=== PATIENT | male | born 1975 | race American Indian/Alaskan Native ===

== ENCOUNTER 2017-10-03 00:30 | Inpatient (IN) | payer OTHER ==
--- NOTE | 2017-10-03 01:20 | Emergency Department Report ---
HPI - General Time Seen by Provider: 10/03/17 01:00 - HPI HPI: Room 2 The patient is a 42-year-old male presenting with a chief complaint diarrhea, dizziness and chest pain. The patient was recently diagnosis (approximately 45 days ago) with HIV and found to have C4 count of 34. Patient is on antiretrovirals. Patient states for the past 2 days he's had copious diarrhea and dizziness upon standing. Family states the patient's nausea and vomiting whenever he attempts to eat for the past 2 days. Patient complains of soreness/ tightness in his chest has been intermittent and associated with shortness of breath and diaphoresis since yesterday. Patient currently denies chest pain. The patient states he's never had a stress test or cardiac catheterization. Patient admits to cocaine use 4 days ago Location: [See above] Duration: 2 days Quality: Tightness Severity: Currently 0/10 Modifying factors: [see above] Context: [see above] Mode of transportation: [not driving] ED Past Medical Hx - Past Medical History Hx HIV: Yes (CD4 34 (August 2017)) - Surgical History Past Surgical History?: No - Family History Family history: no significant - Social History Substance Use Type: Cocaine ED Review of Systems ROS: Stated complaint: CHEST PAIN Other details as noted in HPI Constitutional: diaphoresis Respiratory: shortness of breath Cardiovascular: chest pain Gastrointestinal: nausea, vomiting, diarrhea Physical Exam - Physical Exam Physical Exam: GENERAL: The patient is well-developed male lying on stretcher not appearing to be in acute distress HEENT: Normocephalic. Atraumatic. Extraocular motions are intact. Patient has moist mucous membranes. NECK: Supple. Trachea midline CHEST/LUNGS: Clear to auscultation. There is no respiratory distress noted. HEART/CARDIOVASCULAR: Regular. There is no tachycardia. There is no gallop rub or murmur. ABDOMEN: Abdomen is soft, nontender. Patient has normal bowel sounds. There is no abdominal distention. SKIN: There is no rash. There is no edema. There is no diaphoresis. NEURO: The patient is awake, alert, and oriented. The patient is cooperative. The patient has normal speech MUSCULOSKELETAL: There is no evidence of acute injury. ED Medical Decision Making - Lab Data Result diagrams: 10/03/17 01:14 10/03/17 01:14 Laboratory Tests 10/03/17 10/03/1718 01:14 01:14 01:14 WBC 7.2 RBC 4.47 Hgb 13.6 Hct 40.2 MCV 90 MCH 31 MCHC 34 RDW 13.8 Plt Count 195 Lymph % (Auto) 17.6 [place] % (Auto) 10.0 H Eos % (Auto) 0.7 Baso % (Auto) 0.6 Lymph # 1.3 [place] # 0.7 Eos # 0.0 Baso # 0.0 Seg Neutrophils % 71.1 H Seg Neutrophils # 5.1 Sodium 129 L Potassium 3.5 L Chloride 94.4 L Carbon Dioxide 18 L Anion Gap 20 BUN 12 Creatinine 1.0 Estimated GFR > 60 BUN/Creatinine Ratio 12 Glucose 99 Calcium 8.3 L Total Bilirubin 0.50 AST 30 ALT 18 Alkaline Phosphatase 40 Total Creatine Kinase 473 H CK-MB (CK-2) < 1.0 CK-MB (CK-2) Rel Index 0.2 Troponin T < 0.010 Total Protein 6.6 Albumin 4.0 Albumin/Globulin Ratio 1.5 Lipase 41 - EKG Data -: EKG Interpreted by Me EKG shows normal: sinus rhythm Rate: normal - EKG Data When compared to previous EKG there are: previous EKG unavailable Interpretation: other (no ischemic changes seen) - Radiology Data Radiology results: image reviewed (chest x-ray) interpreted by me: Chest x-ray- no pneumothorax. Questionable left lower lobe atelectasis - Differential Diagnosis cocaine induced chest pain, ACS, cryptosporidium, dehydration Critical care attestation.: If time is entered above; I have spent that time in minutes in the direct care of this critically ill patient, excluding procedure time. ED Disposition Clinical Impression: Chest pain, Diarrhea, Cocaine use Disposition: DC-09 OP ADMIT IP TO THIS HOSP Is pt being admited?: Yes Does the pt Need Aspirin: Yes Condition: Fair Instructions: Chest Pain (ED) Referrals: FRED GUZMAN MD [Primary Care Provider] - 3-5 Days Time of Disposition: 02:16 (hospitalist paged (Dr. Daily Prather))
[2017-10-03] MEDS ORDERED: ZOFRAN IV ONE (01:21)
[2017-10-03] MEDS ORDERED: NACL 0.9% 1000 ML 1,000 ML IV ONE (01:21)
[2017-10-03 01:27] LABS: Basophils % (Auto) 0.6 % (0.0-1.8); Eosinophils % (Auto) 0.7 % (0.0-4.3); Hematocrit 40.2 % (35.5-45.6); Hemoglobin 13.6 gm/dl (11.8-15.2); Lymphocytes # (Auto) 1.3 K/mm3 (1.2-5.4); Lymphocytes % (Auto) 17.6 % (13.4-35.0); Mean Corpuscular HGB Conc 34 % (32-34); Mean Corpuscular Hemoglobin 31 pg (28-32); Mean Corpuscular Volume 90 fl (84-94); Monocytes # (Auto) 0.7 K/mm3 (0.0-0.8); Platelet Count 195 K/mm3 (140-440); Red Blood Count 4.47 M/mm3 (3.65-5.03); Red Cell Distribution Width 13.8 % (13.2-15.2)
[2017-10-03] MEDS ORDERED: TYLENOL PO ONE (01:45)
[2017-10-03 01:53] LABS: Alanine Aminotransferase 18 units/L (7-56); BUN/Creatinine Ratio 12; Blood Urea Nitrogen 12 mg/dL (9-20); Calcium 8.3 mg/dL (8.4-10.2); Hemolysis Index 3; Lipase 41 units/L (13-60)
[2017-10-03 01:54] LABS: Creatine Kinase MB < 1.0 ng/mL (0.0-4.0)
--- NOTE | 2017-10-03 02:05 | XRay Report ---
FINAL REPORT EXAM: XR CHEST 1V AP HISTORY: chest pain COMPARISON: None available. FINDINGS: Frontal view(s) of the chest obtained. Cardiac silhouette within normal limits. Faint linear opacity left lung base likely reflecting atelectasis. No large consolidation or effusion. No pneumothorax. IMPRESSION: Faint linear opacity left lung base likely reflecting atelectasis.
[2017-10-03] MEDS ORDERED: ASPIRIN PO ONE (02:16)
[2017-10-03] MEDS ORDERED: MORPHINE IV PRN (04:16)
[2017-10-03] MEDS ORDERED: SODIUM CHLORIDE FLUSH SYRINGE 10 ML IV PRN (04:16)
--- NOTE | 2017-10-03 04:21 | History and Physical Report ---
History of Present Illness Date of examination: 10/03/17 History of present illness: 42-year-old male with history of HIV, CD4 count of 34 comes emergency room with complaints of chest pain. Pain is in the epigastric area which he describes as weight on the chest, intermittent in nature lasting for a few minutes, intensity 4/10, no radiation, cannot identify exacerbating over the counter. No shortness of breath, diaphoresis or palpitation. admits to nausea, vomting and diarrhea, multiple episodes, fever and dizziness. Review of systems Constitutional: no weight loss, chills Ears, eyes, nose, mouth and throat: no nasal congestion, no nasal discharge, no sinus pressure, no vision change, no red eye. Neck: No neck pain or rigidity. Cardiovascular: no palpitations Respiratory: No cough, shortness of breath Gastrointestinal: no abdominal pain, hematochezia Genitourinary : no dysuria, frequency , no hematuria Musculoskeletal: no joint swelling or muscle ache Integumentary: no rash, no pruritis Neurological: no parathesias, no numbness, no focal weakness Endocrine: no cold or heat intolerance, no polyuria or polydipsia Hematologic/Lymphatic: no easy bruising, no easy bleeding, no gland swelling Allergic/Immunologic: no urticaria, no angioedema. PAST MEDICAL HISTORY: HIV PAST SURGICAL HISTORY: None SOCIAL HISTORY: Admits to tobacco, alcohol, cocaine use FAMILY HISTORY: Hypertension Medications and Allergies Allergies Allergy/AdvReac Type Severity Reaction Status Date / Time No Known Allergies Allergy Verified 10/03/17 04:21 Exam - Physical Exam Narrative exam: Gen. appearance: Patient lying in bed, no apparent distress HEENT: Normocephalic, atraumatic, pupils equally round and reactive to light, extraocular movement intact, and no sclericterus,. No JVD or thyromegaly or nodule,neck supple, no carotid bruit ,mucous membranes moist, no exudate or erythema Heart: S1, S2, regular rate and rhythm Lungs: Clear to auscultation bilaterally, breathing comfortable Abdomen: Positive bowel sounds, nontender, nondistended, no organomegaly Extremity: No edema, cyanosis, clubbing Skin: No rash, nodules, warm, dry Neuro: Oriented 3, cranial nerves II-12 intact, speech is fluent, motor and sensory intact - Constitutional Vitals: Temp Pulse Resp BP Pulse Ox 102.3 F H 83 18 112/71 97 10/03/17 01:27 10/03/17 01:27 10/03/17 01:27 10/03/17 01:27 10/03/17 01:27 Results - Labs CBC & Chem 7: 10/03/17 01:14 10/03/17 01:14 Labs: Abnormal lab results 10/03/17 10/03/17 10/03/17 Range/Units 01:14 01:14 01:14 [place] % (Auto) 10.0 H (0.0-7.3) % Seg Neutrophils % 71.1 H (40.0-70.0) % Sodium 129 L (137-145) mmol/L Potassium 3.5 L (3.6-5.0) mmol/L Chloride 94.4 L (98-107) mmol/L Carbon Dioxide 18 L (22-30) mmol/L Calcium 8.3 L (8.4-10.2) mg/dL Total Creatine Kinase 473 H (55-170) units/L - Imaging and Cardiology EKG: image reviewed Chest x-ray: image reviewed Assessment and Plan Assessment Chest pain, rule out ACS Nausea vomiting diarrhea, rule out HIV related infection Substance Abuse AIDS Plan Admit to medicine Check cardiac enzymes, stress test Check stool studies, start IV morphine, IV fluid DVT prophalaxis
[2017-10-03 05:00] LABS: Creatine Kinase MB < 1.0 ng/mL (0.0-4.0)
[2017-10-03 08:52] LABS: Bilirubin,Urine NEG (Negative); Blood,Urine NEG (Negative); Color,Urine Yellow (Yellow); Mucus,Urine FEW /HPF
[2017-10-03] MEDS ORDERED: LEXISCAN IV ONE (09:58)
--- NOTE | 2017-10-03 09:59 | Event Note ---
Date: 10/03/17 Atypical with neg. stress thallium Nausea vomiting diarrhea, rule out HIV related infection Substance Abuse AIDS Plan Check cardiac enzymes, stress test Check stool studies, start IV morphine, IV fluid DVT prophalaxis
[2017-10-03] MEDS ORDERED: LOVENOX SUB-Q SCH (10:00)
[2017-10-03] MEDS: SODIUM CHLORIDE FLUSH SYRINGE 10 ML IV SCH (11:22)
[2017-10-03] MEDS: LOVENOX SUB-Q SCH (11:34)
[2017-10-03] MEDS: TYLENOL PO PRN (11:34)
--- NOTE | 2017-10-03 14:54 | Treadmill Report ---
NUCLEAR PERFUSION SCAN. PROTOCOL: The patient was brought to the stress lab in a post-absorptive state, given 10 mCi of technetium at rest. The patient underwent rest imaging. The patient underwent Lexiscan stress test per standard protocol. At peak stress, the patient 26 mCi of technetium shortly after stress imaging. Technically somewhat difficult study due to GI artifact. Grossly, there is no evidence of a significant fixed or reversible perfusion defects suggestive of prior infarction or ischemia. Inferior wall was partially obscured by GI artifact. Gated wall motion reveals normal systolic thickening, calculated ejection fraction of 72%. No TID. CONCLUSIONS: 1. Technically difficult study, but probably normal without evidence of significant degree of ischemia or prior infarction. 2. Normal left ventricular systolic performance without evidence of stress-induced segmental wall motion abnormalities or transient ischemic dilation. JOB# [id number] GINNY/LUCRETIA
--- NOTE | 2017-10-03 16:58 | Progress Note ---
Assessment and Plan Atypical with neg. stress thallium Nausea vomiting diarrhea, rule out HIV related infection Hyponatremia Substance Abuse AIDS Plan NS infusion Check cardiac enzymes, stress test - negative Check stool studies, start IV morphine, IV fluid check am lab DVT prophalaxis disposition: Improve Na level and D/c home likely tomorrow Subjective Date of service: 10/03/17 Principal diagnosis: chest pain, diarrhea Interval history: no more chest pain. diarrhea resolving Objective - Constitutional Vitals: Vital Signs - 12hr 10/03/17 10/03/17 10/03/17 05:00 05:16 05:30 Temperature Pulse Rate 68 60 63 Respiratory 18 16 18 Rate Blood Pressure 100/65 100/65 97/64 Blood Pressure [Left] O2 Sat by Pulse 99 100 100 Oximetry 10/03/17 10/03/17 10/03/17 05:45 06:00 06:16 Temperature Pulse Rate 62 62 59 L Respiratory 19 19 16 Rate Blood Pressure 97/64 89/61 89/61 Blood Pressure [Left] O2 Sat by Pulse 100 100 100 Oximetry 10/03/17 10/03/17 10/03/17 06:30 07:16 10:01 Temperature Pulse Rate 62 66 87 Respiratory 19 15 Rate Blood Pressure 95/63 121/69 Blood Pressure 104/61 [Left] O2 Sat by Pulse 100 100 Oximetry 10/03/17 10/03/17 10/03/17 10:08 10:09 10:10 Temperature Pulse Rate 109 H 111 H 107 H Respiratory Rate Blood Pressure 121/69 117/73 120/77 Blood Pressure [Left] O2 Sat by Pulse Oximetry 10/03/17 10/03/17 10/03/17 10:11 10:12 10:13 Temperature Pulse Rate 105 H 103 H 102 H Respiratory Rate Blood Pressure 124/73 120/80 139/73 Blood Pressure [Left] O2 Sat by Pulse Oximetry 10/03/17 10/03/17 11:26 13:30 Temperature 100.3 F H Pulse Rate 89 79 Respiratory 24 21 Rate Blood Pressure Blood Pressure 112/64 99/52 [Left] O2 Sat by Pulse 99 98 Oximetry General appearance: Present: no acute distress, well-nourished - EENT Eyes: PERRL, EOM intact - Neck Neck: supple, normal ROM - Respiratory Respiratory effort: normal Respiratory: bilateral: CTA - Cardiovascular Rhythm: regular Heart Sounds: Present: S1 & S2. Absent: gallop, rub Extremities: pulses intact, No edema, normal color, Full ROM - Gastrointestinal General gastrointestinal: Present: soft, non-tender, non-distended, normal bowel sounds - Integumentary Integumentary: clear, warm, dry - Musculoskeletal Musculoskeletal: 1, strength equal bilaterally - Neurologic Neurologic: moves all extremities - Psychiatric Psychiatric: memory intact, appropriate mood/affect, intact judgment & insight - Labs CBC & Chem 7: 10/03/17 01:14 10/03/17 01:14 Labs: Abnormal lab results 10/03/17 10/03/17 10/03/17 Range/Units 01:14 01:14 01:14 [place] % (Auto) 10.0 H (0.0-7.3) % Seg Neutrophils % 71.1 H (40.0-70.0) % D-Dimer (0-234) ng/mlDDU Sodium 129 L (137-145) mmol/L Potassium 3.5 L (3.6-5.0) mmol/L Chloride 94.4 L (98-107) mmol/L Carbon Dioxide 18 L (22-30) mmol/L Calcium 8.3 L (8.4-10.2) mg/dL Total Creatine Kinase 473 H (55-170) units/L 10/03/17 10/03/17 Range/Units 04:26 06:08 [place] % (Auto) (0.0-7.3) % Seg Neutrophils % (40.0-70.0) % D-Dimer 614.10 H (0-234) ng/mlDDU Sodium (137-145) mmol/L Potassium (3.6-5.0) mmol/L Chloride (98-107) mmol/L Carbon Dioxide (22-30) mmol/L Calcium (8.4-10.2) mg/dL Total Creatine Kinase 452 H (55-170) units/L
[2017-10-03] MEDS: NACL 0.9% 1000 ML 1,000 ML IV SCH (18:45)
[2017-10-04] MEDS: SODIUM CHLORIDE FLUSH SYRINGE 10 ML IV SCH ×3 (00:58→22:18)
--- NOTE | 2017-10-04 02:19 | Progress Note ---
Assessment and Plan Assessment and plan: 42-year-old male with history of HIV, CD4 count of 34 pw CP Sepsis/PNA -possible CAP, PCP vs IRIS -continue abx, ID input appreciated Atypical CP with neg. stress thallium ; no further workup elevated D-dimer; cta chest neg for pe diarrhea, rule out HIV related infection; stool studies ordered, empiric rx with flagyl; CT A/P Hyponatremia; continue NS Substance Abuse; denies current abuse, was counseled AIDS, started on HAART at [facility] 3wks prior to admision; continue HAART, ID consulted History Interval history: Had fever of 103 and Review of systems Constitutional: Admits fatigue and malaise CVS: No chest pain, no orthopnea, no dyspnea on exertion, no pedal edema GI: No abdominal pain, admits diarrhea, vomiting now resolved, no constipation Respiratory: reports sob and cough Hospitalist Physical - Physical exam Narrative exam: General.: Appears well, moderate distress, appears ill HEENT: Moist mucous membranes, extraocular muscles intact, no lymphadenopathy Neck: supple Cardiac: S1-S2 heard Lungs: Crackles in right lung Abdomen: soft , nontender, nondistended, bowel sounds positive Extremities: no edema clubbing or cyanosis Skin: no rash or lesions Neurologic: no gross focal deficits Psych: appropriate behavior, appropriate mood, corporative, judgment intact - Constitutional Vitals: Temp Pulse Resp BP Pulse Ox 98.0 F 96 H 18 111/63 92 10/03/17 23:42 10/03/17 23:42 10/03/17 23:42 10/03/17 23:42 10/03/17 23:42 General appearance: Present: no acute distress, well-nourished Results - Labs CBC & Chem 7: 10/09/17 08:26 10/09/17 08:26 Labs: Laboratory Last Values WBC 7.2 K/mm3 (4.5-11.0) 10/03/17 01:14 RBC 4.47 M/mm3 (3.65-5.03) 10/03/17 01:14 Hgb 13.6 gm/dl (11.8-15.2) 10/03/17 01:14 Hct 40.2 % (35.5-45.6) 10/03/17 01:14 MCV 90 fl (84-94) 10/03/17 01:14 MCH 31 pg (28-32) 10/03/17 01:14 MCHC 34 % (32-34) 10/03/17 01:14 RDW 13.8 % (13.2-15.2) 10/03/17 01:14 Plt Count 195 K/mm3 (140-440) 10/03/17 01:14 Lymph % (Auto) 17.6 % (13.4-35.0) 10/03/17 01:14 [place] % (Auto) 10.0 % (0.0-7.3) H 10/03/17 01:14 Eos % (Auto) 0.7 % (0.0-4.3) 10/03/17 01:14 Baso % (Auto) 0.6 % (0.0-1.8) 10/03/17 01:14 Lymph # 1.3 K/mm3 (1.2-5.4) 10/03/17 01:14 [place] # 0.7 K/mm3 (0.0-0.8) 10/03/17 01:14 Eos # 0.0 K/mm3 (0.0-0.4) 10/03/17 01:14 Baso # 0.0 K/mm3 (0.0-0.1) 10/03/17 01:14 Seg Neutrophils % 71.1 % (40.0-70.0) H 10/03/17 01:14 Seg Neutrophils # 5.1 K/mm3 (1.8-7.7) 10/03/17 01:14 D-Dimer 614.10 ng/mlDDU (0-234) H 10/03/17 06:08 Sodium 129 mmol/L (137-145) L 10/03/17 01:14 Potassium 3.5 mmol/L (3.6-5.0) L 10/03/17 01:14 Chloride 94.4 mmol/L (98-107) L 10/03/17 01:14 Carbon Dioxide 18 mmol/L (22-30) L 10/03/17 01:14 Anion Gap 20 mmol/L 10/03/17 01:14 BUN 12 mg/dL (9-20) 10/03/17 01:14 Creatinine 1.0 mg/dL (0.8-1.5) 10/03/17 01:14 Estimated GFR > 60 ml/min 10/03/17 01:14 BUN/Creatinine Ratio 12 % 10/03/17 01:14 Glucose 99 mg/dL (75-100) 10/03/17 01:14 Calcium 8.3 mg/dL (8.4-10.2) L 10/03/17 01:14 Total Bilirubin 0.50 mg/dL (0.1-1.2) 10/03/17 01:14 AST 30 units/L (5-40) 10/03/17 01:14 ALT 18 units/L (7-56) 10/03/17 01:14 Alkaline Phosphatase 40 units/L (35-129) 10/03/17 01:14 Total Creatine Kinase 452 units/L (55-170) H 10/03/17 04:26 CK-MB (CK-2) < 1.0 ng/mL (0.0-4.0) 10/03/17 04:26 CK-MB (CK-2) Rel Index 0.2 (0-4) 10/03/17 04:26 Troponin T < 0.010 ng/mL (0.00-0.029) 10/03/17 07:42 Total Protein 6.6 g/dL (6.3-8.2) 10/03/17 01:14 Albumin 4.0 g/dL (3.9-5) 10/03/17 01:14 Albumin/Globulin Ratio 1.5 % 10/03/17 01:14 Lipase 41 units/L (13-60) 10/03/17 01:14 Urine Color Yellow (Yellow) 10/03/17 Unknown Urine Turbidity Clear (Clear) 10/03/17 Unknown Urine pH 5.0 (5.0-7.0) 10/03/17 Unknown Ur Specific [place] 1.024 (1.003-1.030) 10/03/17 Unknown Urine Protein 30 mg/dl mg/dL (Negative) 10/03/17 Unknown Urine Glucose (UA) Neg mg/dL (Negative) 10/03/17 Unknown Urine Ketones 20 mg/dL (Negative) 10/03/17 Unknown Urine Blood Neg (Negative) 10/03/17 Unknown Urine Nitrite Neg (Negative) 10/03/17 Unknown Urine Bilirubin Neg (Negative) 10/03/17 Unknown Urine Urobilinogen 4.0 mg/dL (<2.0) 10/03/17 Unknown Ur Leukocyte Esterase Neg (Negative) 10/03/17 Unknown Urine WBC (Auto) 1.0 /HPF (0.0-6.0) 10/03/17 Unknown Urine RBC (Auto) 2.0 /HPF (0.0-6.0) 10/03/17 Unknown Urine Mucus Few /HPF 10/03/17 Unknown
--- NOTE | 2017-10-04 05:42 | Cat Scan Report ---
FINAL REPORT PROCEDURE: CT ANGIO CHEST TECHNIQUE: Computerized axial tomographic angiography of the chest and pulmonary arteries was performed after the IV injection of iodinated nonionic contrast. The image data was postprocessed using maximum intensity projection (MIP) and 2-dimensional multiplanar reformatted (MPR) techniques. The examination is specifically tailored to the evaluation of the pulmonary arteries per clinical request. HISTORY: Short of breath 786.09, chest pain 786.50, cp, suspect PE COMPARISON: No prior studies are available for comparison. FINDINGS: Heart and pericardium: Normal. Thoracic aorta: The thoracic aorta is normal in caliber. There is no aneurysm or dissection.. Pulmonary vasculature: Normal. No pulmonary emboli. Lymph nodes: No enlarged thoracic lymph nodes. Lungs: The lungs are well-expanded. There are multifocal bilateral pulmonary infiltrates predominantly in the right lower lung.. Pleural space: There is no pleural effusion or pneumothorax.. Musculoskeletal structures: No significant abnormality. Upper abdominal structures: No significant abnormality. IMPRESSION: There is no pulmonary embolism.. The thoracic aorta is normal in caliber. There is no aneurysm or dissection.. The lungs are well-expanded. There are multifocal bilateral pulmonary infiltrates predominantly in the right lower lung.. There is no pleural effusion or pneumothorax..
[2017-10-04 08:30] LABS: Basophils % (Auto) 0.4 % (0.0-1.8); Eosinophils % (Auto) 0.8 % (0.0-4.3); Hematocrit 37.2 % (35.5-45.6); Hemoglobin 12.8 gm/dl (11.8-15.2); Lymphocytes # (Auto) 1.4 K/mm3 (1.2-5.4); Mean Corpuscular HGB Conc 34 % (32-34); Mean Corpuscular Hemoglobin 31 pg (28-32); Mean Corpuscular Volume 89 fl (84-94); Monocytes # (Auto) 0.7 K/mm3 (0.0-0.8); Monocytes % (Auto) 11.2 % (0.0-7.3); Platelet Count 179 K/mm3 (140-440); Red Blood Count 4.17 M/mm3 (3.65-5.03); Red Cell Distribution Width 13.9 % (13.2-15.2)
[2017-10-04 08:41] LABS: BUN/Creatinine Ratio 9; Blood Urea Nitrogen 8 mg/dL (9-20); Calcium 7.7 mg/dL (8.4-10.2); Hemolysis Index 11
[2017-10-04] MEDS: TYLENOL PO PRN ×2 (09:03→19:54)
[2017-10-04] MEDS ORDERED: ROCEPHIN/NS 1 GM/50 ML 1 GM/50 ML BAG IV SCH ×2 (11:00→19:00)
[2017-10-04] MEDS ORDERED: IMODIUM PO PRN (11:04)
[2017-10-04] MEDS: LOVENOX SUB-Q SCH (11:24)
[2017-10-04] MEDS: ZITHROMAX 500 MG in NACL 0.9% 250ML 250 ML IV SCH (11:56)
--- NOTE | 2017-10-04 14:10 | XRay Report ---
CHEST 2 VIEWS INDICATION: Fever. COMPARISON: Yesterday. FINDINGS: Frontal and lateral chest radiographs now suggest mild bibasilar haziness, possibly atelectasis or subtle effusions. Mild fluid/thickening along the fissures also noted. No cephalization however. Normal cardiomediastinal silhouette. Unremarkable bones. CONCLUSION: Slight congestion possibly developing, as described. Please correlate. Thank you for the opportunity to participate in this patient's care.
[2017-10-04] MEDS: FLAGYL 500 MG/100 ML 500 MG/100 ML BAG IV SCH ×2 (15:15→21:50)
[2017-10-04] MEDS: NACL 0.9% 1000 ML 1,000 ML IV SCH (15:18)
--- NOTE | 2017-10-04 17:43 | Consultation ---
History of Present Illness - Reason for Consult Consult date: 10/04/17 Requesting physician: HECTOR BUENO - History of Present Illness HPI: 42 yo M PMH syphilis, HIV/AIDS diagnosed earlier this year, CD4 34, currently on HAART (truvada and prezcobix), also on bactrim 2 tab po q8h who presented to the ER c/o 2 days h/o of chest pain, fever, chills, N/V/D, abdominal pain. Also c/o chronic cough, SOB. Denies dysuria, MONTOYA. In the ER T 102.3, pulse 87, respiratory rate 17, saturation 95%, blood pressure 110/71. Labs showed WBC 7.2, hemoglobin and hematocrit 13.6 and 40.2, platelets 195. Bun and creatinine were 12 and 1.0. WBC in stool was negative. Stool culture is pending. Blood cultures are no growth to date. CT of the chest on 10/04 showed multifocal bilateral lung infiltrates mostly on the right lower lung. Patient was started on ceftriaxone, azithromycin and Flagyl. Infectious diseases is consulted to help with further antibiotic management. Microbiology BCx 10/03/17 NGTD Stool WBC negative Stool Cx 10/04 pending Antibiotics Ceftriaxone 10/04 Azithromycin 10/04 Flagyl 10/04 Past History Past Medical History: other (HIV/AIDS) Medications and Allergies Allergies Allergy/AdvReac Type Severity Reaction Status Date / Time No Known Allergies Allergy Verified 10/03/17 04:21 Home Medications Medication Instructions Recorded Confirmed Last Taken Type Darunavir/Cobicistat [Prezcobix 1 each PO DAILY 10/03/17 10/03/17 10/02/17 History 800 mg-150 mg Tablet] Emtricitabin/Tenofovir [TRUVADA 1 tab PO QDAY 10/03/17 10/03/17 10/02/17 History 200-300 mg] Fluconazole [Diflucan TAB] 100 mg PO QDAY 10/03/17 10/03/17 10/02/17 History Sulfamethoxazole/Trimethoprim 2 each PO TID 10/03/17 10/03/17 10/02/17 History [Bactrim Ds Tablet] Active Meds: Active Medications Acetaminophen (Tylenol) 650 mg PO Q4H PRN PRN Reason: Pain MILD(1-3)/Fever >100.5/MONTOYA Last Admin: 10/04/17 09:03 Dose: 650 mg Enoxaparin Sodium (Lovenox) 40 mg SUB-Q QDAY@1000 VALENCIA Last Admin: 10/04/17 11:24 Dose: 40 mg Sodium Chloride (Nacl 0.9% 1000 Ml) 1,000 mls @ 125 mls/hr IV DIRECT VALENCIA Last Admin: 10/04/17 15:18 Dose: 125 mls/hr Sodium Chloride (Nacl 0.9% 1000 Ml) 1,000 mls @ 150 mls/hr IV DIRECT VALENCIA Last Admin: 10/03/17 18:45 Dose: 150 mls/hr Azithromycin 500 mg/ Sodium (Chloride) 250 mls @ 250 mls/hr IV Q24HR [facility] Last Admin: 10/04/17 11:56 Dose: 250 mls/hr Ceftriaxone Sodium 1 gm/ (Sodium Chloride) 20 mls @ 2 mls/min IV Q24HR VALENCIA Metronidazole (Flagyl 500 Mg/100 Ml) 500 mg in 100 mls @ 100 mls/hr IV Q8HR [facility] Last Admin: 10/04/17 15:15 Dose: 100 mls/hr Loperamide HCl (Imodium) 2 mg PO Q2H PRN PRN Reason: Diarrhea Last Admin: 10/04/17 12:00 Dose: 2 mg Morphine Sulfate (Morphine) 2 mg IV Q4H PRN PRN Reason: Pain, Moderate (4-6) Ondansetron HCl (Zofran) 4 mg IV Q8H PRN PRN Reason: Nausea And Vomiting Sodium Chloride (Sodium Chloride Flush Syringe 10 Ml) 10 ml IV BID [facility] Last Admin: 10/04/17 15:17 Dose: 10 ml Sodium Chloride (Sodium Chloride Flush Syringe 10 Ml) 10 ml IV PRN PRN PRN Reason: LINE FLUSH Review of Systems Constitutional: other (As per HPI) Physical Examination - Physical Exam Narrative exam: General appearance: Alert in NAD, conversant Eyes: anicteric sclerae, moist conjunctivae; no lid-lag; PERRLA HENT: Atraumatic; oropharynx clear with moist mucous membranes and no mucosal ulcerations/no oral thrush; normal hard and soft palate. Normal external ears. Neck: Trachea midline; supple, no thyromegaly or lymphadenopathy Lungs: CTA, with normal respiratory effort and no intercostal retractions CV: RRR, no murmurs Abdomen: Soft, non-tender; no masses or hepatosplenomegaly Extremities: No peripheral edema or extremity lymphadenopathy Skin: Normal temperature, turgor and texture; no rash, ulcers or subcutaneous nodules Psych: Appropriate affect, alert and oriented to person, place and time. Neuro: alert and oriented x 3. Moving all extremities Lines: No CVL / PICC - Constitutional Vitals: Vital Signs Temp Pulse Resp BP Pulse Ox 100.4 F H 84 20 106/60 93 10/04/17 15:40 10/04/17 15:40 10/04/17 15:40 10/04/17 15:40 10/04/17 15:40 Temperature -Last 24 Hours Temperature 100.4 F Temperature 98.9 F Temperature 102.9 F Temperature 103.3 F Temperature 97.9 F Temperature 98.0 F Temperature 98.3 F Results - Labs CBC & Chem 7: 10/04/17 07:49 10/04/17 07:49 Labs: Abnormal lab results 10/04/17 10/04/17 Range/Units 07:49 07:49 [place] % (Auto) 11.2 H (0.0-7.3) % Sodium 128 L (137-145) mmol/L Chloride 95.9 L (98-107) mmol/L Carbon Dioxide 17 L (22-30) mmol/L BUN 8 L (9-20) mg/dL Calcium 7.7 L (8.4-10.2) mg/dL Assessment and Plan Assessment: 1) Acute fever and Bilateral lung infiltrates in AIDS patient. Could be CAP, PJP although not hypoxic, atypical. Of note pt has been taking bactrim as outpatient in treatment dose, unclear why. 3) Acute N/V/D. r/o C diff. Other opportunistic infections also on the differential: cryptosporidium, cyclospora, isospora, etc. 4) Acute atypical chest pain. Negative stress test 3) HIV/AIDS. CD4 34. On HAART Recommendations -Check C diff -Continue flagyl pending C diff -Will f/u stool cx -Continue Ceftriaxone and azithromycin -Start Bactrim -Check CD4 and HIV-VL. -Check Legionella ag and Pneumococcal ag -Continue HAART (pt taking his home mds) Thank you for your consultation, will follow up with you. Aurea Figueroa MD Infectious Diseases Specialist [facility] ([facility] [phone]
[2017-10-04] MEDS: ZOFRAN IV PRN (19:45)
[2017-10-04] MEDS: cefTRIAXone 1 GM in NACL 0.9% 20 ML IV SCH (19:46)
[2017-10-05] MEDS: NACL 0.9% 1000 ML 1,000 ML IV SCH ×2 (00:56→10:31)
[2017-10-05] MEDS: ZOFRAN IV PRN (05:49)
[2017-10-05] MEDS: TYLENOL PO PRN ×2 (05:49→16:52)
[2017-10-05] MEDS: FLAGYL 500 MG/100 ML 500 MG/100 ML BAG IV SCH ×2 (05:50→16:00)
[2017-10-05] MEDS ORDERED: BACTRIM DS PO SCH ×2 (10:00→14:00)
[2017-10-05] MEDS: cefTRIAXone 1 GM in NACL 0.9% 20 ML IV SCH (10:33)
[2017-10-05] MEDS: LOVENOX SUB-Q SCH (10:33)
[2017-10-05] MEDS: SODIUM CHLORIDE FLUSH SYRINGE 10 ML IV SCH ×2 (10:34→21:36)
[2017-10-05] MEDS: ZITHROMAX 500 MG in NACL 0.9% 250ML 250 ML IV SCH (11:08)
[2017-10-05] MEDS ORDERED: ROCEPHIN/NS 1 GM/50 ML 1 GM/50 ML BAG IV SCH (12:00)
[2017-10-05] MEDS ORDERED: cefTRIAXone 1 GM in NACL 0.9% 20 ML IV SCH (12:00)
--- NOTE | 2017-10-05 13:08 | Progress Note ---
Assessment and Plan Assessment: 1) Acute fever and Bilateral lung infiltrates in AIDS patient. Could be CAP, PJP , atypical. Of note pt has been taking bactrim as outpatient in treatment dose, unclear why. It was prescribed by his regular HIV provider. 3) Acute N/V/D. r/o C diff. Other opportunistic infections also on the differential: cryptosporidium, cyclospora, isospora, etc. With diarrhea, pneumonia and hyponatremia, other possibility is Legionella (on azithromycin). 4) Acute atypical chest pain. Negative stress test 3) HIV/AIDS. CD4 34. On HAART Recommendations -Check C diff -Continue flagyl pending C diff -Will f/u stool cx -Continue azithromycin, bactrim increased to TID, -Stop ceftriaxone -Start cefepime, add vancomycin -Will f/u CD4 and HIV-VL. -Check Legionella ag and Pneumococcal ag, sputum cx. -Continue HAART (pt taking his home mds) -Check LDH. -d/w pt and RN. Aurea Figueroa MD Infectious Diseases Specialist [facility] ([facility]) [phone] Subjective Date of service: 10/05/17 Principal diagnosis: chest pain, diarrhea Interval history: Febrile. c/o cough, SOB, poor appetite. No diarrhea today. Microbiology BCx 10/03/17 NGTD Stool WBC negative Stool Cx 10/04 pending Antibiotics Ceftriaxone 10/04 Azithromycin 6 Flagyl 10/04 Objective - Exam Narrative Exam: General appearance: Alert in NAD, conversant Eyes: anicteric sclerae, moist conjunctivae; no lid-lag; PERRLA HENT: Atraumatic; oropharynx clear with moist mucous membranes and no mucosal ulcerations/no oral thrush; normal hard and soft palate. Normal external ears. Neck: Trachea midline; supple, no thyromegaly or lymphadenopathy Lungs: CTA B CV: S1,S2. Abdomen: Soft, non-tender; no masses or hepatosplenomegaly Extremities: No peripheral edema or extremity lymphadenopathy Skin: Normal temperature, turgor and texture; no rash, ulcers or subcutaneous nodules Psych: Appropriate affect, alert and oriented to person, place and time. Neuro: alert and oriented x 3. Moving all extremities Lines: No CVL / PICC - Constitutional Vitals: Vital Signs Temp Pulse Resp BP Pulse Ox 97.6 F 62 20 116/83 98 04/07/18 07:44 10/05/17 07:44 10/05/17 07:44 10/05/17 07:44 10/05/17 11:31 Temperature -Last 24 Hours Temperature 97.6 F Temperature 98.9 F Temperature 103.0 F Temperature 99.5 F Temperature 103.1 F Temperature 100.4 F - Labs CBC & Chem 7: 10/04/17 07:49 10/04/17 07:49
[2017-10-05] MEDS ORDERED: MAXIPIME/NS 2 GM/100 ML 2 GM/100 ML BAG IV SCH (14:00)
[2017-10-05] MEDS ORDERED: VANCOMYCIN PHARMACY TO DOSE IV SCH (14:00)
[2017-10-05 14:17] LABS: Hematocrit 39.3 % (35.5-45.6); Hemoglobin 13.2 gm/dl (11.8-15.2); Mean Corpuscular HGB Conc 34 % (32-34); Mean Corpuscular Hemoglobin 30 pg (28-32); Mean Corpuscular Volume 90 fl (84-94); Platelet Count 202 K/mm3 (140-440); Red Blood Count 4.37 M/mm3 (3.65-5.03); Red Cell Distribution Width 13.8 % (13.2-15.2)
[2017-10-05 14:47] LABS: BUN/Creatinine Ratio 9; Blood Urea Nitrogen 6 mg/dL (9-20); Calcium 8.1 mg/dL (8.4-10.2); Hemolysis Index 5
[2017-10-05] MEDS: VANCOMYCIN 2,000 MG in NACL 0.9% 500 ML 500 ML IV SCH (14:52)
[2017-10-05] MEDS: MAXIPIME 2 GM in NACL 0.9% 20 ML IV SCH ×2 (14:54→21:29)
[2017-10-05 15:10] LABS: Basophils % (Manual) 0 % (0.0-1.8); Total Cells Counted 100
[2017-10-05 15:11] LABS: Giant Platelets Few; Large Platelets Few; Platelet Estimate Cons
[2017-10-05] MEDS: BACTRIM DS PO SCH ×2 (15:59→21:29)
[2017-10-05] MEDS ORDERED: LOMOTIL PO PRN (18:08)
--- NOTE | 2017-10-05 19:15 | Progress Note ---
Assessment and Plan Assessment and plan: 42-year-old male with history of HIV, CD4 count of 34 pw CP Sepsis/PNA -possible CAP, PCP vs IRIS -continue abx, ID input appreciated Atypical CP with neg. stress thallium ; no further workup elevated D-dimer; cta chest neg for pe diarrhea, rule out HIV related infection; stool studies ordered, empiric rx with flagyl; CT A/P Hyponatremia; continue NS Substance Abuse; denies current abuse, was counseled AIDS, started on HAART at [facility] 3wks prior to admision; continue HAART, ID consulted History Interval history: Had fever of 103 and Review of systems Constitutional: Admits fatigue and malaise CVS: No chest pain, no orthopnea, no dyspnea on exertion, no pedal edema GI: No abdominal pain, admits diarrhea, vomiting now resolved, no constipation Respiratory: reports sob and cough Hospitalist Physical - Physical exam Narrative exam: General.: Appears well, moderate distress, appears ill HEENT: Moist mucous membranes, extraocular muscles intact, no lymphadenopathy Neck: supple Cardiac: S1-S2 heard Lungs: Crackles in right lung Abdomen: soft , nontender, nondistended, bowel sounds positive Extremities: no edema clubbing or cyanosis Skin: no rash or lesions Neurologic: no gross focal deficits Psych: appropriate behavior, appropriate mood, corporative, judgment intact - Constitutional Vitals: Temp Pulse Resp BP Pulse Ox 100.8 F H 93 H 18 123/67 93 10/05/17 18:44 10/05/17 16:43 10/05/17 16:43 10/05/17 16:43 10/05/17 16:43 General appearance: Present: no acute distress, well-nourished Results - Labs CBC & Chem 7: 10/09/17 08:26 10/09/17 08:26 Labs: Laboratory Last Values WBC 5.1 K/mm3 (4.5-11.0) 10/05/17 13:59 RBC 4.37 M/mm3 (3.65-5.03) 10/05/17 13:59 Hgb 13.2 gm/dl (11.8-15.2) 10/05/17 13:59 Hct 39.3 % (35.5-45.6) 10/05/17 13:59 MCV 90 fl (84-94) 10/05/17 13:59 MCH 30 pg (28-32) 10/05/17 13:59 MCHC 34 % (32-34) 10/05/17 13:59 RDW 13.8 % (13.2-15.2) 10/05/17 13:59 Plt Count 202 K/mm3 (140-440) 10/05/17 13:59 Lymph % (Auto) 24.0 % (13.4-35.0) 10/04/17 07:49 [place] % (Auto) 11.2 % (0.0-7.3) H 10/04/17 07:49 Eos % (Auto) 0.8 % (0.0-4.3) 10/04/17 07:49 Baso % (Auto) 0.4 % (0.0-1.8) 10/04/17 07:49 Lymph # 1.4 K/mm3 (1.2-5.4) 10/04/17 07:49 [place] # 0.7 K/mm3 (0.0-0.8) 10/04/17 07:49 Eos # 0.0 K/mm3 (0.0-0.4) 10/04/17 07:49 Baso # 0.0 K/mm3 (0.0-0.1) 10/04/17 07:49 Add Manual Diff Complete 10/05/17 13:59 Total Counted 100 10/05/17 13:59 Seg Neutrophils % 63.6 % (40.0-70.0) 10/04/17 07:49 Seg Neuts % (Manual) 70.0 % (40.0-70.0) 10/05/17 13:59 Band Neutrophils % 0 % 10/05/17 13:59 Lymphocytes % (Manual) 14.0 % (13.4-35.0) 10/05/17 13:59 Reactive Lymphs % (Man) 2.0 % 10/05/17 13:59 Monocytes % (Manual) 11.0 % (0.0-7.3) H 10/05/17 13:59 Eosinophils % (Manual) 3.0 % (0.0-4.3) 10/05/17 13:59 Basophils % (Manual) 0 % (0.0-1.8) 10/05/17 13:59 Metamyelocytes % 0 % 10/05/17 13:59 Myelocytes % 0 % 10/05/17 13:59 Promyelocytes % 0 % 10/05/17 13:59 Blast Cells % 0 % 10/05/17 13:59 Nucleated RBC % Not Reportable 10/05/17 13:59 Seg Neutrophils # 3.8 K/mm3 (1.8-7.7) 10/04/17 07:49 Seg Neutrophils # Man 3.6 K/mm3 (1.8-7.7) 10/05/17 13:59 Band Neutrophils # 0.0 K/mm3 10/05/17 13:59 Lymphocytes # (Manual) 0.7 K/mm3 (1.2-5.4) L 10/05/17 13:59 Abs React Lymphs (Man) 0.1 K/mm3 10/05/17 13:59 Monocytes # (Manual) 0.6 K/mm3 (0.0-0.8) 10/05/17 13:59 Eosinophils # (Manual) 0.2 K/mm3 (0.0-0.4) 10/05/17 13:59 Basophils # (Manual) 0.0 K/mm3 (0.0-0.1) 10/05/17 13:59 Metamyelocytes # 0.0 K/mm3 10/05/17 13:59 Myelocytes # 0.0 K/mm3 10/05/17 13:59 Promyelocytes # 0.0 K/mm3 10/05/17 13:59 Blast Cells # 0.0 K/mm3 10/05/17 13:59 WBC Morphology Not Reportable 10/05/17 13:59 Hypersegmented Neuts Not Reportable 10/05/17 13:59 Hyposegmented Neuts Not Reportable 10/05/17 13:59 Hypogranular Neuts Not Reportable 10/05/17 13:59 Smudge Cells Not Reportable 10/05/17 13:59 Toxic Granulation Not Reportable 10/05/17 13:59 Toxic Vacuolation Not Reportable 10/05/17 13:59 Dohle Bodies Not Reportable 10/05/17 13:59 Pelger-Huet Anomaly Not Reportable 10/05/17 13:59 Zora Rods Not Reportable 10/05/17 13:59 Platelet Estimate Cons 10/05/17 13:59 Clumped Platelets Not Reportable 10/05/17 13:59 Plt Clumps, EDTA Not Reportable 10/05/17 13:59 Large Platelets Few 10/05/17 13:59 Giant Platelets Few 10/05/17 13:59 Platelet Satelliting Not Reportable 10/05/17 13:59 Plt Morphology Comment Not Reportable 10/05/17 13:59 RBC Morphology Not Reportable 10/05/17 13:59 Dimorphic RBCs Not Reportable 10/05/17 13:59 Polychromasia Not Reportable 10/05/17 13:59 Hypochromasia Not Reportable 10/05/17 13:59 Poikilocytosis Not Reportable 10/05/17 13:59 Anisocytosis Not Reportable 10/05/17 13:59 Microcytosis Not Reportable 10/05/17 13:59 Macrocytosis Not Reportable 10/05/17 13:59 Spherocytes Not Reportable 10/05/17 13:59 Pappenheimer Bodies Not Reportable 10/05/17 13:59 Sickle Cells Not Reportable 10/05/17 13:59 Target Cells Not Reportable 10/05/17 13:59 Tear Drop Cells Not Reportable 10/05/17 13:59 Ovalocytes Not Reportable 10/05/17 13:59 Helmet Cells Not Reportable 10/05/17 13:59 Estrada-Newman Bodies Not Reportable 10/05/17 13:59 [place] Rings Not Reportable 10/05/17 13:59 Gibson Cells Not Reportable 10/05/17 13:59 Bite Cells Not Reportable 10/05/17 13:59 Crenated Cell Not Reportable 10/05/17 13:59 Elliptocytes Not Reportable 10/05/17 13:59 Acanthocytes (Spur) Not Reportable 10/05/17 13:59 Rouleaux Not Reportable 10/05/17 13:59 Hemoglobin C Crystals Not Reportable 10/05/17 13:59 Schistocytes Not Reportable 10/05/17 13:59 Malaria parasites Not Reportable 10/05/17 13:59 Glen Bodies Not Reportable 10/05/17 13:59 Hem Pathologist Commnt No 10/05/17 13:59 D-Dimer 614.10 ng/mlDDU (0-234) H 10/03/17 06:08 Sodium 131 mmol/L (137-145) L 10/05/17 13:59 Potassium 3.8 mmol/L (3.6-5.0) 10/05/17 13:59 Chloride 95.7 mmol/L (98-107) L 10/05/17 13:59 Carbon Dioxide 22 mmol/L (22-30) 10/05/17 13:59 Anion Gap 17 mmol/L 10/05/17 13:59 BUN 6 mg/dL (9-20) L 10/05/17 13:59 Creatinine 0.7 mg/dL (0.8-1.5) L 10/05/17 13:59 Estimated GFR > 60 ml/min 10/05/17 13:59 BUN/Creatinine Ratio 9 % 10/05/17 13:59 Glucose 96 mg/dL (75-100) 10/05/17 13:59 Calcium 8.1 mg/dL (8.4-10.2) L 10/05/17 13:59 Total Bilirubin 0.50 mg/dL (0.1-1.2) 10/03/17 01:14 AST 30 units/L (5-40) 10/03/17 01:14 ALT 18 units/L (7-56) 10/03/17 01:14 Alkaline Phosphatase 40 units/L (35-129) 10/03/17 01:14 Lactate Dehydrogenase 464 units/L (91-180) H 10/05/17 13:59 Total Creatine Kinase 452 units/L (55-170) H 10/03/17 04:26 CK-MB (CK-2) < 1.0 ng/mL (0.0-4.0) 10/03/17 04:26 CK-MB (CK-2) Rel Index 0.2 (0-4) 10/03/17 04:26 Troponin T < 0.010 ng/mL (0.00-0.029) 10/03/17 07:42 Total Protein 6.6 g/dL (6.3-8.2) 10/03/17 01:14 Albumin 4.0 g/dL (3.9-5) 10/03/17 01:14 Albumin/Globulin Ratio 1.5 % 10/03/17 01:14 Lipase 41 units/L (13-60) 10/03/17 01:14 Urine Color Yellow (Yellow) 10/03/17 Unknown Urine Turbidity Clear (Clear) 10/03/17 Unknown Urine pH 5.0 (5.0-7.0) 10/03/17 Unknown Ur Specific [place] 1.024 (1.003-1.030) 10/03/17 Unknown Urine Protein 30 mg/dl mg/dL (Negative) 10/03/17 Unknown Urine Glucose (UA) Neg mg/dL (Negative) 10/03/17 Unknown Urine Ketones 20 mg/dL (Negative) 10/03/17 Unknown Urine Blood Neg (Negative) 10/03/17 Unknown Urine Nitrite Neg (Negative) 10/03/17 Unknown Urine Bilirubin Neg (Negative) 10/03/17 Unknown Urine Urobilinogen 4.0 mg/dL (<2.0) 10/03/17 Unknown Ur Leukocyte Esterase Neg (Negative) 10/03/17 Unknown Urine WBC (Auto) 1.0 /HPF (0.0-6.0) 10/03/17 Unknown Urine RBC (Auto) 2.0 /HPF (0.0-6.0) 10/03/17 Unknown Urine Mucus Few /HPF 10/03/17 Unknown C. difficile Toxin A&B Negative (Negative) 10/04/17 11:04
[2017-10-05] MEDS: VANCOMYCIN PO PO SCH ×2 (21:30→23:57)
[2017-10-05] MEDS ORDERED: PROVENTIL IH ONE (22:40)
[2017-10-06] MEDS: TYLENOL PO PRN ×3 (00:05→23:16)
[2017-10-06] MEDS: NACL 0.9% 1000 ML 1,000 ML IV SCH ×3 (00:07→10:52)
[2017-10-06] MEDS: VANCOMYCIN 2,000 MG in NACL 0.9% 500 ML 500 ML IV SCH (01:28)
[2017-10-06] MEDS: MAXIPIME 2 GM in NACL 0.9% 20 ML IV SCH ×3 (05:39→23:15)
[2017-10-06] MEDS: BACTRIM DS PO SCH ×3 (05:40→23:16)
[2017-10-06] MEDS: VANCOMYCIN PO PO SCH ×3 (05:40→17:16)
[2017-10-06] MEDS: PROVENTIL IH SCH ×3 (08:46→20:36)
--- NOTE | 2017-10-06 10:01 | Progress Note ---
Assessment and Plan Assessment: 1) Acute fever and Bilateral lung infiltrates in AIDS patient. Could be CAP, PJP , atypical. Of note pt has been taking bactrim as outpatient in treatment dose, unclear why. It was prescribed by his regular HIV provider. Persistently febrile. -LDH high 3) Acute N/V/D. r/o C diff. Other opportunistic infections also on the differential: cryptosporidium, cyclospora, isospora, etc. With diarrhea, pneumonia and hyponatremia, other possibility is Legionella. - C diff negative. - Stool cx negative. 4) Acute atypical chest pain. Negative stress test. 3) HIV/AIDS. CD4 34 as per report. On HAART. Recommendations -Continue azithromycin, bactrim. -Continue cefepime and vancomycin. -Add levofloxacin. -Check stool for ova and parasites, cryptosporidium, isospora, cyclospora and microsporidia. -Check fungal blood cx and AFB blood cultures. -Check CT A/P to look for other potential sources of fever. -Will f/u CD4 count and HIV-VL. -Check Legionella ag and Pneumococcal ag -Check Sputum cx. -Check quantiferon. -Continue prezcobix and truvada (pt taking his home mds). -Would suggest pulmonary consult. -d/w pt and RN. Aurea Figueroa MD Infectious Diseases Specialist [facility] ([facility]) M [phone] Subjective Date of service: 10/06/17 Principal diagnosis: chest pain, diarrhea Interval history: Remains Febrile. Feels really SOB. Sat 96% on 2 lt NC. Had liquid diarrhea yesterday. Microbiology BCx 10/03/17 NGTD Stool WBC negative Stool Cx 10/04 negative. Antibiotics IV vancomycin 10/05- Cefepime 10/05- Azithromycin /- Bactrim 10/04- HAART (prezcobix and truvada, taking home meds). Prior antibiotics Ceftriaxone 10/04-10/05 Flagyl 10/04-10/05 Objective - Exam Narrative Exam: General appearance: Alert in NAD, conversant Eyes: anicteric sclerae, moist conjunctivae; no lid-lag; PERRLA HENT: Atraumatic; oropharynx clear with moist mucous membranes and no mucosal ulcerations/no oral thrush; normal hard and soft palate. Normal external ears. Neck: Trachea midline; supple, no thyromegaly or lymphadenopathy Lungs: CTA B CV: S1,S2. Abdomen: Soft, non-tender; no masses or hepatosplenomegaly Extremities: No peripheral edema or extremity lymphadenopathy Skin: Normal temperature, turgor and texture; no rash, ulcers or subcutaneous nodules Psych: Appropriate affect, alert and oriented to person, place and time. Neuro: alert and oriented x 3. Moving all extremities Lines: No CVL / PICC - Constitutional Vitals: Vital Signs Temp Pulse Resp BP Pulse Ox 102.8 F H 89 20 128/76 96 10/06/17 08:08 10/06/17 08:08 10/06/17 08:08 10/06/17 08:08 10/06/17 08:08 Temperature -Last 24 Hours Temperature 102.8 F Temperature 99.8 F Temperature 100.2 F Temperature 102.8 F Temperature 99.9 F Temperature 100.8 F Temperature 103.0 F Temperature 98.9 F - Labs CBC & Chem 7: 10/05/17 13:59 10/05/17 13:59 Labs: Abnormal lab results 10/05/17 10/05/17 10/05/17 Range/Units 13:59 13:59 13:59 Monocytes % (Manual) 11.0 H (0.0-7.3) % Lymphocytes # (Manual) 0.7 L (1.2-5.4) K/mm3 Sodium 131 L (137-145) mmol/L Chloride 95.7 L (98-107) mmol/L BUN 6 L (9-20) mg/dL Creatinine 0.7 L (0.8-1.5) mg/dL Calcium 8.1 L (8.4-10.2) mg/dL Lactate Dehydrogenase 464 H (91-180) units/L
[2017-10-06] MEDS ORDERED: NACL ONE (10:30)
[2017-10-06] MEDS: LOVENOX SUB-Q SCH (10:50)
[2017-10-06] MEDS: ZITHROMAX PO SCH (10:50)
[2017-10-06] MEDS: SODIUM CHLORIDE FLUSH SYRINGE 10 ML IV SCH ×2 (10:52→23:16)
--- NOTE | 2017-10-06 11:28 | Cat Scan Report ---
CT ABDOMEN PELVIS WITH CONTRAST: HISTORY: Diarrhea, fever, HIV patient. COMPARISON: none. TECHNIQUE: Helical CT in 1.25mm intervals following IV contrast. Sagittal and coronal reconstructions. FINDINGS: Lung bases: Extensive alveolar infiltrates are identified in the visualized lower lung zones. No pleural effusion or pneumothorax. Normal heart size. Liver: Normal. Biliary system: Normal. Pancreas: Normal. Spleen: Normal. Kidneys/ureters/bladder: Normal. Adrenal glands: Normal. Aorta: Normal. Intestines: The bowel loops are normal caliber and wall thickness but are fluid filled, particularly the distal small bowel loops and colon. This may represent gastroenteritis. Appendix: Not confidently identified. Pelvic viscera: Normal. Ascites: None. Adenopathy: None. Musculoskeletal: Normal. IMPRESSION: Extensive bilateral lower lung infiltrates consistent with bilateral pneumonia or aspiration. Moderate fluid in the distal small bowel loops and colon which could represent gastroenteritis.
[2017-10-06] MEDS: LEVAQUIN 750MG/150ML 750 MG/150 ML BAG IV SCH (11:57)
[2017-10-07] MEDS: VANCOMYCIN PO PO SCH ×4 (00:05→20:04)
[2017-10-07] MEDS: MAXIPIME 2 GM in NACL 0.9% 20 ML IV SCH ×3 (05:59→21:50)
[2017-10-07] MEDS: VANCOMYCIN 1,250 MG in NACL 0.9% 250ML 250 ML IV SCH ×2 (05:59→20:38)
[2017-10-07] MEDS: BACTRIM DS PO SCH ×3 (06:00→21:57)
[2017-10-07] MEDS: PROVENTIL IH SCH ×3 (09:15→20:16)
[2017-10-07] MEDS: ZITHROMAX PO SCH (10:23)
[2017-10-07] MEDS: SODIUM CHLORIDE FLUSH SYRINGE 10 ML IV SCH ×2 (10:24→21:57)
[2017-10-07] MEDS: LOVENOX SUB-Q SCH (10:29)
[2017-10-07 13:57] LABS: Hematocrit 34.7 % (35.5-45.6); Hemoglobin 11.9 gm/dl (11.8-15.2); Mean Corpuscular HGB Conc 34 % (32-34); Mean Corpuscular Hemoglobin 31 pg (28-32); Mean Corpuscular Volume 89 fl (84-94); Platelet Count 256 K/mm3 (140-440); Red Blood Count 3.91 M/mm3 (3.65-5.03)
[2017-10-07 14:24] LABS: Alanine Aminotransferase 14 units/L (7-56); Albumin 3.1 g/dL (3.9-5); BUN/Creatinine Ratio 7; Blood Urea Nitrogen 4 mg/dL (9-20); Calcium 8.2 mg/dL (8.4-10.2); Hemolysis Index 13
--- NOTE | 2017-10-07 16:25 | Progress Note ---
Assessment and Plan Assessment: 1) Acute fever and Bilateral lung infiltrates in AIDS patient. Could be CAP, PJP , atypical. Of note pt has been taking bactrim as outpatient in treatment dose, unclear why. It was prescribed by his regular HIV provider. Persistently febrile. -LDH high 3) Acute N/V/D. r/o C diff. Other opportunistic infections also on the differential: cryptosporidium, cyclospora, isospora, etc. With diarrhea, pneumonia and hyponatremia, other possibility is Legionella. - C diff negative. - Stool cx negative. - Cryptosporidium ag, Giardia ag negative - CT A/P possible gastroenteritis 4) Acute hypoxemic respiratory failure. On venti mask 4) Acute atypical chest pain. Negative stress test. 3) HIV/AIDS. CD4 34 as per pt report. On HAART. Recommendations -Continue azithromycin, bactrim, fluconazole. -Continue cefepime, vancomycin, levofloxacin. -Check stool for ova and parasites, isospora, cyclospora and microsporidia, norovirus, rotavirus -Will f/u fungal blood cx -Check AFB blood cultures. -Will f/u CD4 count and HIV-VL. -Check Legionella ag and Pneumococcal ag -Check quantiferon. -Continue prezcobix and truvada (pt taking his home mds). -Would suggest pulmonary and GI consult. -d/w pt and RN, medicine attending. Aurea Figueroa MD Infectious Diseases Specialist [facility] ([facility]) M [phone] Subjective Date of service: 10/07/17 Principal diagnosis: chest pain, diarrhea Interval history: No fever so far today. Low BP. Placed on Venti mask since this morning due to hypoxemia. Still has diarrhea. Feels really weak. Microbiology Blood cultures 10/03/17 NGTD 10/06 Fungal pending Stool WBC negative Culture 10/04 negative. Giardia ag negative Cryptosporodium ag negative Sputum culture 10/05 rejected Antibiotics Fluconazole 10/07- Levofloxacin 10/06- IV vancomycin 10/05- Cefepime 10/05- Azithromycin 10/04- Bactrim 10/04- HAART (prezcobix and truvada, taking home meds). Prior antibiotics Ceftriaxone 10/04-10/05 Flagyl 10/04-10/05 Objective - Exam Narrative Exam: General appearance: Pt is in NAD, A&Ox3, conversant Eyes: anicteric sclerae, moist conjunctivae; PERRLA HENT: Atraumatic; oropharynx clear with moist mucous membranes and no mucosal ulcerations/no oral thrush; normal hard and soft palate. Normal external ears. Neck: Trachea midline; supple, no thyromegaly or lymphadenopathy Lungs: Decreased BS at bases CV: S1,S2. Abdomen: Soft, non-tender; no masses or hepatosplenomegaly Extremities: No peripheral edema or extremity lymphadenopathy Skin: Normal temperature, turgor and texture; no rash, ulcers or subcutaneous nodules Psych: Appropriate affect, alert and oriented to person, place and time. Neuro: alert and oriented x 3. Moving all extremities Lines: No CVL / PICC - Constitutional Vitals: Vital Signs Temp Pulse Resp BP Pulse Ox 99.6 F 98 H 24 80/37 94 10/07/17 12:00 10/07/17 16:00 10/07/17 16:00 10/07/17 11:58 10/07/17 12:30 Temperature -Last 24 Hours Temperature 99.6 F Temperature 99.1 F Temperature 99.9 F Temperature 102.2 F Temperature 99.0 F - Labs CBC & Chem 7: 10/07/17 13:21 10/07/17 13:21 Labs: Abnormal lab results 10/07/17 10/07/17 Range/Units 13:21 13:21 Hct 34.7 L (35.5-45.6) % Sodium 127 L (137-145) mmol/L Chloride 93.4 L (98-107) mmol/L Carbon Dioxide 20 L (22-30) mmol/L BUN 4 L (9-20) mg/dL Creatinine 0.6 L (0.8-1.5) mg/dL Calcium 8.2 L (8.4-10.2) mg/dL Albumin 3.1 L (3.9-5) g/dL
[2017-10-07] MEDS: DIFLUCAN PO SCH (17:21)
[2017-10-07] MEDS: LEVAQUIN 750MG/150ML 750 MG/150 ML BAG IV SCH (17:24)
[2017-10-07] MEDS: NACL 0.9% 1000 ML 1,000 ML IV SCH (17:27)
[2017-10-07] MEDS: NON-FORMULARY (Emtricitabin/Tenofovir [Truvada 200-300 Mg] 1 TAB) PO SCH (21:49)
[2017-10-07] MEDS: NON-FORMULARY (Darunavir/Cobicistat [Prezcobix 800 Mg-150 Mg Tablet] 1 EACH) PO SCH (21:49)
[2017-10-07] MEDS: TYLENOL PO PRN (21:57)
[2017-10-08] MEDS: VANCOMYCIN PO PO SCH ×5 (01:08→22:50)
--- NOTE | 2017-10-08 02:18 | Consultation ---
INDICATIONS: 1. Loose stool. 2. Diarrhea. HISTORY OF PRESENT ILLNESS: The patient is a 42-year-old black male with history of recently diagnosed HIV, who is now CD4 positive and have been on medication only for a couple of months now, presents with loose stool. The patient reports 3-4 bowel movements per day. He reports this has been ongoing now for the last 4-5 days. He reports no obvious other bowel changes. He denies any rectal bleeding. Denies any recent other diet or medication changes. The patient subsequently was admitted. ID consulted and GI consulted to aid in diarrhea. The patient denies any history of colonoscopy in the past. PAST MEDICAL HISTORY: HIV. MEDICATIONS: See chart. ALLERGIES: No known drug allergies. SOCIAL HISTORY: Reports cocaine, alcohol and tobacco use. FAMILY HISTORY: Negative for colon cancer. REVIEW OF SYSTEMS: GENERAL: Reports mild weakness. HEENT: No visual complaints or tinnitus. PULMONARY: No shortness of breath, coughing or chest pain. GASTROINTESTINAL: Reports loose stool. All points of 13-point review of systems otherwise negative. PHYSICAL EXAMINATION: VITAL SIGNS: Temperature of 99.5, pulse 80, respirations 20, blood pressure 116/62 GENERAL: Fairly nourished male in no acute distress. HEENT: Pupils are equal, round and reactive to light and accommodation. Extraocular muscles are intact. PULMONARY: Clear to auscultation bilaterally. CARDIOVASCULAR: Regular rhythm. Normal S1, S2. ABDOMEN: Positive bowel sounds, soft. SKIN: No obvious rashes. LABORATORY DATA: Pertinent for white count of 6.1, hemoglobin and hematocrit 11.9 and 34.7, platelet count of 256. Chem-7, sodium of 127, potassium 3.6, chloride 94, CO2 of 20, BUN and creatinine of 4 and 0.6. LFTs within normal limits. CT scan of the abdomen and pelvis with contrast showed moderate fluid in the small bowel loops consistent with gastroenteritis. ASSESSMENT AND PLAN: A 42-year-old HIV positive male with CD4 of 34 and recently started on HIV medications, recent months now, presents with main gastrointestinal complaint of some loose stool with 3-4 non-bloody bowel movements per day. He reports no recent medication changes. The patient's C. diff and other stool cultures have been negative to pass. The patient most likely has gastroenteritis. CT scan showed no obvious signs of colitis. Management is noted below. PLAN: 1. We will defer antibiotic management to Infectious Disease team, which is on board. 2. Agree with continued HIV-related medications as well as Levaquin and vancomycin. 3. We will review CT scan. 4. We will consider colonoscopy based on progress. 5. We will follow for now. Referring physician: HECTOR BUENO MD JOB# [id number] [facility]
[2017-10-08] MEDS: BACTRIM DS PO SCH ×2 (05:28→22:50)
[2017-10-08] MEDS: MAXIPIME 2 GM in NACL 0.9% 20 ML IV SCH ×2 (05:28→22:50)
[2017-10-08] MEDS: VANCOMYCIN 1,250 MG in NACL 0.9% 250ML 250 ML IV SCH ×2 (05:29→19:27)
[2017-10-08] MEDS: NACL 0.9% 1000 ML 1,000 ML IV SCH ×2 (05:29→19:40)
[2017-10-08] MEDS: SODIUM CHLORIDE FLUSH SYRINGE 10 ML IV SCH ×2 (09:15→22:50)
[2017-10-08] MEDS: LEVAQUIN 750MG/150ML 750 MG/150 ML BAG IV SCH (09:15)
[2017-10-08] MEDS: NON-FORMULARY (Darunavir/Cobicistat [Prezcobix 800 Mg-150 Mg Tablet] 1 EACH) PO SCH (09:36)
[2017-10-08] MEDS: NON-FORMULARY (Emtricitabin/Tenofovir [Truvada 200-300 Mg] 1 TAB) PO SCH (09:36)
[2017-10-08] MEDS: LOVENOX SUB-Q SCH (09:37)
[2017-10-08] MEDS: DIFLUCAN PO SCH (09:37)
[2017-10-08] MEDS: ZITHROMAX PO SCH (09:38)
--- NOTE | 2017-10-08 10:01 | Progress Note ---
Assessment and Plan Assessment: 1) Acute fever and Bilateral lung infiltrates in AIDS patient. Could be CAP, PJP , atypical. Of note pt has been taking bactrim as outpatient in treatment dose, unclear why. It was prescribed by his regular HIV provider. Persistently febrile. -LDH high 3) Acute N/V/D. r/o C diff. Other opportunistic infections also on the differential: cryptosporidium, cyclospora, isospora, etc. With diarrhea, pneumonia and hyponatremia, other possibility is Legionella. - C diff negative. - Stool cx negative. - Cryptosporidium ag, Giardia ag negative - CT A/P possible gastroenteritis 4) Acute hypoxemic respiratory failure. On venti mask 4) Acute atypical chest pain. Negative stress test. 3) HIV/AIDS. CD4 34 as per pt report. On HAART. Recommendations -Continue azithromycin, bactrim, fluconazole. -Continue cefepime, vancomycin, levofloxacin. -Check isospora, cyclospora and microsporidia, norovirus, rotavirus. -Will f/u fungal blood cx, AFB blood cultures. -Will f/u CD4 count and HIV-VL. -Repeat blood cx x2 today. -Will f/u Legionella ag and Pneumococcal ag, Quantiferon. -Continue prezcobix and truvada (pt taking his home mds). -GI consult appreciated -d/w pt and RN. Aurea Figueroa MD Infectious Diseases Specialist [facility] ([facility]) M [phone] Subjective Date of service: 10/08/17 Principal diagnosis: chest pain, diarrhea Interval history: Had fever of 100.7 last night. Still with cough. When he coughs he feels very SOB and exhausted. Had 1 soft stool yesterday morning and one today. Microbiology Blood cultures 10/03/17 NGTD 10/06 Fungal pending Stool WBC negative Culture 10/04 negative. Giardia ag negative Cryptosporodium ag negative Sputum culture 10/05 rejected Antibiotics Fluconazole 10/07- Levofloxacin 10/06- IV vancomycin 10/05- Cefepime 10/05- Azithromycin 10/04- Bactrim 10/04- HAART (prezcobix and truvada, taking home meds). Prior antibiotics Ceftriaxone 10/04-10/05 Flagyl 10/04-10/05 Objective - Exam Narrative Exam: General appearance: Pt is in NAD, A&Ox3, conversant. On venti mask. Eyes: anicteric sclerae, moist conjunctivae; PERRLA HENT: Atraumatic; oropharynx clear with moist mucous membranes and no mucosal ulcerations/no oral thrush; normal hard and soft palate. Normal external ears. Neck: Trachea midline; supple, no thyromegaly or lymphadenopathy Lungs: Decreased BS at bases CV: S1,S2. Abdomen: Soft, non-tender; no masses or hepatosplenomegaly Extremities: No peripheral edema or extremity lymphadenopathy Skin: Normal temperature, turgor and texture; no rash, ulcers or subcutaneous nodules Psych: Appropriate affect, alert and oriented to person, place and time. Neuro: alert and oriented x 3. Moving all extremities Lines: No CVL / PICC - Constitutional Vitals: Vital Signs Temp Pulse Resp BP Pulse Ox 100.0 F H 100 H 18 123/74 93 10/08/17 05:13 10/08/17 08:25 10/08/17 05:13 10/08/17 08:25 10/08/17 08:25 Temperature -Last 24 Hours Temperature 100.0 F Temperature 100.7 F Temperature 99.5 F Temperature 99.6 F - Labs CBC & Chem 7: 10/07/17 13:21 10/07/17 13:21 Labs: Abnormal lab results 10/07/17 10/07/17 Range/Units 13:21 13:21 Hct 34.7 L (35.5-45.6) % Sodium 127 L (137-145) mmol/L Chloride 93.4 L (98-107) mmol/L Carbon Dioxide 20 L (22-30) mmol/L BUN 4 L (9-20) mg/dL Creatinine 0.6 L (0.8-1.5) mg/dL Calcium 8.2 L (8.4-10.2) mg/dL Albumin 3.1 L (3.9-5) g/dL
[2017-10-08] MEDS: PROVENTIL IH SCH ×3 (11:25→21:23)
--- NOTE | 2017-10-08 15:34 | Progress Note ---
Assessment and Plan Assessment and plan: 42-year-old male with history of HIV, CD4 count of 34 pw CP Sepsis/PNA -possible CAP, PCP vs IRIS -continue abx, ID input appreciated Atypical CP with neg. stress thallium ; no further workup elevated D-dimer; cta chest neg for pe diarrhea, rule out HIV related infection; stool studies ordered, on empiric abx , no evidence of GI infection at this timel; CT A/P no acute findings may be due to IRIS Hyponatremia; continue NS Substance Abuse; denies current abuse, was counseled AIDS, started on HAART at [facility] 3wks prior to admision; continue HAART, ID consulted History Interval history: Had fever of 103 and Review of systems Constitutional: Admits fatigue and malaise CVS: No chest pain, no orthopnea, no dyspnea on exertion, no pedal edema GI: No abdominal pain, admits diarrhea, vomiting now resolved, no constipation Respiratory: reports sob and cough Hospitalist Physical - Physical exam Narrative exam: General.: Appears well, moderate distress, appears ill HEENT: Moist mucous membranes, extraocular muscles intact, no lymphadenopathy Neck: supple Cardiac: S1-S2 heard Lungs: Crackles in right lung Abdomen: soft , nontender, nondistended, bowel sounds positive Extremities: no edema clubbing or cyanosis Skin: no rash or lesions Neurologic: no gross focal deficits Psych: appropriate behavior, appropriate mood, corporative, judgment intact - Constitutional Vitals: Temp Pulse Resp BP Pulse Ox 100.0 F H 95 H 18 121/71 95 10/08/17 05:13 10/08/17 15:02 10/08/17 11:27 10/08/17 11:50 10/08/17 11:50 General appearance: Present: no acute distress, well-nourished Results - Labs CBC & Chem 7: 10/09/17 08:26 10/09/17 08:26 Labs: Laboratory Last Values WBC 6.1 K/mm3 (4.5-11.0) 10/07/17 13:21 RBC 3.91 M/mm3 (3.65-5.03) 10/07/17 13:21 Hgb 11.9 gm/dl (11.8-15.2) 10/07/17 13:21 Hct 34.7 % (35.5-45.6) L 10/07/17 13:21 MCV 89 fl (84-94) 10/07/17 13:21 MCH 31 pg (28-32) 10/07/17 13:21 MCHC 34 % (32-34) 10/07/17 13:21 RDW 14.0 % (13.2-15.2) 10/07/17 13:21 Plt Count 256 K/mm3 (140-440) 10/07/17 13:21 Lymph % (Auto) 24.0 % (13.4-35.0) 10/04/17 07:49 [place] % (Auto) 11.2 % (0.0-7.3) H 10/04/17 07:49 Eos % (Auto) 0.8 % (0.0-4.3) 10/04/17 07:49 Baso % (Auto) 0.4 % (0.0-1.8) 10/04/17 07:49 Lymph # 1.4 K/mm3 (1.2-5.4) 10/04/17 07:49 [place] # 0.7 K/mm3 (0.0-0.8) 10/04/17 07:49 Eos # 0.0 K/mm3 (0.0-0.4) 10/04/17 07:49 Baso # 0.0 K/mm3 (0.0-0.1) 10/04/17 07:49 Add Manual Diff Complete 10/05/17 13:59 Total Counted 100 10/05/17 13:59 Seg Neutrophils % 63.6 % (40.0-70.0) 10/04/17 07:49 Seg Neuts % (Manual) 70.0 % (40.0-70.0) 10/05/17 13:59 Band Neutrophils % 0 % 10/05/17 13:59 Lymphocytes % (Manual) 14.0 % (13.4-35.0) 10/05/17 13:59 Reactive Lymphs % (Man) 2.0 % 10/05/17 13:59 Monocytes % (Manual) 11.0 % (0.0-7.3) H 10/05/17 13:59 Eosinophils % (Manual) 3.0 % (0.0-4.3) 10/05/17 13:59 Basophils % (Manual) 0 % (0.0-1.8) 10/05/17 13:59 Metamyelocytes % 0 % 10/05/17 13:59 Myelocytes % 0 % 10/05/17 13:59 Promyelocytes % 0 % 10/05/17 13:59 Blast Cells % 0 % 10/05/17 13:59 Nucleated RBC % Not Reportable 10/05/17 13:59 Seg Neutrophils # 3.8 K/mm3 (1.8-7.7) 10/04/17 07:49 Seg Neutrophils # Man 3.6 K/mm3 (1.8-7.7) 10/05/17 13:59 Band Neutrophils # 0.0 K/mm3 10/05/17 13:59 Lymphocytes # (Manual) 0.7 K/mm3 (1.2-5.4) L 10/05/17 13:59 Abs React Lymphs (Man) 0.1 K/mm3 10/05/17 13:59 Monocytes # (Manual) 0.6 K/mm3 (0.0-0.8) 10/05/17 13:59 Eosinophils # (Manual) 0.2 K/mm3 (0.0-0.4) 10/05/17 13:59 Basophils # (Manual) 0.0 K/mm3 (0.0-0.1) 10/05/17 13:59 Metamyelocytes # 0.0 K/mm3 10/05/17 13:59 Myelocytes # 0.0 K/mm3 10/05/17 13:59 Promyelocytes # 0.0 K/mm3 10/05/17 13:59 Blast Cells # 0.0 K/mm3 10/05/17 13:59 WBC Morphology Not Reportable 10/05/17 13:59 Hypersegmented Neuts Not Reportable 10/05/17 13:59 Hyposegmented Neuts Not Reportable 10/05/17 13:59 Hypogranular Neuts Not Reportable 10/05/17 13:59 Smudge Cells Not Reportable 10/05/17 13:59 Toxic Granulation Not Reportable 10/05/17 13:59 Toxic Vacuolation Not Reportable 10/05/17 13:59 Dohle Bodies Not Reportable 10/05/17 13:59 Pelger-Huet Anomaly Not Reportable 10/05/17 13:59 Zora Rods Not Reportable 10/05/17 13:59 Platelet Estimate Cons 10/05/17 13:59 Clumped Platelets Not Reportable 10/05/17 13:59 Plt Clumps, EDTA Not Reportable 10/05/17 13:59 Large Platelets Few 10/05/17 13:59 Giant Platelets Few 10/05/17 13:59 Platelet Satelliting Not Reportable 10/05/17 13:59 Plt Morphology Comment Not Reportable 10/05/17 13:59 RBC Morphology Not Reportable 10/05/17 13:59 Dimorphic RBCs Not Reportable 10/05/17 13:59 Polychromasia Not Reportable 10/05/17 13:59 Hypochromasia Not Reportable 10/05/17 13:59 Poikilocytosis Not Reportable 10/05/17 13:59 Anisocytosis Not Reportable 10/05/17 13:59 Microcytosis Not Reportable 10/05/17 13:59 Macrocytosis Not Reportable 10/05/17 13:59 Spherocytes Not Reportable 10/05/17 13:59 Pappenheimer Bodies Not Reportable 10/05/17 13:59 Sickle Cells Not Reportable 10/05/17 13:59 Target Cells Not Reportable 10/05/17 13:59 Tear Drop Cells Not Reportable 10/05/17 13:59 Ovalocytes Not Reportable 10/05/17 13:59 Helmet Cells Not Reportable 10/05/17 13:59 [place] Bodies Not Reportable 10/05/17 13:59 [place] Rings Not Reportable 10/05/17 13:59 [place] Cells Not Reportable 10/05/17 13:59 Bite Cells Not Reportable 10/05/17 13:59 Crenated Cell Not Reportable 10/05/17 13:59 Elliptocytes Not Reportable 10/05/17 13:59 Acanthocytes (Spur) Not Reportable 10/05/17 13:59 Rouleaux Not Reportable 10/05/17 13:59 Hemoglobin C Crystals Not Reportable 10/05/17 13:59 Schistocytes Not Reportable 10/05/17 13:59 Malaria parasites Not Reportable 10/05/17 13:59 Glen Bodies Not Reportable 10/05/17 13:59 Hem Pathologist Commnt No 10/05/17 13:59 D-Dimer 614.10 ng/mlDDU (0-234) H 10/03/17 06:08 Sodium 127 mmol/L (137-145) L 10/07/17 13:21 Potassium 3.6 mmol/L (3.6-5.0) 10/07/17 13:21 Chloride 93.4 mmol/L (98-107) L 10/07/17 13:21 Carbon Dioxide 20 mmol/L (22-30) L 10/07/17 13:21 Anion Gap 17 mmol/L 10/07/17 13:21 BUN 4 mg/dL (9-20) L 10/07/17 13:21 Creatinine 0.6 mg/dL (0.8-1.5) L 10/07/17 13:21 Estimated GFR > 60 ml/min 10/07/17 13:21 BUN/Creatinine Ratio 7 % 10/07/17 13:21 Glucose 87 mg/dL (75-100) 10/07/17 13:21 Calcium 8.2 mg/dL (8.4-10.2) L 10/07/17 13:21 Total Bilirubin 0.50 mg/dL (0.1-1.2) 10/07/17 13:21 AST 31 units/L (5-40) 10/07/17 13:21 ALT 14 units/L (7-56) 10/07/17 13:21 Alkaline Phosphatase 36 units/L (35-129) 10/07/17 13:21 Lactate Dehydrogenase 464 units/L (91-180) H 10/05/17 13:59 Total Creatine Kinase 452 units/L (55-170) H 10/03/17 04:26 CK-MB (CK-2) < 1.0 ng/mL (0.0-4.0) 10/03/17 04:26 CK-MB (CK-2) Rel Index 0.2 (0-4) 10/03/17 04:26 Troponin T < 0.010 ng/mL (0.00-0.029) 10/03/17 07:42 Total Protein 6.5 g/dL (6.3-8.2) 10/07/17 13:21 Albumin 3.1 g/dL (3.9-5) L 10/07/17 13:21 Albumin/Globulin Ratio 0.9 % 10/07/17 13:21 Lipase 41 units/L (13-60) 10/03/17 01:14 Urine Color Yellow (Yellow) 10/03/17 Unknown Urine Turbidity Clear (Clear) 10/03/17 Unknown Urine pH 5.0 (5.0-7.0) 10/03/17 Unknown Ur Specific [place] 1.024 (1.003-1.030) 10/03/17 Unknown Urine Protein 30 mg/dl mg/dL (Negative) 10/03/17 Unknown Urine Glucose (UA) Neg mg/dL (Negative) 10/03/17 Unknown Urine Ketones 20 mg/dL (Negative) 10/03/17 Unknown Urine Blood Neg (Negative) 10/03/17 Unknown Urine Nitrite Neg (Negative) 10/03/17 Unknown Urine Bilirubin Neg (Negative) 10/03/17 Unknown Urine Urobilinogen 4.0 mg/dL (<2.0) 10/03/17 Unknown Ur Leukocyte Esterase Neg (Negative) 10/03/17 Unknown Urine WBC (Auto) 1.0 /HPF (0.0-6.0) 10/03/17 Unknown Urine RBC (Auto) 2.0 /HPF (0.0-6.0) 10/03/17 Unknown Urine Mucus Few /HPF 10/03/17 Unknown C. difficile Toxin A&B Negative (Negative) 10/04/17 11:04
--- NOTE | 2017-10-08 15:34 | Progress Note ---
Assessment and Plan Assessment and plan: 42-year-old male with history of HIV, CD4 count of 34 pw CP Sepsis/PNA -possible CAP, PCP vs IRIS -continue abx, ID input appreciated Atypical CP with neg. stress thallium ; no further workup elevated D-dimer; cta chest neg for pe diarrhea, rule out HIV related infection; stool studies ordered, on empiric abx , no evidence of GI infection at this timel; CT A/P no acute findings may be due to IRIS Hyponatremia; continue NS Substance Abuse; denies current abuse, was counseled AIDS, started on HAART at [facility] 3wks prior to admission; continue HAART, ID consulted History Interval history: Had fever of 103 and Review of systems Constitutional: Admits fatigue and malaise CVS: No chest pain, no orthopnea, no dyspnea on exertion, no pedal edema GI: No abdominal pain, admits diarrhea, vomiting now resolved, no constipation Respiratory: reports sob and cough Hospitalist Physical - Physical exam Narrative exam: General.: Appears well, moderate distress, appears ill HEENT: Moist mucous membranes, extraocular muscles intact, no lymphadenopathy Neck: supple Cardiac: S1-S2 heard Lungs: Crackles in right lung Abdomen: soft , nontender, nondistended, bowel sounds positive Extremities: no edema clubbing or cyanosis Skin: no rash or lesions Neurologic: no gross focal deficits Psych: appropriate behavior, appropriate mood, corporative, judgment intact - Constitutional Vitals: Temp Pulse Resp BP Pulse Ox 100.0 F H 95 H 18 121/71 95 10/08/17 05:13 10/08/17 15:02 10/08/17 11:27 10/08/17 11:50 10/08/17 11:50 General appearance: Present: no acute distress, well-nourished Results - Labs CBC & Chem 7: 10/09/17 08:26 10/09/17 08:26 Labs: Laboratory Last Values WBC 6.1 K/mm3 (4.5-11.0) 10/07/17 13:21 RBC 3.91 M/mm3 (3.65-5.03) 10/07/17 13:21 Hgb 11.9 gm/dl (11.8-15.2) 10/07/17 13:21 Hct 34.7 % (35.5-45.6) L 10/07/17 13:21 MCV 89 fl (84-94) 10/07/17 13:21 MCH 31 pg (28-32) 10/07/17 13:21 MCHC 34 % (32-34) 10/07/17 13:21 RDW 14.0 % (13.2-15.2) 10/07/17 13:21 Plt Count 256 K/mm3 (140-440) 10/07/17 13:21 Lymph % (Auto) 24.0 % (13.4-35.0) 10/04/17 07:49 [place] % (Auto) 11.2 % (0.0-7.3) H 10/04/17 07:49 Eos % (Auto) 0.8 % (0.0-4.3) 10/04/17 07:49 Baso % (Auto) 0.4 % (0.0-1.8) 10/04/17 07:49 Lymph # 1.4 K/mm3 (1.2-5.4) 10/04/17 07:49 [place] # 0.7 K/mm3 (0.0-0.8) 10/04/17 07:49 Eos # 0.0 K/mm3 (0.0-0.4) 10/04/17 07:49 Baso # 0.0 K/mm3 (0.0-0.1) 10/04/17 07:49 Add Manual Diff Complete 10/05/17 13:59 Total Counted 100 10/05/17 13:59 Seg Neutrophils % 63.6 % (40.0-70.0) 10/04/17 07:49 Seg Neuts % (Manual) 70.0 % (40.0-70.0) 10/05/17 13:59 Band Neutrophils % 0 % 10/05/17 13:59 Lymphocytes % (Manual) 14.0 % (13.4-35.0) 10/05/17 13:59 Reactive Lymphs % (Man) 2.0 % 10/05/17 13:59 Monocytes % (Manual) 11.0 % (0.0-7.3) H 10/05/17 13:59 Eosinophils % (Manual) 3.0 % (0.0-4.3) 10/05/17 13:59 Basophils % (Manual) 0 % (0.0-1.8) 10/05/17 13:59 Metamyelocytes % 0 % 10/05/17 13:59 Myelocytes % 0 % 10/05/17 13:59 Promyelocytes % 0 % 10/05/17 13:59 Blast Cells % 0 % 10/05/17 13:59 Nucleated RBC % Not Reportable 10/05/17 13:59 Seg Neutrophils # 3.8 K/mm3 (1.8-7.7) 10/04/17 07:49 Seg Neutrophils # Man 3.6 K/mm3 (1.8-7.7) 10/05/17 13:59 Band Neutrophils # 0.0 K/mm3 10/05/17 13:59 Lymphocytes # (Manual) 0.7 K/mm3 (1.2-5.4) L 10/05/17 13:59 Abs React Lymphs (Man) 0.1 K/mm3 10/05/17 13:59 Monocytes # (Manual) 0.6 K/mm3 (0.0-0.8) 10/05/17 13:59 Eosinophils # (Manual) 0.2 K/mm3 (0.0-0.4) 10/05/17 13:59 Basophils # (Manual) 0.0 K/mm3 (0.0-0.1) 10/05/17 13:59 Metamyelocytes # 0.0 K/mm3 10/05/17 13:59 Myelocytes # 0.0 K/mm3 10/05/17 13:59 Promyelocytes # 0.0 K/mm3 10/05/17 13:59 Blast Cells # 0.0 K/mm3 10/05/17 13:59 WBC Morphology Not Reportable 10/05/17 13:59 Hypersegmented Neuts Not Reportable 10/05/17 13:59 Hyposegmented Neuts Not Reportable 10/05/17 13:59 Hypogranular Neuts Not Reportable 10/05/17 13:59 Smudge Cells Not Reportable 10/05/17 13:59 Toxic Granulation Not Reportable 10/05/17 13:59 Toxic Vacuolation Not Reportable 10/05/17 13:59 Dohle Bodies Not Reportable 10/05/17 13:59 Pelger-Huet Anomaly Not Reportable 10/05/17 13:59 Zora Rods Not Reportable 10/05/17 13:59 Platelet Estimate Cons 04/07/18 13:59 Clumped Platelets Not Reportable 10/05/17 13:59 Plt Clumps, EDTA Not Reportable 10/05/17 13:59 Large Platelets Few 10/05/17 13:59 Giant Platelets Few 10/05/17 13:59 Platelet Satelliting Not Reportable 10/05/17 13:59 Plt Morphology Comment Not Reportable 10/05/17 13:59 RBC Morphology Not Reportable 10/05/17 13:59 Dimorphic RBCs Not Reportable 10/05/17 13:59 Polychromasia Not Reportable 10/05/17 13:59 Hypochromasia Not Reportable 10/05/17 13:59 Poikilocytosis Not Reportable 10/05/17 13:59 Anisocytosis Not Reportable 10/05/17 13:59 Microcytosis Not Reportable 10/05/17 13:59 Macrocytosis Not Reportable 10/05/17 13:59 Spherocytes Not Reportable 10/05/17 13:59 Pappenheimer Bodies Not Reportable 10/05/17 13:59 Sickle Cells Not Reportable 10/05/17 13:59 Target Cells Not Reportable 10/05/17 13:59 Tear Drop Cells Not Reportable 10/05/17 13:59 Ovalocytes Not Reportable 10/05/17 13:59 Helmet Cells Not Reportable 10/05/17 13:59 [place]str[place] Bodies Not Reportable 10/05/17 13:59 [place] Rings Not Reportable 10/05/17 13:59 [place] Cells Not Reportable 10/05/17 13:59 Bite Cells Not Reportable 10/05/17 13:59 Crenated Cell Not Reportable 10/05/17 13:59 Elliptocytes Not Reportable 10/05/17 13:59 Acanthocytes (Spur) Not Reportable 10/05/17 13:59 Rouleaux Not Reportable 10/05/17 13:59 Hemoglobin C Crystals Not Reportable 10/05/17 13:59 Schistocytes Not Reportable 10/05/17 13:59 Malaria parasites Not Reportable 10/05/17 13:59 Glen Bodies Not Reportable 10/05/17 13:59 Hem Pathologist Commnt No 10/05/17 13:59 D-Dimer 614.10 ng/mlDDU (0-234) H 10/03/17 06:08 Sodium 127 mmol/L (137-145) L 10/07/17 13:21 Potassium 3.6 mmol/L (3.6-5.0) 10/07/17 13:21 Chloride 93.4 mmol/L (98-107) L 10/07/17 13:21 Carbon Dioxide 20 mmol/L (22-30) L 10/07/17 13:21 Anion Gap 17 mmol/L 10/07/17 13:21 BUN 4 mg/dL (9-20) L 10/07/17 13:21 Creatinine 0.6 mg/dL (0.8-1.5) L 10/07/17 13:21 Estimated GFR > 60 ml/min 10/07/17 13:21 BUN/Creatinine Ratio 7 % 10/07/17 13:21 Glucose 87 mg/dL (75-100) 10/07/17 13:21 Calcium 8.2 mg/dL (8.4-10.2) L 10/07/17 13:21 Total Bilirubin 0.50 mg/dL (0.1-1.2) 10/07/17 13:21 AST 31 units/L (5-40) 10/07/17 13:21 ALT 14 units/L (7-56) 10/07/17 13:21 Alkaline Phosphatase 36 units/L (35-129) 10/07/17 13:21 Lactate Dehydrogenase 464 units/L (91-180) H 10/05/17 13:59 Total Creatine Kinase 452 units/L (55-170) H 10/03/17 04:26 CK-MB (CK-2) < 1.0 ng/mL (0.0-4.0) 10/03/17 04:26 CK-MB (CK-2) Rel Index 0.2 (0-4) 10/03/17 04:26 Troponin T < 0.010 ng/mL (0.00-0.029) 10/03/17 07:42 Total Protein 6.5 g/dL (6.3-8.2) 10/07/17 13:21 Albumin 3.1 g/dL (3.9-5) L 10/07/17 13:21 Albumin/Globulin Ratio 0.9 % 10/07/17 13:21 Lipase 41 units/L (13-60) 10/03/17 01:14 Urine Color Yellow (Yellow) 10/03/17 Unknown Urine Turbidity Clear (Clear) 10/03/17 Unknown Urine pH 5.0 (5.0-7.0) 10/03/17 Unknown Ur Specific [place] 1.024 (1.003-1.030) 10/03/17 Unknown Urine Protein 30 mg/dl mg/dL (Negative) 10/03/17 Unknown Urine Glucose (UA) Neg mg/dL (Negative) 10/03/17 Unknown Urine Ketones 20 mg/dL (Negative) 10/03/17 Unknown Urine Blood Neg (Negative) 10/03/17 Unknown Urine Nitrite Neg (Negative) 10/03/17 Unknown Urine Bilirubin Neg (Negative) 10/03/17 Unknown Urine Urobilinogen 4.0 mg/dL (<2.0) 10/03/17 Unknown Ur Leukocyte Esterase Neg (Negative) 10/03/17 Unknown Urine WBC (Auto) 1.0 /HPF (0.0-6.0) 10/03/17 Unknown Urine RBC (Auto) 2.0 /HPF (0.0-6.0) 10/03/17 Unknown Urine Mucus Few /HPF 10/03/17 Unknown C. difficile Toxin A&B Negative (Negative) 10/04/17 11:04
--- NOTE | 2017-10-08 15:34 | Progress Note ---
Assessment and Plan Assessment and plan: 42-year-old male with history of HIV, CD4 count of 34 pw CP Sepsis/PNA -possible CAP, PCP vs IRIS -continue abx, ID input appreciated pulm consulted for possible bronch Atypical CP with neg. stress thallium ; no further workup elevated D-dimer; cta chest neg for pe diarrhea, rule out HIV related infection; stool studies ordered, on empiric abx , no evidence of GI infection at this timel; CT A/P no acute findings may be due to IRIS, GI consulted for possible endoscopy Hyponatremia; continue NS Substance Abuse; denies current abuse, was counseled AIDS, started on HAART at [facility] 3wks prior to admission; continue HAART, ID consulted History Interval history: Review of systems Constitutional: Admits fatigue and malaise and fevers CVS: No chest pain, no orthopnea, no dyspnea on exertion, no pedal edema GI: No abdominal pain, admits diarrhea, vomiting now resolved, no constipation Respiratory: reports sob and cough Hospitalist Physical - Physical exam Narrative exam: General.: Appears well, moderate distress, appears ill HEENT: Moist mucous membranes, extraocular muscles intact, no lymphadenopathy Neck: supple Cardiac: S1-S2 heard Lungs: Crackles in right lung Abdomen: soft , nontender, nondistended, bowel sounds positive Extremities: no edema clubbing or cyanosis Skin: no rash or lesions Neurologic: no gross focal deficits Psych: appropriate behavior, appropriate mood, corporative, judgment intact - Constitutional Vitals: Temp Pulse Resp BP Pulse Ox 100.0 F H 95 H 18 121/71 95 10/08/17 05:13 10/08/17 15:02 10/08/17 11:27 10/08/17 11:50 10/08/17 11:50 General appearance: Present: no acute distress, well-nourished Results - Labs CBC & Chem 7: 10/09/17 08:26 10/09/17 08:26 Labs: Laboratory Last Values WBC 6.1 K/mm3 (4.5-11.0) 10/07/17 13:21 RBC 3.91 M/mm3 (3.65-5.03) 10/07/17 13:21 Hgb 11.9 gm/dl (11.8-15.2) 10/07/17 13:21 Hct 34.7 % (35.5-45.6) L 10/07/17 13:21 MCV 89 fl (84-94) 10/07/17 13:21 MCH 31 pg (28-32) 10/07/17 13:21 MCHC 34 % (32-34) 10/07/17 13:21 RDW 14.0 % (13.2-15.2) 10/07/17 13:21 Plt Count 256 K/mm3 (140-440) 10/07/17 13:21 Lymph % (Auto) 24.0 % (13.4-35.0) 10/04/17 07:49 [place] % (Auto) 11.2 % (0.0-7.3) H 10/04/17 07:49 Eos % (Auto) 0.8 % (0.0-4.3) 10/04/17 07:49 Baso % (Auto) 0.4 % (0.0-1.8) 10/04/17 07:49 Lymph # 1.4 K/mm3 (1.2-5.4) 10/04/17 07:49 [place] # 0.7 K/mm3 (0.0-0.8) 10/04/17 07:49 Eos # 0.0 K/mm3 (0.0-0.4) 10/04/17 07:49 Baso # 0.0 K/mm3 (0.0-0.1) 10/04/17 07:49 Add Manual Diff Complete 10/05/17 13:59 Total Counted 100 10/05/17 13:59 Seg Neutrophils % 63.6 % (40.0-70.0) 10/04/17 07:49 Seg Neuts % (Manual) 70.0 % (40.0-70.0) 10/05/17 13:59 Band Neutrophils % 0 % 10/05/17 13:59 Lymphocytes % (Manual) 14.0 % (13.4-35.0) 10/05/17 13:59 Reactive Lymphs % (Man) 2.0 % 10/05/17 13:59 Monocytes % (Manual) 11.0 % (0.0-7.3) H 10/05/17 13:59 Eosinophils % (Manual) 3.0 % (0.0-4.3) 10/05/17 13:59 Basophils % (Manual) 0 % (0.0-1.8) 10/05/17 13:59 Metamyelocytes % 0 % 10/05/17 13:59 Myelocytes % 0 % 10/05/17 13:59 Promyelocytes % 0 % 10/05/17 13:59 Blast Cells % 0 % 10/05/17 13:59 Nucleated RBC % Not Reportable 10/05/17 13:59 Seg Neutrophils # 3.8 K/mm3 (1.8-7.7) 10/04/17 07:49 Seg Neutrophils # Man 3.6 K/mm3 (1.8-7.7) 10/05/17 13:59 Band Neutrophils # 0.0 K/mm3 10/05/17 13:59 Lymphocytes # (Manual) 0.7 K/mm3 (1.2-5.4) L 10/05/17 13:59 Abs React Lymphs (Man) 0.1 K/mm3 10/05/17 13:59 Monocytes # (Manual) 0.6 K/mm3 (0.0-0.8) 10/05/17 13:59 Eosinophils # (Manual) 0.2 K/mm3 (0.0-0.4) 10/05/17 13:59 Basophils # (Manual) 0.0 K/mm3 (0.0-0.1) 10/05/17 13:59 Metamyelocytes # 0.0 K/mm3 10/05/17 13:59 Myelocytes # 0.0 K/mm3 10/05/17 13:59 Promyelocytes # 0.0 K/mm3 10/05/17 13:59 Blast Cells # 0.0 K/mm3 10/05/17 13:59 WBC Morphology Not Reportable 10/05/17 13:59 Hypersegmented Neuts Not Reportable 10/05/17 13:59 Hyposegmented Neuts Not Reportable 10/05/17 13:59 Hypogranular Neuts Not Reportable 10/05/17 13:59 Smudge Cells Not Reportable 10/05/17 13:59 Toxic Granulation Not Reportable 10/05/17 13:59 Toxic Vacuolation Not Reportable 10/05/17 13:59 Dohle Bodies Not Reportable 10/05/17 13:59 Pelger-Huet Anomaly Not Reportable 10/05/17 13:59 Zora Rods Not Reportable 10/05/17 13:59 Platelet Estimate Cons 10/05/17 13:59 Clumped Platelets Not Reportable 10/05/17 13:59 Plt Clumps, EDTA Not Reportable 10/05/17 13:59 Large Platelets Few 10/05/17 13:59 Giant Platelets Few 10/05/17 13:59 Platelet Satelliting Not Reportable 10/05/17 13:59 Plt Morphology Comment Not Reportable 10/05/17 13:59 RBC Morphology Not Reportable 10/05/17 13:59 Dimorphic RBCs Not Reportable 10/05/17 13:59 Polychromasia Not Reportable 10/05/17 13:59 Hypochromasia Not Reportable 10/05/17 13:59 Poikilocytosis Not Reportable 10/05/17 13:59 Anisocytosis Not Reportable 10/05/17 13:59 Microcytosis Not Reportable 10/05/17 13:59 Macrocytosis Not Reportable 10/05/17 13:59 Spherocytes Not Reportable 10/05/17 13:59 Pappenheimer Bodies Not Reportable 10/05/17 13:59 Sickle Cells Not Reportable 10/05/17 13:59 Target Cells Not Reportable 10/05/17 13:59 Tear Drop Cells Not Reportable 10/05/17 13:59 Ovalocytes Not Reportable 10/05/17 13:59 Helmet Cells Not Reportable 10/05/17 13:59 [place] Bodies Not Reportable 10/05/17 13:59 [place] Rings Not Reportable 10/05/17 13:59 [place] Cells Not Reportable 10/05/17 13:59 Bite Cells Not Reportable 10/05/17 13:59 Crenated Cell Not Reportable 10/05/17 13:59 Elliptocytes Not Reportable 10/05/17 13:59 Acanthocytes (Spur) Not Reportable 10/05/17 13:59 Rouleaux Not Reportable 10/05/17 13:59 Hemoglobin C Crystals Not Reportable 10/05/17 13:59 Schistocytes Not Reportable 10/05/17 13:59 Malaria parasites Not Reportable 10/05/17 13:59 [place] Bodies Not Reportable 10/05/17 13:59 Hem Pathologist Commnt No 10/05/17 13:59 D-Dimer 614.10 ng/mlDDU (0-234) H 10/03/17 06:08 Sodium 127 mmol/L (137-145) L 10/07/17 13:21 Potassium 3.6 mmol/L (3.6-5.0) 10/07/17 13:21 Chloride 93.4 mmol/L (98-107) L 10/07/17 13:21 Carbon Dioxide 20 mmol/L (22-30) L 10/07/17 13:21 Anion Gap 17 mmol/L 10/07/17 13:21 BUN 4 mg/dL (9-20) L 10/07/17 13:21 Creatinine 0.6 mg/dL (0.8-1.5) L 10/07/17 13:21 Estimated GFR > 60 ml/min 10/07/17 13:21 BUN/Creatinine Ratio 7 % 10/07/17 13:21 Glucose 87 mg/dL (75-100) 10/07/17 13:21 Calcium 8.2 mg/dL (8.4-10.2) L 10/07/17 13:21 Total Bilirubin 0.50 mg/dL (0.1-1.2) 10/07/17 13:21 AST 31 units/L (5-40) 10/07/17 13:21 ALT 14 units/L (7-56) 10/07/17 13:21 Alkaline Phosphatase 36 units/L (35-129) 10/07/17 13:21 Lactate Dehydrogenase 464 units/L (91-180) H 10/05/17 13:59 Total Creatine Kinase 452 units/L (55-170) H 10/03/17 04:26 CK-MB (CK-2) < 1.0 ng/mL (0.0-4.0) 10/03/17 04:26 CK-MB (CK-2) Rel Index 0.2 (0-4) 10/03/17 04:26 Troponin T < 0.010 ng/mL (0.00-0.029) 10/03/17 07:42 Total Protein 6.5 g/dL (6.3-8.2) 10/07/17 13:21 Albumin 3.1 g/dL (3.9-5) L 10/07/17 13:21 Albumin/Globulin Ratio 0.9 % 10/07/17 13:21 Lipase 41 units/L (13-60) 10/03/17 01:14 Urine Color Yellow (Yellow) 10/03/17 Unknown Urine Turbidity Clear (Clear) 10/03/17 Unknown Urine pH 5.0 (5.0-7.0) 10/03/17 Unknown Ur Specific [place] 1.024 (1.003-1.030) 10/03/17 Unknown Urine Protein 30 mg/dl mg/dL (Negative) 10/03/17 Unknown Urine Glucose (UA) Neg mg/dL (Negative) 10/03/17 Unknown Urine Ketones 20 mg/dL (Negative) 10/03/17 Unknown Urine Blood Neg (Negative) 10/03/17 Unknown Urine Nitrite Neg (Negative) 10/03/17 Unknown Urine Bilirubin Neg (Negative) 10/03/17 Unknown Urine Urobilinogen 4.0 mg/dL (<2.0) 10/03/17 Unknown Ur Leukocyte Esterase Neg (Negative) 10/03/17 Unknown Urine WBC (Auto) 1.0 /HPF (0.0-6.0) 10/03/17 Unknown Urine RBC (Auto) 2.0 /HPF (0.0-6.0) 10/03/17 Unknown Urine Mucus Few /HPF 10/03/17 Unknown C. difficile Toxin A&B Negative (Negative) 10/04/17 11:04
--- NOTE | 2017-10-08 20:27 | Consultation ---
History of Present Illness Consult date: 10/08/17 Requesting physician: HECTOR BUENO Reason for consult: hypoxemia, abnormal CXR/CT History of present illness: HPI: 42 yo M PMH syphilis, HIV/AIDS diagnosed earlier this year, CD4 34, currently on HAART (truvada and prezcobix), also on bactrim 2 tab po q8h who presented to the ER c/o 2 days h/o of chest pain, fever, chills, N/V/D, abdominal pain. Also c/o chronic cough, SOB. Denies dysuria, MONTOYA. In the ER T 102.3, pulse 87, respiratory rate 17, saturation 95%, blood pressure 110/71. Labs showed WBC 7.2, hemoglobin and hematocrit 13.6 and 40.2, platelets 195. Bun and creatinine were 12 and 1.0. WBC in stool was negative. Stool culture is pending. Blood cultures are no growth to date. CT of the chest on 10/04 showed multifocal bilateral lung infiltrates mostly on the right lower lung Patient's CD count 34, worsening pulmonary infiltrates/non resolving PNA. Consulted for bronchoscopy for definitive diagnosis. Patient seen and examined. Vitals, labs, medications, chart and imaging reviewed. On going fevers with tacypnea Past History Past Medical History: other (HIV/AIDS) Medications and Allergies Allergies Allergy/AdvReac Type Severity Reaction Status Date / Time No Known Allergies Allergy Verified 10/03/17 04:21 Home Medications Medication Instructions Recorded Confirmed Last Taken Type Darunavir/Cobicistat [Prezcobix 1 each PO DAILY 10/03/17 10/03/17 10/02/17 History 800 mg-150 mg Tablet] Emtricitabin/Tenofovir [TRUVADA 1 tab PO QDAY 10/03/17 10/03/17 10/02/17 History 200-300 mg] Fluconazole [Diflucan TAB] 100 mg PO QDAY 10/03/17 10/03/17 10/02/17 History Sulfamethoxazole/Trimethoprim 2 each PO TID 10/03/17 10/03/17 10/02/17 History [Bactrim Ds Tablet] Active Meds: Active Medications Acetaminophen (Tylenol) 650 mg PO Q4H PRN PRN Reason: Pain MILD(1-3)/Fever >100.5/MONTOYA Last Admin: 10/07/17 21:57 Dose: 650 mg Albuterol (Proventil) 2.5 mg IH TIDRT [facility] Last Admin: 10/08/17 15:44 Dose: Not Given Azithromycin (Zithromax) 500 mg PO QDAY [facility] Last Admin: 10/08/17 09:38 Dose: 500 mg Diphenoxylate HCl/Atropine (Lomotil) 1 tab PO Q6H PRN PRN Reason: Diarrhea Enoxaparin Sodium (Lovenox) 40 mg SUB-Q QDAY@1000 [place] Last Admin: 10/08/17 09:37 Dose: 40 mg Fluconazole (Diflucan) 100 mg PO QDAY [facility] Last Admin: 10/08/17 09:37 Dose: 100 mg Sodium Chloride (Nacl 0.9% 1000 Ml) 1,000 mls @ 150 mls/hr IV DIRECT [facility] Last Admin: 10/08/17 19:40 Dose: 150 mls/hr Cefepime HCl 2 gm/ Sodium (Chloride) 20 mls @ 2 mls/min IV Q8HR [facility] Last Admin: 10/08/17 05:28 Dose: 2 mls/min Levofloxacin/Dextrose (Levaquin 750mg/150ml) 750 mg in 150 mls @ 100 mls/hr IV Q24HR [facility]; Protocol Last Admin: 10/08/17 09:15 Dose: 100 mls/hr Vancomycin HCl 1,250 mg/ (Sodium Chloride) 262.5 mls @ 166.667 mls/hr IV Q12H [facility] Last Admin: 10/08/17 19:27 Dose: 166.667 mls/hr Loperamide HCl (Imodium) 2 mg PO Q2H PRN PRN Reason: Diarrhea Last Admin: 10/04/17 12:00 Dose: 2 mg Miscellaneous Medication (Darunavir/Cobicistat [Prezcobix 800 Mg-150 Mg Tablet] ) 1 each PO DAILY [facility] Last Admin: 10/08/17 09:36 Dose: 1 each Miscellaneous Medication (Emtricitabin/Tenofovir [Truvada 200-300 Mg]) 1 tab PO QDAY [facility] Last Admin: 10/08/17 09:36 Dose: 1 tab Morphine Sulfate (Morphine) 2 mg IV Q4H PRN PRN Reason: Pain, Moderate (4-6) Ondansetron HCl (Zofran) 4 mg IV Q8H PRN PRN Reason: Nausea And Vomiting Last Admin: 10/05/17 05:49 Dose: 4 mg Sodium Chloride (Sodium Chloride Flush Syringe 10 Ml) 10 ml IV BID [facility] Last Admin: 10/08/17 09:15 Dose: 10 ml Sodium Chloride (Sodium Chloride Flush Syringe 10 Ml) 10 ml IV PRN PRN PRN Reason: LINE FLUSH Trimethoprim/Sulfamethoxazole (Bactrim Ds) 2 each PO Q8HR [facility] Last Admin: 10/08/17 05:28 Dose: 2 each Vancomycin HCl (Vancomycin Pharmacy To Dose) 1 each IV PKCONSULT [facility]; Protocol Vancomycin HCl (Vancomycin Po) 125 mg PO Q6HR [facility] Last Admin: 10/08/17 19:26 Dose: Not Given Physical Examination Vital signs: Vital Signs Pulse Resp Pulse Ox 87 17 95 10/03/17 00:58 10/03/17 00:58 10/03/17 00:58 General appearance: Pt is in NAD, A&Ox3, conversant. On venti mask. Eyes: anicteric sclerae, moist conjunctivae; PERRLA HENT: Atraumatic; oropharynx clear with moist mucous membranes and no mucosal ulcerations/no oral thrush; normal hard and soft palate. Normal external ears. Neck: Trachea midline; supple, no thyromegaly or lymphadenopathy Lungs: Decreased BS at bases CV: S1,S2. Abdomen: Soft, non-tender; no masses or hepatosplenomegaly Extremities: No peripheral edema or extremity lymphadenopathy Skin: Normal temperature, turgor and texture; no rash, ulcers or subcutaneous nodules Psych: Appropriate affect, alert and oriented to person, place and time. Neuro: alert and oriented x 3. Moving all extremities Results - Laboratory Findings CBC and BMP: 10/07/17 13:21 10/07/17 13:21 PT/INR, D-dimer D-Dimer 614.10 ng/mlDDU (0-234) H 10/03/17 06:08 Abnormal lab findings: Abnormal Labs 10/03/17 10/03/17 10/03/17 01:14 01:14 01:14 Hct [place] % (Auto) 10.0 H Seg Neutrophils % 71.1 H Monocytes % (Manual) Lymphocytes # (Manual) D-Dimer Sodium 129 L Potassium 3.5 L Chloride 94.4 L Carbon Dioxide 18 L BUN Creatinine Calcium 8.3 L Lactate Dehydrogenase Total Creatine Kinase 473 H Albumin 10/03/17 10/03/17 10/04/17 04:26 06:08 07:49 Hct [place] % (Auto) 11.2 H Seg Neutrophils % Monocytes % (Manual) Lymphocytes # (Manual) D-Dimer 614.10 H Sodium Potassium Chloride Carbon Dioxide BUN Creatinine Calcium Lactate Dehydrogenase Total Creatine Kinase 452 H Albumin 10/04/17 10/05/17 10/05/17 07:49 13:59 13:59 Hct [place] % (Auto) Seg Neutrophils % Monocytes % (Manual) 11.0 H Lymphocytes # (Manual) 0.7 L D-Dimer Sodium 128 L Potassium Chloride 95.9 L Carbon Dioxide 17 L BUN 8 L Creatinine Calcium 7.7 L Lactate Dehydrogenase 464 H Total Creatine Kinase Albumin 10/05/17 10/07/17 10/07/17 13:59 13:21 13:21 Hct 34.7 L [place] % (Auto) Seg Neutrophils % Monocytes % (Manual) Lymphocytes # (Manual) D-Dimer Sodium 131 L 127 L Potassium Chloride 95.7 L 93.4 L Carbon Dioxide 20 L BUN 6 L 4 L Creatinine 0.7 L 0.6 L Calcium 8.1 L 8.2 L Lactate Dehydrogenase Total Creatine Kinase Albumin 3.1 L Assessment and Plan Acute hypoxic respiraotry failure Multifocal pulmonary infiltrates- differentials include CAP, PJP, primary pulmonary lymphoma, fungal pneumonias, mycobacterial infections including TB and non-TB HIV-AIDS Fevers Substance abuse -Get ABG -Conitnue supplemental oxygen to keep O2 sats>90% -VTE prophylaxis, hold once bronchoscopy is scheduled -Antibiotics/anti-infective per ID service -Steroids
[2017-10-08 21:11] LABS: HIV-1 RNA QN PCR 2.64 Log cps/mL
--- NOTE | 2017-10-08 21:16 | Gastroenterology Progress Note ---
Assessment and Plan GI: HIV + w/ low CD4 now with diarrhea - stool cx's negative to date - symptoms overall improved - ID input noted - antibiotics per ID team - no plans for colonoscopy at this time - advance diet as tolerated - no changes at this time, will follow Subjective Date of service: 10/08/17 Principal diagnosis: chest pain, diarrhea Interval history: - reports stools becoming more formed and decrease frequency. Denies specific GI complaints Objective - Constitutional Vitals: Temp Pulse Resp BP Pulse Ox 100.0 F H 97 H 18 127/72 96 10/08/17 05:13 10/08/17 16:58 10/08/17 11:27 10/08/17 16:58 10/08/17 16:58 General appearance: no acute distress - EENT Eyes: PERRL - Respiratory Respiratory: bilateral: CTA - Cardiovascular Rhythm: regular Heart Sounds: Present: S1 & S2 - Gastrointestinal General gastrointestinal: Present: soft, non-tender, non-distended - Labs CBC & Chem 7: 10/07/17 13:21 10/07/17 13:21 Labs: Laboratory Results - last 24 hr 10/05/17 10/08/17 05:57 17:19 Vancomycin Trough 5.4 HIV-1 RNA PCR copies/ml 441 H HIV-1 RNA (PCR) log 2.64 H
[2017-10-08 23:16] LABS: ABG HCO3 19.8 mmol/L (20.0-26.0); ABG Oxygen Saturation 96.6 % (95.0-99.0); ABG PCO2 31.6 mm Hg; ABG PH 7.416 pH Units (7.350-7.450); ABG PO2 83.5 mm Hg (80.0-90.0)
[2017-10-09] MEDS: VANCOMYCIN PO PO SCH ×2 (00:03→06:45)
[2017-10-09] MEDS: MAXIPIME 2 GM in NACL 0.9% 20 ML IV SCH ×4 (06:45→22:18)
[2017-10-09] MEDS: BACTRIM DS PO SCH ×4 (06:45→22:18)
[2017-10-09] MEDS: VANCOMYCIN 1,250 MG in NACL 0.9% 250ML 250 ML IV SCH ×2 (06:50→17:57)
[2017-10-09] MEDS: NACL 0.9% 1000 ML 1,000 ML IV SCH ×2 (07:12→22:18)
--- NOTE | 2017-10-09 08:01 | Progress Note ---
Subjective Date of service: 10/09/17 Principal diagnosis: chest pain, diarrhea Interval history: DELETED NOTE. Objective - Constitutional Vitals: Vital Signs Temp Pulse Resp BP Pulse Ox 101.6 F H 100 H 22 126/80 96 10/09/17 04:58 10/09/17 04:58 10/09/17 04:58 10/09/17 04:58 10/09/17 04:58 Temperature -Last 24 Hours Temperature 101.6 F Temperature 97.7 F Temperature 99.9 F - Labs CBC & Chem 7: 10/09/17 08:26 10/09/17 08:26 Labs: Abnormal lab results 10/05/17 10/08/17 Range/Units 05:57 23:05 ABG HCO3 19.8 L (20.0-26.0) mmol/L ABG Base Excess -4.0 L (-2.0-3.0) mmol/L ABG Hemoglobin 9.4 L (14.0-18.0) gm/dl Oxyhemoglobin 94.2 L (95.0-99.0) % HIV-1 RNA PCR copies/ml 441 H Copies/mL HIV-1 RNA (PCR) log 2.64 H Log cps/mL
[2017-10-09 08:49] LABS: Hematocrit 33.2 % (35.5-45.6); Hemoglobin 11.3 gm/dl (11.8-15.2); Mean Corpuscular HGB Conc 34 % (32-34); Mean Corpuscular Hemoglobin 31 pg (28-32); Mean Corpuscular Volume 89 fl (84-94); Platelet Count 369 K/mm3 (140-440); Red Blood Count 3.71 M/mm3 (3.65-5.03); Red Cell Distribution Width 14.4 % (13.2-15.2)
[2017-10-09] MEDS: PROVENTIL IH SCH ×3 (08:58→20:04)
[2017-10-09 09:02] LABS: BUN/Creatinine Ratio 12; Blood Urea Nitrogen 7 mg/dL (9-20); Calcium 8.4 mg/dL (8.4-10.2); Hemolysis Index 4
[2017-10-09 10:10] LABS: Band Neutrophils # (Manual) 0.4 K/mm3; Basophils % (Manual) 0 % (0.0-1.8); Platelet Estimate Consistent w Auto; RBC Morphology Normal; Total Cells Counted 100
--- NOTE | 2017-10-09 10:51 | Progress Note ---
Assessment and Plan Acute hypoxic respiraotry failure Multifocal pulmonary infiltrates- differentials include CAP, PJP, primary pulmonary lymphoma, fungal pneumonias, mycobacterial infections including TB and non-TB HIV-AIDS Fevers Substance abuse - follow quantiferon - dedicated CT chest to guide bronchoscopy - will schedule for bronchoscopy on saturday tentatively - Continue supplemental oxygen to keep O2 sats>90% - VTE prophylaxis, hold once bronchoscopy is scheduled - Antibiotics/anti-infective per ID service - Steroids ....re-evaluate in am & prn ...25' Subjective Date of service: 10/09/17 Principal diagnosis: Acute Hypoxemic Resp Failure; Bilateral Pneumonia; HIV +ve ; Chest pain Interval history: Patient seen today for: Acute Hypoxemic Resp Failure; Bilateral Pneumonia; HIV + ve; Chest pain Seen and examined at bedside; 24-hour events reviewed; nursing and respiratory care staff consulted; no adverse overnight events reported to me; weak; denies acute chest pains; no emesis or overt aspiration and no hemoptysis; remains on supplemental oxygen Objective Vital Signs - 12hr 10/09/17 10/09/17 10/09/17 00:27 04:58 08:58 Temperature 97.7 F 101.6 F H Pulse Rate 94 H 100 H Pulse Rate [ 97 H Anterior Bilateral Throughout] Respiratory 19 22 Rate Respiratory 24 Rate [Anterior Bilateral Throughout] Blood Pressure 119/66 126/80 O2 Sat by Pulse 95 96 Oximetry 10/09/17 10/09/17 09:02 09:07 Temperature Pulse Rate Pulse Rate [ 99 H Anterior Bilateral Throughout] Respiratory Rate Respiratory 22 Rate [Anterior Bilateral Throughout] Blood Pressure O2 Sat by Pulse 95 Oximetry Constitutional: lethargic, other (chronically ill looking) Eyes: non-icteric ENT: oropharynx moist Neck: supple, no JVD Effort: mildly labored Ascultation: Bilateral: diminished breath sounds, rales Percussion: Bilateral: not dull Cardiovascular: regular rate and rhythm, other (no rubs or murmurs) Gastrointestinal: normoactive bowel sounds, soft, non-tender, non-distended, other (No HSM) Integumentary: other (poor skin turgor) Extremities: no cyanosis, no edema, pulses normal, no ischemia or petechiae Neurologic: normal mental status, non-focal exam, pupils equal and round, CN II- XII normal Psychiatric: depressed CBC and BMP: 10/09/17 08:26 10/09/17 08:26 ABG, PT/INR, D-dimer: ABG ABG pH 7.416 pH Units (7.350-7.450) 10/08/17 23:05 ABG pCO2 31.6 mm Hg 10/08/17 23:05 ABG pO2 83.5 mm Hg (80.0-90.0) 10/08/17 23:05 ABG O2 Saturation 96.6 % (95.0-99.0) 10/08/17 23:05 PT/INR, D-dimer D-Dimer 614.10 ng/mlDDU (0-234) H 10/03/17 06:08 Abnormal lab findings: Abnormal Labs 10/03/17 10/03/17 10/03/17 01:14 01:14 01:14 Hgb Hct [place] % (Auto) 10.0 H Seg Neutrophils % 71.1 H Lymphocytes % (Manual) Monocytes % (Manual) Eosinophils % (Manual) Lymphocytes # (Manual) Monocytes # (Manual) Eosinophils # (Manual) D-Dimer ABG HCO3 ABG Base Excess ABG Hemoglobin Oxyhemoglobin Sodium 129 L Potassium 3.5 L Chloride 94.4 L Carbon Dioxide 18 L BUN Creatinine Calcium 8.3 L Lactate Dehydrogenase Total Creatine Kinase 473 H Albumin HIV-1 RNA PCR copies/ml HIV-1 RNA (PCR) log 10/03/17 10/03/17 10/04/17 04:26 06:08 07:49 Hgb Hct [place] % (Auto) 11.2 H Seg Neutrophils % Lymphocytes % (Manual) Monocytes % (Manual) Eosinophils % (Manual) Lymphocytes # (Manual) Monocytes # (Manual) Eosinophils # (Manual) D-Dimer 614.10 H ABG HCO3 ABG Base Excess ABG Hemoglobin Oxyhemoglobin Sodium Potassium Chloride Carbon Dioxide BUN Creatinine Calcium Lactate Dehydrogenase Total Creatine Kinase 452 H Albumin HIV-1 RNA PCR copies/ml HIV-1 RNA (PCR) log 10/04/17 10/05/17 10/05/17 07:49 05:57 13:59 Hgb Hct [place] % (Auto) Seg Neutrophils % Lymphocytes % (Manual) Monocytes % (Manual) Eosinophils % (Manual) Lymphocytes # (Manual) Monocytes # (Manual) Eosinophils # (Manual) D-Dimer ABG HCO3 ABG Base Excess ABG Hemoglobin Oxyhemoglobin Sodium 128 L Potassium Chloride 95.9 L Carbon Dioxide 17 L BUN 8 L Creatinine Calcium 7.7 L Lactate Dehydrogenase 464 H Total Creatine Kinase Albumin HIV-1 RNA PCR copies/ml 441 H HIV-1 RNA (PCR) log 2.64 H 10/05/17 10/05/17 10/07/17 13:59 13:59 13:21 Hgb Hct 34.7 L [place] % (Auto) Seg Neutrophils % Lymphocytes % (Manual) Monocytes % (Manual) 11.0 H Eosinophils % (Manual) Lymphocytes # (Manual) 0.7 L Monocytes # (Manual) Eosinophils # (Manual) D-Dimer ABG HCO3 ABG Base Excess ABG Hemoglobin Oxyhemoglobin Sodium 131 L Potassium Chloride 95.7 L Carbon Dioxide BUN 6 L Creatinine 0.7 L Calcium 8.1 L Lactate Dehydrogenase Total Creatine Kinase Albumin HIV-1 RNA PCR copies/ml HIV-1 RNA (PCR) log 10/07/17 10/08/17 10/09/17 13:21 23:05 08:26 Hgb 11.3 L Hct 33.2 L [place] % (Auto) Seg Neutrophils % Lymphocytes % (Manual) 8.0 L Monocytes % (Manual) 16.0 H Eosinophils % (Manual) 12.0 H Lymphocytes # (Manual) 0.8 L Monocytes # (Manual) 1.5 H Eosinophils # (Manual) 1.1 H D-Dimer ABG HCO3 19.8 L ABG Base Excess -4.0 L ABG Hemoglobin 9.4 L Oxyhemoglobin 94.2 L Sodium 127 L Potassium Chloride 93.4 L Carbon Dioxide 20 L BUN 4 L Creatinine 0.6 L Calcium 8.2 L Lactate Dehydrogenase Total Creatine Kinase Albumin 3.1 L HIV-1 RNA PCR copies/ml HIV-1 RNA (PCR) log 10/09/17 08:26 Hgb Hct [place] % (Auto) Seg Neutrophils % Lymphocytes % (Manual) Monocytes % (Manual) Eosinophils % (Manual) Lymphocytes # (Manual) Monocytes # (Manual) Eosinophils # (Manual) D-Dimer ABG HCO3 ABG Base Excess ABG Hemoglobin Oxyhemoglobin Sodium 132 L Potassium Chloride 97.2 L Carbon Dioxide 18 L BUN 7 L Creatinine 0.6 L Calcium Lactate Dehydrogenase Total Creatine Kinase Albumin HIV-1 RNA PCR copies/ml HIV-1 RNA (PCR) log CT scan - chest: image reviewed (bibasilar predominant consolidation and GGO's; motion artefact) Allied health notes reviewed: RT
[2017-10-09] MEDS: LOVENOX SUB-Q SCH (11:34)
[2017-10-09] MEDS: ZITHROMAX PO SCH (11:34)
[2017-10-09] MEDS: DIFLUCAN PO SCH (11:34)
[2017-10-09] MEDS: NON-FORMULARY (Darunavir/Cobicistat [Prezcobix 800 Mg-150 Mg Tablet] 1 EACH) PO SCH (11:35)
[2017-10-09] MEDS: LEVAQUIN 750MG/150ML 750 MG/150 ML BAG IV SCH (11:35)
[2017-10-09] MEDS: NON-FORMULARY (Emtricitabin/Tenofovir [Truvada 200-300 Mg] 1 TAB) PO SCH (11:35)
--- NOTE | 2017-10-09 12:37 | Progress Note ---
Assessment and Plan Assessment: 1) Acute fever and Bilateral lung infiltrates in AIDS patient. Could be CAP, PJP , atypical. Of note pt has been taking bactrim as outpatient in treatment dose, unclear why. It was prescribed by his regular HIV provider. Persistently febrile. -LDH high -Cryptococcal antigen negative. 3) Acute N/V/D. r/o C diff. Other opportunistic infections also on the differential: cryptosporidium, cyclospora, isospora, etc. With diarrhea, pneumonia and hyponatremia, other possibility is Legionella. - C diff negative. - Stool cx negative. - Cryptosporidium ag, Giardia ag negative - CT A/P possible gastroenteritis -Stools more formed. 4) Acute hypoxemic respiratory failure. On venti mask 4) Acute atypical chest pain. Negative stress test. 3) HIV/AIDS. On HAART. -HIV-VL 441 (10/05/17) -CD4 31/4%. (10/05/17) Recommendations -Continue azithromycin, bactrim, fluconazole. -Continue cefepime, vancomycin, levofloxacin. -Check isospora, cyclospora and microsporidia, norovirus, rotavirus. -Will f/u regular blood cx done 10/08, fungal blood cx, AFB blood cultures. -Check sputum cx. -Check Aspergillus ag, histoplasma ag in urine, fungal antibodies. -Will f/u Legionella ag and Pneumococcal ag, Quantiferon. -Continue prezcobix and truvada (pt taking his home mds). -Pulmonary consult appreciated -d/w pt and RN. Aurea Figueroa MD Infectious Diseases Specialist [facility] ([facility]) M [phone] Subjective Date of service: 10/09/17 Principal diagnosis: chest pain, diarrhea Interval history: Febrile. Stools more formed. SOB and cough unchanged. Has postnasal drip. Microbiology Blood cultures 10/03/17 NGTD 10/06 Fungal pending 10/08 NGTD Stool WBC negative Culture 10/04 negative. Giardia ag negative Cryptosporodium ag negative Sputum culture 10/05 rejected Antibiotics Fluconazole 10/07- Levofloxacin 10/06- IV vancomycin 10/05- Cefepime 10/05- Azithromycin 10/04- Bactrim 10/04- HAART (prezcobix and truvada, taking home meds). Prior antibiotics Ceftriaxone 10/04-10/05 Flagyl 10/04-10/05 Objective - Exam Narrative Exam: General appearance: Pt is in NAD, A&Ox3, conversant. On venti mask. Eyes: anicteric sclerae, moist conjunctivae; PERRLA HENT: Atraumatic; oropharynx clear with moist mucous membranes and no mucosal ulcerations/no oral thrush; normal hard and soft palate. Normal external ears. Neck: Trachea midline; supple, no thyromegaly or lymphadenopathy Lungs: Scattered bilateral crackles. CV: S1,S2. Abdomen: Soft, non-tender; no masses or hepatosplenomegaly Extremities: No peripheral edema or extremity lymphadenopathy Skin: Normal temperature, turgor and texture; no rash, ulcers or subcutaneous nodules Psych: Appropriate affect, alert and oriented to person, place and time. Neuro: alert and oriented x 3. Moving all extremities Lines: No CVL / PICC - Constitutional Vitals: Vital Signs Temp Pulse Resp BP Pulse Ox 101.6 F H 99 H 22 126/80 95 10/09/17 04:58 10/09/17 09:07 10/09/17 09:07 10/09/17 04:58 10/09/17 09:02 Temperature -Last 24 Hours Temperature 101.6 F Temperature 97.7 F Temperature 99.9 F - Labs CBC & Chem 7: 10/09/17 08:26 10/09/17 08:26 Labs: Abnormal lab results 10/05/17 10/08/17 10/09/17 Range/Units 05:57 23:05 08:26 Hgb 11.3 L (11.8-15.2) gm/dl Hct 33.2 L (35.5-45.6) % Lymphocytes % (Manual) 8.0 L (13.4-35.0) % Monocytes % (Manual) 16.0 H (0.0-7.3) % Eosinophils % (Manual) 12.0 H (0.0-4.3) % Lymphocytes # (Manual) 0.8 L (1.2-5.4) K/mm3 Monocytes # (Manual) 1.5 H (0.0-0.8) K/mm3 Eosinophils # (Manual) 1.1 H (0.0-0.4) K/mm3 ABG HCO3 19.8 L (20.0-26.0) mmol/L ABG Base Excess -4.0 L (-2.0-3.0) mmol/L ABG Hemoglobin 9.4 L (14.0-18.0) gm/dl Oxyhemoglobin 94.2 L (95.0-99.0) % Sodium (137-145) mmol/L Chloride (98-107) mmol/L Carbon Dioxide (22-30) mmol/L BUN (9-20) mg/dL Creatinine (0.8-1.5) mg/dL HIV-1 RNA PCR copies/ml 441 H Copies/mL HIV-1 RNA (PCR) log 2.64 H Log cps/mL 10/09/17 Range/Units 08:26 Hgb (11.8-15.2) gm/dl Hct (35.5-45.6) % Lymphocytes % (Manual) (13.4-35.0) % Monocytes % (Manual) (0.0-7.3) % Eosinophils % (Manual) (0.0-4.3) % Lymphocytes # (Manual) (1.2-5.4) K/mm3 Monocytes # (Manual) (0.0-0.8) K/mm3 Eosinophils # (Manual) (0.0-0.4) K/mm3 ABG HCO3 (20.0-26.0) mmol/L ABG Base Excess (-2.0-3.0) mmol/L ABG Hemoglobin (14.0-18.0) gm/dl Oxyhemoglobin (95.0-99.0) % Sodium 132 L (137-145) mmol/L Chloride 97.2 L (98-107) mmol/L Carbon Dioxide 18 L (22-30) mmol/L BUN 7 L (9-20) mg/dL Creatinine 0.6 L (0.8-1.5) mg/dL HIV-1 RNA PCR copies/ml Copies/mL HIV-1 RNA (PCR) log Log cps/mL
[2017-10-09 13:35] LABS: CD4/CD8 Ratio 0.07 (0.86-5.00)
--- NOTE | 2017-10-09 15:29 | Progress Note ---
Assessment and Plan Assessment and plan: 42-year-old male with history of HIV, CD4 count of 34 pw CP Sepsis/PNA -possible CAP, PCP vs IRIS -continue abx, ID input appreciated pulm consulted for possible bronch Atypical CP with neg. stress thallium ; no further workup elevated D-dimer; cta chest neg for pe diarrhea, rule out HIV related infection; stool studies ordered, on empiric abx , no evidence of GI infection at this timel; CT A/P no acute findings may be due to IRIS, GI consult appreciated, diarrhea is resolving, only having 1 -2 BMs per day now Hyponatremia; continue NS Substance Abuse; denies current abuse, was counseled AIDS, started on HAART at [facility] 3wks prior to admission; continue HAART, ID consulted History Interval history: Review of systems Constitutional: Admits fatigue and malaise and fevers CVS: No chest pain, no orthopnea, no dyspnea on exertion, no pedal edema GI: No abdominal pain, admits diarrhea, vomiting now resolved, no constipation Respiratory: reports sob and cough Hospitalist Physical - Physical exam Narrative exam: General.: Appears well, moderate distress, appears ill HEENT: Moist mucous membranes, extraocular muscles intact, no lymphadenopathy Neck: supple Cardiac: S1-S2 heard Lungs: Crackles in right lung Abdomen: soft , nontender, nondistended, bowel sounds positive Extremities: no edema clubbing or cyanosis Skin: no rash or lesions Neurologic: no gross focal deficits Psych: appropriate behavior, appropriate mood, corporative, judgment intact - Constitutional Vitals: Temp Pulse Resp BP Pulse Ox 101.6 F H 99 H 22 126/80 95 10/09/17 04:58 10/09/17 09:07 10/09/17 09:07 10/09/17 04:58 10/09/17 09:02 General appearance: Present: no acute distress, well-nourished Results - Labs CBC & Chem 7: 10/09/17 08:26 10/09/17 08:26 Labs: Laboratory Last Values WBC 9.5 K/mm3 (4.5-11.0) 10/09/17 08:26 RBC 3.71 M/mm3 (3.65-5.03) 10/09/17 08:26 Hgb 11.3 gm/dl (11.8-15.2) L 10/09/17 08:26 Hct 33.2 % (35.5-45.6) L 10/09/17 08:26 MCV 89 fl (84-94) 10/09/17 08:26 MCH 31 pg (28-32) 10/09/17 08:26 MCHC 34 % (32-34) 10/09/17 08:26 RDW 14.4 % (13.2-15.2) 10/09/17 08:26 Plt Count 369 K/mm3 (140-440) 10/09/17 08:26 Lymph % (Auto) 24.0 % (13.4-35.0) 10/04/17 07:49 [place] % (Auto) Healthcare Social Worker 10/09/17 08:26 Eos % (Auto) 0.8 % (0.0-4.3) 10/04/17 07:49 Baso % (Auto) 0.4 % (0.0-1.8) 10/04/17 07:49 Lymph # 1.4 K/mm3 (1.2-5.4) 10/04/17 07:49 [place] # 0.7 K/mm3 (0.0-0.8) 10/04/17 07:49 Eos # 0.0 K/mm3 (0.0-0.4) 10/04/17 07:49 Baso # 0.0 K/mm3 (0.0-0.1) 10/04/17 07:49 Add Manual Diff Complete 10/09/17 08:26 Total Counted 100 10/09/17 08:26 Seg Neutrophils % 63.6 % (40.0-70.0) 10/04/17 07:49 Seg Neuts % (Manual) 60.0 % (40.0-70.0) 10/09/17 08:26 Band Neutrophils % 4.0 % 10/09/17 08:26 Lymphocytes % (Manual) 8.0 % (13.4-35.0) L 10/09/17 08:26 Reactive Lymphs % (Man) 0 % 10/09/17 08:26 Monocytes % (Manual) 16.0 % (0.0-7.3) H 10/09/17 08:26 Eosinophils % (Manual) 12.0 % (0.0-4.3) H 10/09/17 08:26 Basophils % (Manual) 0 % (0.0-1.8) 10/09/17 08:26 Metamyelocytes % 0 % 10/09/17 08:26 Myelocytes % 0 % 10/09/17 08:26 Promyelocytes % 0 % 10/09/17 08:26 Blast Cells % 0 % 10/09/17 08:26 Nucleated RBC % Not Reportable 10/09/17 08:26 Seg Neutrophils # 3.8 K/mm3 (1.8-7.7) 10/04/17 07:49 Seg Neutrophils # Man 5.7 K/mm3 (1.8-7.7) 10/09/17 08:26 Band Neutrophils # 0.4 K/mm3 10/09/17 08:26 Abs Lymphs (Manual) 734 cells/uL (850-3900) L 10/05/17 05:57 Lymphocytes # (Manual) 0.8 K/mm3 (1.2-5.4) L 10/09/17 08:26 Abs React Lymphs (Man) 0.0 K/mm3 10/09/17 08:26 Monocytes # (Manual) 1.5 K/mm3 (0.0-0.8) H 10/09/17 08:26 Eosinophils # (Manual) 1.1 K/mm3 (0.0-0.4) H 10/09/17 08:26 Basophils # (Manual) 0.0 K/mm3 (0.0-0.1) 10/09/17 08:26 Metamyelocytes # 0.0 K/mm3 10/09/17 08:26 Myelocytes # 0.0 K/mm3 10/09/17 08:26 Promyelocytes # 0.0 K/mm3 10/09/17 08:26 Blast Cells # 0.0 K/mm3 10/09/17 08:26 WBC Morphology Not Reportable 10/09/17 08:26 Hypersegmented Neuts Not Reportable 10/09/17 08:26 Hyposegmented Neuts Not Reportable 10/09/17 08:26 Hypogranular Neuts Not Reportable 10/09/17 08:26 Smudge Cells Not Reportable 10/09/17 08:26 Toxic Granulation Not Reportable 10/09/17 08:26 Toxic Vacuolation Not Reportable 10/09/17 08:26 Dohle Bodies Not Reportable 10/09/17 08:26 Pelger-Huet Anomaly Not Reportable 10/09/17 08:26 Zora Rods Not Reportable 10/09/17 08:26 Platelet Estimate Consistent w auto 10/09/17 08:26 Clumped Platelets Not Reportable 10/09/17 08:26 Plt Clumps, EDTA Not Reportable 10/09/17 08:26 Large Platelets Not Reportable 10/09/17 08:26 Giant Platelets Not Reportable 10/09/17 08:26 Platelet Satelliting Not Reportable 10/09/17 08:26 Plt Morphology Comment Not Reportable 10/09/17 08:26 RBC Morphology Normal 10/09/17 08:26 Dimorphic RBCs Not Reportable 10/09/17 08:26 Polychromasia Not Reportable 10/09/17 08:26 Hypochromasia Not Reportable 10/09/17 08:26 Poikilocytosis Not Reportable 10/09/17 08:26 Anisocytosis Not Reportable 10/09/17 08:26 Microcytosis Not Reportable 10/09/17 08:26 Macrocytosis Not Reportable 10/09/17 08:26 Spherocytes Not Reportable 10/09/17 08:26 Pappenheimer Bodies Not Reportable 10/09/17 08:26 Sickle Cells Not Reportable 10/09/17 08:26 Target Cells Not Reportable 10/09/17 08:26 Tear Drop Cells Not Reportable 10/09/17 08:26 Ovalocytes Not Reportable 10/09/17 08:26 Helmet Cells Not Reportable 10/09/17 08:26 Estrada-Evaro Bodies Not Reportable 10/09/17 08:26 [place] Rings Not Reportable 10/09/17 08:26 [place] Cells Not Reportable 10/09/17 08:26 Bite Cells Not Reportable 10/09/17 08:26 Crenated Cell Not Reportable 10/09/17 08:26 Elliptocytes Not Reportable 10/09/17 08:26 Acanthocytes (Spur) Not Reportable 10/09/17 08:26 Rouleaux Not Reportable 10/09/17 08:26 Hemoglobin C Crystals Not Reportable 10/09/17 08:26 Schistocytes Not Reportable 10/09/17 08:26 Malaria parasites Not Reportable 10/09/17 08:26 Glen Bodies Not Reportable 10/09/17 08:26 Hem Pathologist Commnt No 10/09/17 08:26 D-Dimer 614.10 ng/mlDDU (0-234) H 10/03/17 06:08 ABG pH 7.416 pH Units (7.350-7.450) 10/08/17 23:05 ABG pCO2 31.6 mm Hg 10/08/17 23:05 ABG pO2 83.5 mm Hg (80.0-90.0) 10/08/17 23:05 ABG HCO3 19.8 mmol/L (20.0-26.0) L 10/08/17 23:05 ABG O2 Saturation 96.6 % (95.0-99.0) 10/08/17 23:05 ABG O2 Content 12.6 (0.0-44) 10/08/17 23:05 ABG Base Excess -4.0 mmol/L (-2.0-3.0) L 10/08/17 23:05 ABG Hemoglobin 9.4 gm/dl (14.0-18.0) L 10/08/17 23:05 ABG Carboxyhemoglobin 1.5 % (0.0-5.0) 10/08/17 23:05 ABG Methemoglobin 1.0 % (0.0-1.5) 10/08/17 23:05 Oxyhemoglobin 94.2 % (95.0-99.0) L 10/08/17 23:05 FiO2 35 % 10/08/17 23:05 Sodium 132 mmol/L (137-145) L 10/09/17 08:26 Potassium 4.1 mmol/L (3.6-5.0) 10/09/17 08:26 Chloride 97.2 mmol/L (98-107) L 10/09/17 08:26 Carbon Dioxide 18 mmol/L (22-30) L 10/09/17 08:26 Anion Gap 21 mmol/L 10/09/17 08:26 BUN 7 mg/dL (9-20) L 10/09/17 08:26 Creatinine 0.6 mg/dL (0.8-1.5) L 10/09/17 08:26 Estimated GFR > 60 ml/min 10/09/17 08:26 BUN/Creatinine Ratio 12 % 10/09/17 08:26 Glucose 91 mg/dL (75-100) 10/09/17 08:26 Calcium 8.4 mg/dL (8.4-10.2) 10/09/17 08:26 Total Bilirubin 0.50 mg/dL (0.1-1.2) 10/07/17 13:21 AST 31 units/L (5-40) 10/07/17 13:21 ALT 14 units/L (7-56) 10/07/17 13:21 Alkaline Phosphatase 36 units/L (35-129) 10/07/17 13:21 Lactate Dehydrogenase 464 units/L (91-180) H 10/05/17 13:59 Total Creatine Kinase 452 units/L (55-170) H 10/03/17 04:26 CK-MB (CK-2) < 1.0 ng/mL (0.0-4.0) 10/03/17 04:26 CK-MB (CK-2) Rel Index 0.2 (0-4) 10/03/17 04:26 Troponin T < 0.010 ng/mL (0.00-0.029) 10/03/17 07:42 Total Protein 6.5 g/dL (6.3-8.2) 10/07/17 13:21 Albumin 3.1 g/dL (3.9-5) L 10/07/17 13:21 Albumin/Globulin Ratio 0.9 % 10/07/17 13:21 Lipase 41 units/L (13-60) 10/03/17 01:14 Urine Color Yellow (Yellow) 10/03/17 Unknown Urine Turbidity Clear (Clear) 10/03/17 Unknown Urine pH 5.0 (5.0-7.0) 10/03/17 Unknown Ur Specific [place] 1.024 (1.003-1.030) 10/03/17 Unknown Urine Protein 30 mg/dl mg/dL (Negative) 10/03/17 Unknown Urine Glucose (UA) Neg mg/dL (Negative) 10/03/17 Unknown Urine Ketones 20 mg/dL (Negative) 10/03/17 Unknown Urine Blood Neg (Negative) 10/03/17 Unknown Urine Nitrite Neg (Negative) 10/03/17 Unknown Urine Bilirubin Neg (Negative) 10/03/17 Unknown Urine Urobilinogen 4.0 mg/dL (<2.0) 10/03/17 Unknown Ur Leukocyte Esterase Neg (Negative) 10/03/17 Unknown Urine WBC (Auto) 1.0 /HPF (0.0-6.0) 10/03/17 Unknown Urine RBC (Auto) 2.0 /HPF (0.0-6.0) 10/03/17 Unknown Urine Mucus Few /HPF 10/03/17 Unknown Vancomycin Trough 5.4 ug/mL (5.0-20.0) 10/08/17 17:19 Lymph Enumerat CD4/CD8 0.07 (0.86-5.00) L 10/05/17 05:57 % CD3 Cells 56 % (57-85) L 10/05/17 05:57 Absolute CD3 Count 410 cells/uL (840-3060) L 10/05/17 05:57 % CD4 Cells 4 % (30-61) L 10/05/17 05:57 Absolute CD4 Count 31 cells/uL (490-1740) L 10/05/17 05:57 % CD8 Cells 54 % (12-42) H 10/05/17 05:57 Absolute CD8 Count 436 cells/uL (180-1170) 10/05/17 05:57 % CD19 Cells 30 % (6-29) H 10/05/17 05:57 Absolute CD19 Count 194 cells/uL (110-660) 10/05/17 05:57 C. difficile Toxin A&B Negative (Negative) 10/04/17 11:04 HIV-1 RNA PCR copies/ml 441 Copies/mL H 10/05/17 05:57 HIV-1 RNA (PCR) log 2.64 Log cps/mL H 10/05/17 05:57
--- NOTE | 2017-10-09 16:36 | Gastroenterology Progress Note ---
Assessment and Plan GI: HIV + w/ diarrhea and fever - pt w/ negative stool cx's to date - diarrhea improving - pt w/ fever probably from pulm source - ID and pulmonary notes reviewed - given stable diarrhea and no plans colonoscopy no changes at this time - awaiting other labs per ID - no interventions planned, call if needed Subjective Date of service: 10/09/17 Principal diagnosis: chest pain, diarrhea Interval history: - pt reports diarrhea much improved. Reports shortness of breath, denies GI complaints Objective - Constitutional Vitals: Temp Pulse Resp BP Pulse Ox 101.6 F H 99 H 22 126/80 95 10/09/17 04:58 10/09/17 09:07 10/09/17 09:07 10/09/17 04:58 10/09/17 09:02 General appearance: no acute distress - EENT Eyes: PERRL - Respiratory Respiratory: bilateral: rhonchi - Cardiovascular Rhythm: regular Heart Sounds: Present: S1 & S2 - Gastrointestinal General gastrointestinal: Present: soft, non-tender, non-distended - Labs CBC & Chem 7: 10/09/17 08:26 10/09/17 08:26 Labs: Laboratory Results - last 24 hr 10/05/17 10/05/17 10/08/17 05:57 05:57 17:19 WBC RBC Hgb Hct MCV MCH MCHC RDW Plt Count [place] % (Auto) Add Manual Diff Total Counted Seg Neuts % (Manual) Band Neutrophils % Lymphocytes % (Manual) Reactive Lymphs % (Man) Monocytes % (Manual) Eosinophils % (Manual) Basophils % (Manual) Metamyelocytes % Myelocytes % Promyelocytes % Blast Cells % Nucleated RBC % Seg Neutrophils # Man Band Neutrophils # Abs Lymphs (Manual) 734 L Lymphocytes # (Manual) Abs React Lymphs (Man) Monocytes # (Manual) Eosinophils # (Manual) Basophils # (Manual) Metamyelocytes # Myelocytes # Promyelocytes # Blast Cells # WBC Morphology Hypersegmented Neuts Hyposegmented Neuts Hypogranular Neuts Smudge Cells Toxic Granulation Toxic Vacuolation Dohle Bodies Pelger-Huet Anomaly Zora Rods Platelet Estimate Clumped Platelets Plt Clumps, EDTA Large Platelets Giant Platelets Platelet Satelliting Plt Morphology Comment RBC Morphology Dimorphic RBCs Polychromasia Hypochromasia Poikilocytosis Anisocytosis Microcytosis Macrocytosis Spherocytes Pappenheimer Bodies Sickle Cells Target Cells Tear Drop Cells Ovalocytes Helmet Cells Estrada-Elsie Bodies [place] Rings Nathaniel Cells Bite Cells Crenated Cell Elliptocytes Acanthocytes (Spur) Rouleaux Hemoglobin C Crystals Schistocytes Malaria parasites [place] Bodies Hem Pathologist Commnt ABG pH ABG pCO2 ABG pO2 ABG HCO3 ABG O2 Saturation ABG O2 Content ABG Base Excess ABG Hemoglobin ABG Carboxyhemoglobin ABG Methemoglobin Oxyhemoglobin FiO2 Sodium Potassium Chloride Carbon Dioxide Anion Gap BUN Creatinine Estimated GFR BUN/Creatinine Ratio Glucose Calcium Vancomycin Trough 5.4 Lymph Enumerat CD4/CD8 0.07 L % CD3 Cells 56 L Absolute CD3 Count 410 L % CD4 Cells 4 L Absolute CD4 Count 31 L % CD8 Cells 54 H Absolute CD8 Count 436 % CD19 Cells 30 H Absolute CD19 Count 194 HIV-1 RNA PCR copies/ml 441 H HIV-1 RNA (PCR) log 2.64 H 10/08/17 10/09/17 10/09/17 23:05 08:26 08:26 WBC 9.5 RBC 3.71 Hgb 11.3 L Hct 33.2 L MCV 89 MCH 31 MCHC 34 RDW 14.4 Plt Count 369 [place] % (Auto) Painter Plate Add Manual Diff Complete Total Counted 100 Seg Neuts % (Manual) 60.0 Band Neutrophils % 4.0 Lymphocytes % (Manual) 8.0 L Reactive Lymphs % (Man) 0 Monocytes % (Manual) 16.0 H Eosinophils % (Manual) 12.0 H Basophils % (Manual) 0 Metamyelocytes % 0 Myelocytes % 0 Promyelocytes % 0 Blast Cells % 0 Nucleated RBC % Not Reportable Seg Neutrophils # Man 5.7 Band Neutrophils # 0.4 Abs Lymphs (Manual) Lymphocytes # (Manual) 0.8 L Abs React Lymphs (Man) 0.0 Monocytes # (Manual) 1.5 H Eosinophils # (Manual) 1.1 H Basophils # (Manual) 0.0 Metamyelocytes # 0.0 Myelocytes # 0.0 Promyelocytes # 0.0 Blast Cells # 0.0 WBC Morphology Not Reportable Hypersegmented Neuts Not Reportable Hyposegmented Neuts Not Reportable Hypogranular Neuts Not Reportable Smudge Cells Not Reportable Toxic Granulation Not Reportable Toxic Vacuolation Not Reportable Dohle Bodies Not Reportable Pelger-Huet Anomaly Not Reportable Zora Rods Not Reportable Platelet Estimate Consistent w auto Clumped Platelets Not Reportable Plt Clumps, EDTA Not Reportable Large Platelets Not Reportable Giant Platelets Not Reportable Platelet Satelliting Not Reportable Plt Morphology Comment Not Reportable RBC Morphology Normal Dimorphic RBCs Not Reportable Polychromasia Not Reportable Hypochromasia Not Reportable Poikilocytosis Not Reportable Anisocytosis Not Reportable Microcytosis Not Reportable Macrocytosis Not Reportable Spherocytes Not Reportable Pappenheimer Bodies Not Reportable Sickle Cells Not Reportable Target Cells Not Reportable Tear Drop Cells Not Reportable Ovalocytes Not Reportable Helmet Cells Not Reportable Estrada-Elsie Bodies Not Reportable [place] Rings Not Reportable Nathaniel Cells Not Reportable Bite Cells Not Reportable Crenated Cell Not Reportable Elliptocytes Not Reportable Acanthocytes (Spur) Not Reportable Rouleaux Not Reportable Hemoglobin C Crystals Not Reportable Schistocytes Not Reportable Malaria parasites Not Reportable [place] Bodies Not Reportable Hem Pathologist Commnt No ABG pH 7.416 ABG pCO2 31.6 ABG pO2 83.5 ABG HCO3 19.8 L ABG O2 Saturation 96.6 ABG O2 Content 12.6 ABG Base Excess -4.0 L ABG Hemoglobin 9.4 L ABG Carboxyhemoglobin 1.5 ABG Methemoglobin 1.0 Oxyhemoglobin 94.2 L FiO2 35 Sodium 132 L Potassium 4.1 Chloride 97.2 L Carbon Dioxide 18 L Anion Gap 21 BUN 7 L Creatinine 0.6 L Estimated GFR > 60 BUN/Creatinine Ratio 12 Glucose 91 Calcium 8.4 Vancomycin Trough Lymph Enumerat CD4/CD8 % CD3 Cells Absolute CD3 Count % CD4 Cells Absolute CD4 Count % CD8 Cells Absolute CD8 Count % CD19 Cells Absolute CD19 Count HIV-1 RNA PCR copies/ml HIV-1 RNA (PCR) log
[2017-10-10] MEDS: VANCOMYCIN 1,250 MG in NACL 0.9% 250ML 250 ML IV SCH ×4 (01:32→18:40)
[2017-10-10] MEDS: SODIUM CHLORIDE FLUSH SYRINGE 10 ML IV SCH ×4 (01:33→23:45)
[2017-10-10] MEDS: MAXIPIME 2 GM in NACL 0.9% 20 ML IV SCH ×3 (05:55→23:44)
[2017-10-10] MEDS: BACTRIM DS PO SCH ×3 (05:55→23:44)
[2017-10-10] MEDS: LEVAQUIN 750MG/150ML 750 MG/150 ML BAG IV SCH (10:19)
[2017-10-10] MEDS: LOVENOX SUB-Q SCH (10:20)
[2017-10-10] MEDS: DIFLUCAN PO SCH (10:20)
[2017-10-10] MEDS: ZITHROMAX PO SCH (10:20)
[2017-10-10] MEDS: NON-FORMULARY (Darunavir/Cobicistat [Prezcobix 800 Mg-150 Mg Tablet] 1 EACH) PO SCH (10:21)
[2017-10-10] MEDS: NON-FORMULARY (Emtricitabin/Tenofovir [Truvada 200-300 Mg] 1 TAB) PO SCH (10:21)
[2017-10-10] MEDS: PROVENTIL IH SCH ×3 (10:37→22:59)
[2017-10-10 10:40] LABS: INR 1.17 (0.87-1.13)
--- NOTE | 2017-10-10 11:53 | Progress Note ---
Assessment and Plan Assessment and plan: 42-year-old male with history of HIV, CD4 count of 34 pw CP Sepsis/PNA -CT confirmed PNA -possible CAP, PCP vs IRIS -continue abx, ID input appreciated pulm consulted for bronch tomorrow Atypical CP with neg. stress thallium ; no further workup elevated D-dimer; cta chest neg for pe diarrhea, rule out HIV related infection; stool studies ordered, on empiric abx , no evidence of GI infection at this timel; CT A/P no acute findings may be due to IRIS, GI consult appreciated, diarrhea is resolving, only having 1 -2 BMs per day now; no plans for endoscopy at this time Hyponatremia; continue NS Substance Abuse; denies current abuse, was counseled AIDS, started on HAART at [facility] 3wks prior to admission; continue HAART, ID consulted; suspect IRIS vs opportinist infection dicussed with Flor, she is to obtain his records from the [facility] History Interval history: Review of systems Constitutional: Admits fatigue and malaise and fevers CVS: No chest pain, no orthopnea, no dyspnea on exertion, no pedal edema GI: No abdominal pain, admits diarrhea, vomiting now resolved, no constipation Respiratory: reports sob and cough Hospitalist Physical - Physical exam Narrative exam: General.: Appears well, moderate distress, appears ill HEENT: Moist mucous membranes, extraocular muscles intact, no lymphadenopathy Neck: supple Cardiac: S1-S2 heard Lungs: Crackles in right lung Abdomen: soft , nontender, nondistended, bowel sounds positive Extremities: no edema clubbing or cyanosis Skin: no rash or lesions Neurologic: no gross focal deficits Psych: appropriate behavior, appropriate mood, corporative, judgment intact - Constitutional Vitals: Temp Pulse Resp BP Pulse Ox 99.5 F 103 H 44 H 126/72 94 10/10/17 07:37 10/10/17 10:50 10/10/17 10:50 10/10/17 07:37 10/10/17 10:39 General appearance: Present: no acute distress, well-nourished Results - Labs CBC & Chem 7: 10/09/17 08:26 10/09/17 08:26 Labs: Laboratory Last Values WBC 9.5 K/mm3 (4.5-11.0) 10/09/17 08:26 RBC 3.71 M/mm3 (3.65-5.03) 10/09/17 08:26 Hgb 11.3 gm/dl (11.8-15.2) L 10/09/17 08:26 Hct 33.2 % (35.5-45.6) L 10/09/17 08:26 MCV 89 fl (84-94) 10/09/17 08:26 MCH 31 pg (28-32) 10/09/17 08:26 MCHC 34 % (32-34) 10/09/17 08:26 RDW 14.4 % (13.2-15.2) 10/09/17 08:26 Plt Count 369 K/mm3 (140-440) 10/09/17 08:26 Lymph % (Auto) 24.0 % (13.4-35.0) 10/04/17 07:49 [place] % (Auto) [employer] 10/09/17 08:26 Eos % (Auto) 0.8 % (0.0-4.3) 10/04/17 07:49 Baso % (Auto) 0.4 % (0.0-1.8) 10/04/17 07:49 Lymph # 1.4 K/mm3 (1.2-5.4) 10/04/17 07:49 [place] # 0.7 K/mm3 (0.0-0.8) 10/04/17 07:49 Eos # 0.0 K/mm3 (0.0-0.4) 10/04/17 07:49 Baso # 0.0 K/mm3 (0.0-0.1) 10/04/17 07:49 Add Manual Diff Complete 10/09/17 08:26 Total Counted 100 10/09/17 08:26 Seg Neutrophils % 63.6 % (40.0-70.0) 10/04/17 07:49 Seg Neuts % (Manual) 60.0 % (40.0-70.0) 10/09/17 08:26 Band Neutrophils % 4.0 % 10/09/17 08:26 Lymphocytes % (Manual) 8.0 % (13.4-35.0) L 10/09/17 08:26 Reactive Lymphs % (Man) 0 % 10/09/17 08:26 Monocytes % (Manual) 16.0 % (0.0-7.3) H 10/09/17 08:26 Eosinophils % (Manual) 12.0 % (0.0-4.3) H 10/09/17 08:26 Basophils % (Manual) 0 % (0.0-1.8) 10/09/17 08:26 Metamyelocytes % 0 % 10/09/17 08:26 Myelocytes % 0 % 10/09/17 08:26 Promyelocytes % 0 % 10/09/17 08:26 Blast Cells % 0 % 10/09/17 08:26 Nucleated RBC % Not Reportable 10/09/17 08:26 Seg Neutrophils # 3.8 K/mm3 (1.8-7.7) 10/04/17 07:49 Seg Neutrophils # Man 5.7 K/mm3 (1.8-7.7) 10/09/17 08:26 Band Neutrophils # 0.4 K/mm3 10/09/17 08:26 Abs Lymphs (Manual) 734 cells/uL (850-3900) L 10/05/17 05:57 Lymphocytes # (Manual) 0.8 K/mm3 (1.2-5.4) L 10/09/17 08:26 Abs React Lymphs (Man) 0.0 K/mm3 10/09/17 08:26 Monocytes # (Manual) 1.5 K/mm3 (0.0-0.8) H 10/09/17 08:26 Eosinophils # (Manual) 1.1 K/mm3 (0.0-0.4) H 10/09/17 08:26 Basophils # (Manual) 0.0 K/mm3 (0.0-0.1) 10/09/17 08:26 Metamyelocytes # 0.0 K/mm3 10/09/17 08:26 Myelocytes # 0.0 K/mm3 10/09/17 08:26 Promyelocytes # 0.0 K/mm3 10/09/17 08:26 Blast Cells # 0.0 K/mm3 10/09/17 08:26 WBC Morphology Not Reportable 10/09/17 08:26 Hypersegmented Neuts Not Reportable 10/09/17 08:26 Hyposegmented Neuts Not Reportable 10/09/17 08:26 Hypogranular Neuts Not Reportable 10/09/17 08:26 Smudge Cells Not Reportable 10/09/17 08:26 Toxic Granulation Not Reportable 10/09/17 08:26 Toxic Vacuolation Not Reportable 10/09/17 08:26 Dohle Bodies Not Reportable 10/09/17 08:26 Pelger-Huet Anomaly Not Reportable 10/09/17 08:26 Zora Rods Not Reportable 10/09/17 08:26 Platelet Estimate Consistent w auto 10/09/17 08:26 Clumped Platelets Not Reportable 10/09/17 08:26 Plt Clumps, EDTA Not Reportable 10/09/17 08:26 Large Platelets Not Reportable 10/09/17 08:26 Giant Platelets Not Reportable 10/09/17 08:26 Platelet Satelliting Not Reportable 10/09/17 08:26 Plt Morphology Comment Not Reportable 10/09/17 08:26 RBC Morphology Normal 10/09/17 08:26 Dimorphic RBCs Not Reportable 10/09/17 08:26 Polychromasia Not Reportable 10/09/17 08:26 Hypochromasia Not Reportable 10/09/17 08:26 Poikilocytosis Not Reportable 10/09/17 08:26 Anisocytosis Not Reportable 10/09/17 08:26 Microcytosis Not Reportable 10/09/17 08:26 Macrocytosis Not Reportable 10/09/17 08:26 Spherocytes Not Reportable 10/09/17 08:26 Pappenheimer Bodies Not Reportable 10/09/17 08:26 Sickle Cells Not Reportable 10/09/17 08:26 Target Cells Not Reportable 10/09/17 08:26 Tear Drop Cells Not Reportable 10/09/17 08:26 Ovalocytes Not Reportable 10/09/17 08:26 Helmet Cells Not Reportable 10/09/17 08:[address] [place] Bodies Not Reportable 10/09/17 08:26 [place] Rings Not Reportable 10/09/17 08:26 [place] Cells Not Reportable 10/09/17 08:26 Bite Cells Not Reportable 10/09/17 08:26 Crenated Cell Not Reportable 10/09/17 08:26 Elliptocytes Not Reportable 10/09/17 08:26 Acanthocytes (Spur) Not Reportable 10/09/17 08:26 Rouleaux Not Reportable 10/09/17 08:26 Hemoglobin C Crystals Not Reportable 10/09/17 08:26 Schistocytes Not Reportable 10/09/17 08:26 Malaria parasites Not Reportable 10/09/17 08:26 [place] Bodies Not Reportable 10/09/17 08:26 Hem Pathologist Commnt No 10/09/17 08:26 PT 15.5 Sec. (12.2-14.9) H 10/10/17 09:44 INR 1.17 (0.87-1.13) H 10/10/17 09:44 D-Dimer 614.10 ng/mlDDU (0-234) H 10/03/17 06:08 ABG pH 7.416 pH Units (7.350-7.450) 10/08/17 23:05 ABG pCO2 31.6 mm Hg 10/08/17 23:05 ABG pO2 83.5 mm Hg (80.0-90.0) 10/08/17 23:05 ABG HCO3 19.8 mmol/L (20.0-26.0) L 10/08/17 23:05 ABG O2 Saturation 96.6 % (95.0-99.0) 10/08/17 23:05 ABG O2 Content 12.6 (0.0-44) 10/08/17 23:05 ABG Base Excess -4.0 mmol/L (-2.0-3.0) L 10/08/17 23:05 ABG Hemoglobin 9.4 gm/dl (14.0-18.0) L 10/08/17 23:05 ABG Carboxyhemoglobin 1.5 % (0.0-5.0) 10/08/17 23:05 ABG Methemoglobin 1.0 % (0.0-1.5) 10/08/17 23:05 Oxyhemoglobin 94.2 % (95.0-99.0) L 10/08/17 23:05 FiO2 35 % 10/08/17 23:05 Sodium 132 mmol/L (137-145) L 10/09/17 08:26 Potassium 4.1 mmol/L (3.6-5.0) 10/09/17 08:26 Chloride 97.2 mmol/L (98-107) L 10/09/17 08:26 Carbon Dioxide 18 mmol/L (22-30) L 10/09/17 08:26 Anion Gap 21 mmol/L 10/09/17 08:26 BUN 7 mg/dL (9-20) L 10/09/17 08:26 Creatinine 0.6 mg/dL (0.8-1.5) L 10/09/17 08:26 Estimated GFR > 60 ml/min 10/09/17 08:26 BUN/Creatinine Ratio 12 % 10/09/17 08:26 Glucose 91 mg/dL (75-100) 10/09/17 08:26 Calcium 8.4 mg/dL (8.4-10.2) 10/09/17 08:26 Total Bilirubin 0.50 mg/dL (0.1-1.2) 10/07/17 13:21 AST 31 units/L (5-40) 10/07/17 13:21 ALT 14 units/L (7-56) 10/07/17 13:21 Alkaline Phosphatase 36 units/L (35-129) 10/07/17 13:21 Lactate Dehydrogenase 464 units/L (91-180) H 10/05/17 13:59 Total Creatine Kinase 452 units/L (55-170) H 10/03/17 04:26 CK-MB (CK-2) < 1.0 ng/mL (0.0-4.0) 10/03/17 04:26 CK-MB (CK-2) Rel Index 0.2 (0-4) 10/03/17 04:26 Troponin T < 0.010 ng/mL (0.00-0.029) 10/03/17 07:42 Total Protein 6.5 g/dL (6.3-8.2) 10/07/17 13:21 Albumin 3.1 g/dL (3.9-5) L 10/07/17 13:21 Albumin/Globulin Ratio 0.9 % 10/07/17 13:21 Lipase 41 units/L (13-60) 10/03/17 01:14 Urine Color Yellow (Yellow) 10/03/17 Unknown Urine Turbidity Clear (Clear) 10/03/17 Unknown Urine pH 5.0 (5.0-7.0) 10/03/17 Unknown Ur Specific [place] 1.024 (1.003-1.030) 10/03/17 Unknown Urine Protein 30 mg/dl mg/dL (Negative) 10/03/17 Unknown Urine Glucose (UA) Neg mg/dL (Negative) 10/03/17 Unknown Urine Ketones 20 mg/dL (Negative) 10/03/17 Unknown Urine Blood Neg (Negative) 10/03/17 Unknown Urine Nitrite Neg (Negative) 10/03/17 Unknown Urine Bilirubin Neg (Negative) 10/03/17 Unknown Urine Urobilinogen 4.0 mg/dL (<2.0) 10/03/17 Unknown Ur Leukocyte Esterase Neg (Negative) 10/03/17 Unknown Urine WBC (Auto) 1.0 /HPF (0.0-6.0) 10/03/17 Unknown Urine RBC (Auto) 2.0 /HPF (0.0-6.0) 10/03/17 Unknown Urine Mucus Few /HPF 10/03/17 Unknown Vancomycin Trough 5.4 ug/mL (5.0-20.0) 10/08/17 17:19 Lymph Enumerat CD4/CD8 0.07 (0.86-5.00) L 10/05/17 05:57 % CD3 Cells 56 % (57-85) L 10/05/17 05:57 Absolute CD3 Count 410 cells/uL (840-3060) L 10/05/17 05:57 % CD4 Cells 4 % (30-61) L 10/05/17 05:57 Absolute CD4 Count 31 cells/uL (490-1740) L 10/05/17 05:57 % CD8 Cells 54 % (12-42) H 10/05/17 05:57 Absolute CD8 Count 436 cells/uL (180-1170) 10/05/17 05:57 % CD19 Cells 30 % (6-29) H 10/05/17 05:57 Absolute CD19 Count 194 cells/uL (110-660) 10/05/17 05:57 C. difficile Toxin A&B Negative (Negative) 10/04/17 11:04 HIV-1 RNA PCR copies/ml 441 Copies/mL H 10/05/17 05:57 HIV-1 RNA (PCR) log 2.64 Log cps/mL H 10/05/17 05:57 Urine Legionella Ag Not detected (Not Detected) 10/08/17 01:10 TB (QFT) Gold In Tube Negative (Negative) 10/07/17 16:25 TB Test (QFT) Nil 0.05 IU/mL 10/07/17 16:25 TB Test Mitogen - Nil 0.72 IU/mL 10/07/17 16:25 TB Test Antigen - Nil 0.00 IU/mL 10/07/17 16:25 Miscellaneous Test Flexitest 1 10/08/17 01:10
--- NOTE | 2017-10-10 13:03 | Progress Note ---
Assessment and Plan Assessment: 1) Acute fever and Bilateral lung infiltrates in AIDS patient. Could be CAP, PJP , atypical, mycobacterial, fungal. Of note pt has been taking bactrim as outpatient in treatment dose, unclear why. It was prescribed by his regular HIV provider. Persistently febrile. -LDH high -Cryptococcal antigen negative. -Pneumococcal and Legionell ag negative -Quantiferon negative. -Unable to provide specimen for sputum culture 3) Acute N/V/D. r/o C diff. Other opportunistic infections also on the differential: cryptosporidium, cyclospora, isospora, etc. - C diff negative. - Stool cx negative. - Cryptosporidium ag, Giardia ag negative - CT A/P possible gastroenteritis -Stools more formed. 4) Acute hypoxemic respiratory failure. On venti mask 4) Acute atypical chest pain. Negative stress test. 3) HIV/AIDS. On HAART. -HIV-VL 441 (10/05/17) -CD4 31/4%. (10/05/17) Recommendations -Continue azithromycin, bactrim, fluconazole. -Continue cefepime, vancomycin, levofloxacin. -Check isospora, cyclospora and microsporidia, norovirus, rotavirus. -Will f/u regular blood cx done 10/08, fungal blood cx, AFB blood cultures. -Check Aspergillus ag, histoplasma ag in urine, fungal antibodies. -Continue prezcobix and truvada (pt taking his home mds). -Since unable to provide sputum specimen for culture will need bronchoscopy. Tentatively tomorrow per pulmonary. -Place on airborne isolation. -d/w pt and RN. Aurea Figueroa MD Infectious Diseases Specialist [facility] ([facility] M [phone] Subjective Date of service: 10/10/17 Principal diagnosis: Acute Hypoxemic Resp Failure; Bilateral Pneumonia; HIV +ve ; Chest pain Interval history: Afebrile so far today. Feels same, SOB, with cough. Soft stool today. On VM. Microbiology Blood cultures 10/03/17 NGTD 10/06 Fungal pending 10/08 NGTD Stool WBC negative Culture 10/04 negative. Giardia ag negative Cryptosporodium ag negative Sputum culture 10/05 rejected 10/09 rejected Antibiotics Fluconazole 10/07- Levofloxacin 10/06- IV vancomycin 10/05- Cefepime 10/05- Azithromycin 10/04- Bactrim 10/04- HAART (prezcobix and truvada, taking home meds). Prior antibiotics Ceftriaxone 10/04-10/05 Flagyl 10/04-10/05 Objective - Exam Narrative Exam: General appearance: Pt is in NAD, A&Ox3, conversant. On venti mask. Eyes: anicteric sclerae, moist conjunctivae; PERRLA HENT: Atraumatic; oropharynx clear with moist mucous membranes and no mucosal ulcerations/no oral thrush; normal hard and soft palate. Normal external ears. Neck: Trachea midline; supple, no thyromegaly or lymphadenopathy Lungs: Scattered bilateral crackles. CV: S1,S2. Abdomen: Soft, non-tender; no masses or hepatosplenomegaly Extremities: No peripheral edema or extremity lymphadenopathy Skin: Normal temperature, turgor and texture; no rash, ulcers or subcutaneous nodules Psych: Appropriate affect, alert and oriented to person, place and time. Neuro: alert and oriented x 3. Moving all extremities Lines: No CVL / PICC - Constitutional Vitals: Vital Signs Temp Pulse Resp BP Pulse Ox 99.5 F 103 H 44 H 126/72 94 10/10/17 07:37 10/10/17 10:50 10/10/17 10:50 10/10/17 07:37 10/10/17 10:39 Temperature -Last 24 Hours Temperature 99.5 F Temperature 99 F Temperature 98.9 F - Labs CBC & Chem 7: 10/09/17 08:26 10/09/17 08:26 Labs: Abnormal lab results 10/05/17 10/10/17 Range/Units 05:57 09:44 Abs Lymphs (Manual) 734 L (850-3900) cells/uL PT 15.5 H (12.2-14.9) Sec. INR 1.17 H (0.87-1.13) Lymph Enumerat CD4/CD8 0.07 L (0.86-5.00) % CD3 Cells 56 L (57-85) % Absolute CD3 Count 410 L (840-3060) cells/uL % CD4 Cells 4 L (30-61) % Absolute CD4 Count 31 L (490-1740) cells/uL % CD8 Cells 54 H (12-42) % % CD19 Cells 30 H (6-29) %
[2017-10-10] MEDS: NACL 0.9% 1000 ML 1,000 ML IV SCH (16:59)
--- NOTE | 2017-10-10 18:44 | Progress Note ---
Assessment and Plan Patient transfered to respiratory isolation room.Patient alert, awake.Complaining shortness of breath and cough.Patient is on venturi mask 35% . O2 saturation 94%.Recommend to add steroids. - Patient Problems (1) Chest pain Current Visit: Yes Status: Acute Plan to address problem: Management as per primary care and cardiology. (2) Cocaine use Current Visit: Yes Status: Acute Plan to address problem: Management as per primary care. (3) Pulmonary infiltrates Current Visit: Yes Status: Acute Plan to address problem: Patient is on zithromax, cefepime, Bactrim and Fluconazole. (4) HIV (human immunodeficiency virus infection) Current Visit: Yes Status: Acute Plan to address problem: Management as per infectious diseases. Subjective Date of service: 10/10/17 Principal diagnosis: Acute Hypoxemic Resp Failure; Bilateral Pneumonia; HIV +ve ; Chest pain Interval history: Patient transfered to respiratory isolation room.Patient alert, awake.Complaining shortness of breath and cough.Patient is on venturi mask 35% . O2 saturation 94%.Recommend to add steroids. Objective Vital Signs - 12hr 10/10/17 10/10/17 10/10/17 07:37 10:00 10:30 Temperature 99.5 F Pulse Rate 101 H 97 H Pulse Rate [ 103 H Anterior Bilateral Throughout] Respiratory 22 26 H Rate Respiratory 40 H Rate [Anterior Bilateral Throughout] Blood Pressure 126/72 O2 Sat by Pulse 94 94 Oximetry 10/10/17 10/10/17 10/10/17 10:39 10:50 14:36 Temperature Pulse Rate Pulse Rate [ 103 H 105 H Anterior Bilateral Throughout] Respiratory Rate Respiratory 44 H 35 H Rate [Anterior Bilateral Throughout] Blood Pressure O2 Sat by Pulse 94 Oximetry 10/10/17 14:48 Temperature Pulse Rate Pulse Rate [ 116 H Anterior Bilateral Throughout] Respiratory Rate Respiratory 38 H Rate [Anterior Bilateral Throughout] Blood Pressure O2 Sat by Pulse Oximetry Constitutional: lethargic, appears uncomfortable, other (chronically ill looking , Having increased work of breathing.) Eyes: non-icteric ENT: oropharynx moist Neck: supple, no JVD Effort: mildly labored Ascultation: Bilateral: diminished breath sounds, rales Percussion: Bilateral: not dull Cardiovascular: regular rate and rhythm, other (no rubs or murmurs) Gastrointestinal: normoactive bowel sounds, soft, non-tender, non-distended, other (No HSM) Integumentary: other (poor skin turgor) Extremities: no cyanosis, no edema, pulses normal, no ischemia or petechiae Neurologic: normal mental status, non-focal exam, pupils equal and round, CN II- XII normal Psychiatric: depressed CBC and BMP: 10/09/17 08:26 10/09/17 08:26 ABG, PT/INR, D-dimer: ABG ABG pH 7.416 pH Units (7.350-7.450) 10/08/17 23:05 ABG pCO2 31.6 mm Hg 10/08/17 23:05 ABG pO2 83.5 mm Hg (80.0-90.0) 10/08/17 23:05 ABG O2 Saturation 96.6 % (95.0-99.0) 10/08/17 23:05 PT/INR, D-dimer PT 15.5 Sec. (12.2-14.9) H 10/10/17 09:44 INR 1.17 (0.87-1.13) H 10/10/17 09:44 D-Dimer 614.10 ng/mlDDU (0-234) H 10/03/17 06:08 Abnormal lab findings: Abnormal Labs 10/03/17 10/03/17 10/03/17 01:14 01:14 01:14 Hgb Hct [place] % (Auto) 10.0 H Seg Neutrophils % 71.1 H Lymphocytes % (Manual) Monocytes % (Manual) Eosinophils % (Manual) Abs Lymphs (Manual) Lymphocytes # (Manual) Monocytes # (Manual) Eosinophils # (Manual) PT INR D-Dimer ABG HCO3 ABG Base Excess ABG Hemoglobin Oxyhemoglobin Sodium 129 L Potassium 3.5 L Chloride 94.4 L Carbon Dioxide 18 L BUN Creatinine Calcium 8.3 L Lactate Dehydrogenase Total Creatine Kinase 473 H Albumin Lymph Enumerat CD4/CD8 % CD3 Cells Absolute CD3 Count % CD4 Cells Absolute CD4 Count % CD8 Cells % CD19 Cells HIV-1 RNA PCR copies/ml HIV-1 RNA (PCR) log 10/03/17 10/03/17 10/04/17 04:26 06:08 07:49 Hgb Hct [place] % (Auto) 11.2 H Seg Neutrophils % Lymphocytes % (Manual) Monocytes % (Manual) Eosinophils % (Manual) Abs Lymphs (Manual) Lymphocytes # (Manual) Monocytes # (Manual) Eosinophils # (Manual) PT INR D-Dimer 614.10 H ABG HCO3 ABG Base Excess ABG Hemoglobin Oxyhemoglobin Sodium Potassium Chloride Carbon Dioxide BUN Creatinine Calcium Lactate Dehydrogenase Total Creatine Kinase 452 H Albumin Lymph Enumerat CD4/CD8 % CD3 Cells Absolute CD3 Count % CD4 Cells Absolute CD4 Count % CD8 Cells % CD19 Cells HIV-1 RNA PCR copies/ml HIV-1 RNA (PCR) log 10/04/17 10/05/17 10/05/17 07:49 05:57 05:57 Hgb Hct [place] % (Auto) Seg Neutrophils % Lymphocytes % (Manual) Monocytes % (Manual) Eosinophils % (Manual) Abs Lymphs (Manual) 734 L Lymphocytes # (Manual) Monocytes # (Manual) Eosinophils # (Manual) PT INR D-Dimer ABG HCO3 ABG Base Excess ABG Hemoglobin Oxyhemoglobin Sodium 128 L Potassium Chloride 95.9 L Carbon Dioxide 17 L BUN 8 L Creatinine Calcium 7.7 L Lactate Dehydrogenase Total Creatine Kinase Albumin Lymph Enumerat CD4/CD8 0.07 L % CD3 Cells 56 L Absolute CD3 Count 410 L % CD4 Cells 4 L Absolute CD4 Count 31 L % CD8 Cells 54 H % CD19 Cells 30 H HIV-1 RNA PCR copies/ml 441 H HIV-1 RNA (PCR) log 2.64 H 10/05/17 10/05/17 10/05/17 13:59 13:59 13:59 Hgb Hct [place] % (Auto) Seg Neutrophils % Lymphocytes % (Manual) Monocytes % (Manual) 11.0 H Eosinophils % (Manual) Abs Lymphs (Manual) Lymphocytes # (Manual) 0.7 L Monocytes # (Manual) Eosinophils # (Manual) PT INR D-Dimer ABG HCO3 ABG Base Excess ABG Hemoglobin Oxyhemoglobin Sodium 131 L Potassium Chloride 95.7 L Carbon Dioxide BUN 6 L Creatinine 0.7 L Calcium 8.1 L Lactate Dehydrogenase 464 H Total Creatine Kinase Albumin Lymph Enumerat CD4/CD8 % CD3 Cells Absolute CD3 Count % CD4 Cells Absolute CD4 Count % CD8 Cells % CD19 Cells HIV-1 RNA PCR copies/ml HIV-1 RNA (PCR) log 10/07/17 10/07/17 10/08/17 13:21 13:21 23:05 Hgb Hct 34.7 L [place] % (Auto) Seg Neutrophils % Lymphocytes % (Manual) Monocytes % (Manual) Eosinophils % (Manual) Abs Lymphs (Manual) Lymphocytes # (Manual) Monocytes # (Manual) Eosinophils # (Manual) PT INR D-Dimer ABG HCO3 19.8 L ABG Base Excess -4.0 L ABG Hemoglobin 9.4 L Oxyhemoglobin 94.2 L Sodium 127 L Potassium Chloride 93.4 L Carbon Dioxide 20 L BUN 4 L Creatinine 0.6 L Calcium 8.2 L Lactate Dehydrogenase Total Creatine Kinase Albumin 3.1 L Lymph Enumerat CD4/CD8 % CD3 Cells Absolute CD3 Count % CD4 Cells Absolute CD4 Count % CD8 Cells % CD19 Cells HIV-1 RNA PCR copies/ml HIV-1 RNA (PCR) log 10/09/17 10/09/17 10/10/17 08:26 08:26 09:44 Hgb 11.3 L Hct 33.2 L [place] % (Auto) Seg Neutrophils % Lymphocytes % (Manual) 8.0 L Monocytes % (Manual) 16.0 H Eosinophils % (Manual) 12.0 H Abs Lymphs (Manual) Lymphocytes # (Manual) 0.8 L Monocytes # (Manual) 1.5 H Eosinophils # (Manual) 1.1 H PT 15.5 H INR 1.17 H D-Dimer ABG HCO3 ABG Base Excess ABG Hemoglobin Oxyhemoglobin Sodium 132 L Potassium Chloride 97.2 L Carbon Dioxide 18 L BUN 7 L Creatinine 0.6 L Calcium Lactate Dehydrogenase Total Creatine Kinase Albumin Lymph Enumerat CD4/CD8 % CD3 Cells Absolute CD3 Count % CD4 Cells Absolute CD4 Count % CD8 Cells % CD19 Cells HIV-1 RNA PCR copies/ml HIV-1 RNA (PCR) log Chest x-ray: report reviewed (Possible mild congestion.), image reviewed CT scan - chest: report reviewed (Multifocal pulmonary infiltrates. No PE.), image reviewed Allied health notes reviewed: RT
[2017-10-11] MEDS: VANCOMYCIN 1,250 MG in NACL 0.9% 250ML 250 ML IV SCH ×3 (02:31→18:37)
[2017-10-11] MEDS: BACTRIM DS PO SCH ×3 (05:58→22:57)
[2017-10-11] MEDS: TYLENOL PO PRN (05:59)
[2017-10-11] MEDS: NACL 0.9% 1000 ML 1,000 ML IV SCH ×2 (06:01→18:52)
[2017-10-11] MEDS: MAXIPIME 2 GM in NACL 0.9% 20 ML IV SCH ×3 (06:08→22:57)
[2017-10-11 07:19] LABS: BUN/Creatinine Ratio 13; Blood Urea Nitrogen 8 mg/dL (9-20); Calcium 8.4 mg/dL (8.4-10.2); Hemolysis Index 4
[2017-10-11] MEDS: PROVENTIL IH SCH ×3 (09:00→20:07)
[2017-10-11] MEDS: LEVAQUIN 750MG/150ML 750 MG/150 ML BAG IV SCH (10:49)
[2017-10-11] MEDS: ZOFRAN IV PRN (10:49)
[2017-10-11] MEDS: ZITHROMAX PO SCH (10:49)
[2017-10-11] MEDS: DIFLUCAN PO SCH (10:49)
[2017-10-11] MEDS: LOVENOX SUB-Q SCH (10:49)
[2017-10-11] MEDS: NON-FORMULARY (Darunavir/Cobicistat [Prezcobix 800 Mg-150 Mg Tablet] 1 EACH) PO SCH (10:50)
[2017-10-11] MEDS: NON-FORMULARY (Emtricitabin/Tenofovir [Truvada 200-300 Mg] 1 TAB) PO SCH (10:50)
--- NOTE | 2017-10-11 17:59 | Progress Note ---
Assessment and Plan Assessment and plan: Day 8 which is my first caring for patient Patient is a 42-year-old man with history of HIV/AIDS, CD4 count of 34 pw CP -Acute hypoxic respiratory failure, poa: treat the pna, treat with O2, nebs -Sepsis/PNA -CT confirmed PNA, possible CAP, PCP vs IRIS, continue abx, ID input appreciated, pulm consulted for bronch tomorrow==>hold Bronch b/c pt now in TB isolation room per Dr. Gregg -Atypical CP, most likely pleuric from pna, with neg. stress thallium ; no further workup -elevated D-dimer; cta chest neg for pe -diarrhea, rule out HIV related infection; stool studies ordered, on empiric abx , no evidence of GI infection at this timel; CT A/P no acute findings,may be due to IRIS, GI consult appreciated, diarrhea is resolving, only having 1-2 BMs per day now; no plans for endoscopy at this time -Hyponatremia: continue nss -Substance Abuse; denies current abuse, was counseled -HIV/AIDS, started on HAART at [facility] 3wks prior to admission; continue HAART, ID consulted; suspect IRIS vs opportunist infection, Dian wakefield , she is to obtain his records from the [facility] d/w 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 Gregg, start iv steroids, and hold of on Bronchoscopy until TB is ruled out History Interval history: Patient was seen and examined. Follow-up on current diagnosis. Overnight sob. Patient denies any chest pain, nausea/vomiting or severe headaches. Imaging, nursing note, chart, labs and old chart reviewed. Discussed with patient. Hospitalist Physical - Physical exam Narrative exam: GEN: Ill-appearing NAD, AWAKE, ALERT, ORIENTATED 3 HEENT: NCAT, EOMI, PERRL, OP Clear NECK: supple, no adenopathy, no thyromegaly, no JVD CVS/HEART: RRR, NORMAL S1S2, pulses present bilaterally CHEST/LUNGS: Diminished breath sounds bilaterally, Symmetrical chest expansion, good air entry bilaterally GI/Abdomen: soft, NTND, good bowel sounds, no guarding or rebound /Bladder: no suprapubic tenderness, no CVA or paraspinal tenderness EXT/Skin: no c/c/e, no obvious rash MSK: FROM x 4 Neuro: CN 2-12 grossly intact, no new focal deficits Psych: calm - Constitutional Vitals: Temp Pulse Resp BP Pulse Ox 99.2 F 101 H 36 H 118/76 93 10/11/17 07:59 10/11/17 10:00 10/11/17 10:00 10/11/17 07:59 10/11/17 10:00 General appearance: Present: no acute distress, well-nourished Results - Labs CBC & Chem 7: 10/09/17 08:26 10/11/17 06:19 Labs: Laboratory Last Values WBC 9.5 K/mm3 (4.5-11.0) 10/09/17 08:26 RBC 3.71 M/mm3 (3.65-5.03) 10/09/17 08:26 Hgb 11.3 gm/dl (11.8-15.2) L 10/09/17 08:26 Hct 33.2 % (35.5-45.6) L 10/09/17 08:26 MCV 89 fl (84-94) 10/09/17 08:26 MCH 31 pg (28-32) 10/09/17 08:26 MCHC 34 % (32-34) 10/09/17 08:26 RDW 14.4 % (13.2-15.2) 10/09/17 08:26 Plt Count 369 K/mm3 (140-440) 10/09/17 08:26 Lymph % (Auto) 24.0 % (13.4-35.0) 10/04/17 07:49 [place] % (Auto) Network Specialist 10/09/17 08:26 Eos % (Auto) 0.8 % (0.0-4.3) 10/04/17 07:49 Baso % (Auto) 0.4 % (0.0-1.8) 10/04/17 07:49 Lymph # 1.4 K/mm3 (1.2-5.4) 10/04/17 07:49 [place] # 0.7 K/mm3 (0.0-0.8) 10/04/17 07:49 Eos # 0.0 K/mm3 (0.0-0.4) 10/04/17 07:49 Baso # 0.0 K/mm3 (0.0-0.1) 10/04/17 07:49 Add Manual Diff Complete 10/09/17 08:26 Total Counted 100 10/09/17 08:26 Seg Neutrophils % 63.6 % (40.0-70.0) 10/04/17 07:49 Seg Neuts % (Manual) 60.0 % (40.0-70.0) 10/09/17 08:26 Band Neutrophils % 4.0 % 10/09/17 08:26 Lymphocytes % (Manual) 8.0 % (13.4-35.0) L 10/09/17 08:26 Reactive Lymphs % (Man) 0 % 10/09/17 08:26 Monocytes % (Manual) 16.0 % (0.0-7.3) H 10/09/17 08:26 Eosinophils % (Manual) 12.0 % (0.0-4.3) H 10/09/17 08:26 Basophils % (Manual) 0 % (0.0-1.8) 10/09/17 08:26 Metamyelocytes % 0 % 10/09/17 08:26 Myelocytes % 0 % 10/09/17 08:26 Promyelocytes % 0 % 10/09/17 08:26 Blast Cells % 0 % 10/09/17 08:26 Nucleated RBC % Not Reportable 10/09/17 08:26 Seg Neutrophils # 3.8 K/mm3 (1.8-7.7) 10/04/17 07:49 Seg Neutrophils # Man 5.7 K/mm3 (1.8-7.7) 10/09/17 08:26 Band Neutrophils # 0.4 K/mm3 10/09/17 08:26 Abs Lymphs (Manual) 734 cells/uL (850-3900) L 10/05/17 05:57 Lymphocytes # (Manual) 0.8 K/mm3 (1.2-5.4) L 10/09/17 08:26 Abs React Lymphs (Man) 0.0 K/mm3 10/09/17 08:26 Monocytes # (Manual) 1.5 K/mm3 (0.0-0.8) H 10/09/17 08:26 Eosinophils # (Manual) 1.1 K/mm3 (0.0-0.4) H 10/09/17 08:26 Basophils # (Manual) 0.0 K/mm3 (0.0-0.1) 04/11/18 08:26 Metamyelocytes # 0.0 K/mm3 10/09/17 08:26 Myelocytes # 0.0 K/mm3 10/09/17 08:26 Promyelocytes # 0.0 K/mm3 10/09/17 08:26 Blast Cells # 0.0 K/mm3 10/09/17 08:26 WBC Morphology Not Reportable 10/09/17 08:26 Hypersegmented Neuts Not Reportable 10/09/17 08:26 Hyposegmented Neuts Not Reportable 10/09/17 08:26 Hypogranular Neuts Not Reportable 10/09/17 08:26 Smudge Cells Not Reportable 10/09/17 08:26 Toxic Granulation Not Reportable 10/09/17 08:26 Toxic Vacuolation Not Reportable 10/09/17 08:26 Dohle Bodies Not Reportable 10/09/17 08:26 Pelger-Huet Anomaly Not Reportable 10/09/17 08:26 Zora Rods Not Reportable 10/09/17 08:26 Platelet Estimate Consistent w auto 10/09/17 08:26 Clumped Platelets Not Reportable 10/09/17 08:26 Plt Clumps, EDTA Not Reportable 10/09/17 08:26 Large Platelets Not Reportable 10/09/17 08:26 Giant Platelets Not Reportable 10/09/17 08:26 Platelet Satelliting Not Reportable 10/09/17 08:26 Plt Morphology Comment Not Reportable 10/09/17 08:26 RBC Morphology Normal 10/09/17 08:26 Dimorphic RBCs Not Reportable 10/09/17 08:26 Polychromasia Not Reportable 10/09/17 08:26 Hypochromasia Not Reportable 10/09/17 08:26 Poikilocytosis Not Reportable 10/09/17 08:26 Anisocytosis Not Reportable 10/09/17 08:26 Microcytosis Not Reportable 10/09/17 08:26 Macrocytosis Not Reportable 10/09/17 08:26 Spherocytes Not Reportable 10/09/17 08:26 Pappenheimer Bodies Not Reportable 10/09/17 08:26 Sickle Cells Not Reportable 10/09/17 08:26 Target Cells Not Reportable 10/09/17 08:26 Tear Drop Cells Not Reportable 10/09/17 08:26 Ovalocytes Not Reportable 10/09/17 08:26 Helmet Cells Not Reportable 10/09/17 08:26 [place] Bodies Not Reportable 10/09/17 08:26 [place] Rings Not Reportable 10/09/17 08:26 [place] Cells Not Reportable 10/09/17 08:26 Bite Cells Not Reportable 10/09/17 08:26 Crenated Cell Not Reportable 10/09/17 08:26 Elliptocytes Not Reportable 10/09/17 08:26 Acanthocytes (Spur) Not Reportable 10/09/17 08:26 Rouleaux Not Reportable 10/09/17 08:26 Hemoglobin C Crystals Not Reportable 10/09/17 08:26 Schistocytes Not Reportable 10/09/17 08:26 Malaria parasites Not Reportable 10/09/17 08:26 [place] Bodies Not Reportable 10/09/17 08:26 Hem Pathologist Commnt No 10/09/17 08:26 PT 15.5 Sec. (12.2-14.9) H 10/10/17 09:44 INR 1.17 (0.87-1.13) H 10/10/17 09:44 D-Dimer 614.10 ng/mlDDU (0-234) H 10/03/17 06:08 ABG pH 7.416 pH Units (7.350-7.450) 10/08/17 23:05 ABG pCO2 31.6 mm Hg 10/08/17 23:05 ABG pO2 83.5 mm Hg (80.0-90.0) 10/08/17 23:05 ABG HCO3 19.8 mmol/L (20.0-26.0) L 10/08/17 23:05 ABG O2 Saturation 96.6 % (95.0-99.0) 10/08/17 23:05 ABG O2 Content 12.6 (0.0-44) 10/08/17 23:05 ABG Base Excess -4.0 mmol/L (-2.0-3.0) L 10/08/17 23:05 ABG Hemoglobin 9.4 gm/dl (14.0-18.0) L 10/08/17 23:05 ABG Carboxyhemoglobin 1.5 % (0.0-5.0) 10/08/17 23:05 ABG Methemoglobin 1.0 % (0.0-1.5) 10/08/17 23:05 Oxyhemoglobin 94.2 % (95.0-99.0) L 10/08/17 23:05 FiO2 35 % 10/08/17 23:05 Sodium 129 mmol/L (137-145) L 10/11/17 06:19 Potassium 4.1 mmol/L (3.6-5.0) 10/11/17 06:19 Chloride 94.6 mmol/L (98-107) L 10/11/17 06:19 Carbon Dioxide 19 mmol/L (22-30) L 10/11/17 06:19 Anion Gap 20 mmol/L 10/11/17 06:19 BUN 8 mg/dL (9-20) L 10/11/17 06:19 Creatinine 0.6 mg/dL (0.8-1.5) L 10/11/17 06:19 Estimated GFR > 60 ml/min 10/11/17 06:19 BUN/Creatinine Ratio 13 % 10/11/17 06:19 Glucose 94 mg/dL (75-100) 10/11/17 06:19 Calcium 8.4 mg/dL (8.4-10.2) 10/11/17 06:19 Total Bilirubin 0.50 mg/dL (0.1-1.2) 10/07/17 13:21 AST 31 units/L (5-40) 10/07/17 13:21 ALT 14 units/L (7-56) 10/07/17 13:21 Alkaline Phosphatase 36 units/L (35-129) 10/07/17 13:21 Lactate Dehydrogenase 464 units/L (91-180) H 10/05/17 13:59 Total Creatine Kinase 452 units/L (55-170) H 10/03/17 04:26 CK-MB (CK-2) < 1.0 ng/mL (0.0-4.0) 10/03/17 04:26 CK-MB (CK-2) Rel Index 0.2 (0-4) 10/03/17 04:26 Troponin T < 0.010 ng/mL (0.00-0.029) 10/03/17 07:42 Total Protein 6.5 g/dL (6.3-8.2) 10/07/17 13:21 Albumin 3.1 g/dL (3.9-5) L 10/07/17 13:21 Albumin/Globulin Ratio 0.9 % 10/07/17 13:21 Lipase 41 units/L (13-60) 10/03/17 01:14 Urine Color Yellow (Yellow) 10/03/17 Unknown Urine Turbidity Clear (Clear) 10/03/17 Unknown Urine pH 5.0 (5.0-7.0) 10/03/17 Unknown Ur Specific [place] 1.024 (1.003-1.030) 10/03/17 Unknown Urine Protein 30 mg/dl mg/dL (Negative) 10/03/17 Unknown Urine Glucose (UA) Neg mg/dL (Negative) 10/03/17 Unknown Urine Ketones 20 mg/dL (Negative) 10/03/17 Unknown Urine Blood Neg (Negative) 10/03/17 Unknown Urine Nitrite Neg (Negative) 10/03/17 Unknown Urine Bilirubin Neg (Negative) 10/03/17 Unknown Urine Urobilinogen 4.0 mg/dL (<2.0) 10/03/17 Unknown Ur Leukocyte Esterase Neg (Negative) 10/03/17 Unknown Urine WBC (Auto) 1.0 /HPF (0.0-6.0) 10/03/17 Unknown Urine RBC (Auto) 2.0 /HPF (0.0-6.0) 10/03/17 Unknown Urine Mucus Few /HPF 10/03/17 Unknown Vancomycin Trough 5.4 ug/mL (5.0-20.0) 10/08/17 17:19 Lymph Enumerat CD4/CD8 0.07 (0.86-5.00) L 10/05/17 05:57 % CD3 Cells 56 % (57-85) L 10/05/17 05:57 Absolute CD3 Count 410 cells/uL (840-3060) L 10/05/17 05:57 % CD4 Cells 4 % (30-61) L 10/05/17 05:57 Absolute CD4 Count 31 cells/uL (490-1740) L 10/05/17 05:57 % CD8 Cells 54 % (12-42) H 10/05/17 05:57 Absolute CD8 Count 436 cells/uL (180-1170) 10/05/17 05:57 % CD19 Cells 30 % (6-29) H 10/05/17 05:57 Absolute CD19 Count 194 cells/uL (110-660) 10/05/17 05:57 C. difficile Toxin A&B Negative (Negative) 10/04/17 11:04 HIV-1 RNA PCR copies/ml 441 Copies/mL H 10/05/17 05:57 HIV-1 RNA (PCR) log 2.64 Log cps/mL H 10/05/17 05:57 Urine Legionella Ag Not detected (Not Detected) 10/08/17 01:10 TB (QFT) Gold In Tube Negative (Negative) 10/07/17 16:25 TB Test (QFT) Nil 0.05 IU/mL 10/07/17 16:25 TB Test Mitogen - Nil 0.72 IU/mL 10/07/17 16:25 TB Test Antigen - Nil 0.00 IU/mL 10/07/17 16:25 Miscellaneous Test Flexitest 1 10/08/17 01:10
--- NOTE | 2017-10-11 18:43 | Progress Note ---
Assessment and Plan Patient transfered to respiratory isolation room.Patient alert, awake.Still Complaining shortness of breath but breathing better than yesterday. Patient is on venturi mask 35%. O2 saturation 95%.. - Patient Problems (1) Chest pain Current Visit: Yes Status: Acute Plan to address problem: Management as per primary care and cardiology. (2) Cocaine use Current Visit: Yes Status: Acute Plan to address problem: Management as per primary care. (3) Pulmonary infiltrates Current Visit: Yes Status: Acute Plan to address problem: Patient is on zithromax, cefepime, Bactrim and Fluconazole. (4) HIV (human immunodeficiency virus infection) Current Visit: Yes Status: Acute Plan to address problem: Management as per infectious diseases. Subjective Date of service: 10/11/17 Principal diagnosis: Acute Hypoxemic Resp Failure; Bilateral Pneumonia; HIV +ve ; Chest pain Interval history: Patient transfered to respiratory isolation room.Patient alert, awake.Still Complaining shortness of breath but breathing better than yesterday. Patient is on venturi mask 35%. O2 saturation 95%. Objective Vital Signs - 12hr 10/11/17 10/11/17 10/11/17 07:59 09:00 09:10 Temperature 99.2 F Pulse Rate 91 H Pulse Rate [ 92 H 112 H Anterior Bilateral Throughout] Respiratory 18 Rate Respiratory 20 20 Rate [Anterior Bilateral Throughout] Blood Pressure 118/76 Blood Pressure [Left] O2 Sat by Pulse 93 93 Oximetry 10/11/17 10/11/17 10/11/17 10:00 13:05 14:05 Temperature Pulse Rate 101 H Pulse Rate [ 96 H Anterior Bilateral Throughout] Respiratory 36 H Rate Respiratory 20 Rate [Anterior Bilateral Throughout] Blood Pressure Blood Pressure [Left] O2 Sat by Pulse 93 92 Oximetry 10/11/17 10/11/17 14:15 18:13 Temperature 99.2 F Pulse Rate 103 H Pulse Rate [ 108 H Anterior Bilateral Throughout] Respiratory 18 Rate Respiratory 20 Rate [Anterior Bilateral Throughout] Blood Pressure Blood Pressure 129/78 [Left] O2 Sat by Pulse 90 Oximetry Constitutional: lethargic, appears uncomfortable, other (chronically ill looking , Having increased work of breathing.) Eyes: non-icteric ENT: oropharynx moist Neck: supple, no JVD Effort: mildly labored Ascultation: Bilateral: diminished breath sounds, rales Percussion: Bilateral: not dull Cardiovascular: regular rate and rhythm, other (no rubs or murmurs) Gastrointestinal: normoactive bowel sounds, soft, non-tender, non-distended, other (No HSM) Integumentary: other (poor skin turgor) Extremities: no cyanosis, no edema, pulses normal, no ischemia or petechiae Neurologic: normal mental status, non-focal exam, pupils equal and round, CN II- XII normal Psychiatric: depressed CBC and BMP: 10/09/17 08:26 10/11/17 06:19 ABG, PT/INR, D-dimer: ABG ABG pH 7.416 pH Units (7.350-7.450) 10/08/17 23:05 ABG pCO2 31.6 mm Hg 10/08/17 23:05 ABG pO2 83.5 mm Hg (80.0-90.0) 10/08/17 23:05 ABG O2 Saturation 96.6 % (95.0-99.0) 10/08/17 23:05 PT/INR, D-dimer PT 15.5 Sec. (12.2-14.9) H 10/10/17 09:44 INR 1.17 (0.87-1.13) H 10/10/17 09:44 D-Dimer 614.10 ng/mlDDU (0-234) H 10/03/17 06:08 Abnormal lab findings: Abnormal Labs 10/03/17 10/03/17 10/03/17 01:14 01:14 01:14 Hgb Hct [place] % (Auto) 10.0 H Seg Neutrophils % 71.1 H Lymphocytes % (Manual) Monocytes % (Manual) Eosinophils % (Manual) Abs Lymphs (Manual) Lymphocytes # (Manual) Monocytes # (Manual) Eosinophils # (Manual) PT INR D-Dimer ABG HCO3 ABG Base Excess ABG Hemoglobin Oxyhemoglobin Sodium 129 L Potassium 3.5 L Chloride 94.4 L Carbon Dioxide 18 L BUN Creatinine Calcium 8.3 L Lactate Dehydrogenase Total Creatine Kinase 473 H Albumin Vancomycin Trough Lymph Enumerat CD4/CD8 % CD3 Cells Absolute CD3 Count % CD4 Cells Absolute CD4 Count % CD8 Cells % CD19 Cells HIV-1 RNA PCR copies/ml HIV-1 RNA (PCR) log 10/03/17 10/03/17 10/04/17 04:26 06:08 07:49 Hgb Hct [place] % (Auto) 11.2 H Seg Neutrophils % Lymphocytes % (Manual) Monocytes % (Manual) Eosinophils % (Manual) Abs Lymphs (Manual) Lymphocytes # (Manual) Monocytes # (Manual) Eosinophils # (Manual) PT INR D-Dimer 614.10 H ABG HCO3 ABG Base Excess ABG Hemoglobin Oxyhemoglobin Sodium Potassium Chloride Carbon Dioxide BUN Creatinine Calcium Lactate Dehydrogenase Total Creatine Kinase 452 H Albumin Vancomycin Trough Lymph Enumerat CD4/CD8 % CD3 Cells Absolute CD3 Count % CD4 Cells Absolute CD4 Count % CD8 Cells % CD19 Cells HIV-1 RNA PCR copies/ml HIV-1 RNA (PCR) log 10/04/17 10/05/17 10/05/17 07:49 05:57 05:57 Hgb Hct [place] % (Auto) Seg Neutrophils % Lymphocytes % (Manual) Monocytes % (Manual) Eosinophils % (Manual) Abs Lymphs (Manual) 734 L Lymphocytes # (Manual) Monocytes # (Manual) Eosinophils # (Manual) PT INR D-Dimer ABG HCO3 ABG Base Excess ABG Hemoglobin Oxyhemoglobin Sodium 128 L Potassium Chloride 95.9 L Carbon Dioxide 17 L BUN 8 L Creatinine Calcium 7.7 L Lactate Dehydrogenase Total Creatine Kinase Albumin Vancomycin Trough Lymph Enumerat CD4/CD8 0.07 L % CD3 Cells 56 L Absolute CD3 Count 410 L % CD4 Cells 4 L Absolute CD4 Count 31 L % CD8 Cells 54 H % CD19 Cells 30 H HIV-1 RNA PCR copies/ml 441 H HIV-1 RNA (PCR) log 2.64 H 10/05/17 10/05/17 10/05/17 13:59 13:59 13:59 Hgb Hct [place] % (Auto) Seg Neutrophils % Lymphocytes % (Manual) Monocytes % (Manual) 11.0 H Eosinophils % (Manual) Abs Lymphs (Manual) Lymphocytes # (Manual) 0.7 L Monocytes # (Manual) Eosinophils # (Manual) PT INR D-Dimer ABG HCO3 ABG Base Excess ABG Hemoglobin Oxyhemoglobin Sodium 131 L Potassium Chloride 95.7 L Carbon Dioxide BUN 6 L Creatinine 0.7 L Calcium 8.1 L Lactate Dehydrogenase 464 H Total Creatine Kinase Albumin Vancomycin Trough Lymph Enumerat CD4/CD8 % CD3 Cells Absolute CD3 Count % CD4 Cells Absolute CD4 Count % CD8 Cells % CD19 Cells HIV-1 RNA PCR copies/ml HIV-1 RNA (PCR) log 10/07/17 10/07/17 10/08/17 13:21 13:21 23:05 Hgb Hct 34.7 L [place] % (Auto) Seg Neutrophils % Lymphocytes % (Manual) Monocytes % (Manual) Eosinophils % (Manual) Abs Lymphs (Manual) Lymphocytes # (Manual) Monocytes # (Manual) Eosinophils # (Manual) PT INR D-Dimer ABG HCO3 19.8 L ABG Base Excess -4.0 L ABG Hemoglobin 9.4 L Oxyhemoglobin 94.2 L Sodium 127 L Potassium Chloride 93.4 L Carbon Dioxide 20 L BUN 4 L Creatinine 0.6 L Calcium 8.2 L Lactate Dehydrogenase Total Creatine Kinase Albumin 3.1 L Vancomycin Trough Lymph Enumerat CD4/CD8 % CD3 Cells Absolute CD3 Count % CD4 Cells Absolute CD4 Count % CD8 Cells % CD19 Cells HIV-1 RNA PCR copies/ml HIV-1 RNA (PCR) log 10/09/17 10/09/17 10/10/17 08:26 08:26 09:44 Hgb 11.3 L Hct 33.2 L [place] % (Auto) Seg Neutrophils % Lymphocytes % (Manual) 8.0 L Monocytes % (Manual) 16.0 H Eosinophils % (Manual) 12.0 H Abs Lymphs (Manual) Lymphocytes # (Manual) 0.8 L Monocytes # (Manual) 1.5 H Eosinophils # (Manual) 1.1 H PT 15.5 H INR 1.17 H D-Dimer ABG HCO3 ABG Base Excess ABG Hemoglobin Oxyhemoglobin Sodium 132 L Potassium Chloride 97.2 L Carbon Dioxide 18 L BUN 7 L Creatinine 0.6 L Calcium Lactate Dehydrogenase Total Creatine Kinase Albumin Vancomycin Trough Lymph Enumerat CD4/CD8 % CD3 Cells Absolute CD3 Count % CD4 Cells Absolute CD4 Count % CD8 Cells % CD19 Cells HIV-1 RNA PCR copies/ml HIV-1 RNA (PCR) log 10/11/17 10/11/17 06:19 17:42 Hgb Hct [place] % (Auto) Seg Neutrophils % Lymphocytes % (Manual) Monocytes % (Manual) Eosinophils % (Manual) Abs Lymphs (Manual) Lymphocytes # (Manual) Monocytes # (Manual) Eosinophils # (Manual) PT INR D-Dimer ABG HCO3 ABG Base Excess ABG Hemoglobin Oxyhemoglobin Sodium 129 L Potassium Chloride 94.6 L Carbon Dioxide 19 L BUN 8 L Creatinine 0.6 L Calcium Lactate Dehydrogenase Total Creatine Kinase Albumin Vancomycin Trough 26.0 H Lymph Enumerat CD4/CD8 % CD3 Cells Absolute CD3 Count % CD4 Cells Absolute CD4 Count % CD8 Cells % CD19 Cells HIV-1 RNA PCR copies/ml HIV-1 RNA (PCR) log Allied health notes reviewed: RT
[2017-10-11] MEDS: SODIUM CHLORIDE FLUSH SYRINGE 10 ML IV SCH (22:58)
[2017-10-12] MEDS: VANCOMYCIN 1,250 MG in NACL 0.9% 250ML 250 ML IV SCH (03:29)
[2017-10-12] MEDS: MAXIPIME 2 GM in NACL 0.9% 20 ML IV SCH ×3 (05:54→21:43)
[2017-10-12] MEDS: BACTRIM DS PO SCH ×3 (05:56→21:43)
[2017-10-12] MEDS: PROVENTIL IH SCH ×3 (08:24→20:00)
[2017-10-12] MEDS: LEVAQUIN 750MG/150ML 750 MG/150 ML BAG IV SCH (09:00)
[2017-10-12] MEDS: LOVENOX SUB-Q SCH (09:02)
[2017-10-12] MEDS: DIFLUCAN PO SCH (09:02)
[2017-10-12] MEDS: SODIUM CHLORIDE FLUSH SYRINGE 10 ML IV SCH ×3 (09:03→21:43)
[2017-10-12] MEDS: ZITHROMAX PO SCH (09:03)
--- NOTE | 2017-10-12 09:03 | Progress Note ---
Assessment and Plan Assessment and plan: Patient is a 42-year-old man with history of HIV/AIDS, CD4 count of 34 pw CP -Acute hypoxic respiratory failure, poa: treat the pna, treat with O2, nebs -Sepsis/PNA -CT confirmed PNA, possible CAP, PCP vs IRIS, continue abx, ID input appreciated, pulm consulted for bronch tomorrow==>hold Bronch b/c pt now in TB isolation room per Dr. Gregg -Atypical CP, most likely pleuric from pna, with neg. stress thallium ; no further workup -elevated D-dimer; cta chest neg for pe -diarrhea, rule out HIV related infection; stool studies ordered, on empiric abx , no evidence of GI infection at this timel; CT A/P no acute findings,may be due to IRIS, GI consult appreciated, diarrhea is resolving, only having 1-2 BMs per day now; no plans for endoscopy at this time -Hyponatremia: continue nss -Substance Abuse; denies current abuse, was counseled -HIV/AIDS, started on HAART at [facility] 3wks prior to admission; continue HAART, ID consulted; suspect IRIS vs opportunist infection, Flor, she is to obtain his records from the [facility] 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 Gregg, start iv steroids, and hold of on Bronchoscopy until TB is ruled out 10/12/17: Stop IV vancomycin as blood cultures have been negative History Interval history: Patient was seen and examined. Follow-up on current diagnosis. Overnight sob. Patient denies any chest pain, nausea/vomiting or severe headaches. Imaging, nursing note, chart, labs and old chart reviewed. Discussed with patient. Hospitalist Physical - Physical exam Narrative exam: GEN: Ill-appearing NAD, AWAKE, ALERT, ORIENTATED 3 HEENT: NCAT, EOMI, PERRL, OP Clear NECK: supple, no adenopathy, no thyromegaly, no JVD CVS/HEART: RRR, NORMAL S1S2, pulses present bilaterally CHEST/LUNGS: Diminished breath sounds bilaterally, Symmetrical chest expansion, good air entry bilaterally GI/Abdomen: soft, NTND, good bowel sounds, no guarding or rebound /Bladder: no suprapubic tenderness, no CVA or paraspinal tenderness EXT/Skin: no c/c/e, no obvious rash MSK: FROM x 4 Neuro: CN 2-12 grossly intact, no new focal deficits Psych: calm - Constitutional Vitals: Temp Pulse Resp BP Pulse Ox 99.4 F 101 H 20 122/77 94 10/12/17 05:55 10/12/17 08:36 10/12/17 08:36 10/12/17 05:55 10/12/17 08:24 General appearance: Present: no acute distress, well-nourished Results - Labs CBC & Chem 7: 10/09/17 08:26 10/11/17 06:19 Labs: Laboratory Last Values WBC 9.5 K/mm3 (4.5-11.0) 10/09/17 08:26 RBC 3.71 M/mm3 (3.65-5.03) 10/09/17 08:26 Hgb 11.3 gm/dl (11.8-15.2) L 10/09/17 08:26 Hct 33.2 % (35.5-45.6) L 10/09/17 08:26 MCV 89 fl (84-94) 10/09/17 08:26 MCH 31 pg (28-32) 10/09/17 08:26 MCHC 34 % (32-34) 10/09/17 08:26 RDW 14.4 % (13.2-15.2) 10/09/17 08:26 Plt Count 369 K/mm3 (140-440) 10/09/17 08:26 Lymph % (Auto) 24.0 % (13.4-35.0) 10/04/17 07:49 [place] % (Auto) Logging Crew Supervisor 10/09/17 08:26 Eos % (Auto) 0.8 % (0.0-4.3) 10/04/17 07:49 Baso % (Auto) 0.4 % (0.0-1.8) 10/04/17 07:49 Lymph # 1.4 K/mm3 (1.2-5.4) 10/04/17 07:49 [place] # 0.7 K/mm3 (0.0-0.8) 10/04/17 07:49 Eos # 0.0 K/mm3 (0.0-0.4) 10/04/17 07:49 Baso # 0.0 K/mm3 (0.0-0.1) 10/04/17 07:49 Add Manual Diff Complete 10/09/17 08:26 Total Counted 100 10/09/17 08:26 Seg Neutrophils % 63.6 % (40.0-70.0) 10/04/17 07:49 Seg Neuts % (Manual) 60.0 % (40.0-70.0) 10/09/17 08:26 Band Neutrophils % 4.0 % 10/09/17 08:26 Lymphocytes % (Manual) 8.0 % (13.4-35.0) L 10/09/17 08:26 Reactive Lymphs % (Man) 0 % 10/09/17 08:26 Monocytes % (Manual) 16.0 % (0.0-7.3) H 10/09/17 08:26 Eosinophils % (Manual) 12.0 % (0.0-4.3) H 10/09/17 08:26 Basophils % (Manual) 0 % (0.0-1.8) 10/09/17 08:26 Metamyelocytes % 0 % 10/09/17 08:26 Myelocytes % 0 % 10/09/17 08:26 Promyelocytes % 0 % 10/09/17 08:26 Blast Cells % 0 % 10/09/17 08:26 Nucleated RBC % Not Reportable 10/09/17 08:26 Seg Neutrophils # 3.8 K/mm3 (1.8-7.7) 10/04/17 07:49 Seg Neutrophils # Man 5.7 K/mm3 (1.8-7.7) 10/09/17 08:26 Band Neutrophils # 0.4 K/mm3 10/09/17 08:26 Abs Lymphs (Manual) 734 cells/uL (850-3900) L 10/05/17 05:57 Lymphocytes # (Manual) 0.8 K/mm3 (1.2-5.4) L 10/09/17 08:26 Abs React Lymphs (Man) 0.0 K/mm3 10/09/17 08:26 Monocytes # (Manual) 1.5 K/mm3 (0.0-0.8) H 10/09/17 08:26 Eosinophils # (Manual) 1.1 K/mm3 (0.0-0.4) H 10/09/17 08:26 Basophils # (Manual) 0.0 K/mm3 (0.0-0.1) 10/09/17 08:26 Metamyelocytes # 0.0 K/mm3 10/09/17 08:26 Myelocytes # 0.0 K/mm3 10/09/17 08:26 Promyelocytes # 0.0 K/mm3 10/09/17 08:26 Blast Cells # 0.0 K/mm3 10/09/17 08:26 WBC Morphology Not Reportable 10/09/17 08:26 Hypersegmented Neuts Not Reportable 10/09/17 08:26 Hyposegmented Neuts Not Reportable 10/09/17 08:26 Hypogranular Neuts Not Reportable 10/09/17 08:26 Smudge Cells Not Reportable 10/09/17 08:26 Toxic Granulation Not Reportable 10/09/17 08:26 Toxic Vacuolation Not Reportable 10/09/17 08:26 Dohle Bodies Not Reportable 10/09/17 08:26 Pelger-Huet Anomaly Not Reportable 10/09/17 08:26 Zora Rods Not Reportable 10/09/17 08:26 Platelet Estimate Consistent w auto 10/09/17 08:26 Clumped Platelets Not Reportable 10/09/17 08:26 Plt Clumps, EDTA Not Reportable 10/09/17 08:26 Large Platelets Not Reportable 10/09/17 08:26 Giant Platelets Not Reportable 10/09/17 08:26 Platelet Satelliting Not Reportable 10/09/17 08:26 Plt Morphology Comment Not Reportable 10/09/17 08:26 RBC Morphology Normal 10/09/17 08:26 Dimorphic RBCs Not Reportable 10/09/17 08:26 Polychromasia Not Reportable 10/09/17 08:26 Hypochromasia Not Reportable 10/09/17 08:26 Poikilocytosis Not Reportable 10/09/17 08:26 Anisocytosis Not Reportable 10/09/17 08:26 Microcytosis Not Reportable 10/09/17 08:26 Macrocytosis Not Reportable 10/09/17 08:26 Spherocytes Not Reportable 10/09/17 08:26 Pappenheimer Bodies Not Reportable 10/09/17 08:26 Sickle Cells Not Reportable 10/09/17 08:26 Target Cells Not Reportable 10/09/17 08:26 Tear Drop Cells Not Reportable 10/09/17 08:26 Ovalocytes Not Reportable 10/09/17 08:26 Helmet Cells Not Reportable 10/09/17 08:26 Estrada-Chualar Bodies Not Reportable 10/09/17 08:26 [place] Rings Not Reportable 10/09/17 08:26 Badin Cells Not Reportable 10/09/17 08:26 Bite Cells Not Reportable 10/09/17 08:26 Crenated Cell Not Reportable 10/09/17 08:26 Elliptocytes Not Reportable 10/09/17 08:26 Acanthocytes (Spur) Not Reportable 10/09/17 08:26 Rouleaux Not Reportable 10/09/17 08:26 Hemoglobin C Crystals Not Reportable 10/09/17 08:26 Schistocytes Not Reportable 10/09/17 08:26 Malaria parasites Not Reportable 10/09/17 08:26 Glen Bodies Not Reportable 10/09/17 08:26 Hem Pathologist Commnt No 10/09/17 08:26 PT 15.5 Sec. (12.2-14.9) H 10/10/17 09:44 INR 1.17 (0.87-1.13) H 10/10/17 09:44 D-Dimer 614.10 ng/mlDDU (0-234) H 10/03/17 06:08 ABG pH 7.416 pH Units (7.350-7.450) 10/08/17 23:05 ABG pCO2 31.6 mm Hg 10/08/17 23:05 ABG pO2 83.5 mm Hg (80.0-90.0) 10/08/17 23:05 ABG HCO3 19.8 mmol/L (20.0-26.0) L 10/08/17 23:05 ABG O2 Saturation 96.6 % (95.0-99.0) 10/08/17 23:05 ABG O2 Content 12.6 (0.0-44) 10/08/17 23:05 ABG Base Excess -4.0 mmol/L (-2.0-3.0) L 10/08/17 23:05 ABG Hemoglobin 9.4 gm/dl (14.0-18.0) L 10/08/17 23:05 ABG Carboxyhemoglobin 1.5 % (0.0-5.0) 10/08/17 23:05 ABG Methemoglobin 1.0 % (0.0-1.5) 10/08/17 23:05 Oxyhemoglobin 94.2 % (95.0-99.0) L 10/08/17 23:05 FiO2 35 % 10/08/17 23:05 Sodium 129 mmol/L (137-145) L 10/11/17 06:19 Potassium 4.1 mmol/L (3.6-5.0) 10/11/17 06:19 Chloride 94.6 mmol/L (98-107) L 10/11/17 06:19 Carbon Dioxide 19 mmol/L (22-30) L 10/11/17 06:19 Anion Gap 20 mmol/L 10/11/17 06:19 BUN 8 mg/dL (9-20) L 10/11/17 06:19 Creatinine 0.6 mg/dL (0.8-1.5) L 10/11/17 06:19 Estimated GFR > 60 ml/min 10/11/17 06:19 BUN/Creatinine Ratio 13 % 10/11/17 06:19 Glucose 94 mg/dL (75-100) 10/11/17 06:19 Calcium 8.4 mg/dL (8.4-10.2) 10/11/17 06:19 Total Bilirubin 0.50 mg/dL (0.1-1.2) 10/07/17 13:21 AST 31 units/L (5-40) 10/07/17 13:21 ALT 14 units/L (7-56) 10/07/17 13:21 Alkaline Phosphatase 36 units/L (35-129) 10/07/17 13:21 Lactate Dehydrogenase 464 units/L (91-180) H 10/05/17 13:59 Total Creatine Kinase 452 units/L (55-170) H 10/03/17 04:26 CK-MB (CK-2) < 1.0 ng/mL (0.0-4.0) 10/03/17 04:26 CK-MB (CK-2) Rel Index 0.2 (0-4) 10/03/17 04:26 Troponin T < 0.010 ng/mL (0.00-0.029) 10/03/17 07:42 Total Protein 6.5 g/dL (6.3-8.2) 10/07/17 13:21 Albumin 3.1 g/dL (3.9-5) L 10/07/17 13:21 Albumin/Globulin Ratio 0.9 % 10/07/17 13:21 Lipase 41 units/L (13-60) 10/03/17 01:14 Urine Color Yellow (Yellow) 10/03/17 Unknown Urine Turbidity Clear (Clear) 10/03/17 Unknown Urine pH 5.0 (5.0-7.0) 10/03/17 Unknown Ur Specific [place] 1.024 (1.003-1.030) 10/03/17 Unknown Urine Protein 30 mg/dl mg/dL (Negative) 10/03/17 Unknown Urine Glucose (UA) Neg mg/dL (Negative) 10/03/17 Unknown Urine Ketones 20 mg/dL (Negative) 10/03/17 Unknown Urine Blood Neg (Negative) 10/03/17 Unknown Urine Nitrite Neg (Negative) 10/03/17 Unknown Urine Bilirubin Neg (Negative) 10/03/17 Unknown Urine Urobilinogen 4.0 mg/dL (<2.0) 10/03/17 Unknown Ur Leukocyte Esterase Neg (Negative) 10/03/17 Unknown Urine WBC (Auto) 1.0 /HPF (0.0-6.0) 10/03/17 Unknown Urine RBC (Auto) 2.0 /HPF (0.0-6.0) 10/03/17 Unknown Urine Mucus Few /HPF 10/03/17 Unknown Vancomycin Trough 26.0 ug/mL (5.0-20.0) H 10/11/17 17:42 Lymph Enumerat CD4/CD8 0.07 (0.86-5.00) L 10/05/17 05:57 % CD3 Cells 56 % (57-85) L 10/05/17 05:57 Absolute CD3 Count 410 cells/uL (840-3060) L 10/05/17 05:57 % CD4 Cells 4 % (30-61) L 10/05/17 05:57 Absolute CD4 Count 31 cells/uL (490-1740) L 10/05/17 05:57 % CD8 Cells 54 % (12-42) H 10/05/17 05:57 Absolute CD8 Count 436 cells/uL (180-1170) 10/05/17 05:57 % CD19 Cells 30 % (6-29) H 10/05/17 05:57 Absolute CD19 Count 194 cells/uL (110-660) 10/05/17 05:57 C. difficile Toxin A&B Negative (Negative) 10/04/17 11:04 HIV-1 RNA PCR copies/ml 441 Copies/mL H 10/05/17 05:57 HIV-1 RNA (PCR) log 2.64 Log cps/mL H 10/05/17 05:57 Urine Legionella Ag Not detected (Not Detected) 10/08/17 01:10 TB (QFT) Gold In Tube Negative (Negative) 10/07/17 16:25 TB Test (QFT) Nil 0.05 IU/mL 10/07/17 16:25 TB Test Mitogen - Nil 0.72 IU/mL 10/07/17 16:25 TB Test Antigen - Nil 0.00 IU/mL 10/07/17 16:25 Miscellaneous Test Flexitest 1 10/10/17 07:50
[2017-10-12] MEDS: NON-FORMULARY (Emtricitabin/Tenofovir [Truvada 200-300 Mg] 1 TAB) PO SCH (09:05)
[2017-10-12] MEDS: NON-FORMULARY (Darunavir/Cobicistat [Prezcobix 800 Mg-150 Mg Tablet] 1 EACH) PO SCH (09:06)
[2017-10-12] MEDS: NACL 0.9% 1000 ML 1,000 ML IV SCH ×2 (12:31→21:42)
[2017-10-12] MEDS: VANCOMYCIN/0.45 NS 1 GM/250 ML 1 GM/250 ML BAG IV SCH ×2 (15:30→21:43)
--- NOTE | 2017-10-12 22:13 | Progress Note ---
Assessment and Plan Patient transfered to respiratory isolation room.Patient alert, awake.Still Complaining shortness of breath but breathing better than before.. Patient is on venturi mask 35%. O2 saturation 97%.Sputum for AFB still pending.. - Patient Problems (1) Chest pain Current Visit: Yes Status: Acute Plan to address problem: Management as per primary care and cardiology. (2) Cocaine use Current Visit: Yes Status: Acute Plan to address problem: Management as per primary care. (3) Pulmonary infiltrates Current Visit: Yes Status: Acute Plan to address problem: Patient is on zithromax, cefepime, Bactrim and Fluconazole. (4) HIV (human immunodeficiency virus infection) Current Visit: Yes Status: Acute Plan to address problem: Management as per infectious diseases. Subjective Date of service: 10/12/17 Principal diagnosis: Acute Hypoxemic Resp Failure; Bilateral Pneumonia; HIV +ve ; Chest pain Interval history: Patient transfered to respiratory isolation room.Patient alert, awake.Still Complaining shortness of breath but breathing better than before.. Patient is on venturi mask 35%. O2 saturation 97%.Sputum for AFB still pending. Objective Vital Signs - 12hr 10/12/17 10/12/17 10/12/17 11:13 14:00 14:13 Temperature Pulse Rate 102 H Pulse Rate [ 93 H 110 H Anterior Bilateral Throughout] Respiratory Rate Respiratory 24 24 Rate [Anterior Bilateral Throughout] Blood Pressure 122/74 Blood Pressure [Left] O2 Sat by Pulse 94 Oximetry 10/12/17 10/12/17 10/12/17 16:29 19:18 20:00 Temperature 97.9 F 98.2 F Pulse Rate 94 H 96 H Pulse Rate [ 99 H Anterior Bilateral Throughout] Respiratory 18 18 Rate Respiratory 20 Rate [Anterior Bilateral Throughout] Blood Pressure 122/77 Blood Pressure 124/70 [Left] O2 Sat by Pulse 98 95 97 Oximetry 10/12/17 10/12/17 10/12/17 20:10 20:54 22:10 Temperature Pulse Rate 97 H Pulse Rate [ 102 H Anterior Bilateral Throughout] Respiratory 24 Rate Respiratory 20 Rate [Anterior Bilateral Throughout] Blood Pressure Blood Pressure [Left] O2 Sat by Pulse Oximetry Constitutional: no acute distress, alert, lethargic, other (Still having cough.) Eyes: non-icteric ENT: oropharynx moist Neck: supple, no JVD Effort: mildly labored Ascultation: Bilateral: diminished breath sounds, rales Percussion: Bilateral: not dull Cardiovascular: regular rate and rhythm, other (no rubs or murmurs) Gastrointestinal: normoactive bowel sounds, soft, non-tender, non-distended, other (No HSM) Integumentary: other (poor skin turgor) Extremities: no cyanosis, no edema, pulses normal, no ischemia or petechiae Neurologic: normal mental status, non-focal exam, pupils equal and round, CN II- XII normal Psychiatric: depressed CBC and BMP: 10/09/17 08:26 10/11/17 06:19 ABG, PT/INR, D-dimer: ABG ABG pH 7.416 pH Units (7.350-7.450) 10/08/17 23:05 ABG pCO2 31.6 mm Hg 10/08/17 23:05 ABG pO2 83.5 mm Hg (80.0-90.0) 10/08/17 23:05 ABG O2 Saturation 96.6 % (95.0-99.0) 10/08/17 23:05 PT/INR, D-dimer PT 15.5 Sec. (12.2-14.9) H 10/10/17 09:44 INR 1.17 (0.87-1.13) H 10/10/17 09:44 D-Dimer 614.10 ng/mlDDU (0-234) H 10/03/17 06:08 Abnormal lab findings: Abnormal Labs 10/03/17 10/03/17 10/03/17 01:14 01:14 01:14 Hgb Hct [place] % (Auto) 10.0 H Seg Neutrophils % 71.1 H Lymphocytes % (Manual) Monocytes % (Manual) Eosinophils % (Manual) Abs Lymphs (Manual) Lymphocytes # (Manual) Monocytes # (Manual) Eosinophils # (Manual) PT INR D-Dimer ABG HCO3 ABG Base Excess ABG Hemoglobin Oxyhemoglobin Sodium 129 L Potassium 3.5 L Chloride 94.4 L Carbon Dioxide 18 L BUN Creatinine Calcium 8.3 L Lactate Dehydrogenase Total Creatine Kinase 473 H Albumin Vancomycin Trough Lymph Enumerat CD4/CD8 % CD3 Cells Absolute CD3 Count % CD4 Cells Absolute CD4 Count % CD8 Cells % CD19 Cells HIV-1 RNA PCR copies/ml HIV-1 RNA (PCR) log 10/03/17 10/03/17 10/04/17 04:26 06:08 07:49 Hgb Hct [place] % (Auto) 11.2 H Seg Neutrophils % Lymphocytes % (Manual) Monocytes % (Manual) Eosinophils % (Manual) Abs Lymphs (Manual) Lymphocytes # (Manual) Monocytes # (Manual) Eosinophils # (Manual) PT INR D-Dimer 614.10 H ABG HCO3 ABG Base Excess ABG Hemoglobin Oxyhemoglobin Sodium Potassium Chloride Carbon Dioxide BUN Creatinine Calcium Lactate Dehydrogenase Total Creatine Kinase 452 H Albumin Vancomycin Trough Lymph Enumerat CD4/CD8 % CD3 Cells Absolute CD3 Count % CD4 Cells Absolute CD4 Count % CD8 Cells % CD19 Cells HIV-1 RNA PCR copies/ml HIV-1 RNA (PCR) log 10/04/17 10/05/17 10/05/17 07:49 05:57 05:57 Hgb Hct [place] % (Auto) Seg Neutrophils % Lymphocytes % (Manual) Monocytes % (Manual) Eosinophils % (Manual) Abs Lymphs (Manual) 734 L Lymphocytes # (Manual) Monocytes # (Manual) Eosinophils # (Manual) PT INR D-Dimer ABG HCO3 ABG Base Excess ABG Hemoglobin Oxyhemoglobin Sodium 128 L Potassium Chloride 95.9 L Carbon Dioxide 17 L BUN 8 L Creatinine Calcium 7.7 L Lactate Dehydrogenase Total Creatine Kinase Albumin Vancomycin Trough Lymph Enumerat CD4/CD8 0.07 L % CD3 Cells 56 L Absolute CD3 Count 410 L % CD4 Cells 4 L Absolute CD4 Count 31 L % CD8 Cells 54 H % CD19 Cells 30 H HIV-1 RNA PCR copies/ml 441 H HIV-1 RNA (PCR) log 2.64 H 10/05/17 10/05/17 10/05/17 13:59 13:59 13:59 Hgb Hct [place] % (Auto) Seg Neutrophils % Lymphocytes % (Manual) Monocytes % (Manual) 11.0 H Eosinophils % (Manual) Abs Lymphs (Manual) Lymphocytes # (Manual) 0.7 L Monocytes # (Manual) Eosinophils # (Manual) PT INR D-Dimer ABG HCO3 ABG Base Excess ABG Hemoglobin Oxyhemoglobin Sodium 131 L Potassium Chloride 95.7 L Carbon Dioxide BUN 6 L Creatinine 0.7 L Calcium 8.1 L Lactate Dehydrogenase 464 H Total Creatine Kinase Albumin Vancomycin Trough Lymph Enumerat CD4/CD8 % CD3 Cells Absolute CD3 Count % CD4 Cells Absolute CD4 Count % CD8 Cells % CD19 Cells HIV-1 RNA PCR copies/ml HIV-1 RNA (PCR) log 10/07/17 10/07/17 10/08/17 13:21 13:21 23:05 Hgb Hct 34.7 L [place] % (Auto) Seg Neutrophils % Lymphocytes % (Manual) Monocytes % (Manual) Eosinophils % (Manual) Abs Lymphs (Manual) Lymphocytes # (Manual) Monocytes # (Manual) Eosinophils # (Manual) PT INR D-Dimer ABG HCO3 19.8 L ABG Base Excess -4.0 L ABG Hemoglobin 9.4 L Oxyhemoglobin 94.2 L Sodium 127 L Potassium Chloride 93.4 L Carbon Dioxide 20 L BUN 4 L Creatinine 0.6 L Calcium 8.2 L Lactate Dehydrogenase Total Creatine Kinase Albumin 3.1 L Vancomycin Trough Lymph Enumerat CD4/CD8 % CD3 Cells Absolute CD3 Count % CD4 Cells Absolute CD4 Count % CD8 Cells % CD19 Cells HIV-1 RNA PCR copies/ml HIV-1 RNA (PCR) log 10/09/17 10/09/17 10/10/17 08:26 08:26 09:44 Hgb 11.3 L Hct 33.2 L [place] % (Auto) Seg Neutrophils % Lymphocytes % (Manual) 8.0 L Monocytes % (Manual) 16.0 H Eosinophils % (Manual) 12.0 H Abs Lymphs (Manual) Lymphocytes # (Manual) 0.8 L Monocytes # (Manual) 1.5 H Eosinophils # (Manual) 1.1 H PT 15.5 H INR 1.17 H D-Dimer ABG HCO3 ABG Base Excess ABG Hemoglobin Oxyhemoglobin Sodium 132 L Potassium Chloride 97.2 L Carbon Dioxide 18 L BUN 7 L Creatinine 0.6 L Calcium Lactate Dehydrogenase Total Creatine Kinase Albumin Vancomycin Trough Lymph Enumerat CD4/CD8 % CD3 Cells Absolute CD3 Count % CD4 Cells Absolute CD4 Count % CD8 Cells % CD19 Cells HIV-1 RNA PCR copies/ml HIV-1 RNA (PCR) log 10/11/17 10/11/17 06:19 17:42 Hgb Hct [place] % (Auto) Seg Neutrophils % Lymphocytes % (Manual) Monocytes % (Manual) Eosinophils % (Manual) Abs Lymphs (Manual) Lymphocytes # (Manual) Monocytes # (Manual) Eosinophils # (Manual) PT INR D-Dimer ABG HCO3 ABG Base Excess ABG Hemoglobin Oxyhemoglobin Sodium 129 L Potassium Chloride 94.6 L Carbon Dioxide 19 L BUN 8 L Creatinine 0.6 L Calcium Lactate Dehydrogenase Total Creatine Kinase Albumin Vancomycin Trough 26.0 H Lymph Enumerat CD4/CD8 % CD3 Cells Absolute CD3 Count % CD4 Cells Absolute CD4 Count % CD8 Cells % CD19 Cells HIV-1 RNA PCR copies/ml HIV-1 RNA (PCR) log Allied health notes reviewed: RT
[2017-10-13] MEDS: MAXIPIME 2 GM in NACL 0.9% 20 ML IV SCH ×2 (05:50→14:38)
[2017-10-13] MEDS: BACTRIM DS PO SCH ×3 (05:50→22:54)
[2017-10-13] MEDS: NACL 0.9% 1000 ML 1,000 ML IV SCH ×3 (05:50→22:54)
[2017-10-13] MEDS: VANCOMYCIN/0.45 NS 1 GM/250 ML 1 GM/250 ML BAG IV SCH ×2 (05:51→14:38)
[2017-10-13] MEDS: PROVENTIL IH SCH ×3 (07:57→21:46)
[2017-10-13] MEDS: LEVAQUIN 750MG/150ML 750 MG/150 ML BAG IV SCH (10:01)
[2017-10-13] MEDS: LOVENOX SUB-Q SCH (10:02)
[2017-10-13] MEDS: DIFLUCAN PO SCH (10:02)
[2017-10-13] MEDS: ZITHROMAX PO SCH (10:02)
[2017-10-13] MEDS: SODIUM CHLORIDE FLUSH SYRINGE 10 ML IV SCH ×2 (10:03→22:54)
[2017-10-13] MEDS: NON-FORMULARY (Emtricitabin/Tenofovir [Truvada 200-300 Mg] 1 TAB) PO SCH (10:04)
[2017-10-13] MEDS: NON-FORMULARY (Darunavir/Cobicistat [Prezcobix 800 Mg-150 Mg Tablet] 1 EACH) PO SCH (10:04)
--- NOTE | 2017-10-13 13:32 | Progress Note ---
Assessment and Plan Assessment and plan: Patient is a 42-year-old man with history of HIV/AIDS, CD4 count of 34 pw CP -Acute hypoxic respiratory failure, poa: treat the pna, treat with O2, nebs -Sepsis/PNA -CT confirmed PNA, possible CAP, PCP vs IRIS, continue abx, ID input appreciated, pulm consulted for bronch tomorrow==>hold Bronch b/c pt now in TB isolation room per Dr. Gregg -Atypical CP, most likely pleuric from pna, with neg. stress thallium ; no further workup -elevated D-dimer; cta chest neg for pe -diarrhea, rule out HIV related infection; stool studies ordered, on empiric abx , no evidence of GI infection at this timel; CT A/P no acute findings,may be due to IRIS, GI consult appreciated, diarrhea is resolving, only having 1-2 BMs per day now; no plans for endoscopy at this time -Hyponatremia: continue nss -Substance Abuse; denies current abuse, was counseled -HIV/AIDS, started on HAART at [facility] 3wks prior to admission; continue HAART, ID consulted; suspect IRIS vs opportunist infection, Flor, she is to obtain his records from the [facility] d/w mounter smoking pipe, Dr. Gregg, start iv steroids, and hold of on Bronchoscopy until TB is ruled out 10/12/17: Stop IV vancomycin as blood cultures have been negative History Interval history: Patient was seen and examined. Follow-up on current diagnosis. Overnight sob. Patient denies any chest pain, nausea/vomiting or severe headaches. Imaging, nursing note, chart, labs and old chart reviewed. Discussed with patient. Hospitalist Physical - Physical exam Narrative exam: GEN: Ill-appearing NAD, AWAKE, ALERT, ORIENTATED 3 HEENT: NCAT, EOMI, PERRL, OP Clear NECK: supple, no adenopathy, no thyromegaly, no JVD CVS/HEART: RRR, NORMAL S1S2, pulses present bilaterally CHEST/LUNGS: Diminished breath sounds bilaterally, Symmetrical chest expansion, good air entry bilaterally GI/Abdomen: soft, NTND, good bowel sounds, no guarding or rebound /Bladder: no suprapubic tenderness, no CVA or paraspinal tenderness EXT/Skin: no c/c/e, no obvious rash MSK: FROM x 4 Neuro: CN 2-12 grossly intact, no new focal deficits Psych: calm - Constitutional Vitals: Temp Pulse Resp BP Pulse Ox 99.2 F 96 H 18 122/79 97 10/13/17 08:29 10/13/17 08:29 10/13/17 08:29 10/13/17 08:29 10/13/17 08:29 General appearance: Present: no acute distress, well-nourished Results - Labs CBC & Chem 7: 10/09/17 08:26 10/11/17 06:19 Labs: Laboratory Last Values WBC 9.5 K/mm3 (4.5-11.0) 10/09/17 08:26 RBC 3.71 M/mm3 (3.65-5.03) 10/09/17 08:26 Hgb 11.3 gm/dl (11.8-15.2) L 10/09/17 08:26 Hct 33.2 % (35.5-45.6) L 10/09/17 08:26 MCV 89 fl (84-94) 10/09/17 08:26 MCH 31 pg (28-32) 10/09/17 08:26 MCHC 34 % (32-34) 10/09/17 08:26 RDW 14.4 % (13.2-15.2) 10/09/17 08:26 Plt Count 369 K/mm3 (140-440) 10/09/17 08:26 Lymph % (Auto) 24.0 % (13.4-35.0) 10/04/17 07:49 [place] % (Auto) Program Support Clerk 10/09/17 08:26 Eos % (Auto) 0.8 % (0.0-4.3) 10/04/17 07:49 Baso % (Auto) 0.4 % (0.0-1.8) 10/04/17 07:49 Lymph # 1.4 K/mm3 (1.2-5.4) 10/04/17 07:49 [place] # 0.7 K/mm3 (0.0-0.8) 10/04/17 07:49 Eos # 0.0 K/mm3 (0.0-0.4) 10/04/17 07:49 Baso # 0.0 K/mm3 (0.0-0.1) 10/04/17 07:49 Add Manual Diff Complete 10/09/17 08:26 Total Counted 100 10/09/17 08:26 Seg Neutrophils % 63.6 % (40.0-70.0) 10/04/17 07:49 Seg Neuts % (Manual) 60.0 % (40.0-70.0) 10/09/17 08:26 Band Neutrophils % 4.0 % 10/09/17 08:26 Lymphocytes % (Manual) 8.0 % (13.4-35.0) L 10/09/17 08:26 Reactive Lymphs % (Man) 0 % 10/09/17 08:26 Monocytes % (Manual) 16.0 % (0.0-7.3) H 10/09/17 08:26 Eosinophils % (Manual) 12.0 % (0.0-4.3) H 10/09/17 08:26 Basophils % (Manual) 0 % (0.0-1.8) 10/09/17 08:26 Metamyelocytes % 0 % 10/09/17 08:26 Myelocytes % 0 % 10/09/17 08:26 Promyelocytes % 0 % 10/09/17 08:26 Blast Cells % 0 % 10/09/17 08:26 Nucleated RBC % Not Reportable 10/09/17 08:26 Seg Neutrophils # 3.8 K/mm3 (1.8-7.7) 10/04/17 07:49 Seg Neutrophils # Man 5.7 K/mm3 (1.8-7.7) 10/09/17 08:26 Band Neutrophils # 0.4 K/mm3 10/09/17 08:26 Abs Lymphs (Manual) 734 cells/uL (850-3900) L 10/05/17 05:57 Lymphocytes # (Manual) 0.8 K/mm3 (1.2-5.4) L 10/09/17 08:26 Abs React Lymphs (Man) 0.0 K/mm3 10/09/17 08:26 Monocytes # (Manual) 1.5 K/mm3 (0.0-0.8) H 10/09/17 08:26 Eosinophils # (Manual) 1.1 K/mm3 (0.0-0.4) H 10/09/17 08:26 Basophils # (Manual) 0.0 K/mm3 (0.0-0.1) 10/09/17 08:26 Metamyelocytes # 0.0 K/mm3 10/09/17 08:26 Myelocytes # 0.0 K/mm3 10/09/17 08:26 Promyelocytes # 0.0 K/mm3 10/09/17 08:26 Blast Cells # 0.0 K/mm3 10/09/17 08:26 WBC Morphology Not Reportable 10/09/17 08:26 Hypersegmented Neuts Not Reportable 10/09/17 08:26 Hyposegmented Neuts Not Reportable 10/09/17 08:26 Hypogranular Neuts Not Reportable 10/09/17 08:26 Smudge Cells Not Reportable 10/09/17 08:26 Toxic Granulation Not Reportable 10/09/17 08:26 Toxic Vacuolation Not Reportable 10/09/17 08:26 Dohle Bodies Not Reportable 10/09/17 08:26 Pelger-Huet Anomaly Not Reportable 10/09/17 08:26 Zora Rods Not Reportable 10/09/17 08:26 Platelet Estimate Consistent w auto 10/09/17 08:26 Clumped Platelets Not Reportable 10/09/17 08:26 Plt Clumps, EDTA Not Reportable 10/09/17 08:26 Large Platelets Not Reportable 10/09/17 08:26 Giant Platelets Not Reportable 10/09/17 08:26 Platelet Satelliting Not Reportable 10/09/17 08:26 Plt Morphology Comment Not Reportable 10/09/17 08:26 RBC Morphology Normal 10/09/17 08:26 Dimorphic RBCs Not Reportable 10/09/17 08:26 Polychromasia Not Reportable 10/09/17 08:26 Hypochromasia Not Reportable 10/09/17 08:26 Poikilocytosis Not Reportable 10/09/17 08:26 Anisocytosis Not Reportable 10/09/17 08:26 Microcytosis Not Reportable 10/09/17 08:26 Macrocytosis Not Reportable 10/09/17 08:26 Spherocytes Not Reportable 10/09/17 08:26 Pappenheimer Bodies Not Reportable 10/09/17 08:26 Sickle Cells Not Reportable 10/09/17 08:26 Target Cells Not Reportable 10/09/17 08:26 Tear Drop Cells Not Reportable 10/09/17 08:26 Ovalocytes Not Reportable 10/09/17 08:26 Helmet Cells Not Reportable 10/09/17 08:26 [place] Bodies Not Reportable 10/09/17 08:26 [place] Rings Not Reportable 10/09/17 08:26 [place] Cells Not Reportable 10/09/17 08:26 Bite Cells Not Reportable 10/09/17 08:26 Crenated Cell Not Reportable 10/09/17 08:26 Elliptocytes Not Reportable 10/09/17 08:26 Acanthocytes (Spur) Not Reportable 10/09/17 08:26 Rouleaux Not Reportable 10/09/17 08:26 Hemoglobin C Crystals Not Reportable 10/09/17 08:26 Schistocytes Not Reportable 10/09/17 08:26 Malaria parasites Not Reportable 10/09/17 08:26 [place] Bodies Not Reportable 10/09/17 08:26 Hem Pathologist Commnt No 10/09/17 08:26 PT 15.5 Sec. (12.2-14.9) H 10/10/17 09:44 INR 1.17 (0.87-1.13) H 10/10/17 09:44 D-Dimer 614.10 ng/mlDDU (0-234) H 10/03/17 06:08 ABG pH 7.416 pH Units (7.350-7.450) 10/08/17 23:05 ABG pCO2 31.6 mm Hg 10/08/17 23:05 ABG pO2 83.5 mm Hg (80.0-90.0) 10/08/17 23:05 ABG HCO3 19.8 mmol/L (20.0-26.0) L 10/08/17 23:05 ABG O2 Saturation 96.6 % (95.0-99.0) 10/08/17 23:05 ABG O2 Content 12.6 (0.0-44) 10/08/17 23:05 ABG Base Excess -4.0 mmol/L (-2.0-3.0) L 10/08/17 23:05 ABG Hemoglobin 9.4 gm/dl (14.0-18.0) L 10/08/17 23:05 ABG Carboxyhemoglobin 1.5 % (0.0-5.0) 10/08/17 23:05 ABG Methemoglobin 1.0 % (0.0-1.5) 10/08/17 23:05 Oxyhemoglobin 94.2 % (95.0-99.0) L 10/08/17 23:05 FiO2 35 % 10/08/17 23:05 Sodium 129 mmol/L (137-145) L 10/11/17 06:19 Potassium 4.1 mmol/L (3.6-5.0) 10/11/17 06:19 Chloride 94.6 mmol/L (98-107) L 10/11/17 06:19 Carbon Dioxide 19 mmol/L (22-30) L 10/11/17 06:19 Anion Gap 20 mmol/L 10/11/17 06:19 BUN 8 mg/dL (9-20) L 10/11/17 06:19 Creatinine 0.6 mg/dL (0.8-1.5) L 10/11/17 06:19 Estimated GFR > 60 ml/min 10/11/17 06:19 BUN/Creatinine Ratio 13 % 10/11/17 06:19 Glucose 94 mg/dL (75-100) 10/11/17 06:19 Calcium 8.4 mg/dL (8.4-10.2) 10/11/17 06:19 Total Bilirubin 0.50 mg/dL (0.1-1.2) 10/07/17 13:21 AST 31 units/L (5-40) 10/07/17 13:21 ALT 14 units/L (7-56) 10/07/17 13:21 Alkaline Phosphatase 36 units/L (35-129) 10/07/17 13:21 Lactate Dehydrogenase 464 units/L (91-180) H 10/05/17 13:59 Total Creatine Kinase 452 units/L (55-170) H 10/03/17 04:26 CK-MB (CK-2) < 1.0 ng/mL (0.0-4.0) 10/03/17 04:26 CK-MB (CK-2) Rel Index 0.2 (0-4) 10/03/17 04:26 Troponin T < 0.010 ng/mL (0.00-0.029) 10/03/17 07:42 Total Protein 6.5 g/dL (6.3-8.2) 10/07/17 13:21 Albumin 3.1 g/dL (3.9-5) L 10/07/17 13:21 Albumin/Globulin Ratio 0.9 % 10/07/17 13:21 Lipase 41 units/L (13-60) 10/03/17 01:14 Urine Color Yellow (Yellow) 10/03/17 Unknown Urine Turbidity Clear (Clear) 10/03/17 Unknown Urine pH 5.0 (5.0-7.0) 10/03/17 Unknown Ur Specific [place] 1.024 (1.003-1.030) 10/03/17 Unknown Urine Protein 30 mg/dl mg/dL (Negative) 10/03/17 Unknown Urine Glucose (UA) Neg mg/dL (Negative) 10/03/17 Unknown Urine Ketones 20 mg/dL (Negative) 10/03/17 Unknown Urine Blood Neg (Negative) 10/03/17 Unknown Urine Nitrite Neg (Negative) 10/03/17 Unknown Urine Bilirubin Neg (Negative) 10/03/17 Unknown Urine Urobilinogen 4.0 mg/dL (<2.0) 10/03/17 Unknown Ur Leukocyte Esterase Neg (Negative) 10/03/17 Unknown Urine WBC (Auto) 1.0 /HPF (0.0-6.0) 10/03/17 Unknown Urine RBC (Auto) 2.0 /HPF (0.0-6.0) 10/03/17 Unknown Urine Mucus Few /HPF 10/03/17 Unknown Vancomycin Trough 26.0 ug/mL (5.0-20.0) H 10/11/17 17:42 Lymph Enumerat CD4/CD8 0.07 (0.86-5.00) L 10/05/17 05:57 % CD3 Cells 56 % (57-85) L 10/05/17 05:57 Absolute CD3 Count 410 cells/uL (840-3060) L 10/05/17 05:57 % CD4 Cells 4 % (30-61) L 10/05/17 05:57 Absolute CD4 Count 31 cells/uL (490-1740) L 10/05/17 05:57 % CD8 Cells 54 % (12-42) H 10/05/17 05:57 Absolute CD8 Count 436 cells/uL (180-1170) 10/05/17 05:57 % CD19 Cells 30 % (6-29) H 10/05/17 05:57 Absolute CD19 Count 194 cells/uL (110-660) 10/05/17 05:57 C. difficile Toxin A&B Negative (Negative) 10/04/17 11:04 HIV-1 RNA PCR copies/ml 441 Copies/mL H 10/05/17 05:57 HIV-1 RNA (PCR) log 2.64 Log cps/mL H 10/05/17 05:57 Urine Legionella Ag Not detected (Not Detected) 10/08/17 01:10 TB (QFT) Gold In Tube Negative (Negative) 10/07/17 16:25 TB Test (QFT) Nil 0.05 IU/mL 10/07/17 16:25 TB Test Mitogen - Nil 0.72 IU/mL 10/07/17 16:25 TB Test Antigen - Nil 0.00 IU/mL 10/07/17 16:25 Miscellaneous Test Flexitest 1 10/10/17 07:50
--- NOTE | 2017-10-13 14:30 | Progress Note ---
Assessment and Plan Assessment: 1) Acute fever and Bilateral lung infiltrates in AIDS patient. Could be CAP, PJP , atypical, mycobacterial, fungal. Of note pt has been taking bactrim as outpatient in treatment dose, unclear why. It was prescribed by his regular HIV provider. Persistently febrile. fever now resolved. -LDH high -Cryptococcal antigen negative. -Pneumococcal and Legionella ag negative -Quantiferon negative. -Unable to provide specimen for sputum culture 2) Acute N/V/D. r/o C diff. Other opportunistic infections also on the differential: cryptosporidium, cyclospora, isospora, etc. Better - C diff negative. - Stool cx negative. - Cryptosporidium ag, Giardia ag negative - CT A/P possible gastroenteritis -Stools more formed. 3) Acute hypoxemic respiratory failure. On venti mask not better 4) Acute atypical chest pain. Negative stress test. 5) HIV/AIDS. On HAART. -HIV-VL 441 (10/05/17) -CD4 31/4%. (10/05/17) 6) Facial ezcema Recommendations -to have bronch/BAL tomorrow per pulmonary to r/o TB and PJP -consider steroids in view of persistent hypoxemia -once BAL AFB negative will stop airborne isolation -doubt pulmonary TB in view of negative Quantiferon TB Gold -Stop azithromycin -Stop cefepime, vancomycin, levofloxacin - D9 -continue bactrim DS TID - D9 of 21 -start azithromycin 1200 mg po qweek to prevent MAC -f/u isospora, cyclospora and microsporidia, norovirus, rotavirus, f/u fungal blood cx, AFB blood cultures. -f/u Aspergillus ag, histoplasma ag in urine, fungal antibodies. -Continue prezcobix and truvada (pt taking his home mds) Cherelle Smith MD Infectious Diseases Specialist [facility], [place], [facility]ated [facility] ([facility]) M [phone] Subjective Date of service: 10/13/17 Principal diagnosis: Acute Hypoxemic Resp Failure; Bilateral Pneumonia; HIV +ve ; Chest pain Interval history: Feels not better, still SOB and MENDOZA. No fever for 24h. Microbiology Blood cultures 10/03/17 NGTD 10/06 Fungal pending 10/08 Neg Cryptococcal antigen neg Stool WBC negative Culture 10/04 negative. Giardia ag negative Cryptosporodium ag negative Sputum culture 10/05 rejected 10/09 rejected Antibiotics Fluconazole 10/07- Levofloxacin 10/06- IV vancomycin 10/05- Cefepime 10/05- Azithromycin 10/04- Bactrim 10/04- HAART (prezcobix and truvada, taking home meds). Prior antibiotics Ceftriaxone 10/04-10/05 Flagyl 10/04-10/05 Objective - Exam Narrative Exam: General appearance: Pt is in NAD, A&Ox3, conversant. On venti mask. Eyes: anicteric sclerae, moist conjunctivae; PERRLA HENT: Atraumatic; oropharynx clear with moist mucous membranes and no mucosal ulcerations/no oral thrush; normal hard and soft palate. Normal external ears. Neck: Trachea midline; supple, no thyromegaly or lymphadenopathy Lungs: Scattered bilateral crackles. CV: S1,S2. Abdomen: Soft, non-tender; no masses or hepatosplenomegaly Extremities: No peripheral edema or extremity lymphadenopathy Skin: Normal temperature, turgor and texture; no rash, ulcers or subcutaneous nodules Psych: Appropriate affect, alert and oriented to person, place and time. Neuro: alert and oriented x 3. Moving all extremities Lines: No CVL / PICC - Constitutional Vitals: Vital Signs Temp Pulse Resp BP Pulse Ox 99.2 F 90 18 122/79 97 10/13/17 08:29 10/13/17 13:48 10/13/17 08:29 10/13/17 08:29 10/13/17 08:29 Temperature -Last 24 Hours Temperature 99.2 F Temperature 97.8 F Temperature 98.3 F Temperature 98.2 F Temperature 97.9 F - Labs CBC & Chem 7: 10/09/17 08:26 10/11/17 06:19
--- NOTE | 2017-10-13 16:44 | Progress Note ---
Assessment and Plan atient alert, awake.Still Complaining some shortness of breath but breathing better than before.. Patient is on venturi mask 35%. O2 saturation 97%.Dr. Smith called said patients Quanteferon is negative. D/C respiratory isolation.Patient was scheduled for bronchoscopy last saturday. Patient ate unable to do bronchoscopy. Rescheduling for bronchoscopy tomorrow. - Patient Problems (1) Chest pain Current Visit: Yes Status: Acute Plan to address problem: No complaint of chest pain today. (2) Cocaine use Current Visit: Yes Status: Acute Plan to address problem: Management as per primary care. (3) Pulmonary infiltrates Current Visit: Yes Status: Acute Plan to address problem: Patient is on zithromax, cefepime, Bactrim and Fluconazole. Infectious diseases requesting bronchoscopy. (4) HIV (human immunodeficiency virus infection) Current Visit: Yes Status: Acute Plan to address problem: Management as per infectious diseases. Subjective Date of service: 10/13/17 Principal diagnosis: Acute Hypoxemic Resp Failure; Bilateral Pneumonia; HIV +ve ; Chest pain Interval history: Patient alert, awake.Still Complaining some shortness of breath but breathing better than before.. Patient is on venturi mask 35%. O2 saturation 97%.Dr. Smith called said patients Quanteferon is negative. D/C respiratory isolation.Patient was scheduled for bronchoscopy last saturday. Patient ate unable to do bronchoscopy. Rescheduling for bronchoscopy tomorrow. Objective Vital Signs - 12hr 10/13/17 10/13/17 10/13/17 05:15 08:29 13:48 Temperature 97.8 F 99.2 F Pulse Rate 94 H 96 H 90 Respiratory 18 18 Rate Blood Pressure 127/80 122/79 O2 Sat by Pulse 94 97 Oximetry Constitutional: no acute distress, alert, lethargic, other (Still having cough.) Eyes: non-icteric ENT: oropharynx moist Neck: supple, no JVD Effort: mildly labored Ascultation: Bilateral: diminished breath sounds, rales Percussion: Bilateral: not dull Cardiovascular: regular rate and rhythm, other (no rubs or murmurs) Gastrointestinal: normoactive bowel sounds, soft, non-tender, non-distended, other (No HSM) Integumentary: other (poor skin turgor) Extremities: no cyanosis, no edema, pulses normal, no ischemia or petechiae Neurologic: normal mental status, non-focal exam, pupils equal and round, CN II- XII normal Psychiatric: depressed CBC and BMP: 10/09/17 08:26 10/11/17 06:19 ABG, PT/INR, D-dimer: ABG ABG pH 7.416 pH Units (7.350-7.450) 10/08/17 23:05 ABG pCO2 31.6 mm Hg 10/08/17 23:05 ABG pO2 83.5 mm Hg (80.0-90.0) 10/08/17 23:05 ABG O2 Saturation 96.6 % (95.0-99.0) 10/08/17 23:05 PT/INR, D-dimer PT 15.5 Sec. (12.2-14.9) H 10/10/17 09:44 INR 1.17 (0.87-1.13) H 10/10/17 09:44 D-Dimer 614.10 ng/mlDDU (0-234) H 10/03/17 06:08 Abnormal lab findings: Abnormal Labs 10/03/17 10/03/17 10/03/17 01:14 01:14 01:14 Hgb Hct [place] % (Auto) 10.0 H Seg Neutrophils % 71.1 H Lymphocytes % (Manual) Monocytes % (Manual) Eosinophils % (Manual) Abs Lymphs (Manual) Lymphocytes # (Manual) Monocytes # (Manual) Eosinophils # (Manual) PT INR D-Dimer ABG HCO3 ABG Base Excess ABG Hemoglobin Oxyhemoglobin Sodium 129 L Potassium 3.5 L Chloride 94.4 L Carbon Dioxide 18 L BUN Creatinine Calcium 8.3 L Lactate Dehydrogenase Total Creatine Kinase 473 H Albumin Vancomycin Trough Lymph Enumerat CD4/CD8 % CD3 Cells Absolute CD3 Count % CD4 Cells Absolute CD4 Count % CD8 Cells % CD19 Cells HIV-1 RNA PCR copies/ml HIV-1 RNA (PCR) log 10/03/17 10/03/17 10/04/17 04:26 06:08 07:49 Hgb Hct [place] % (Auto) 11.2 H Seg Neutrophils % Lymphocytes % (Manual) Monocytes % (Manual) Eosinophils % (Manual) Abs Lymphs (Manual) Lymphocytes # (Manual) Monocytes # (Manual) Eosinophils # (Manual) PT INR D-Dimer 614.10 H ABG HCO3 ABG Base Excess ABG Hemoglobin Oxyhemoglobin Sodium Potassium Chloride Carbon Dioxide BUN Creatinine Calcium Lactate Dehydrogenase Total Creatine Kinase 452 H Albumin Vancomycin Trough Lymph Enumerat CD4/CD8 % CD3 Cells Absolute CD3 Count % CD4 Cells Absolute CD4 Count % CD8 Cells % CD19 Cells HIV-1 RNA PCR copies/ml HIV-1 RNA (PCR) log 10/04/17 10/05/17 10/05/17 07:49 05:57 05:57 Hgb Hct [place] % (Auto) Seg Neutrophils % Lymphocytes % (Manual) Monocytes % (Manual) Eosinophils % (Manual) Abs Lymphs (Manual) 734 L Lymphocytes # (Manual) Monocytes # (Manual) Eosinophils # (Manual) PT INR D-Dimer ABG HCO3 ABG Base Excess ABG Hemoglobin Oxyhemoglobin Sodium 128 L Potassium Chloride 95.9 L Carbon Dioxide 17 L BUN 8 L Creatinine Calcium 7.7 L Lactate Dehydrogenase Total Creatine Kinase Albumin Vancomycin Trough Lymph Enumerat CD4/CD8 0.07 L % CD3 Cells 56 L Absolute CD3 Count 410 L % CD4 Cells 4 L Absolute CD4 Count 31 L % CD8 Cells 54 H % CD19 Cells 30 H HIV-1 RNA PCR copies/ml 441 H HIV-1 RNA (PCR) log 2.64 H 10/05/17 10/05/17 10/05/17 13:59 13:59 13:59 Hgb Hct [place] % (Auto) Seg Neutrophils % Lymphocytes % (Manual) Monocytes % (Manual) 11.0 H Eosinophils % (Manual) Abs Lymphs (Manual) Lymphocytes # (Manual) 0.7 L Monocytes # (Manual) Eosinophils # (Manual) PT INR D-Dimer ABG HCO3 ABG Base Excess ABG Hemoglobin Oxyhemoglobin Sodium 131 L Potassium Chloride 95.7 L Carbon Dioxide BUN 6 L Creatinine 0.7 L Calcium 8.1 L Lactate Dehydrogenase 464 H Total Creatine Kinase Albumin Vancomycin Trough Lymph Enumerat CD4/CD8 % CD3 Cells Absolute CD3 Count % CD4 Cells Absolute CD4 Count % CD8 Cells % CD19 Cells HIV-1 RNA PCR copies/ml HIV-1 RNA (PCR) log 10/07/17 10/07/17 10/08/17 13:21 13:21 23:05 Hgb Hct 34.7 L [place] % (Auto) Seg Neutrophils % Lymphocytes % (Manual) Monocytes % (Manual) Eosinophils % (Manual) Abs Lymphs (Manual) Lymphocytes # (Manual) Monocytes # (Manual) Eosinophils # (Manual) PT INR D-Dimer ABG HCO3 19.8 L ABG Base Excess -4.0 L ABG Hemoglobin 9.4 L Oxyhemoglobin 94.2 L Sodium 127 L Potassium Chloride 93.4 L Carbon Dioxide 20 L BUN 4 L Creatinine 0.6 L Calcium 8.2 L Lactate Dehydrogenase Total Creatine Kinase Albumin 3.1 L Vancomycin Trough Lymph Enumerat CD4/CD8 % CD3 Cells Absolute CD3 Count % CD4 Cells Absolute CD4 Count % CD8 Cells % CD19 Cells HIV-1 RNA PCR copies/ml HIV-1 RNA (PCR) log 10/09/17 10/09/17 10/10/17 08:26 08:26 09:44 Hgb 11.3 L Hct 33.2 L [place] % (Auto) Seg Neutrophils % Lymphocytes % (Manual) 8.0 L Monocytes % (Manual) 16.0 H Eosinophils % (Manual) 12.0 H Abs Lymphs (Manual) Lymphocytes # (Manual) 0.8 L Monocytes # (Manual) 1.5 H Eosinophils # (Manual) 1.1 H PT 15.5 H INR 1.17 H D-Dimer ABG HCO3 ABG Base Excess ABG Hemoglobin Oxyhemoglobin Sodium 132 L Potassium Chloride 97.2 L Carbon Dioxide 18 L BUN 7 L Creatinine 0.6 L Calcium Lactate Dehydrogenase Total Creatine Kinase Albumin Vancomycin Trough Lymph Enumerat CD4/CD8 % CD3 Cells Absolute CD3 Count % CD4 Cells Absolute CD4 Count % CD8 Cells % CD19 Cells HIV-1 RNA PCR copies/ml HIV-1 RNA (PCR) log 10/11/17 10/11/17 06:19 17:42 Hgb Hct [place] % (Auto) Seg Neutrophils % Lymphocytes % (Manual) Monocytes % (Manual) Eosinophils % (Manual) Abs Lymphs (Manual) Lymphocytes # (Manual) Monocytes # (Manual) Eosinophils # (Manual) PT INR D-Dimer ABG HCO3 ABG Base Excess ABG Hemoglobin Oxyhemoglobin Sodium 129 L Potassium Chloride 94.6 L Carbon Dioxide 19 L BUN 8 L Creatinine 0.6 L Calcium Lactate Dehydrogenase Total Creatine Kinase Albumin Vancomycin Trough 26.0 H Lymph Enumerat CD4/CD8 % CD3 Cells Absolute CD3 Count % CD4 Cells Absolute CD4 Count % CD8 Cells % CD19 Cells HIV-1 RNA PCR copies/ml HIV-1 RNA (PCR) log Allied health notes reviewed: RT
[2017-10-14] MEDS: NACL 0.9% 1000 ML 1,000 ML IV SCH ×3 (06:07→17:15)
[2017-10-14] MEDS: BACTRIM DS PO SCH ×3 (06:07→21:55)
[2017-10-14] MEDS ORDERED: WATER FOR IRRIG STERILE IR ONE (07:46)
[2017-10-14] MEDS: PROVENTIL IH SCH ×3 (08:07→20:10)
[2017-10-14] MEDS: SODIUM CHLORIDE FLUSH SYRINGE 10 ML IV SCH ×2 (10:00→21:54)
[2017-10-14] MEDS: LOVENOX SUB-Q SCH (10:00)
--- NOTE | 2017-10-14 11:09 | Progress Note ---
Assessment and Plan Acute hypoxic respiraotry failure Multifocal pulmonary infiltrates- differentials include CAP, PJP, primary pulmonary lymphoma, fungal pneumonias, mycobacterial infections including TB and non-TB HIV-AIDS Fevers Substance abuse - quantiferon negative - bronchoscopy today - Continue supplemental oxygen to keep O2 sats>90% - VTE prophylaxis, hold once bronchoscopy is scheduled - Antibiotics/anti-infective per ID service - Steroids ....re-evaluate in am & prn ...25' Subjective Date of service: 10/14/17 Principal diagnosis: Acute Hypoxemic Resp Failure; Bilateral Pneumonia; HIV +ve ; Chest pain Interval history: Patient seen today for: Acute Hypoxemic Resp Failure; Bilateral Pneumonia; HIV + ve; Chest pain Seen and examined at bedside; 24-hour events reviewed; nursing and respiratory care staff consulted; no adverse overnight events reported to me; remains SOB; No N/V/F/C Objective Vital Signs - 12hr 10/14/17 10/14/17 10/14/17 00:44 04:40 05:21 Temperature 97.3 F L 97.3 F L Pulse Rate 84 95 H 89 Pulse Rate [ Right Radial] Respiratory 20 18 Rate Blood Pressure 122/72 Blood Pressure 110/68 129/64 [Left] O2 Sat by Pulse 98 91 97 Oximetry 10/14/17 10/14/17 07:31 10:00 Temperature 98.2 F Pulse Rate 94 H 106 H Pulse Rate [ 106 H Right Radial] Respiratory 20 22 Rate Blood Pressure 121/81 Blood Pressure [Left] O2 Sat by Pulse 95 Oximetry Constitutional: no acute distress, lethargic, other (Still having cough.) Eyes: non-icteric ENT: oropharynx moist Neck: supple, no JVD Effort: mildly labored Ascultation: Bilateral: diminished breath sounds, rales (bases) Percussion: Bilateral: not dull Cardiovascular: regular rate and rhythm, other (no rubs or murmurs) Gastrointestinal: normoactive bowel sounds, soft, non-tender, non-distended, other (No HSM) Integumentary: rash (? malar rash around face), other (poor skin turgor) Extremities: no cyanosis, no edema, pulses normal, no ischemia or petechiae Neurologic: normal mental status, non-focal exam, pupils equal and round, CN II- XII normal Psychiatric: anxious CBC and BMP: 10/09/17 08:26 10/11/17 06:19 ABG, PT/INR, D-dimer: ABG ABG pH 7.416 pH Units (7.350-7.450) 10/08/17 23:05 ABG pCO2 31.6 mm Hg 10/08/17 23:05 ABG pO2 83.5 mm Hg (80.0-90.0) 10/08/17 23:05 ABG O2 Saturation 96.6 % (95.0-99.0) 10/08/17 23:05 PT/INR, D-dimer PT 15.5 Sec. (12.2-14.9) H 10/10/17 09:44 INR 1.17 (0.87-1.13) H 10/10/17 09:44 D-Dimer 614.10 ng/mlDDU (0-234) H 10/03/17 06:08 Abnormal lab findings: Abnormal Labs 10/03/17 10/03/17 10/03/17 01:14 01:14 01:14 Hgb Hct [place] % (Auto) 10.0 H Seg Neutrophils % 71.1 H Lymphocytes % (Manual) Monocytes % (Manual) Eosinophils % (Manual) Abs Lymphs (Manual) Lymphocytes # (Manual) Monocytes # (Manual) Eosinophils # (Manual) PT INR D-Dimer ABG HCO3 ABG Base Excess ABG Hemoglobin Oxyhemoglobin Sodium 129 L Potassium 3.5 L Chloride 94.4 L Carbon Dioxide 18 L BUN Creatinine Calcium 8.3 L Lactate Dehydrogenase Total Creatine Kinase 473 H Albumin Vancomycin Trough Lymph Enumerat CD4/CD8 % CD3 Cells Absolute CD3 Count % CD4 Cells Absolute CD4 Count % CD8 Cells % CD19 Cells HIV-1 RNA PCR copies/ml HIV-1 RNA (PCR) log 10/03/17 10/03/17 10/04/17 04:26 06:08 07:49 Hgb Hct [place] % (Auto) 11.2 H Seg Neutrophils % Lymphocytes % (Manual) Monocytes % (Manual) Eosinophils % (Manual) Abs Lymphs (Manual) Lymphocytes # (Manual) Monocytes # (Manual) Eosinophils # (Manual) PT INR D-Dimer 614.10 H ABG HCO3 ABG Base Excess ABG Hemoglobin Oxyhemoglobin Sodium Potassium Chloride Carbon Dioxide BUN Creatinine Calcium Lactate Dehydrogenase Total Creatine Kinase 452 H Albumin Vancomycin Trough Lymph Enumerat CD4/CD8 % CD3 Cells Absolute CD3 Count % CD4 Cells Absolute CD4 Count % CD8 Cells % CD19 Cells HIV-1 RNA PCR copies/ml HIV-1 RNA (PCR) log 10/04/17 10/05/17 10/05/17 07:49 05:57 05:57 Hgb Hct [place] % (Auto) Seg Neutrophils % Lymphocytes % (Manual) Monocytes % (Manual) Eosinophils % (Manual) Abs Lymphs (Manual) 734 L Lymphocytes # (Manual) Monocytes # (Manual) Eosinophils # (Manual) PT INR D-Dimer ABG HCO3 ABG Base Excess ABG Hemoglobin Oxyhemoglobin Sodium 128 L Potassium Chloride 95.9 L Carbon Dioxide 17 L BUN 8 L Creatinine Calcium 7.7 L Lactate Dehydrogenase Total Creatine Kinase Albumin Vancomycin Trough Lymph Enumerat CD4/CD8 0.07 L % CD3 Cells 56 L Absolute CD3 Count 410 L % CD4 Cells 4 L Absolute CD4 Count 31 L % CD8 Cells 54 H % CD19 Cells 30 H HIV-1 RNA PCR copies/ml 441 H HIV-1 RNA (PCR) log 2.64 H 10/05/17 10/05/17 10/05/17 13:59 13:59 13:59 Hgb Hct [place] % (Auto) Seg Neutrophils % Lymphocytes % (Manual) Monocytes % (Manual) 11.0 H Eosinophils % (Manual) Abs Lymphs (Manual) Lymphocytes # (Manual) 0.7 L Monocytes # (Manual) Eosinophils # (Manual) PT INR D-Dimer ABG HCO3 ABG Base Excess ABG Hemoglobin Oxyhemoglobin Sodium 131 L Potassium Chloride 95.7 L Carbon Dioxide BUN 6 L Creatinine 0.7 L Calcium 8.1 L Lactate Dehydrogenase 464 H Total Creatine Kinase Albumin Vancomycin Trough Lymph Enumerat CD4/CD8 % CD3 Cells Absolute CD3 Count % CD4 Cells Absolute CD4 Count % CD8 Cells % CD19 Cells HIV-1 RNA PCR copies/ml HIV-1 RNA (PCR) log 10/07/17 10/07/17 10/08/17 13:21 13:21 23:05 Hgb Hct 34.7 L [place] % (Auto) Seg Neutrophils % Lymphocytes % (Manual) Monocytes % (Manual) Eosinophils % (Manual) Abs Lymphs (Manual) Lymphocytes # (Manual) Monocytes # (Manual) Eosinophils # (Manual) PT INR D-Dimer ABG HCO3 19.8 L ABG Base Excess -4.0 L ABG Hemoglobin 9.4 L Oxyhemoglobin 94.2 L Sodium 127 L Potassium Chloride 93.4 L Carbon Dioxide 20 L BUN 4 L Creatinine 0.6 L Calcium 8.2 L Lactate Dehydrogenase Total Creatine Kinase Albumin 3.1 L Vancomycin Trough Lymph Enumerat CD4/CD8 % CD3 Cells Absolute CD3 Count % CD4 Cells Absolute CD4 Count % CD8 Cells % CD19 Cells HIV-1 RNA PCR copies/ml HIV-1 RNA (PCR) log 10/09/17 10/09/17 10/10/17 08:26 08:26 09:44 Hgb 11.3 L Hct 33.2 L [place] % (Auto) Seg Neutrophils % Lymphocytes % (Manual) 8.0 L Monocytes % (Manual) 16.0 H Eosinophils % (Manual) 12.0 H Abs Lymphs (Manual) Lymphocytes # (Manual) 0.8 L Monocytes # (Manual) 1.5 H Eosinophils # (Manual) 1.1 H PT 15.5 H INR 1.17 H D-Dimer ABG HCO3 ABG Base Excess ABG Hemoglobin Oxyhemoglobin Sodium 132 L Potassium Chloride 97.2 L Carbon Dioxide 18 L BUN 7 L Creatinine 0.6 L Calcium Lactate Dehydrogenase Total Creatine Kinase Albumin Vancomycin Trough Lymph Enumerat CD4/CD8 % CD3 Cells Absolute CD3 Count % CD4 Cells Absolute CD4 Count % CD8 Cells % CD19 Cells HIV-1 RNA PCR copies/ml HIV-1 RNA (PCR) log 10/11/17 10/11/17 06:19 17:42 Hgb Hct [place] % (Auto) Seg Neutrophils % Lymphocytes % (Manual) Monocytes % (Manual) Eosinophils % (Manual) Abs Lymphs (Manual) Lymphocytes # (Manual) Monocytes # (Manual) Eosinophils # (Manual) PT INR D-Dimer ABG HCO3 ABG Base Excess ABG Hemoglobin Oxyhemoglobin Sodium 129 L Potassium Chloride 94.6 L Carbon Dioxide 19 L BUN 8 L Creatinine 0.6 L Calcium Lactate Dehydrogenase Total Creatine Kinase Albumin Vancomycin Trough 26.0 H Lymph Enumerat CD4/CD8 % CD3 Cells Absolute CD3 Count % CD4 Cells Absolute CD4 Count % CD8 Cells % CD19 Cells HIV-1 RNA PCR copies/ml HIV-1 RNA (PCR) log CT scan - chest: image reviewed (RLL predominant infiltrate) Allied health notes reviewed: RT
--- NOTE | 2017-10-14 11:10 | Procedure Note ---
Date of procedure: 10/14/17 Pre-op diagnosis: Bilateral Pneumonia Post-op diagnosis: same Procedure: Fiberoptic Bronchoscopy with BAL and transbronchial Biopsies (Full dictation # [id number]) Please see dictated notes for full details - BAL and TBB's sent for PJP, cytology, AFB, Fungal, pathology, routine respiratory cultures and smears as appropriate
[2017-10-14] MEDS ORDERED: LIDOCAINE VISCOUS 2% ONE (12:15)
[2017-10-14] MEDS ORDERED: HURRICAINE ONE 20% TOPICAL SPRAY MM (12:15)
[2017-10-14] MEDS ORDERED: ADRENALIN ONE (12:20)
[2017-10-14] MEDS ORDERED: NACL 0.9% 1000 ML 1,000 ML ONE (12:21)
[2017-10-14] MEDS ORDERED: XYLOCAINE 1% 20 mL ONE (12:22)
[2017-10-14] MEDS ORDERED: SUBLIMAZE ONE (12:55)
[2017-10-14] MEDS ORDERED: DIPRIVAN 10 MG/ML IV ONE ×2 (12:55)
--- NOTE | 2017-10-14 12:58 | Progress Note ---
Assessment and Plan Assessment and plan: Patient is a 42-year-old man with history of HIV/AIDS, CD4 count of 34 pw CP -Acute hypoxic respiratory failure, poa: treat the pna, treat with O2, nebs -Sepsis/PNA -CT confirmed PNA, possible CAP, PCP vs IRIS, continue abx, ID input appreciated, pulm consulted for bronch tomorrow==>hold Bronch b/c pt now in TB isolation room per Dr. Gregg -Atypical CP, most likely pleuric from pna, with neg. stress thallium ; no further workup -elevated D-dimer; cta chest neg for pe -diarrhea, rule out HIV related infection; stool studies ordered, on empiric abx , no evidence of GI infection at this timel; CT A/P no acute findings,may be due to IRIS, GI consult appreciated, diarrhea is resolving, only having 1-2 BMs per day now; no plans for endoscopy at this time -Hyponatremia: continue nss -Substance Abuse; denies current abuse, was counseled -HIV/AIDS, started on HAART at [facility] 3wks prior to admission; continue HAART, ID consulted; suspect IRIS vs opportunist infection, Dian wakefield , she is to obtain his records from the [facility] d/w non destructive testing specialist, Dr. Gregg, start iv steroids, and hold of on Bronchoscopy until TB is ruled out 10/14: bronch today History Interval history: Patient was seen and examined. Follow-up on current diagnosis. Overnight sob. Patient denies any chest pain, nausea/vomiting or severe headaches. Imaging, nursing note, chart, labs and old chart reviewed. Discussed with patient. Hospitalist Physical - Physical exam Narrative exam: GEN: Ill-appearing NAD, AWAKE, ALERT, ORIENTATED 3 HEENT: NCAT, EOMI, PERRL, OP Clear NECK: supple, no adenopathy, no thyromegaly, no JVD CVS/HEART: RRR, NORMAL S1S2, pulses present bilaterally CHEST/LUNGS: Diminished breath sounds bilaterally, Symmetrical chest expansion, good air entry bilaterally GI/Abdomen: soft, NTND, good bowel sounds, no guarding or rebound /Bladder: no suprapubic tenderness, no CVA or paraspinal tenderness EXT/Skin: no c/c/e, no obvious rash MSK: FROM x 4 Neuro: CN 2-12 grossly intact, no new focal deficits Psych: calm - Constitutional Vitals: Temp Pulse Resp BP Pulse Ox 98.9 F 96 H 28 H 114/75 100 10/14/17 12:51 10/14/17 12:51 10/14/17 12:51 10/14/17 12:51 10/14/17 12:51 General appearance: Present: no acute distress, well-nourished Results - Labs CBC & Chem 7: 10/09/17 08:26 10/11/17 06:19 Labs: Laboratory Last Values WBC 9.5 K/mm3 (4.5-11.0) 10/09/17 08:26 RBC 3.71 M/mm3 (3.65-5.03) 10/09/17 08:26 Hgb 11.3 gm/dl (11.8-15.2) L 10/09/17 08:26 Hct 33.2 % (35.5-45.6) L 10/09/17 08:26 MCV 89 fl (84-94) 10/09/17 08:26 MCH 31 pg (28-32) 10/09/17 08:26 MCHC 34 % (32-34) 10/09/17 08:26 RDW 14.4 % (13.2-15.2) 10/09/17 08:26 Plt Count 369 K/mm3 (140-440) 10/09/17 08:26 Lymph % (Auto) 24.0 % (13.4-35.0) 10/04/17 07:49 [place] % (Auto) [facility] 10/09/17 08:26 Eos % (Auto) 0.8 % (0.0-4.3) 10/04/17 07:49 Baso % (Auto) 0.4 % (0.0-1.8) 10/04/17 07:49 Lymph # 1.4 K/mm3 (1.2-5.4) 10/04/17 07:49 [place] # 0.7 K/mm3 (0.0-0.8) 10/04/17 07:49 Eos # 0.0 K/mm3 (0.0-0.4) 10/04/17 07:49 Baso # 0.0 K/mm3 (0.0-0.1) 10/04/17 07:49 Add Manual Diff Complete 10/09/17 08:26 Total Counted 100 10/09/17 08:26 Seg Neutrophils % 63.6 % (40.0-70.0) 10/04/17 07:49 Seg Neuts % (Manual) 60.0 % (40.0-70.0) 10/09/17 08:26 Band Neutrophils % 4.0 % 10/09/17 08:26 Lymphocytes % (Manual) 8.0 % (13.4-35.0) L 10/09/17 08:26 Reactive Lymphs % (Man) 0 % 10/09/17 08:26 Monocytes % (Manual) 16.0 % (0.0-7.3) H 10/09/17 08:26 Eosinophils % (Manual) 12.0 % (0.0-4.3) H 10/09/17 08:26 Basophils % (Manual) 0 % (0.0-1.8) 10/09/17 08:26 Metamyelocytes % 0 % 10/09/17 08:26 Myelocytes % 0 % 10/09/17 08:26 Promyelocytes % 0 % 10/09/17 08:26 Blast Cells % 0 % 10/09/17 08:26 Nucleated RBC % Not Reportable 10/09/17 08:26 Seg Neutrophils # 3.8 K/mm3 (1.8-7.7) 10/04/17 07:49 Seg Neutrophils # Man 5.7 K/mm3 (1.8-7.7) 10/09/17 08:26 Band Neutrophils # 0.4 K/mm3 10/09/17 08:26 Abs Lymphs (Manual) 734 cells/uL (850-3900) L 10/05/17 05:57 Lymphocytes # (Manual) 0.8 K/mm3 (1.2-5.4) L 10/09/17 08:26 Abs React Lymphs (Man) 0.0 K/mm3 10/09/17 08:26 Monocytes # (Manual) 1.5 K/mm3 (0.0-0.8) H 10/09/17 08:26 Eosinophils # (Manual) 1.1 K/mm3 (0.0-0.4) H 10/09/17 08:26 Basophils # (Manual) 0.0 K/mm3 (0.0-0.1) 10/09/17 08:26 Metamyelocytes # 0.0 K/mm3 10/09/17 08:26 Myelocytes # 0.0 K/mm3 10/09/17 08:26 Promyelocytes # 0.0 K/mm3 10/09/17 08:26 Blast Cells # 0.0 K/mm3 10/09/17 08:26 WBC Morphology Not Reportable 10/09/17 08:26 Hypersegmented Neuts Not Reportable 10/09/17 08:26 Hyposegmented Neuts Not Reportable 10/09/17 08:26 Hypogranular Neuts Not Reportable 10/09/17 08:26 Smudge Cells Not Reportable 10/09/17 08:26 Toxic Granulation Not Reportable 10/09/17 08:26 Toxic Vacuolation Not Reportable 10/09/17 08:26 Dohle Bodies Not Reportable 10/09/17 08:26 Pelger-Huet Anomaly Not Reportable 10/09/17 08:26 Zora Rods Not Reportable 10/09/17 08:26 Platelet Estimate Consistent w auto 10/09/17 08:26 Clumped Platelets Not Reportable 10/09/17 08:26 Plt Clumps, EDTA Not Reportable 10/09/17 08:26 Large Platelets Not Reportable 10/09/17 08:26 Giant Platelets Not Reportable 10/09/17 08:26 Platelet Satelliting Not Reportable 10/09/17 08:26 Plt Morphology Comment Not Reportable 10/09/17 08:26 RBC Morphology Normal 10/09/17 08:26 Dimorphic RBCs Not Reportable 10/09/17 08:26 Polychromasia Not Reportable 10/09/17 08:26 Hypochromasia Not Reportable 10/09/17 08:26 Poikilocytosis Not Reportable 10/09/17 08:26 Anisocytosis Not Reportable 10/09/17 08:26 Microcytosis Not Reportable 10/09/17 08:26 Macrocytosis Not Reportable 10/09/17 08:26 Spherocytes Not Reportable 10/09/17 08:26 Pappenheimer Bodies Not Reportable 10/09/17 08:26 Sickle Cells Not Reportable 10/09/17 08:26 Target Cells Not Reportable 10/09/17 08:26 Tear Drop Cells Not Reportable 10/09/17 08:26 Ovalocytes Not Reportable 10/09/17 08:26 Helmet Cells Not Reportable 10/09/17 08:26 Estrada-Annona Bodies Not Reportable 10/09/17 08:26 [place] Rings Not Reportable 10/09/17 08:26 Notrees Cells Not Reportable 10/09/17 08:26 Bite Cells Not Reportable 10/09/17 08:26 Crenated Cell Not Reportable 10/09/17 08:26 Elliptocytes Not Reportable 10/09/17 08:26 Acanthocytes (Spur) Not Reportable 10/09/17 08:26 Rouleaux Not Reportable 10/09/17 08:26 Hemoglobin C Crystals Not Reportable 10/09/17 08:26 Schistocytes Not Reportable 10/09/17 08:26 Malaria parasites Not Reportable 10/09/17 08:26 Glen Bodies Not Reportable 10/09/17 08:26 Hem Pathologist Commnt No 10/09/17 08:26 PT 15.5 Sec. (12.2-14.9) H 10/10/17 09:44 INR 1.17 (0.87-1.13) H 10/10/17 09:44 D-Dimer 614.10 ng/mlDDU (0-234) H 10/03/17 06:08 ABG pH 7.416 pH Units (7.350-7.450) 10/08/17 23:05 ABG pCO2 31.6 mm Hg 10/08/17 23:05 ABG pO2 83.5 mm Hg (80.0-90.0) 10/08/17 23:05 ABG HCO3 19.8 mmol/L (20.0-26.0) L 10/08/17 23:05 ABG O2 Saturation 96.6 % (95.0-99.0) 10/08/17 23:05 ABG O2 Content 12.6 (0.0-44) 10/08/17 23:05 ABG Base Excess -4.0 mmol/L (-2.0-3.0) L 10/08/17 23:05 ABG Hemoglobin 9.4 gm/dl (14.0-18.0) L 10/08/17 23:05 ABG Carboxyhemoglobin 1.5 % (0.0-5.0) 10/08/17 23:05 ABG Methemoglobin 1.0 % (0.0-1.5) 10/08/17 23:05 Oxyhemoglobin 94.2 % (95.0-99.0) L 10/08/17 23:05 FiO2 35 % 10/08/17 23:05 Sodium 129 mmol/L (137-145) L 10/11/17 06:19 Potassium 4.1 mmol/L (3.6-5.0) 10/11/17 06:19 Chloride 94.6 mmol/L (98-107) L 10/11/17 06:19 Carbon Dioxide 19 mmol/L (22-30) L 10/11/17 06:19 Anion Gap 20 mmol/L 10/11/17 06:19 BUN 8 mg/dL (9-20) L 10/11/17 06:19 Creatinine 0.6 mg/dL (0.8-1.5) L 10/11/17 06:19 Estimated GFR > 60 ml/min 10/11/17 06:19 BUN/Creatinine Ratio 13 % 10/11/17 06:19 Glucose 94 mg/dL (75-100) 10/11/17 06:19 Calcium 8.4 mg/dL (8.4-10.2) 10/11/17 06:19 Total Bilirubin 0.50 mg/dL (0.1-1.2) 10/07/17 13:21 AST 31 units/L (5-40) 10/07/17 13:21 ALT 14 units/L (7-56) 10/07/17 13:21 Alkaline Phosphatase 36 units/L (35-129) 10/07/17 13:21 Lactate Dehydrogenase 464 units/L (91-180) H 10/05/17 13:59 Total Creatine Kinase 452 units/L (55-170) H 10/03/17 04:26 CK-MB (CK-2) < 1.0 ng/mL (0.0-4.0) 10/03/17 04:26 CK-MB (CK-2) Rel Index 0.2 (0-4) 10/03/17 04:26 Troponin T < 0.010 ng/mL (0.00-0.029) 10/03/17 07:42 Total Protein 6.5 g/dL (6.3-8.2) 10/07/17 13:21 Albumin 3.1 g/dL (3.9-5) L 10/07/17 13:21 Albumin/Globulin Ratio 0.9 % 10/07/17 13:21 Lipase 41 units/L (13-60) 10/03/17 01:14 Urine Color Yellow (Yellow) 10/03/17 Unknown Urine Turbidity Clear (Clear) 10/03/17 Unknown Urine pH 5.0 (5.0-7.0) 10/03/17 Unknown Ur Specific [place] 1.024 (1.003-1.030) 10/03/17 Unknown Urine Protein 30 mg/dl mg/dL (Negative) 10/03/17 Unknown Urine Glucose (UA) Neg mg/dL (Negative) 10/03/17 Unknown Urine Ketones 20 mg/dL (Negative) 10/03/17 Unknown Urine Blood Neg (Negative) 10/03/17 Unknown Urine Nitrite Neg (Negative) 10/03/17 Unknown Urine Bilirubin Neg (Negative) 10/03/17 Unknown Urine Urobilinogen 4.0 mg/dL (<2.0) 10/03/17 Unknown Ur Leukocyte Esterase Neg (Negative) 10/03/17 Unknown Urine WBC (Auto) 1.0 /HPF (0.0-6.0) 10/03/17 Unknown Urine RBC (Auto) 2.0 /HPF (0.0-6.0) 10/03/17 Unknown Urine Mucus Few /HPF 10/03/17 Unknown Vancomycin Trough 26.0 ug/mL (5.0-20.0) H 10/11/17 17:42 Lymph Enumerat CD4/CD8 0.07 (0.86-5.00) L 10/05/17 05:57 % CD3 Cells 56 % (57-85) L 10/05/17 05:57 Absolute CD3 Count 410 cells/uL (840-3060) L 10/05/17 05:57 % CD4 Cells 4 % (30-61) L 10/05/17 05:57 Absolute CD4 Count 31 cells/uL (490-1740) L 10/05/17 05:57 % CD8 Cells 54 % (12-42) H 10/05/17 05:57 Absolute CD8 Count 436 cells/uL (180-1170) 10/05/17 05:57 % CD19 Cells 30 % (6-29) H 10/05/17 05:57 Absolute CD19 Count 194 cells/uL (110-660) 10/05/17 05:57 C. difficile Toxin A&B Negative (Negative) 10/04/17 11:04 HIV-1 RNA PCR copies/ml 441 Copies/mL H 10/05/17 05:57 HIV-1 RNA (PCR) log 2.64 Log cps/mL H 10/05/17 05:57 Urine Legionella Ag Not detected (Not Detected) 10/08/17 01:10 TB (QFT) Gold In Tube Negative (Negative) 10/07/17 16:25 TB Test (QFT) Nil 0.05 IU/mL 10/07/17 16:25 TB Test Mitogen - Nil 0.72 IU/mL 10/07/17 16:25 TB Test Antigen - Nil 0.00 IU/mL 10/07/17 16:25 Miscellaneous Test Flexitest 1 10/10/17 07:50
--- NOTE | 2017-10-14 13:00 | Anesthesia Consultation ---
Anesthesia Consult and Med Hx Date of service: 10/14/17 - Airway Anesthetic Teeth Evaluation: Good ROM Head & Neck: Adequate Mental/Hyoid Distance: Adequate Mallampati Class: Class II Intubation Access Assessment: Probably Good - Pulmonary Exam CTA: No (ronchurus (pt coughing)) - Cardiac Exam Cardiac Exam: RRR - Pre-Operative Health Status ASA Pre-Surgery Classification: ASA3 Proposed Anesthetic Plan: MAC - Pulmonary Hx Smoking: Yes Hx Asthma: No Hx Respiratory Symptoms: Yes (reason for admission/bronch) SOB: Yes (O2 requirement during hospitalization) COPD: No - Cardiovascular System Hx Hypertension: No Hx Coronary Artery Disease: No Hx Heart Attack/AMI: No Hx Angina: No - Central Nervous System Hx Neuromuscular Disorder: No Hx Seizures: No CVA: No - Endocrine Hx Renal Disease: No Hx Liver Disease: No Hx Insulin Dependent Diabetes: No Hx Non-Insulin Dependent Diabetes: No - Hematic Hx Anemia: Yes (Hgb 11.3) - Other Systems Hx Alcohol Use: Yes Hx Substance Use: Yes (cocaine) - Additional Comments Anesthesia Medical History Comments: No anes complications
--- NOTE | 2017-10-14 13:00 | Anesthesia Day of Surgery ---
Anesthesia Day of Surgery - Day of Surgery Patient Examined: Yes Patient H&P Reviewed: Yes Patient is NPO: Yes Beta Blockers: No Cardiac Clearance: Yes Pulmonary Clearance: Yes Darius's Test: N/A
--- NOTE | 2017-10-14 13:26 | Progress Note ---
Assessment and Plan Assessment: 1) Acute fever and Bilateral lung infiltrates in AIDS patient. DDx. CAP, PJP, atypical, mycobacterial, fungal. Of note pt has been taking bactrim as outpatient in treatment dose, unclear why. It was prescribed by his regular HIV provider. Persistently febrile. fever now resolved. -LDH high -Cryptococcal antigen negative. -Pneumococcal and Legionella ag negative -Quantiferon negative. -Unable to provide specimen for sputum culture -aspergillus ag negative 2) Acute N/V/D. r/o C diff. Other opportunistic infections also on the differential: cryptosporidium, cyclospora, isospora, etc. Better - C diff negative. - Stool cx negative. - Cryptosporidium ag, Giardia ag negative - CT A/P possible gastroenteritis -Stools more formed. 3) Acute hypoxemic respiratory failure. On venti mask not better 4) Acute atypical chest pain. Negative stress test. 5) HIV/AIDS. On HAART. -HIV-VL 441 (10/05/17) -CD4 31/4%. (10/05/17) 6) Facial ezcema Recommendations -to have bronch/BAL today -consider steroids in view of persistent hypoxemia -continue bactrim DS TID - D10 of 21 -continue azithromycin 1200 mg po qweek to prevent MAC -f/u isospora, cyclospora and microsporidia, norovirus, rotavirus, f/u fungal blood cx, AFB blood cultures. -f/u histoplasma ag in urine, fungal antibodies. -Continue prezcobix and truvada (pt taking his home mds) Cherelle Smith MD Infectious Diseases Specialist [facility] M [phone] Subjective Date of service: 10/14/17 Principal diagnosis: Acute Hypoxemic Resp Failure; Bilateral Pneumonia; HIV +ve ; Chest pain Interval history: No fever for 24h. Microbiology Blood cultures 10/03/17 NGTD 10/06 Fungal pending 10/08 Neg Cryptococcal antigen neg Stool WBC negative Culture 10/04 negative. Giardia ag negative Cryptosporodium ag negative Sputum culture 10/05 rejected 10/09 rejected Antibiotics azithro prophylaxis Bactrim 10/04- HAART (prezcobix and truvada, taking home meds). Prior antibiotics Ceftriaxone 10/04-10/05 Flagyl 10/04-10/05 Levofloxacin 10/06- IV vancomycin 10/05- Cefepime 10/05- Azithromycin 10/04- Fluconazole 10/07- Objective - Exam Narrative Exam: Pt is out-of-the room getting bronch General appearance: Eyes: HENT: Neck: Lungs: CV: . Abdomen: Skin: Psych: Lines: - Constitutional Vitals: Vital Signs Temp Pulse Resp BP Pulse Ox 98.9 F 96 H 28 H 114/75 100 10/14/17 12:51 10/14/17 12:51 10/14/17 12:51 10/14/17 12:51 10/14/17 12:51 Temperature -Last 24 Hours Temperature 98.9 F Temperature 98.9 F Temperature 98.0 F Temperature 98.2 F Temperature 97.3 F Temperature 97.3 F Temperature 98.3 F Temperature 99.7 F - Labs CBC & Chem 7: 10/09/17 08:26 10/11/17 06:19
[2017-10-14] MEDS ORDERED: ZOFRAN IV PRN (13:52)
--- NOTE | 2017-10-14 13:53 | Post Anesthesia Evaluation ---
- Post Anesthesia Evaluation Patient Participated: Yes Airway Patent: Yes Stable Respiratory Function: Yes (on Hi-Flow O2 (preop condition)) Nausea/Vomiting: No Temp > 96.8F: Yes Pain Manageable: Yes Adequeate Hydration: Yes (IVF) Anesthesia Complications: No Block Receding Appropriately: Not Applicable Patient on Ventilator: No
--- NOTE | 2017-10-14 14:29 | XRay Report ---
AP CHEST: HISTORY: Pneumothorax Compared to 10/04/17. No pneumothorax is visualized. Bilateral patchy infiltrates or pulmonary edema have developed since the previous exam. Correlate for pneumonia. Trace right pleural effusion is suspected. Heart size remains within normal limits. The bony structures are intact. IMPRESSION: No pneumothorax. Bilateral infiltrates or pulmonary edema has developed. Trace right pleural effusion.
[2017-10-14] MEDS: NON-FORMULARY (Darunavir/Cobicistat [Prezcobix 800 Mg-150 Mg Tablet] 1 EACH) PO SCH (15:43)
[2017-10-14] MEDS: NON-FORMULARY (Emtricitabin/Tenofovir [Truvada 200-300 Mg] 1 TAB) PO SCH (15:43)
[2017-10-14] MEDS: ZOFRAN IV PRN (18:01)
[2017-10-15] MEDS: BACTRIM DS PO SCH ×3 (05:53→22:00)
[2017-10-15] MEDS: NACL 0.9% 1000 ML 1,000 ML IV SCH (05:56)
[2017-10-15] MEDS: LOVENOX SUB-Q SCH (11:29)
[2017-10-15] MEDS: SODIUM CHLORIDE FLUSH SYRINGE 10 ML IV SCH ×2 (11:29→22:00)
[2017-10-15] MEDS: NON-FORMULARY (Emtricitabin/Tenofovir [Truvada 200-300 Mg] 1 TAB) PO SCH (11:32)
[2017-10-15] MEDS: NON-FORMULARY (Darunavir/Cobicistat [Prezcobix 800 Mg-150 Mg Tablet] 1 EACH) PO SCH (11:32)
--- NOTE | 2017-10-15 13:20 | Progress Note ---
Assessment and Plan Assessment and plan: Patient is a 42-year-old man with history of HIV/AIDS, CD4 count of 34 pw CP -Acute hypoxic respiratory failure, poa: treat the pna, treat with O2, nebs -Sepsis/PNA -CT confirmed PNA, possible CAP, PCP vs IRIS, continue abx, ID input appreciated, pulm consulted for bronch tomorrow==>hold Bronch b/c pt now in TB isolation room per Dr. Gregg -Atypical CP, most likely pleuric from pna, with neg. stress thallium ; no further workup -elevated D-dimer; cta chest neg for pe -diarrhea, rule out HIV related infection; stool studies ordered, on empiric abx , no evidence of GI infection at this timel; CT A/P no acute findings,may be due to IRIS, GI consult appreciated, diarrhea is resolving, only having 1-2 BMs per day now; no plans for endoscopy at this time -Hyponatremia: continue nss -Substance Abuse; denies current abuse, was counseled -HIV/AIDS, started on HAART at [facility] 3wks prior to admission; continue HAART, ID consulted; suspect IRIS vs opportunist infection, Dian wakefield , she is to obtain his records from the [facility] d/w filling layer up, Dr. Gregg, start iv steroids, and hold of on Bronchoscopy until TB is ruled out 10/14: bronch today 10/15/17: d/w Dr. Anaya regarding bronch, clean airway, bx taken. Still on 35% venturi mask o2 History Interval history: Patient was seen and examined. Follow-up on current diagnosis. Overnight sob. Patient denies any chest pain, nausea/vomiting or severe headaches. Imaging, nursing note, chart, labs and old chart reviewed. Discussed with patient. Hospitalist Physical - Physical exam Narrative exam: GEN: Ill-appearing NAD, AWAKE, ALERT, ORIENTATED 3 HEENT: NCAT, EOMI, PERRL, OP Clear NECK: supple, no adenopathy, no thyromegaly, no JVD CVS/HEART: RRR, NORMAL S1S2, pulses present bilaterally CHEST/LUNGS: Diminished breath sounds bilaterally, Symmetrical chest expansion, good air entry bilaterally GI/Abdomen: soft, NTND, good bowel sounds, no guarding or rebound /Bladder: no suprapubic tenderness, no CVA or paraspinal tenderness EXT/Skin: no c/c/e, no obvious rash MSK: FROM x 4 Neuro: CN 2-12 grossly intact, no new focal deficits Psych: calm - Constitutional Vitals: Temp Pulse Resp BP Pulse Ox 98.0 F 93 H 20 108/65 97 10/15/17 10:30 10/15/17 10:30 10/15/17 10:30 10/15/17 10:30 10/15/17 10:30 General appearance: Present: no acute distress, well-nourished Results - Labs CBC & Chem 7: 10/09/17 08:26 10/11/17 06:19 Labs: Laboratory Last Values WBC 9.5 K/mm3 (4.5-11.0) 10/09/17 08:26 RBC 3.71 M/mm3 (3.65-5.03) 10/09/17 08:26 Hgb 11.3 gm/dl (11.8-15.2) L 10/09/17 08:26 Hct 33.2 % (35.5-45.6) L 10/09/17 08:26 MCV 89 fl (84-94) 10/09/17 08:26 MCH 31 pg (28-32) 10/09/17 08:26 MCHC 34 % (32-34) 10/09/17 08:26 RDW 14.4 % (13.2-15.2) 10/09/17 08:26 Plt Count 369 K/mm3 (140-440) 10/09/17 08:26 Lymph % (Auto) 24.0 % (13.4-35.0) 10/04/17 07:49 [place] % (Auto) Binding End Stitcher 10/09/17 08:26 Eos % (Auto) 0.8 % (0.0-4.3) 10/04/17 07:49 Baso % (Auto) 0.4 % (0.0-1.8) 10/04/17 07:49 Lymph # 1.4 K/mm3 (1.2-5.4) 10/04/17 07:49 [place] # 0.7 K/mm3 (0.0-0.8) 10/04/17 07:49 Eos # 0.0 K/mm3 (0.0-0.4) 10/04/17 07:49 Baso # 0.0 K/mm3 (0.0-0.1) 10/04/17 07:49 Add Manual Diff Complete 10/09/17 08:26 Total Counted 100 10/09/17 08:26 Seg Neutrophils % 63.6 % (40.0-70.0) 10/04/17 07:49 Seg Neuts % (Manual) 60.0 % (40.0-70.0) 10/09/17 08:26 Band Neutrophils % 4.0 % 10/09/17 08:26 Lymphocytes % (Manual) 8.0 % (13.4-35.0) L 10/09/17 08:26 Reactive Lymphs % (Man) 0 % 10/09/17 08:26 Monocytes % (Manual) 16.0 % (0.0-7.3) H 10/09/17 08:26 Eosinophils % (Manual) 12.0 % (0.0-4.3) H 10/09/17 08:26 Basophils % (Manual) 0 % (0.0-1.8) 10/09/17 08:26 Metamyelocytes % 0 % 10/09/17 08:26 Myelocytes % 0 % 10/09/17 08:26 Promyelocytes % 0 % 10/09/17 08:26 Blast Cells % 0 % 10/09/17 08:26 Nucleated RBC % Not Reportable 10/09/17 08:26 Seg Neutrophils # 3.8 K/mm3 (1.8-7.7) 10/04/17 07:49 Seg Neutrophils # Man 5.7 K/mm3 (1.8-7.7) 10/09/17 08:26 Band Neutrophils # 0.4 K/mm3 10/09/17 08:26 Abs Lymphs (Manual) 734 cells/uL (850-3900) L 10/05/17 05:57 Lymphocytes # (Manual) 0.8 K/mm3 (1.2-5.4) L 10/09/17 08:26 Abs React Lymphs (Man) 0.0 K/mm3 10/09/17 08:26 Monocytes # (Manual) 1.5 K/mm3 (0.0-0.8) H 10/09/17 08:26 Eosinophils # (Manual) 1.1 K/mm3 (0.0-0.4) H 10/09/17 08:26 Basophils # (Manual) 0.0 K/mm3 (0.0-0.1) 10/09/17 08:26 Metamyelocytes # 0.0 K/mm3 10/09/17 08:26 Myelocytes # 0.0 K/mm3 10/09/17 08:26 Promyelocytes # 0.0 K/mm3 10/09/17 08:26 Blast Cells # 0.0 K/mm3 10/09/17 08:26 WBC Morphology Not Reportable 10/09/17 08:26 Hypersegmented Neuts Not Reportable 10/09/17 08:26 Hyposegmented Neuts Not Reportable 10/09/17 08:26 Hypogranular Neuts Not Reportable 10/09/17 08:26 Smudge Cells Not Reportable 10/09/17 08:26 Toxic Granulation Not Reportable 10/09/17 08:26 Toxic Vacuolation Not Reportable 10/09/17 08:26 Dohle Bodies Not Reportable 10/09/17 08:26 Pelger-Huet Anomaly Not Reportable 10/09/17 08:26 Zora Rods Not Reportable 10/09/17 08:26 Platelet Estimate Consistent w auto 10/09/17 08:26 Clumped Platelets Not Reportable 10/09/17 08:26 Plt Clumps, EDTA Not Reportable 10/09/17 08:26 Large Platelets Not Reportable 10/09/17 08:26 Giant Platelets Not Reportable 10/09/17 08:26 Platelet Satelliting Not Reportable 10/09/17 08:26 Plt Morphology Comment Not Reportable 10/09/17 08:26 RBC Morphology Normal 10/09/17 08:26 Dimorphic RBCs Not Reportable 10/09/17 08:26 Polychromasia Not Reportable 10/09/17 08:26 Hypochromasia Not Reportable 10/09/17 08:26 Poikilocytosis Not Reportable 10/09/17 08:26 Anisocytosis Not Reportable 10/09/17 08:26 Microcytosis Not Reportable 10/09/17 08:26 Macrocytosis Not Reportable 10/09/17 08:26 Spherocytes Not Reportable 10/09/17 08:26 Pappenheimer Bodies Not Reportable 10/09/17 08:26 Sickle Cells Not Reportable 10/09/17 08:26 Target Cells Not Reportable 10/09/17 08:26 Tear Drop Cells Not Reportable 10/09/17 08:26 Ovalocytes Not Reportable 10/09/17 08:26 Helmet Cells Not Reportable 10/09/17 08:26 Estrada-Redwood Bodies Not Reportable 10/09/17 08:26 [place] Rings Not Reportable 10/09/17 08:26 Nathaniel Cells Not Reportable 10/09/17 08:26 Bite Cells Not Reportable 10/09/17 08:26 Crenated Cell Not Reportable 10/09/17 08:26 Elliptocytes Not Reportable 10/09/17 08:26 Acanthocytes (Spur) Not Reportable 10/09/17 08:26 Rouleaux Not Reportable 10/09/17 08:26 Hemoglobin C Crystals Not Reportable 10/09/17 08:26 Schistocytes Not Reportable 10/09/17 08:26 Malaria parasites Not Reportable 10/09/17 08:26 Glen Bodies Not Reportable 10/09/17 08:26 Hem Pathologist Commnt No 10/09/17 08:26 PT 15.5 Sec. (12.2-14.9) H 10/10/17 09:44 INR 1.17 (0.87-1.13) H 10/10/17 09:44 D-Dimer 614.10 ng/mlDDU (0-234) H 10/03/17 06:08 ABG pH 7.416 pH Units (7.350-7.450) 10/08/17 23:05 ABG pCO2 31.6 mm Hg 10/08/17 23:05 ABG pO2 83.5 mm Hg (80.0-90.0) 10/08/17 23:05 ABG HCO3 19.8 mmol/L (20.0-26.0) L 10/08/17 23:05 ABG O2 Saturation 96.6 % (95.0-99.0) 10/08/17 23:05 ABG O2 Content 12.6 (0.0-44) 10/08/17 23:05 ABG Base Excess -4.0 mmol/L (-2.0-3.0) L 10/08/17 23:05 ABG Hemoglobin 9.4 gm/dl (14.0-18.0) L 10/08/17 23:05 ABG Carboxyhemoglobin 1.5 % (0.0-5.0) 10/08/17 23:05 ABG Methemoglobin 1.0 % (0.0-1.5) 10/08/17 23:05 Oxyhemoglobin 94.2 % (95.0-99.0) L 10/08/17 23:05 FiO2 35 % 10/08/17 23:05 Sodium 129 mmol/L (137-145) L 10/11/17 06:19 Potassium 4.1 mmol/L (3.6-5.0) 10/11/17 06:19 Chloride 94.6 mmol/L (98-107) L 10/11/17 06:19 Carbon Dioxide 19 mmol/L (22-30) L 10/11/17 06:19 Anion Gap 20 mmol/L 10/11/17 06:19 BUN 8 mg/dL (9-20) L 10/11/17 06:19 Creatinine 0.6 mg/dL (0.8-1.5) L 10/11/17 06:19 Estimated GFR > 60 ml/min 10/11/17 06:19 BUN/Creatinine Ratio 13 % 10/11/17 06:19 Glucose 94 mg/dL (75-100) 10/11/17 06:19 POC Glucose 122 (70-105) H 10/14/17 20:32 Calcium 8.4 mg/dL (8.4-10.2) 10/11/17 06:19 Total Bilirubin 0.50 mg/dL (0.1-1.2) 10/07/17 13:21 AST 31 units/L (5-40) 10/07/17 13:21 ALT 14 units/L (7-56) 10/07/17 13:21 Alkaline Phosphatase 36 units/L (35-129) 10/07/17 13:21 Lactate Dehydrogenase 464 units/L (91-180) H 10/05/17 13:59 Total Creatine Kinase 452 units/L (55-170) H 10/03/17 04:26 CK-MB (CK-2) < 1.0 ng/mL (0.0-4.0) 10/03/17 04:26 CK-MB (CK-2) Rel Index 0.2 (0-4) 10/03/17 04:26 Troponin T < 0.010 ng/mL (0.00-0.029) 10/03/17 07:42 Total Protein 6.5 g/dL (6.3-8.2) 10/07/17 13:21 Albumin 3.1 g/dL (3.9-5) L 10/07/17 13:21 Albumin/Globulin Ratio 0.9 % 10/07/17 13:21 Lipase 41 units/L (13-60) 10/03/17 01:14 Urine Color Yellow (Yellow) 10/03/17 Unknown Urine Turbidity Clear (Clear) 10/03/17 Unknown Urine pH 5.0 (5.0-7.0) 10/03/17 Unknown Ur Specific [place] 1.024 (1.003-1.030) 10/03/17 Unknown Urine Protein 30 mg/dl mg/dL (Negative) 10/03/17 Unknown Urine Glucose (UA) Neg mg/dL (Negative) 10/03/17 Unknown Urine Ketones 20 mg/dL (Negative) 10/03/17 Unknown Urine Blood Neg (Negative) 10/03/17 Unknown Urine Nitrite Neg (Negative) 10/03/17 Unknown Urine Bilirubin Neg (Negative) 10/03/17 Unknown Urine Urobilinogen 4.0 mg/dL (<2.0) 10/03/17 Unknown Ur Leukocyte Esterase Neg (Negative) 10/03/17 Unknown Urine WBC (Auto) 1.0 /HPF (0.0-6.0) 10/03/17 Unknown Urine RBC (Auto) 2.0 /HPF (0.0-6.0) 10/03/17 Unknown Urine Mucus Few /HPF 10/03/17 Unknown Vancomycin Trough 26.0 ug/mL (5.0-20.0) H 10/11/17 17:42 Lymph Enumerat CD4/CD8 0.07 (0.86-5.00) L 10/05/17 05:57 % CD3 Cells 56 % (57-85) L 10/05/17 05:57 Absolute CD3 Count 410 cells/uL (840-3060) L 10/05/17 05:57 % CD4 Cells 4 % (30-61) L 10/05/17 05:57 Absolute CD4 Count 31 cells/uL (490-1740) L 10/05/17 05:57 % CD8 Cells 54 % (12-42) H 10/05/17 05:57 Absolute CD8 Count 436 cells/uL (180-1170) 10/05/17 05:57 % CD19 Cells 30 % (6-29) H 10/05/17 05:57 Absolute CD19 Count 194 cells/uL (110-660) 10/05/17 05:57 C. difficile Toxin A&B Negative (Negative) 10/04/17 11:04 HIV-1 RNA PCR copies/ml 441 Copies/mL H 10/05/17 05:57 HIV-1 RNA (PCR) log 2.64 Log cps/mL H 10/05/17 05:57 Urine Legionella Ag Not detected (Not Detected) 10/08/17 01:10 TB (QFT) Gold In Tube Negative (Negative) 10/07/17 16:25 TB Test (QFT) Nil 0.05 IU/mL 10/07/17 16:25 TB Test Mitogen - Nil 0.72 IU/mL 10/07/17 16:25 TB Test Antigen - Nil 0.00 IU/mL 10/07/17 16:25 Miscellaneous Test Flexitest 1 10/10/17 07:50
[2017-10-15] MEDS: PROVENTIL IH SCH ×2 (13:40→20:40)
--- NOTE | 2017-10-15 14:49 | Progress Note ---
Assessment and Plan Assessment: 1) Acute fever and Bilateral lung infiltrates in AIDS patient. DDx. CAP, PJP, atypical, mycobacterial, fungal. Of note pt has been taking bactrim as outpatient in treatment dose, unclear why. It was prescribed by his regular HIV provider. Persistently febrile. -LDH high -Cryptococcal antigen negative. -Pneumococcal and Legionella ag negative -Quantiferon negative. -Unable to provide specimen for sputum culture -aspergillus ag negative -BAL pending 2) Acute N/V/D. r/o C diff. Other opportunistic infections also on the differential: cryptosporidium, cyclospora, isospora, etc. Better - C diff negative. - Stool cx negative. - Cryptosporidium ag, Giardia ag negative - CT A/P possible gastroenteritis -Stools more formed. 3) Acute hypoxemic respiratory failure. On venti mask not better 4) Acute atypical chest pain. Negative stress test. 5) HIV/AIDS. On HAART. -HIV-VL 441 (10/05/17) -CD4 31/4%. (10/05/17) 6) Facial eczema Recommendations -f/u BAL / cytology. I called path and added PCP stain -added solumedrol 40 mg IV [id number] with Dr Rodriguez -continue bactrim DS TID - D11 of 21 -continue azithromycin 1200 mg po qweek to prevent MAC -Continue prezcobix and truvada (pt taking his home mds) Thanks Cherelle Smith MD Infectious Diseases Specialist [facility] ([facility]) [phone] Subjective Date of service: 10/15/17 Principal diagnosis: Acute Hypoxemic Resp Failure; Bilateral Pneumonia; HIV +ve ; Chest pain Interval history: Still on venturi mask, mild SOB, low grade fever 100. Had bronch yesterday. Microbiology Blood cultures 10/03/17 NGTD 10/06 Fungal pending 10/08 Neg Cryptococcal antigen neg Stool WBC negative Culture 10/04 negative. Giardia ag negative Cryptosporodium ag negative Sputum culture 10/05 rejected 10/09 rejected 10/13 BAL neg Antibiotics azithro prophylaxis Bactrim 10/04- HAART (prezcobix and truvada, taking home meds). Prior antibiotics Ceftriaxone 10/04-10/05 Flagyl 10/04-10/05 Levofloxacin 10/06- IV vancomycin 10/05- Cefepime 10/05- Azithromycin 10/04- Fluconazole 10/07- Objective - Exam Narrative Exam: General appearance: Pt is in NAD, A&Ox3, conversant. On venti mask. Eyes: anicteric sclerae, moist conjunctivae; PERRLA HENT: Atraumatic; oropharynx clear with moist mucous membranes and no mucosal ulcerations/no oral thrush; normal hard and soft palate. Normal external ears. Neck: Trachea midline; supple, no thyromegaly or lymphadenopathy Lungs: Scattered bilateral crackles. CV: S1,S2. Abdomen: Soft, non-tender; no masses or hepatosplenomegaly Extremities: No peripheral edema or extremity lymphadenopathy Skin: Normal temperature, turgor and texture; no rash, ulcers or subcutaneous nodules Psych: Appropriate affect, alert and oriented to person, place and time. Neuro: alert and oriented x 3. Moving all extremities Lines: No CVL / PICC - Constitutional Vitals: Vital Signs Temp Pulse Resp BP Pulse Ox 98.0 F 95 H 18 108/65 97 10/15/17 10:30 10/15/17 13:44 10/15/17 13:44 10/15/17 10:30 10/15/17 10:30 Temperature -Last 24 Hours Temperature 98.0 F Temperature 97.9 F Temperature 98.9 F Temperature 99.7 F Temperature 99.7 F Temperature 100.0 F Temperature 98.0 F - Labs CBC & Chem 7: 10/09/17 08:26 10/11/17 06:19 Labs: Abnormal lab results 10/14/17 Range/Units 20:32 POC Glucose 122 H (70-105)
--- NOTE | 2017-10-15 21:21 | Progress Note ---
Assessment and Plan Acute hypoxic respiraotry failure Multifocal pulmonary infiltrates- differentials include CAP, PJP, primary pulmonary lymphoma, fungal pneumonias, mycobacterial infections including TB and non-TB HIV-AIDS Fevers Substance abuse -continue supplemental oxygen to keep O2 sats>90% - quantiferon negative - s/p bronchoscopy follow up cultures - Continue supplemental oxygen to keep O2 sats>90% - VTE prophylaxis - Antibiotics/anti-infective per ID service - Steroids Subjective Date of service: 10/15/17 Principal diagnosis: Acute Hypoxemic Resp Failure; Bilateral Pneumonia; HIV +ve ; Chest pain Interval history: s/p bronchoscopy yesterday Seen and examined. Vitals, labs, medications, chart reviewed. Objective Vital Signs - 12hr 10/15/17 10/15/17 10/15/17 10:00 10:30 13:44 Temperature 98.0 F Pulse Rate 93 H Pulse Rate [ 91 H Anterior Bilateral Throughout] Pulse Rate [ 95 H Bilateral] Respiratory 20 Rate Respiratory 20 Rate [Anterior Bilateral Throughout] Respiratory 18 Rate [Bilateral ] Blood Pressure 108/65 Blood Pressure [Left] O2 Sat by Pulse 96 97 Oximetry 10/15/17 10/15/17 15:02 19:33 Temperature 99.5 F 99.6 F Pulse Rate 99 H 96 H Pulse Rate [ Anterior Bilateral Throughout] Pulse Rate [ Bilateral] Respiratory 20 18 Rate Respiratory Rate [Anterior Bilateral Throughout] Respiratory Rate [Bilateral ] Blood Pressure 110/69 Blood Pressure 108/65 [Left] O2 Sat by Pulse 99 95 Oximetry Constitutional: other (Still having cough, mild respiratory distress, improving ) Eyes: non-icteric ENT: oropharynx moist Neck: supple, no JVD Effort: mildly labored Ascultation: Bilateral: diminished breath sounds, rales (bases) Percussion: Bilateral: not dull Cardiovascular: regular rate and rhythm, other (no rubs or murmurs) Gastrointestinal: normoactive bowel sounds, soft, non-tender, non-distended, other (No HSM) Integumentary: rash (? malar rash around face), other (poor skin turgor) Extremities: no cyanosis, no edema, pulses normal, no ischemia or petechiae Neurologic: normal mental status, non-focal exam, pupils equal and round, CN II- XII normal Psychiatric: mood appropriate, affect normal, anxious CBC and BMP: 10/09/17 08:26 10/11/17 06:19 ABG, PT/INR, D-dimer: ABG ABG pH 7.416 pH Units (7.350-7.450) 10/08/17 23:05 ABG pCO2 31.6 mm Hg 10/08/17 23:05 ABG pO2 83.5 mm Hg (80.0-90.0) 10/08/17 23:05 ABG O2 Saturation 96.6 % (95.0-99.0) 10/08/17 23:05 PT/INR, D-dimer PT 15.5 Sec. (12.2-14.9) H 10/10/17 09:44 INR 1.17 (0.87-1.13) H 10/10/17 09:44 D-Dimer 614.10 ng/mlDDU (0-234) H 10/03/17 06:08 Abnormal lab findings: Abnormal Labs 10/03/17 10/03/17 10/03/17 01:14 01:14 01:14 Hgb Hct [place] % (Auto) 10.0 H Seg Neutrophils % 71.1 H Lymphocytes % (Manual) Monocytes % (Manual) Eosinophils % (Manual) Abs Lymphs (Manual) Lymphocytes # (Manual) Monocytes # (Manual) Eosinophils # (Manual) PT INR D-Dimer ABG HCO3 ABG Base Excess ABG Hemoglobin Oxyhemoglobin Sodium 129 L Potassium 3.5 L Chloride 94.4 L Carbon Dioxide 18 L BUN Creatinine POC Glucose Calcium 8.3 L Lactate Dehydrogenase Total Creatine Kinase 473 H Albumin Vancomycin Trough Lymph Enumerat CD4/CD8 % CD3 Cells Absolute CD3 Count % CD4 Cells Absolute CD4 Count % CD8 Cells % CD19 Cells HIV-1 RNA PCR copies/ml HIV-1 RNA (PCR) log 10/03/17 10/03/17 10/04/17 04:26 06:08 07:49 Hgb Hct [place] % (Auto) 11.2 H Seg Neutrophils % Lymphocytes % (Manual) Monocytes % (Manual) Eosinophils % (Manual) Abs Lymphs (Manual) Lymphocytes # (Manual) Monocytes # (Manual) Eosinophils # (Manual) PT INR D-Dimer 614.10 H ABG HCO3 ABG Base Excess ABG Hemoglobin Oxyhemoglobin Sodium Potassium Chloride Carbon Dioxide BUN Creatinine POC Glucose Calcium Lactate Dehydrogenase Total Creatine Kinase 452 H Albumin Vancomycin Trough Lymph Enumerat CD4/CD8 % CD3 Cells Absolute CD3 Count % CD4 Cells Absolute CD4 Count % CD8 Cells % CD19 Cells HIV-1 RNA PCR copies/ml HIV-1 RNA (PCR) log 10/04/17 10/05/17 10/05/17 07:49 05:57 05:57 Hgb Hct [place] % (Auto) Seg Neutrophils % Lymphocytes % (Manual) Monocytes % (Manual) Eosinophils % (Manual) Abs Lymphs (Manual) 734 L Lymphocytes # (Manual) Monocytes # (Manual) Eosinophils # (Manual) PT INR D-Dimer ABG HCO3 ABG Base Excess ABG Hemoglobin Oxyhemoglobin Sodium 128 L Potassium Chloride 95.9 L Carbon Dioxide 17 L BUN 8 L Creatinine POC Glucose Calcium 7.7 L Lactate Dehydrogenase Total Creatine Kinase Albumin Vancomycin Trough Lymph Enumerat CD4/CD8 0.07 L % CD3 Cells 56 L Absolute CD3 Count 410 L % CD4 Cells 4 L Absolute CD4 Count 31 L % CD8 Cells 54 H % CD19 Cells 30 H HIV-1 RNA PCR copies/ml 441 H HIV-1 RNA (PCR) log 2.64 H 10/05/17 10/05/17 10/05/17 13:59 13:59 13:59 Hgb Hct [place] % (Auto) Seg Neutrophils % Lymphocytes % (Manual) Monocytes % (Manual) 11.0 H Eosinophils % (Manual) Abs Lymphs (Manual) Lymphocytes # (Manual) 0.7 L Monocytes # (Manual) Eosinophils # (Manual) PT INR D-Dimer ABG HCO3 ABG Base Excess ABG Hemoglobin Oxyhemoglobin Sodium 131 L Potassium Chloride 95.7 L Carbon Dioxide BUN 6 L Creatinine 0.7 L POC Glucose Calcium 8.1 L Lactate Dehydrogenase 464 H Total Creatine Kinase Albumin Vancomycin Trough Lymph Enumerat CD4/CD8 % CD3 Cells Absolute CD3 Count % CD4 Cells Absolute CD4 Count % CD8 Cells % CD19 Cells HIV-1 RNA PCR copies/ml HIV-1 RNA (PCR) log 10/07/17 10/07/17 10/08/17 13:21 13:21 23:05 Hgb Hct 34.7 L [place] % (Auto) Seg Neutrophils % Lymphocytes % (Manual) Monocytes % (Manual) Eosinophils % (Manual) Abs Lymphs (Manual) Lymphocytes # (Manual) Monocytes # (Manual) Eosinophils # (Manual) PT INR D-Dimer ABG HCO3 19.8 L ABG Base Excess -4.0 L ABG Hemoglobin 9.4 L Oxyhemoglobin 94.2 L Sodium 127 L Potassium Chloride 93.4 L Carbon Dioxide 20 L BUN 4 L Creatinine 0.6 L POC Glucose Calcium 8.2 L Lactate Dehydrogenase Total Creatine Kinase Albumin 3.1 L Vancomycin Trough Lymph Enumerat CD4/CD8 % CD3 Cells Absolute CD3 Count % CD4 Cells Absolute CD4 Count % CD8 Cells % CD19 Cells HIV-1 RNA PCR copies/ml HIV-1 RNA (PCR) log 10/09/17 10/09/17 10/10/17 08:26 08:26 09:44 Hgb 11.3 L Hct 33.2 L [place] % (Auto) Seg Neutrophils % Lymphocytes % (Manual) 8.0 L Monocytes % (Manual) 16.0 H Eosinophils % (Manual) 12.0 H Abs Lymphs (Manual) Lymphocytes # (Manual) 0.8 L Monocytes # (Manual) 1.5 H Eosinophils # (Manual) 1.1 H PT 15.5 H INR 1.17 H D-Dimer ABG HCO3 ABG Base Excess ABG Hemoglobin Oxyhemoglobin Sodium 132 L Potassium Chloride 97.2 L Carbon Dioxide 18 L BUN 7 L Creatinine 0.6 L POC Glucose Calcium Lactate Dehydrogenase Total Creatine Kinase Albumin Vancomycin Trough Lymph Enumerat CD4/CD8 % CD3 Cells Absolute CD3 Count % CD4 Cells Absolute CD4 Count % CD8 Cells % CD19 Cells HIV-1 RNA PCR copies/ml HIV-1 RNA (PCR) log 10/11/17 10/11/17 10/14/17 06:19 17:42 20:32 Hgb Hct [place] % (Auto) Seg Neutrophils % Lymphocytes % (Manual) Monocytes % (Manual) Eosinophils % (Manual) Abs Lymphs (Manual) Lymphocytes # (Manual) Monocytes # (Manual) Eosinophils # (Manual) PT INR D-Dimer ABG HCO3 ABG Base Excess ABG Hemoglobin Oxyhemoglobin Sodium 129 L Potassium Chloride 94.6 L Carbon Dioxide 19 L BUN 8 L Creatinine 0.6 L POC Glucose 122 H Calcium Lactate Dehydrogenase Total Creatine Kinase Albumin Vancomycin Trough 26.0 H Lymph Enumerat CD4/CD8 % CD3 Cells Absolute CD3 Count % CD4 Cells Absolute CD4 Count % CD8 Cells % CD19 Cells HIV-1 RNA PCR copies/ml HIV-1 RNA (PCR) log Chest x-ray: image reviewed Allied health notes reviewed: RT
--- NOTE | 2017-10-16 00:01 | Operative Report ---
PROCEDURE: Fiberoptic bronchoscopy with transbronchial biopsies and bronchoalveolar lavage. INDICATIONS: Bilateral pneumonia in a patient who is HIV positive and with a low CD4 count less than 50. CONSENT: Informed and witnessed obtained from the patient. Sedation was provided by the anesthesiologist that included mainly propofol use. COMPLICATIONS: No immediate procedural complications. DESCRIPTION OF PROCEDURE: After informed and witnessed consent as well as premedication, fiberoptic bronchoscope was passed through the right nostril into the nasopharynx and advanced distally into the hypopharyngeal regions. Vocal cords were located. They were both bilaterally mobile. Topical lidocaine 1% 3 mL was applied over the vocal cords. I entered the trachea. The trachea was nice and clean with a little bit of tracheal deviation in the distal trachea towards the left, but no endotracheal lesions. Topical lidocaine was again applied at the cande. The right bronchi tree was immediately assessed. A quick survey was done on the right upper lobe and then I wedged my bronchoscope in the basilar segment, I believe the medial segment of the right lower lobe under fluoroscopic guidance, transbronchial biopsies were taken from this section. A total of 4 passes were taken. Two passes for cultures and 2 passes for pathology. Good looking tissue return was obtained. Fiberoptic bronchoscope while being wedged in place was then infiltrated with saline and bronchoalveolar lavage samples were taken from here. Total of about 15-20 mL I believe of total bronchoalveolar lavage fluid was obtained and about double that amount was infiltrated. It was mildly blood tinged. Fiberoptic bronchoscope was then withdrawn and as I was coming out, I inspected the right middle lobe, all the basilar segments, the right lower lobe superior segment. I took another look at the right upper lobe, no gross endobronchial lesions were seen. The left bronchial tree was entered. Left upper lobe lingula and left lower lobe and basilar branches were quickly evaluated. No gross endobronchial lesions. The mucosa was nice and looked normal. A secondary survey was done on the right lower lobe region, no significant bleeding was noticed. Fiberoptic bronchoscope was then withdrawn again through bilaterally mobile vocal cords. A quick fluoroscopic survey was done. It did not reveal any significant pneumothorax. A post-procedure chest x-ray has also been ordered, which I have been able to review and the chest x-ray does not reveal any obvious pneumothorax. The patient tolerated the procedure well otherwise. RECOMMENDATIONS: 1. Follow up on the cytology of the bronchoalveolar lavage samples. 2. Follow up on the pathology of the transbronchial biopsies. 3. Follow up on the cultures of the transbronchial biopsies, which have been sent for acid fast bacillus cultures. 4. Follow up on the cultures of the bronchoalveolar lavage, which include respiratory cultures, fungal cultures as well as acid fast bacillus cultures. [facility]# [id number] SHANI/LUCRETIA
[2017-10-16] MEDS: BACTRIM DS PO SCH ×3 (05:34→22:34)
[2017-10-16] MEDS: PROVENTIL IH SCH ×4 (09:04→20:39)
[2017-10-16] MEDS: SODIUM CHLORIDE FLUSH SYRINGE 10 ML IV SCH ×2 (10:00→22:34)
[2017-10-16] MEDS: NON-FORMULARY (Darunavir/Cobicistat [Prezcobix 800 Mg-150 Mg Tablet] 1 EACH) PO SCH (10:02)
[2017-10-16] MEDS: NON-FORMULARY (Emtricitabin/Tenofovir [Truvada 200-300 Mg] 1 TAB) PO SCH (10:02)
[2017-10-16] MEDS: LOVENOX SUB-Q SCH (10:02)
--- NOTE | 2017-10-16 15:05 | Progress Note ---
Assessment and Plan Assessment and plan: Patient is a 42-year-old man with history of HIV/AIDS, CD4 count of 34 pw CP -Acute hypoxic respiratory failure, poa: treat the pna, treat with O2, nebs -Sepsis/PNA -CT confirmed PNA, possible CAP, PCP vs IRIS, continue abx, ID input appreciated, pulm consulted for bronch tomorrow==>hold Bronch b/c pt now in TB isolation room per Dr. Gregg -Atypical CP, most likely pleuric from pna, with neg. stress thallium ; no further workup -elevated D-dimer; cta chest neg for pe -diarrhea, rule out HIV related infection; stool studies ordered, on empiric abx , no evidence of GI infection at this timel; CT A/P no acute findings,may be due to IRIS, GI consult appreciated, diarrhea is resolving, only having 1-2 BMs per day now; no plans for endoscopy at this time -Hyponatremia: continue nss -Substance Abuse; denies current abuse, was counseled -HIV/AIDS, started on HAART at [facility] 3wks prior to admission; continue HAART, ID consulted; suspect IRIS vs opportunist infection, Dian wakefield , she is to obtain his records from the [facility] d/w car cooper, Dr. Gregg, start iv steroids, and hold of on Bronchoscopy until TB is ruled out 10/14: bronch today 10/15/17: d/w Dr. Anaya regarding bronch, clean airway, bx taken. Still on 35% venturi mask o2 10/16/17: d/w . Still waiting on AFBs, continue abx, continue to wean off o2 , still on Vm 35%, he resist movement because it cause coughing, Physical therapy has been ordered History Interval history: Patient was seen and examined. Follow-up on current diagnosis. Overnight sob. Patient denies any chest pain, nausea/vomiting or severe headaches. Imaging, nursing note, chart, labs and old chart reviewed. Discussed with patient. Hospitalist Physical - Physical exam Narrative exam: GEN: Ill-appearing NAD, AWAKE, ALERT, ORIENTATED 3 HEENT: NCAT, EOMI, PERRL, OP Clear NECK: supple, no adenopathy, no thyromegaly, no JVD CVS/HEART: RRR, NORMAL S1S2, pulses present bilaterally CHEST/LUNGS: Diminished breath sounds bilaterally, Symmetrical chest expansion, good air entry bilaterally GI/Abdomen: soft, NTND, good bowel sounds, no guarding or rebound /Bladder: no suprapubic tenderness, no CVA or paraspinal tenderness EXT/Skin: no c/c/e, no obvious rash MSK: FROM x 4 Neuro: CN 2-12 grossly intact, no new focal deficits Psych: calm - Constitutional Vitals: Temp Pulse Resp BP Pulse Ox 97.8 F 114 H 18 116/72 90 10/16/17 12:13 10/16/17 12:13 10/16/17 12:13 10/16/17 12:13 10/16/17 12:13 General appearance: Present: no acute distress, well-nourished Results - Labs CBC & Chem 7: 10/09/17 08:26 10/11/17 06:19 Labs: Laboratory Last Values WBC 9.5 K/mm3 (4.5-11.0) 10/09/17 08:26 RBC 3.71 M/mm3 (3.65-5.03) 10/09/17 08:26 Hgb 11.3 gm/dl (11.8-15.2) L 10/09/17 08:26 Hct 33.2 % (35.5-45.6) L 10/09/17 08:26 MCV 89 fl (84-94) 10/09/17 08:26 MCH 31 pg (28-32) 10/09/17 08:26 MCHC 34 % (32-34) 10/09/17 08:26 RDW 14.4 % (13.2-15.2) 10/09/17 08:26 Plt Count 369 K/mm3 (140-440) 10/09/17 08:26 Lymph % (Auto) 24.0 % (13.4-35.0) 10/04/17 07:49 [place] % (Auto) Hearing Aid Fitter 10/09/17 08:26 Eos % (Auto) 0.8 % (0.0-4.3) 10/04/17 07:49 Baso % (Auto) 0.4 % (0.0-1.8) 10/04/17 07:49 Lymph # 1.4 K/mm3 (1.2-5.4) 10/04/17 07:49 [place] # 0.7 K/mm3 (0.0-0.8) 10/04/17 07:49 Eos # 0.0 K/mm3 (0.0-0.4) 10/04/17 07:49 Baso # 0.0 K/mm3 (0.0-0.1) 10/04/17 07:49 Add Manual Diff Complete 10/09/17 08:26 Total Counted 100 10/09/17 08:26 Seg Neutrophils % 63.6 % (40.0-70.0) 10/04/17 07:49 Seg Neuts % (Manual) 60.0 % (40.0-70.0) 10/09/17 08:26 Band Neutrophils % 4.0 % 10/09/17 08:26 Lymphocytes % (Manual) 8.0 % (13.4-35.0) L 10/09/17 08:26 Reactive Lymphs % (Man) 0 % 10/09/17 08:26 Monocytes % (Manual) 16.0 % (0.0-7.3) H 10/09/17 08:26 Eosinophils % (Manual) 12.0 % (0.0-4.3) H 10/09/17 08:26 Basophils % (Manual) 0 % (0.0-1.8) 10/09/17 08:26 Metamyelocytes % 0 % 10/09/17 08:26 Myelocytes % 0 % 10/09/17 08:26 Promyelocytes % 0 % 10/09/17 08:26 Blast Cells % 0 % 10/09/17 08:26 Nucleated RBC % Not Reportable 10/09/17 08:26 Seg Neutrophils # 3.8 K/mm3 (1.8-7.7) 10/04/17 07:49 Seg Neutrophils # Man 5.7 K/mm3 (1.8-7.7) 10/09/17 08:26 Band Neutrophils # 0.4 K/mm3 10/09/17 08:26 Abs Lymphs (Manual) 734 cells/uL (850-3900) L 10/05/17 05:57 Lymphocytes # (Manual) 0.8 K/mm3 (1.2-5.4) L 10/09/17 08:26 Abs React Lymphs (Man) 0.0 K/mm3 10/09/17 08:26 Monocytes # (Manual) 1.5 K/mm3 (0.0-0.8) H 10/09/17 08:26 Eosinophils # (Manual) 1.1 K/mm3 (0.0-0.4) H 10/09/17 08:26 Basophils # (Manual) 0.0 K/mm3 (0.0-0.1) 10/09/17 08:26 Metamyelocytes # 0.0 K/mm3 10/09/17 08:26 Myelocytes # 0.0 K/mm3 10/09/17 08:26 Promyelocytes # 0.0 K/mm3 10/09/17 08:26 Blast Cells # 0.0 K/mm3 10/09/17 08:26 WBC Morphology Not Reportable 10/09/17 08:26 Hypersegmented Neuts Not Reportable 10/09/17 08:26 Hyposegmented Neuts Not Reportable 10/09/17 08:26 Hypogranular Neuts Not Reportable 10/09/17 08:26 Smudge Cells Not Reportable 10/09/17 08:26 Toxic Granulation Not Reportable 10/09/17 08:26 Toxic Vacuolation Not Reportable 10/09/17 08:26 Dohle Bodies Not Reportable 10/09/17 08:26 Pelger-Huet Anomaly Not Reportable 10/09/17 08:26 Zora Rods Not Reportable 10/09/17 08:26 Platelet Estimate Consistent w auto 10/09/17 08:26 Clumped Platelets Not Reportable 10/09/17 08:26 Plt Clumps, EDTA Not Reportable 10/09/17 08:26 Large Platelets Not Reportable 10/09/17 08:26 Giant Platelets Not Reportable 10/09/17 08:26 Platelet Satelliting Not Reportable 10/09/17 08:26 Plt Morphology Comment Not Reportable 10/09/17 08:26 RBC Morphology Normal 10/09/17 08:26 Dimorphic RBCs Not Reportable 10/09/17 08:26 Polychromasia Not Reportable 10/09/17 08:26 Hypochromasia Not Reportable 10/09/17 08:26 Poikilocytosis Not Reportable 10/09/17 08:26 Anisocytosis Not Reportable 10/09/17 08:26 Microcytosis Not Reportable 10/09/17 08:26 Macrocytosis Not Reportable 10/09/17 08:26 Spherocytes Not Reportable 10/09/17 08:26 Pappenheimer Bodies Not Reportable 10/09/17 08:26 Sickle Cells Not Reportable 10/09/17 08:26 Target Cells Not Reportable 10/09/17 08:26 Tear Drop Cells Not Reportable 10/09/17 08:26 Ovalocytes Not Reportable 10/09/17 08:26 Helmet Cells Not Reportable 10/09/17 08:26 Estrada-Ailey Bodies Not Reportable 10/09/17 08:26 [place] Rings Not Reportable 10/09/17 08:26 Nathaniel Cells Not Reportable 10/09/17 08:26 Bite Cells Not Reportable 10/09/17 08:26 Crenated Cell Not Reportable 10/09/17 08:26 Elliptocytes Not Reportable 10/09/17 08:26 Acanthocytes (Spur) Not Reportable 10/09/17 08:26 Rouleaux Not Reportable 10/09/17 08:26 Hemoglobin C Crystals Not Reportable 10/09/17 08:26 Schistocytes Not Reportable 10/09/17 08:26 Malaria parasites Not Reportable 10/09/17 08:26 Glen Bodies Not Reportable 10/09/17 08:26 Hem Pathologist Commnt No 10/09/17 08:26 PT 15.5 Sec. (12.2-14.9) H 10/10/17 09:44 INR 1.17 (0.87-1.13) H 10/10/17 09:44 D-Dimer 614.10 ng/mlDDU (0-234) H 10/03/17 06:08 ABG pH 7.416 pH Units (7.350-7.450) 10/08/17 23:05 ABG pCO2 31.6 mm Hg 10/08/17 23:05 ABG pO2 83.5 mm Hg (80.0-90.0) 10/08/17 23:05 ABG HCO3 19.8 mmol/L (20.0-26.0) L 10/08/17 23:05 ABG O2 Saturation 96.6 % (95.0-99.0) 10/08/17 23:05 ABG O2 Content 12.6 (0.0-44) 10/08/17 23:05 ABG Base Excess -4.0 mmol/L (-2.0-3.0) L 10/08/17 23:05 ABG Hemoglobin 9.4 gm/dl (14.0-18.0) L 10/08/17 23:05 ABG Carboxyhemoglobin 1.5 % (0.0-5.0) 10/08/17 23:05 ABG Methemoglobin 1.0 % (0.0-1.5) 10/08/17 23:05 Oxyhemoglobin 94.2 % (95.0-99.0) L 10/08/17 23:05 FiO2 35 % 10/08/17 23:05 Sodium 129 mmol/L (137-145) L 10/11/17 06:19 Potassium 4.1 mmol/L (3.6-5.0) 10/11/17 06:19 Chloride 94.6 mmol/L (98-107) L 10/11/17 06:19 Carbon Dioxide 19 mmol/L (22-30) L 10/11/17 06:19 Anion Gap 20 mmol/L 10/11/17 06:19 BUN 8 mg/dL (9-20) L 10/11/17 06:19 Creatinine 0.6 mg/dL (0.8-1.5) L 10/11/17 06:19 Estimated GFR > 60 ml/min 10/11/17 06:19 BUN/Creatinine Ratio 13 % 10/11/17 06:19 Glucose 94 mg/dL (75-100) 10/11/17 06:19 POC Glucose 122 (70-105) H 10/14/17 20:32 Calcium 8.4 mg/dL (8.4-10.2) 10/11/17 06:19 Total Bilirubin 0.50 mg/dL (0.1-1.2) 10/07/17 13:21 AST 31 units/L (5-40) 10/07/17 13:21 ALT 14 units/L (7-56) 10/07/17 13:21 Alkaline Phosphatase 36 units/L (35-129) 10/07/17 13:21 Lactate Dehydrogenase 464 units/L (91-180) H 10/05/17 13:59 Total Creatine Kinase 452 units/L (55-170) H 10/03/17 04:26 CK-MB (CK-2) < 1.0 ng/mL (0.0-4.0) 10/03/17 04:26 CK-MB (CK-2) Rel Index 0.2 (0-4) 10/03/17 04:26 Troponin T < 0.010 ng/mL (0.00-0.029) 10/03/17 07:42 Total Protein 6.5 g/dL (6.3-8.2) 10/07/17 13:21 Albumin 3.1 g/dL (3.9-5) L 10/07/17 13:21 Albumin/Globulin Ratio 0.9 % 10/07/17 13:21 Lipase 41 units/L (13-60) 10/03/17 01:14 Urine Color Yellow (Yellow) 10/03/17 Unknown Urine Turbidity Clear (Clear) 10/03/17 Unknown Urine pH 5.0 (5.0-7.0) 10/03/17 Unknown Ur Specific [place] 1.024 (1.003-1.030) 10/03/17 Unknown Urine Protein 30 mg/dl mg/dL (Negative) 10/03/17 Unknown Urine Glucose (UA) Neg mg/dL (Negative) 10/03/17 Unknown Urine Ketones 20 mg/dL (Negative) 10/03/17 Unknown Urine Blood Neg (Negative) 10/03/17 Unknown Urine Nitrite Neg (Negative) 10/03/17 Unknown Urine Bilirubin Neg (Negative) 10/03/17 Unknown Urine Urobilinogen 4.0 mg/dL (<2.0) 10/03/17 Unknown Ur Leukocyte Esterase Neg (Negative) 10/03/17 Unknown Urine WBC (Auto) 1.0 /HPF (0.0-6.0) 10/03/17 Unknown Urine RBC (Auto) 2.0 /HPF (0.0-6.0) 10/03/17 Unknown Urine Mucus Few /HPF 10/03/17 Unknown Vancomycin Trough 26.0 ug/mL (5.0-20.0) H 10/11/17 17:42 Lymph Enumerat CD4/CD8 0.07 (0.86-5.00) L 10/05/17 05:57 % CD3 Cells 56 % (57-85) L 10/05/17 05:57 Absolute CD3 Count 410 cells/uL (840-3060) L 10/05/17 05:57 % CD4 Cells 4 % (30-61) L 10/05/17 05:57 Absolute CD4 Count 31 cells/uL (490-1740) L 10/05/17 05:57 % CD8 Cells 54 % (12-42) H 10/05/17 05:57 Absolute CD8 Count 436 cells/uL (180-1170) 10/05/17 05:57 % CD19 Cells 30 % (6-29) H 10/05/17 05:57 Absolute CD19 Count 194 cells/uL (110-660) 10/05/17 05:57 C. difficile Toxin A&B Negative (Negative) 10/04/17 11:04 HIV-1 RNA PCR copies/ml 441 Copies/mL H 10/05/17 05:57 HIV-1 RNA (PCR) log 2.64 Log cps/mL H 10/05/17 05:57 Urine Legionella Ag Not detected (Not Detected) 10/08/17 01:10 TB (QFT) Gold In Tube Negative (Negative) 10/07/17 16:25 TB Test (QFT) Nil 0.05 IU/mL 10/07/17 16:25 TB Test Mitogen - Nil 0.72 IU/mL 10/07/17 16:25 TB Test Antigen - Nil 0.00 IU/mL 10/07/17 16:25 Miscellaneous Test Flexitest 1 10/10/17 07:50
--- NOTE | 2017-10-16 16:14 | Progress Note ---
Assessment and Plan Assessment: 1) Acute fever and Bilateral lung infiltrates in AIDS patient. DDx. CAP, PJP, atypical. -LDH high -Cryptococcal antigen negative. -Pneumococcal and Legionella ag negative -Quantiferon negative. -Unable to provide specimen for sputum culture -aspergillus ag negative -10/13 BAL neg for malignancy, AFB and fungal stains negative 2) Acute N/V/D. r/o C diff. Other opportunistic infections also on the differential: cryptosporidium, cyclospora, isospora, etc. Better - C diff negative. - Stool cx negative. - Cryptosporidium ag, Giardia ag negative - CT A/P possible gastroenteritis -Stools more formed. 3) Acute hypoxemic respiratory failure. On venti mask not better 4) Acute atypical chest pain. Negative stress test. 5) HIV/AIDS. On HAART. -HIV-VL 441 (10/05/17) -CD4 31/4%. (10/05/17) 6) Facial eczema Recommendations -stop airborne isolation - BAL AFB negative -continue solumedrol 40 mg IV q8h-D2 -continue bactrim DS TID - D12 of 21 -continue azithromycin 1200 mg po qweek to prevent MAC -Continue prezcobix and truvada (pt taking his home mds) -monitor O2 requirements - taper down O2 -check HIV genotype Upon discharge will do bactrim DS 2 tab TID for 21 days until 10/25 and azithromycin 1200 mg po qweek to prevent MAC HIV clinic f/u with [facility] Thanks Cherelle Smith MD Infectious Diseases Specialist [facility] ([facility] M [phone] Subjective Date of service: 10/16/17 Principal diagnosis: Acute Hypoxemic Resp Failure; Bilateral Pneumonia; HIV +ve ; Chest pain Interval history: Still on venti mask 40%, reports decreased SOB, no fever for 48h. Microbiology Blood cultures 10/03/17 NGTD 10/06 Fungal pending 10/08 Neg Cryptococcal antigen neg Stool WBC negative Culture 10/04 negative. Giardia ag negative Cryptosporodium ag negative Sputum culture 10/05 rejected 10/09 rejected 10/13 BAL neg for malignancy, AFB and fungal stains negative Solumedrol IV 10/15 Antibiotics azithro prophylaxis Bactrim 10/04- HAART (prezcobix and truvada, taking home meds). Prior antibiotics Ceftriaxone 10/04-10/05 Flagyl 10/04-10/05 Levofloxacin 10/06- IV vancomycin 10/05- Cefepime 10/05- Azithromycin 10/04- Fluconazole 10/07- Objective - Exam Narrative Exam: General appearance: Pt is in NAD, A&Ox3, conversant. On venti mask. Eyes: anicteric sclerae, moist conjunctivae; PERRLA HENT: Atraumatic; oropharynx clear with moist mucous membranes and no mucosal ulcerations/no oral thrush; normal hard and soft palate. Normal external ears. Neck: Trachea midline; supple, no thyromegaly or lymphadenopathy Lungs: CTA galen CV: S1,S2. Abdomen: Soft, non-tender; no masses or hepatosplenomegaly Extremities: No peripheral edema or extremity lymphadenopathy Skin: scaly facial rash Psych: Appropriate affect, alert and oriented to person, place and time. Neuro: alert and oriented x 3. Moving all extremities Lines: No CVL / PICC - Constitutional Vitals: Vital Signs Temp Pulse Resp BP Pulse Ox 97.8 F 114 H 18 116/72 90 10/16/17 12:13 10/16/17 12:13 10/16/17 12:13 10/16/17 12:13 10/16/17 12:13 Temperature -Last 24 Hours Temperature 97.8 F Temperature 98.4 F Temperature 98.6 F Temperature 99.6 F - Labs CBC & Chem 7: 10/09/17 08:26 10/11/17 06:19
[2017-10-17] MEDS: BACTRIM DS PO SCH ×3 (06:13→22:31)
[2017-10-17] MEDS: NACL 0.9% 1000 ML 1,000 ML IV SCH ×2 (06:13→13:56)
[2017-10-17 06:58] LABS: Hematocrit 31.7 % (35.5-45.6); Hemoglobin 10.6 gm/dl (11.8-15.2); Mean Corpuscular HGB Conc 33 % (32-34); Mean Corpuscular Hemoglobin 30 pg (28-32); Mean Corpuscular Volume 90 fl (84-94); Platelet Count 603 K/mm3 (140-440); Red Blood Count 3.53 M/mm3 (3.65-5.03); Red Cell Distribution Width 14.3 % (13.2-15.2)
[2017-10-17 07:15] LABS: BUN/Creatinine Ratio 20; Blood Urea Nitrogen 8 mg/dL (9-20); Calcium 8.6 mg/dL (8.4-10.2); Hemolysis Index 3
[2017-10-17] MEDS: PROVENTIL IH SCH ×3 (08:20→20:50)
[2017-10-17] MEDS: SODIUM CHLORIDE FLUSH SYRINGE 10 ML IV SCH (10:00)
[2017-10-17] MEDS: NON-FORMULARY (Darunavir/Cobicistat [Prezcobix 800 Mg-150 Mg Tablet] 1 EACH) PO SCH (10:11)
[2017-10-17] MEDS: NON-FORMULARY (Emtricitabin/Tenofovir [Truvada 200-300 Mg] 1 TAB) PO SCH (10:11)
[2017-10-17] MEDS: LOVENOX SUB-Q SCH (10:12)
--- NOTE | 2017-10-17 12:46 | Progress Note ---
Assessment and Plan Assessment and plan: Patient is a 42-year-old man with history of HIV/AIDS, CD4 count of 34 pw CP -Acute hypoxic respiratory failure, poa: treat the pna, treat with O2, nebs -Sepsis/PNA -CT confirmed PNA, possible CAP, PCP vs IRIS, continue abx, ID input appreciated, pulm consulted for bronch tomorrow==>hold Bronch b/c pt now in TB isolation room per Dr. Gregg -Atypical CP, most likely pleuric from pna, with neg. stress thallium ; no further workup -elevated D-dimer; cta chest neg for pe -diarrhea, rule out HIV related infection; stool studies ordered, on empiric abx , no evidence of GI infection at this timel; CT A/P no acute findings,may be due to IRIS, GI consult appreciated, diarrhea is resolving, only having 1-2 BMs per day now; no plans for endoscopy at this time -Hyponatremia: continue nss -Substance Abuse; denies current abuse, was counseled -HIV/AIDS, started on HAART at [facility] 3wks prior to admission; continue HAART, ID consulted; suspect IRIS vs opportunist infection, Dian wakefield , she is to obtain his records from the 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 Gregg, start iv steroids, and hold of on Bronchoscopy until TB is ruled out 10/14: bronch today 10/15/17: d/w Dr. Anaya regarding bronch, clean airway, bx taken. Still on 35% venturi mask o2 10/16/17: d/w . Still waiting on AFBs, continue abx, continue to wean off o2 , still on Vm 35%, he resist movement because it cause coughing, Physical therapy has been ordered 10/17/17: out of isolation, still on Vm 35%, once he is on nasal canula then d/c , follow up with HIV clinic on Janeth. Re-order PT History Interval history: Patient was seen and examined. Follow-up on current diagnosis. Overnight sob. Patient denies any chest pain, nausea/vomiting or severe headaches. Imaging, nursing note, chart, labs and old chart reviewed. Discussed with patient. Hospitalist Physical - Physical exam Narrative exam: GEN: Ill-appearing NAD, AWAKE, ALERT, ORIENTATED 3 HEENT: NCAT, EOMI, PERRL, OP Clear NECK: supple, no adenopathy, no thyromegaly, no JVD CVS/HEART: RRR, NORMAL S1S2, pulses present bilaterally CHEST/LUNGS: Diminished breath sounds bilaterally, Symmetrical chest expansion, good air entry bilaterally GI/Abdomen: soft, NTND, good bowel sounds, no guarding or rebound /Bladder: no suprapubic tenderness, no CVA or paraspinal tenderness EXT/Skin: no c/c/e, no obvious rash MSK: FROM x 4 Neuro: CN 2-12 grossly intact, no new focal deficits Psych: calm - Constitutional Vitals: Temp Pulse Resp BP Pulse Ox 98.4 F 111 H 22 127/74 87 10/17/17 08:09 10/17/17 08:22 10/17/17 08:22 10/17/17 08:09 10/17/17 10:47 General appearance: Present: no acute distress, well-nourished Results - Labs CBC & Chem 7: 10/17/17 06:37 10/17/17 06:37 Labs: Laboratory Last Values WBC 11.9 K/mm3 (4.5-11.0) H 10/17/17 06:37 RBC 3.53 M/mm3 (3.65-5.03) L 10/17/17 06:37 Hgb 10.6 gm/dl (11.8-15.2) L 10/17/17 06:37 Hct 31.7 % (35.5-45.6) L 10/17/17 06:37 MCV 90 fl (84-94) 10/17/17 06:37 MCH 30 pg (28-32) 10/17/17 06:37 MCHC 33 % (32-34) 10/17/17 06:37 RDW 14.3 % (13.2-15.2) 10/17/17 06:37 Plt Count 603 K/mm3 (140-440) H 10/17/17 06:37 Lymph % (Auto) 24.0 % (13.4-35.0) 10/04/17 07:49 [place] % (Auto) [employer] [employer] 10/09/17 08:26 Eos % (Auto) 0.8 % (0.0-4.3) 10/04/17 07:49 Baso % (Auto) 0.4 % (0.0-1.8) 10/04/17 07:49 Lymph # 1.4 K/mm3 (1.2-5.4) 10/04/17 07:49 [place] # 0.7 K/mm3 (0.0-0.8) 10/04/17 07:49 Eos # 0.0 K/mm3 (0.0-0.4) 10/04/17 07:49 Baso # 0.0 K/mm3 (0.0-0.1) 10/04/17 07:49 Add Manual Diff Complete 10/09/17 08:26 Total Counted 100 10/09/17 08:26 Seg Neutrophils % 63.6 % (40.0-70.0) 10/04/17 07:49 Seg Neuts % (Manual) 60.0 % (40.0-70.0) 10/09/17 08:26 Band Neutrophils % 4.0 % 10/09/17 08:26 Lymphocytes % (Manual) 8.0 % (13.4-35.0) L 10/09/17 08:26 Reactive Lymphs % (Man) 0 % 10/09/17 08:26 Monocytes % (Manual) 16.0 % (0.0-7.3) H 10/09/17 08:26 Eosinophils % (Manual) 12.0 % (0.0-4.3) H 10/09/17 08:26 Basophils % (Manual) 0 % (0.0-1.8) 10/09/17 08:26 Metamyelocytes % 0 % 10/09/17 08:26 Myelocytes % 0 % 10/09/17 08:26 Promyelocytes % 0 % 10/09/17 08:26 Blast Cells % 0 % 10/09/17 08:26 Nucleated RBC % Not Reportable 10/09/17 08:26 Seg Neutrophils # 3.8 K/mm3 (1.8-7.7) 10/04/17 07:49 Seg Neutrophils # Man 5.7 K/mm3 (1.8-7.7) 10/09/17 08:26 Band Neutrophils # 0.4 K/mm3 10/09/17 08:26 Abs Lymphs (Manual) 734 cells/uL (850-3900) L 10/05/17 05:57 Lymphocytes # (Manual) 0.8 K/mm3 (1.2-5.4) L 10/09/17 08:26 Abs React Lymphs (Man) 0.0 K/mm3 10/09/17 08:26 Monocytes # (Manual) 1.5 K/mm3 (0.0-0.8) H 10/09/17 08:26 Eosinophils # (Manual) 1.1 K/mm3 (0.0-0.4) H 10/09/17 08:26 Basophils # (Manual) 0.0 K/mm3 (0.0-0.1) 10/09/17 08:26 Metamyelocytes # 0.0 K/mm3 10/09/17 08:26 Myelocytes # 0.0 K/mm3 10/09/17 08:26 Promyelocytes # 0.0 K/mm3 10/09/17 08:26 Blast Cells # 0.0 K/mm3 10/09/17 08:26 WBC Morphology Not Reportable 10/09/17 08:26 Hypersegmented Neuts Not Reportable 10/09/17 08:26 Hyposegmented Neuts Not Reportable 10/09/17 08:26 Hypogranular Neuts Not Reportable 10/09/17 08:26 Smudge Cells Not Reportable 10/09/17 08:26 Toxic Granulation Not Reportable 10/09/17 08:26 Toxic Vacuolation Not Reportable 10/09/17 08:26 Dohle Bodies Not Reportable 10/09/17 08:26 Pelger-Huet Anomaly Not Reportable 10/09/17 08:26 Zora Rods Not Reportable 10/09/17 08:26 Platelet Estimate Consistent w auto 10/09/17 08:26 Clumped Platelets Not Reportable 10/09/17 08:26 Plt Clumps, EDTA Not Reportable 10/09/17 08:26 Large Platelets Not Reportable 10/09/17 08:26 Giant Platelets Not Reportable 10/09/17 08:26 Platelet Satelliting Not Reportable 10/09/17 08:26 Plt Morphology Comment Not Reportable 10/09/17 08:26 RBC Morphology Normal 10/09/17 08:26 Dimorphic RBCs Not Reportable 10/09/17 08:26 Polychromasia Not Reportable 10/09/17 08:26 Hypochromasia Not Reportable 10/09/17 08:26 Poikilocytosis Not Reportable 10/09/17 08:26 Anisocytosis Not Reportable 10/09/17 08:26 Microcytosis Not Reportable 10/09/17 08:26 Macrocytosis Not Reportable 10/09/17 08:26 Spherocytes Not Reportable 10/09/17 08:26 Pappenheimer Bodies Not Reportable 10/09/17 08:26 Sickle Cells Not Reportable 10/09/17 08:26 Target Cells Not Reportable 10/09/17 08:26 Tear Drop Cells Not Reportable 10/09/17 08:26 Ovalocytes Not Reportable 10/09/17 08:26 Helmet Cells Not Reportable 10/09/17 08:26 Estrada-Cohutta Bodies Not Reportable 10/09/17 08:26 [place] Rings Not Reportable 10/09/17 08:26 [place] Cells Not Reportable 10/09/17 08:26 Bite Cells Not Reportable 10/09/17 08:26 Crenated Cell Not Reportable 10/09/17 08:26 Elliptocytes Not Reportable 10/09/17 08:26 Acanthocytes (Spur) Not Reportable 10/09/17 08:26 Rouleaux Not Reportable 10/09/17 08:26 Hemoglobin C Crystals Not Reportable 10/09/17 08:26 Schistocytes Not Reportable 10/09/17 08:26 Malaria parasites Not Reportable 10/09/17 08:26 [place] Bodies Not Reportable 10/09/17 08:26 Hem Pathologist Commnt No 10/09/17 08:26 PT 15.5 Sec. (12.2-14.9) H 10/10/17 09:44 INR 1.17 (0.87-1.13) H 10/10/17 09:44 D-Dimer 614.10 ng/mlDDU (0-234) H 10/03/17 06:08 ABG pH 7.416 pH Units (7.350-7.450) 10/08/17 23:05 ABG pCO2 31.6 mm Hg 10/08/17 23:05 ABG pO2 83.5 mm Hg (80.0-90.0) 10/08/17 23:05 ABG HCO3 19.8 mmol/L (20.0-26.0) L 10/08/17 23:05 ABG O2 Saturation 96.6 % (95.0-99.0) 10/08/17 23:05 ABG O2 Content 12.6 (0.0-44) 10/08/17 23:05 ABG Base Excess -4.0 mmol/L (-2.0-3.0) L 10/08/17 23:05 ABG Hemoglobin 9.4 gm/dl (14.0-18.0) L 10/08/17 23:05 ABG Carboxyhemoglobin 1.5 % (0.0-5.0) 10/08/17 23:05 ABG Methemoglobin 1.0 % (0.0-1.5) 10/08/17 23:05 Oxyhemoglobin 94.2 % (95.0-99.0) L 10/08/17 23:05 FiO2 35 % 10/08/17 23:05 Sodium 132 mmol/L (137-145) L 10/17/17 06:37 Potassium 4.4 mmol/L (3.6-5.0) 10/17/17 06:37 Chloride 95.3 mmol/L (98-107) L 10/17/17 06:37 Carbon Dioxide 25 mmol/L (22-30) 10/17/17 06:37 Anion Gap 16 mmol/L 10/17/17 06:37 BUN 8 mg/dL (9-20) L 10/17/17 06:37 Creatinine 0.4 mg/dL (0.8-1.5) L 10/17/17 06:37 Estimated GFR > 60 ml/min 10/17/17 06:37 BUN/Creatinine Ratio 20 % 10/17/17 06:37 Glucose 119 mg/dL (75-100) H 10/17/17 06:37 POC Glucose 122 (70-105) H 10/14/17 20:32 Calcium 8.6 mg/dL (8.4-10.2) 10/17/17 06:37 Total Bilirubin 0.50 mg/dL (0.1-1.2) 10/07/17 13:21 AST 31 units/L (5-40) 10/07/17 13:21 ALT 14 units/L (7-56) 10/07/17 13:21 Alkaline Phosphatase 36 units/L (35-129) 10/07/17 13:21 Lactate Dehydrogenase 464 units/L (91-180) H 10/05/17 13:59 Total Creatine Kinase 452 units/L (55-170) H 10/03/17 04:26 CK-MB (CK-2) < 1.0 ng/mL (0.0-4.0) 10/03/17 04:26 CK-MB (CK-2) Rel Index 0.2 (0-4) 10/03/17 04:26 Troponin T < 0.010 ng/mL (0.00-0.029) 10/03/17 07:42 Total Protein 6.5 g/dL (6.3-8.2) 10/07/17 13:21 Albumin 3.1 g/dL (3.9-5) L 10/07/17 13:21 Albumin/Globulin Ratio 0.9 % 10/07/17 13:21 Lipase 41 units/L (13-60) 10/03/17 01:14 Urine Color Yellow (Yellow) 10/03/17 Unknown Urine Turbidity Clear (Clear) 10/03/17 Unknown Urine pH 5.0 (5.0-7.0) 10/03/17 Unknown Ur Specific [place] 1.024 (1.003-1.030) 10/03/17 Unknown Urine Protein 30 mg/dl mg/dL (Negative) 10/03/17 Unknown Urine Glucose (UA) Neg mg/dL (Negative) 10/03/17 Unknown Urine Ketones 20 mg/dL (Negative) 10/03/17 Unknown Urine Blood Neg (Negative) 10/03/17 Unknown Urine Nitrite Neg (Negative) 10/03/17 Unknown Urine Bilirubin Neg (Negative) 10/03/17 Unknown Urine Urobilinogen 4.0 mg/dL (<2.0) 10/03/17 Unknown Ur Leukocyte Esterase Neg (Negative) 10/03/17 Unknown Urine WBC (Auto) 1.0 /HPF (0.0-6.0) 10/03/17 Unknown Urine RBC (Auto) 2.0 /HPF (0.0-6.0) 10/03/17 Unknown Urine Mucus Few /HPF 10/03/17 Unknown Vancomycin Trough 26.0 ug/mL (5.0-20.0) H 10/11/17 17:42 Lymph Enumerat CD4/CD8 0.07 (0.86-5.00) L 10/05/17 05:57 % CD3 Cells 56 % (57-85) L 10/05/17 05:57 Absolute CD3 Count 410 cells/uL (840-3060) L 10/05/17 05:57 % CD4 Cells 4 % (30-61) L 10/05/17 05:57 Absolute CD4 Count 31 cells/uL (490-1740) L 10/05/17 05:57 % CD8 Cells 54 % (12-42) H 10/05/17 05:57 Absolute CD8 Count 436 cells/uL (180-1170) 10/05/17 05:57 % CD19 Cells 30 % (6-29) H 10/05/17 05:57 Absolute CD19 Count 194 cells/uL (110-660) 10/05/17 05:57 C. difficile Toxin A&B Negative (Negative) 10/04/17 11:04 HIV-1 RNA PCR copies/ml 441 Copies/mL H 10/05/17 05:57 HIV-1 RNA (PCR) log 2.64 Log cps/mL H 10/05/17 05:57 Urine Legionella Ag Not detected (Not Detected) 10/08/17 01:10 TB (QFT) Gold In Tube Negative (Negative) 10/07/17 16:25 TB Test (QFT) Nil 0.05 IU/mL 10/07/17 16:25 TB Test Mitogen - Nil 0.72 IU/mL 10/07/17 16:25 TB Test Antigen - Nil 0.00 IU/mL 10/07/17 16:25 Miscellaneous Test Flexitest 1 10/10/17 07:50
--- NOTE | 2017-10-17 13:25 | Progress Note ---
[facility]Still Complaining some shortness of breath but breathing better than before.Patient is on 5 litres O2.O2 saturation 87%%.Increase O2 to [address] him on venturi mask.Dr. Smith called said patients Quanteferon is negative. Patient undergone Bronchoscopy. BAL culture reported negative for Organisms. - Patient Problems (1) Chest pain Current Visit: Yes Status: Acute Plan to address problem: No complaint of chest pain today. (2) Cocaine use Current Visit: Yes Status: Acute Plan to address problem: Management as per primary care. (3) Pulmonary infiltrates Current Visit: Yes Status: Acute Plan to address problem: Patient is on zithromax and Bactrim. (4) HIV (human immunodeficiency virus infection) Current Visit: Yes Status: Acute Plan to address problem: Management as per infectious diseases. Subjective Date of service: 10/17/17 Principal diagnosis: Acute Hypoxemic Resp Failure; Bilateral Pneumonia; HIV +ve ; Chest pain Interval history: Patient alert, awake.Still Complaining some shortness of breath but breathing better than before.Patient is on 5 litres O2.O2 saturation 87%%.Increase O2 to [address] him on venturi mask.Dr. Smith called said patients Quanteferon is negative. Patient undergone Bronchoscopy. BAL culture reported negative for Organisms. Objective Vital Signs - 12hr 10/17/17 10/17/17 10/17/17 02:43 08:09 08:22 Temperature 98.4 F Pulse Rate 99 H 111 H Pulse Rate [ 111 H Anterior Bilateral Throughout] Respiratory 18 Rate Respiratory 22 Rate [Anterior Bilateral Throughout] Blood Pressure 127/74 O2 Sat by Pulse 82 L Oximetry 10/17/17 10:47 Temperature Pulse Rate Pulse Rate [ Anterior Bilateral Throughout] Respiratory Rate Respiratory Rate [Anterior Bilateral Throughout] Blood Pressure O2 Sat by Pulse 87 Oximetry Constitutional: other ( mild respiratory distress.) Eyes: non-icteric ENT: oropharynx moist Neck: supple, no JVD Effort: mildly labored Ascultation: Bilateral: diminished breath sounds, rales (bases) Percussion: Bilateral: not dull Cardiovascular: regular rate and rhythm, other (no rubs or murmurs) Gastrointestinal: normoactive bowel sounds, soft, non-tender, non-distended, other (No HSM) Integumentary: rash (? malar rash around face), other (poor skin turgor) Extremities: no cyanosis, no edema, pulses normal, no ischemia or petechiae Neurologic: normal mental status, non-focal exam, pupils equal and round, CN II- XII normal Psychiatric: mood appropriate, affect normal, anxious CBC and BMP: 10/17/17 06:37 10/17/17 06:37 ABG, PT/INR, D-dimer: ABG ABG pH 7.416 pH Units (7.350-7.450) 10/08/17 23:05 ABG pCO2 31.6 mm Hg 10/08/17 23:05 ABG pO2 83.5 mm Hg (80.0-90.0) 10/08/17 23:05 ABG O2 Saturation 96.6 % (95.0-99.0) 10/08/17 23:05 PT/INR, D-dimer PT 15.5 Sec. (12.2-14.9) H 10/10/17 09:44 INR 1.17 (0.87-1.13) H 10/10/17 09:44 D-Dimer 614.10 ng/mlDDU (0-234) H 10/03/17 06:08 Abnormal lab findings: Abnormal Labs 10/03/17 10/03/17 10/03/17 01:14 01:14 01:14 WBC RBC Hgb Hct Plt Count [place] % (Auto) 10.0 H Seg Neutrophils % 71.1 H Lymphocytes % (Manual) Monocytes % (Manual) Eosinophils % (Manual) Abs Lymphs (Manual) Lymphocytes # (Manual) Monocytes # (Manual) Eosinophils # (Manual) PT INR D-Dimer ABG HCO3 ABG Base Excess ABG Hemoglobin Oxyhemoglobin Sodium 129 L Potassium 3.5 L Chloride 94.4 L Carbon Dioxide 18 L BUN Creatinine Glucose POC Glucose Calcium 8.3 L Lactate Dehydrogenase Total Creatine Kinase 473 H Albumin Vancomycin Trough Lymph Enumerat CD4/CD8 % CD3 Cells Absolute CD3 Count % CD4 Cells Absolute CD4 Count % CD8 Cells % CD19 Cells HIV-1 RNA PCR copies/ml HIV-1 RNA (PCR) log 10/03/17 10/03/17 10/04/17 04:26 06:08 07:49 WBC RBC Hgb Hct Plt Count [place] % (Auto) 11.2 H Seg Neutrophils % Lymphocytes % (Manual) Monocytes % (Manual) Eosinophils % (Manual) Abs Lymphs (Manual) Lymphocytes # (Manual) Monocytes # (Manual) Eosinophils # (Manual) PT INR D-Dimer 614.10 H ABG HCO3 ABG Base Excess ABG Hemoglobin Oxyhemoglobin Sodium Potassium Chloride Carbon Dioxide BUN Creatinine Glucose POC Glucose Calcium Lactate Dehydrogenase Total Creatine Kinase 452 H Albumin Vancomycin Trough Lymph Enumerat CD4/CD8 % CD3 Cells Absolute CD3 Count % CD4 Cells Absolute CD4 Count % CD8 Cells % CD19 Cells HIV-1 RNA PCR copies/ml HIV-1 RNA (PCR) log 10/04/17 10/05/17 10/05/17 07:49 05:57 05:57 WBC RBC Hgb Hct Plt Count [place] % (Auto) Seg Neutrophils % Lymphocytes % (Manual) Monocytes % (Manual) Eosinophils % (Manual) Abs Lymphs (Manual) 734 L Lymphocytes # (Manual) Monocytes # (Manual) Eosinophils # (Manual) PT INR D-Dimer ABG HCO3 ABG Base Excess ABG Hemoglobin Oxyhemoglobin Sodium 128 L Potassium Chloride 95.9 L Carbon Dioxide 17 L BUN 8 L Creatinine Glucose POC Glucose Calcium 7.7 L Lactate Dehydrogenase Total Creatine Kinase Albumin Vancomycin Trough Lymph Enumerat CD4/CD8 0.07 L % CD3 Cells 56 L Absolute CD3 Count 410 L % CD4 Cells 4 L Absolute CD4 Count 31 L % CD8 Cells 54 H % CD19 Cells 30 H HIV-1 RNA PCR copies/ml 441 H HIV-1 RNA (PCR) log 2.64 H 10/05/17 10/05/17 10/05/17 13:59 13:59 13:59 WBC RBC Hgb Hct Plt Count [place] % (Auto) Seg Neutrophils % Lymphocytes % (Manual) Monocytes % (Manual) 11.0 H Eosinophils % (Manual) Abs Lymphs (Manual) Lymphocytes # (Manual) 0.7 L Monocytes # (Manual) Eosinophils # (Manual) PT INR D-Dimer ABG HCO3 ABG Base Excess ABG Hemoglobin Oxyhemoglobin Sodium 131 L Potassium Chloride 95.7 L Carbon Dioxide BUN 6 L Creatinine 0.7 L Glucose POC Glucose Calcium 8.1 L Lactate Dehydrogenase 464 H Total Creatine Kinase Albumin Vancomycin Trough Lymph Enumerat CD4/CD8 % CD3 Cells Absolute CD3 Count % CD4 Cells Absolute CD4 Count % CD8 Cells % CD19 Cells HIV-1 RNA PCR copies/ml HIV-1 RNA (PCR) log 10/07/17 10/07/17 10/08/17 13:21 13:21 23:05 WBC RBC Hgb Hct 34.7 L Plt Count [place] % (Auto) Seg Neutrophils % Lymphocytes % (Manual) Monocytes % (Manual) Eosinophils % (Manual) Abs Lymphs (Manual) Lymphocytes # (Manual) Monocytes # (Manual) Eosinophils # (Manual) PT INR D-Dimer ABG HCO3 19.8 L ABG Base Excess -4.0 L ABG Hemoglobin 9.4 L Oxyhemoglobin 94.2 L Sodium 127 L Potassium Chloride 93.4 L Carbon Dioxide 20 L BUN 4 L Creatinine 0.6 L Glucose POC Glucose Calcium 8.2 L Lactate Dehydrogenase Total Creatine Kinase Albumin 3.1 L Vancomycin Trough Lymph Enumerat CD4/CD8 % CD3 Cells Absolute CD3 Count % CD4 Cells Absolute CD4 Count % CD8 Cells % CD19 Cells HIV-1 RNA PCR copies/ml HIV-1 RNA (PCR) log 10/09/17 10/09/17 10/10/17 08:26 08:26 09:44 WBC RBC Hgb 11.3 L Hct 33.2 L Plt Count [place] % (Auto) Seg Neutrophils % Lymphocytes % (Manual) 8.0 L Monocytes % (Manual) 16.0 H Eosinophils % (Manual) 12.0 H Abs Lymphs (Manual) Lymphocytes # (Manual) 0.8 L Monocytes # (Manual) 1.5 H Eosinophils # (Manual) 1.1 H PT 15.5 H INR 1.17 H D-Dimer ABG HCO3 ABG Base Excess ABG Hemoglobin Oxyhemoglobin Sodium 132 L Potassium Chloride 97.2 L Carbon Dioxide 18 L BUN 7 L Creatinine 0.6 L Glucose POC Glucose Calcium Lactate Dehydrogenase Total Creatine Kinase Albumin Vancomycin Trough Lymph Enumerat CD4/CD8 % CD3 Cells Absolute CD3 Count % CD4 Cells Absolute CD4 Count % CD8 Cells % CD19 Cells HIV-1 RNA PCR copies/ml HIV-1 RNA (PCR) log 10/11/17 10/11/17 10/14/17 06:19 17:42 20:32 WBC RBC Hgb Hct Plt Count [place] % (Auto) Seg Neutrophils % Lymphocytes % (Manual) Monocytes % (Manual) Eosinophils % (Manual) Abs Lymphs (Manual) Lymphocytes # (Manual) Monocytes # (Manual) Eosinophils # (Manual) PT INR D-Dimer ABG HCO3 ABG Base Excess ABG Hemoglobin Oxyhemoglobin Sodium 129 L Potassium Chloride 94.6 L Carbon Dioxide 19 L BUN 8 L Creatinine 0.6 L Glucose POC Glucose 122 H Calcium Lactate Dehydrogenase Total Creatine Kinase Albumin Vancomycin Trough 26.0 H Lymph Enumerat CD4/CD8 % CD3 Cells Absolute CD3 Count % CD4 Cells Absolute CD4 Count % CD8 Cells % CD19 Cells HIV-1 RNA PCR copies/ml HIV-1 RNA (PCR) log 10/17/17 10/17/17 06:37 06:37 WBC 11.9 H RBC 3.53 L Hgb 10.6 L Hct 31.7 L Plt Count 603 H [place] % (Auto) Seg Neutrophils % Lymphocytes % (Manual) Monocytes % (Manual) Eosinophils % (Manual) Abs Lymphs (Manual) Lymphocytes # (Manual) Monocytes # (Manual) Eosinophils # (Manual) PT INR D-Dimer ABG HCO3 ABG Base Excess ABG Hemoglobin Oxyhemoglobin Sodium 132 L Potassium Chloride 95.3 L Carbon Dioxide BUN 8 L Creatinine 0.4 L Glucose 119 H POC Glucose Calcium Lactate Dehydrogenase Total Creatine Kinase Albumin Vancomycin Trough Lymph Enumerat CD4/CD8 % CD3 Cells Absolute CD3 Count % CD4 Cells Absolute CD4 Count % CD8 Cells % CD19 Cells HIV-1 RNA PCR copies/ml HIV-1 RNA (PCR) log Allied health notes reviewed: RT
--- NOTE | 2017-10-17 14:55 | Progress Note ---
Assessment and Plan Acute hypoxic respiraotry failure Multifocal pulmonary infiltrates- differentials include CAP, PJP, primary pulmonary lymphoma, fungal pneumonias, mycobacterial infections including TB and non-TB HIV-AIDS Fevers-resolved Substance abuse disorder -continue supplemental oxygen to keep O2 sats>90% - quantiferon negative - s/p bronchoscopy follow up cultures - Continue supplemental oxygen to keep O2 sats>90% - VTE prophylaxis - Antibiotics/anti-infective per ID service - Steroids -substance abuse counselling Subjective Date of service: 10/16/17 Principal diagnosis: Acute Hypoxemic Resp Failure; Bilateral Pneumonia; HIV +ve ; Chest pain Interval history: s/p bronchoscopy Seen and examined. Vitals, labs, medications, chart reviewed. No acute overnight events. Feels his breathing is improving Objective - Exam Narrative Exam: GEN: Ill-appearing NAD,awake, alert, oriented x4, cachexia, on 50% venturi mask HEENT: NCAT, EOMI, PERRL, NECK: supple, no adenopathy, no thyromegaly, no JVD CVS/HEART: RRR, S1S2, pulses present bilaterally CHEST/LUNGS: Diminished breath sounds bilaterally, Symmetrical chest expansion, good air entry bilaterally GI/Abdomen: soft, NTND, good bowel sounds, no guarding or rebound /Bladder: no suprapubic tenderness, no CVA or paraspinal tenderness EXT/Skin: no c/c/e, no obvious rash Neuro: CN 2-12 grossly intact, no new focal deficits Psych: calm Vital Signs - 12hr 10/17/17 10/17/17 10/17/17 08:09 08:22 08:32 Temperature 98.4 F Pulse Rate 111 H Pulse Rate [ 111 H 108 H Anterior Bilateral Throughout] Respiratory 18 Rate Respiratory 22 20 Rate [Anterior Bilateral Throughout] Blood Pressure 127/74 O2 Sat by Pulse 82 L Oximetry 10/17/17 10/17/17 10/17/17 10:47 13:44 13:54 Temperature Pulse Rate Pulse Rate [ 111 H 109 H Anterior Bilateral Throughout] Respiratory Rate Respiratory 22 20 Rate [Anterior Bilateral Throughout] Blood Pressure O2 Sat by Pulse 87 Oximetry Constitutional: other ( mild respiratory distress.) Eyes: non-icteric ENT: oropharynx moist Neck: supple, no JVD Effort: mildly labored Ascultation: Bilateral: diminished breath sounds, rales (bases) Percussion: Bilateral: not dull Cardiovascular: regular rate and rhythm, other (no rubs or murmurs) Gastrointestinal: normoactive bowel sounds, soft, non-tender, non-distended, other (No HSM) Integumentary: rash (? malar rash around face), other (poor skin turgor) Extremities: no cyanosis, no edema, pulses normal, no ischemia or petechiae Neurologic: normal mental status, non-focal exam, pupils equal and round, CN II- XII normal Psychiatric: mood appropriate, affect normal, anxious CBC and BMP: 10/17/17 06:37 10/17/17 06:37 ABG, PT/INR, D-dimer: ABG ABG pH 7.416 pH Units (7.350-7.450) 10/08/17 23:05 ABG pCO2 31.6 mm Hg 10/08/17 23:05 ABG pO2 83.5 mm Hg (80.0-90.0) 10/08/17 23:05 ABG O2 Saturation 96.6 % (95.0-99.0) 10/08/17 23:05 PT/INR, D-dimer PT 15.5 Sec. (12.2-14.9) H 10/10/17 09:44 INR 1.17 (0.87-1.13) H 10/10/17 09:44 D-Dimer 614.10 ng/mlDDU (0-234) H 10/03/17 06:08 Abnormal lab findings: Abnormal Labs 10/03/17 10/03/17 10/03/17 01:14 01:14 01:14 WBC RBC Hgb Hct Plt Count [place] % (Auto) 10.0 H Seg Neutrophils % 71.1 H Lymphocytes % (Manual) Monocytes % (Manual) Eosinophils % (Manual) Abs Lymphs (Manual) Lymphocytes # (Manual) Monocytes # (Manual) Eosinophils # (Manual) PT INR D-Dimer ABG HCO3 ABG Base Excess ABG Hemoglobin Oxyhemoglobin Sodium 129 L Potassium 3.5 L Chloride 94.4 L Carbon Dioxide 18 L BUN Creatinine Glucose POC Glucose Calcium 8.3 L Lactate Dehydrogenase Total Creatine Kinase 473 H Albumin Vancomycin Trough Lymph Enumerat CD4/CD8 % CD3 Cells Absolute CD3 Count % CD4 Cells Absolute CD4 Count % CD8 Cells % CD19 Cells HIV-1 RNA PCR copies/ml HIV-1 RNA (PCR) log 10/03/17 10/03/17 10/04/17 04:26 06:08 07:49 WBC RBC Hgb Hct Plt Count [place] % (Auto) 11.2 H Seg Neutrophils % Lymphocytes % (Manual) Monocytes % (Manual) Eosinophils % (Manual) Abs Lymphs (Manual) Lymphocytes # (Manual) Monocytes # (Manual) Eosinophils # (Manual) PT INR D-Dimer 614.10 H ABG HCO3 ABG Base Excess ABG Hemoglobin Oxyhemoglobin Sodium Potassium Chloride Carbon Dioxide BUN Creatinine Glucose POC Glucose Calcium Lactate Dehydrogenase Total Creatine Kinase 452 H Albumin Vancomycin Trough Lymph Enumerat CD4/CD8 % CD3 Cells Absolute CD3 Count % CD4 Cells Absolute CD4 Count % CD8 Cells % CD19 Cells HIV-1 RNA PCR copies/ml HIV-1 RNA (PCR) log 10/04/17 10/05/17 10/05/17 07:49 05:57 05:57 WBC RBC Hgb Hct Plt Count [place] % (Auto) Seg Neutrophils % Lymphocytes % (Manual) Monocytes % (Manual) Eosinophils % (Manual) Abs Lymphs (Manual) 734 L Lymphocytes # (Manual) Monocytes # (Manual) Eosinophils # (Manual) PT INR D-Dimer ABG HCO3 ABG Base Excess ABG Hemoglobin Oxyhemoglobin Sodium 128 L Potassium Chloride 95.9 L Carbon Dioxide 17 L BUN 8 L Creatinine Glucose POC Glucose Calcium 7.7 L Lactate Dehydrogenase Total Creatine Kinase Albumin Vancomycin Trough Lymph Enumerat CD4/CD8 0.07 L % CD3 Cells 56 L Absolute CD3 Count 410 L % CD4 Cells 4 L Absolute CD4 Count 31 L % CD8 Cells 54 H % CD19 Cells 30 H HIV-1 RNA PCR copies/ml 441 H HIV-1 RNA (PCR) log 2.64 H 10/05/17 10/05/17 10/05/17 13:59 13:59 13:59 WBC RBC Hgb Hct Plt Count [place] % (Auto) Seg Neutrophils % Lymphocytes % (Manual) Monocytes % (Manual) 11.0 H Eosinophils % (Manual) Abs Lymphs (Manual) Lymphocytes # (Manual) 0.7 L Monocytes # (Manual) Eosinophils # (Manual) PT INR D-Dimer ABG HCO3 ABG Base Excess ABG Hemoglobin Oxyhemoglobin Sodium 131 L Potassium Chloride 95.7 L Carbon Dioxide BUN 6 L Creatinine 0.7 L Glucose POC Glucose Calcium 8.1 L Lactate Dehydrogenase 464 H Total Creatine Kinase Albumin Vancomycin Trough Lymph Enumerat CD4/CD8 % CD3 Cells Absolute CD3 Count % CD4 Cells Absolute CD4 Count % CD8 Cells % CD19 Cells HIV-1 RNA PCR copies/ml HIV-1 RNA (PCR) log 10/07/17 10/07/17 10/08/17 13:21 13:21 23:05 WBC RBC Hgb Hct 34.7 L Plt Count [place] % (Auto) Seg Neutrophils % Lymphocytes % (Manual) Monocytes % (Manual) Eosinophils % (Manual) Abs Lymphs (Manual) Lymphocytes # (Manual) Monocytes # (Manual) Eosinophils # (Manual) PT INR D-Dimer ABG HCO3 19.8 L ABG Base Excess -4.0 L ABG Hemoglobin 9.4 L Oxyhemoglobin 94.2 L Sodium 127 L Potassium Chloride 93.4 L Carbon Dioxide 20 L BUN 4 L Creatinine 0.6 L Glucose POC Glucose Calcium 8.2 L Lactate Dehydrogenase Total Creatine Kinase Albumin 3.1 L Vancomycin Trough Lymph Enumerat CD4/CD8 % CD3 Cells Absolute CD3 Count % CD4 Cells Absolute CD4 Count % CD8 Cells % CD19 Cells HIV-1 RNA PCR copies/ml HIV-1 RNA (PCR) log 10/09/17 10/09/17 10/10/17 08:26 08:26 09:44 WBC RBC Hgb 11.3 L Hct 33.2 L Plt Count [place] % (Auto) Seg Neutrophils % Lymphocytes % (Manual) 8.0 L Monocytes % (Manual) 16.0 H Eosinophils % (Manual) 12.0 H Abs Lymphs (Manual) Lymphocytes # (Manual) 0.8 L Monocytes # (Manual) 1.5 H Eosinophils # (Manual) 1.1 H PT 15.5 H INR 1.17 H D-Dimer ABG HCO3 ABG Base Excess ABG Hemoglobin Oxyhemoglobin Sodium 132 L Potassium Chloride 97.2 L Carbon Dioxide 18 L BUN 7 L Creatinine 0.6 L Glucose POC Glucose Calcium Lactate Dehydrogenase Total Creatine Kinase Albumin Vancomycin Trough Lymph Enumerat CD4/CD8 % CD3 Cells Absolute CD3 Count % CD4 Cells Absolute CD4 Count % CD8 Cells % CD19 Cells HIV-1 RNA PCR copies/ml HIV-1 RNA (PCR) log 10/11/17 10/11/17 10/14/17 06:19 17:42 20:32 WBC RBC Hgb Hct Plt Count [place] % (Auto) Seg Neutrophils % Lymphocytes % (Manual) Monocytes % (Manual) Eosinophils % (Manual) Abs Lymphs (Manual) Lymphocytes # (Manual) Monocytes # (Manual) Eosinophils # (Manual) PT INR D-Dimer ABG HCO3 ABG Base Excess ABG Hemoglobin Oxyhemoglobin Sodium 129 L Potassium Chloride 94.6 L Carbon Dioxide 19 L BUN 8 L Creatinine 0.6 L Glucose POC Glucose 122 H Calcium Lactate Dehydrogenase Total Creatine Kinase Albumin Vancomycin Trough 26.0 H Lymph Enumerat CD4/CD8 % CD3 Cells Absolute CD3 Count % CD4 Cells Absolute CD4 Count % CD8 Cells % CD19 Cells HIV-1 RNA PCR copies/ml HIV-1 RNA (PCR) log 10/17/17 10/17/17 06:37 06:37 WBC 11.9 H RBC 3.53 L Hgb 10.6 L Hct 31.7 L Plt Count 603 H [place] % (Auto) Seg Neutrophils % Lymphocytes % (Manual) Monocytes % (Manual) Eosinophils % (Manual) Abs Lymphs (Manual) Lymphocytes # (Manual) Monocytes # (Manual) Eosinophils # (Manual) PT INR D-Dimer ABG HCO3 ABG Base Excess ABG Hemoglobin Oxyhemoglobin Sodium 132 L Potassium Chloride 95.3 L Carbon Dioxide BUN 8 L Creatinine 0.4 L Glucose 119 H POC Glucose Calcium Lactate Dehydrogenase Total Creatine Kinase Albumin Vancomycin Trough Lymph Enumerat CD4/CD8 % CD3 Cells Absolute CD3 Count % CD4 Cells Absolute CD4 Count % CD8 Cells % CD19 Cells HIV-1 RNA PCR copies/ml HIV-1 RNA (PCR) log Allied health notes reviewed: RT
--- NOTE | 2017-10-17 15:40 | Progress Note ---
Assessment and Plan Assessment: 1) Acute fever and Bilateral lung infiltrates in AIDS patient. DDx. CAP, PJP, atypical. -LDH high -Cryptococcal antigen negative. -Pneumococcal and Legionella ag negative -Quantiferon negative. -Unable to provide specimen for sputum culture -aspergillus ag negative -histoplasma negative -10/13 BAL neg for malignancy, AFB and fungal stains negative 2) Acute N/V/D. r/o C diff. Other opportunistic infections also on the differential: cryptosporidium, cyclospora, isospora, etc. Better - C diff negative. - Stool cx negative. - Cryptosporidium ag, Giardia ag negative - CT A/P possible gastroenteritis -Stools more formed. 3) Acute hypoxemic respiratory failure. On venti mask not better 4) Acute atypical chest pain. Negative stress test. 5) HIV/AIDS. On HAART. -HIV-VL 441 (10/05/17) -CD4 31/4%. (10/05/17) 6) Facial eczema Recommendations -taper down steroids -continue bactrim DS TID - D13 of 21 -continue azithromycin 1200 mg po qweek to prevent MAC -Continue prezcobix and truvada (pt taking his home mds) -monitor O2 requirements - taper down O2 -cancel HIV genotype Upon discharge will do bactrim DS 2 tab TID for 21 days until 10/25 and azithromycin 1200 mg po qweek to prevent MAC HIV clinic f/u with his regular provider Thanks Cherelle Smith MD Infectious Diseases Specialist [facility] M [phone] Subjective Date of service: 10/17/17 Principal diagnosis: Acute Hypoxemic Resp Failure; Bilateral Pneumonia; HIV +ve ; Chest pain Interval history: Feels better, now on NC O2 6L, no fever. Microbiology Blood cultures 10/03/17 NGTD 10/06 Fungal pending 10/08 Neg Cryptococcal antigen neg Stool WBC negative Culture 10/04 negative. Giardia ag negative Cryptosporodium ag negative Sputum culture 10/05 rejected 10/09 rejected 10/13 BAL neg for malignancy, AFB and fungal stains negative Solumedrol IV 10/15 Antibiotics azithro prophylaxis Bactrim 10/04- HAART (prezcobix and truvada, taking home meds). Prior antibiotics Ceftriaxone 10/04-10/05 Flagyl 10/04-10/05 Levofloxacin 10/06- IV vancomycin 10/05- Cefepime 10/05- Azithromycin 10/04- Fluconazole 10/07- Objective - Exam Narrative Exam: General appearance: Pt is in NAD, A&Ox3, conversant. On venti mask. Eyes: anicteric sclerae, moist conjunctivae; PERRLA HENT: Atraumatic; oropharynx clear with moist mucous membranes and no mucosal ulcerations/no oral thrush; normal hard and soft palate. Normal external ears. Neck: Trachea midline; supple, no thyromegaly or lymphadenopathy Lungs: CTA [place]en CV: S1,S2. Abdomen: Soft, non-tender; no masses or hepatosplenomegaly Extremities: No peripheral edema or extremity lymphadenopathy Skin: scaly facial rash Psych: Appropriate affect, alert and oriented to person, place and time. Neuro: alert and oriented x 3. Moving all extremities Lines: No CVL / PICC - Constitutional Vitals: Vital Signs Temp Pulse Resp BP Pulse Ox 98.4 F 109 H 20 127/74 87 10/17/17 08:09 10/17/17 13:54 10/17/17 13:54 10/17/17 08:09 10/17/17 10:47 Temperature -Last 24 Hours Temperature 98.4 F Temperature 98.3 F Temperature 98.1 F - Labs CBC & Chem 7: 10/17/17 06:37 10/17/17 06:37 Labs: Abnormal lab results 10/17/17 10/17/17 Range/Units 06:37 06:37 WBC 11.9 H (4.5-11.0) K/mm3 RBC 3.53 L (3.65-5.03) M/mm3 Hgb 10.6 L (11.8-15.2) gm/dl Hct 31.7 L (35.5-45.6) % Plt Count 603 H (140-440) K/mm3 Sodium 132 L (137-145) mmol/L Chloride 95.3 L (98-107) mmol/L BUN 8 L (9-20) mg/dL Creatinine 0.4 L (0.8-1.5) mg/dL Glucose 119 H (75-100) mg/dL
[2017-10-18] MEDS: NACL 0.9% 1000 ML 1,000 ML IV SCH ×5 (00:25→22:06)
[2017-10-18] MEDS: SODIUM CHLORIDE FLUSH SYRINGE 10 ML IV SCH ×3 (00:26→22:05)
[2017-10-18] MEDS: BACTRIM DS PO SCH ×3 (05:24→21:38)
[2017-10-18] MEDS: PROVENTIL IH SCH ×3 (08:53→21:15)
[2017-10-18] MEDS: LOVENOX SUB-Q SCH (10:16)
[2017-10-18] MEDS: NON-FORMULARY (Emtricitabin/Tenofovir [Truvada 200-300 Mg] 1 TAB) PO SCH (10:17)
[2017-10-18] MEDS: NON-FORMULARY (Darunavir/Cobicistat [Prezcobix 800 Mg-150 Mg Tablet] 1 EACH) PO SCH (10:17)
--- NOTE | 2017-10-18 15:52 | Progress Note ---
Assessment and Plan Assessment and plan: Patient is a 42-year-old man with history of HIV/AIDS, CD4 count of 34 pw CP -Acute hypoxic respiratory failure, poa: treat the pna, treat with O2, nebs -Sepsis/PNA -CT confirmed PNA, possible CAP, PCP vs IRIS, continue abx, BAL on was neg for TB smear; continue abx for 8 more days -Atypical CP, most likely pleuric from pna, with neg. stress thallium ; no further workup -elevated D-dimer; cta chest neg for PE -diarrhea, no evidence of opportunistic infections; improved, and resolved, was empirically rx with flagyl -Hyponatremia: receive nss -Substance Abuse; denies current abuse, was counseled -HIV/AIDS, started on HAART at [facility] 3wks prior to admission; continue HAART, ID consulted; suspect IRIS vs opportunist infection, Dian wakefield , she is to obtain his records from the [facility] d/w location worker, Dr. Gregg, on iv steroids 10/14: bronch today 10/15/17: d/w Dr. Anaya regarding bronch, clean airway, bx taken. Still on 35% venturi mask o2 10/16/17: d/w . Still waiting on AFBs, continue abx, continue to wean off o2 , still on Vm 35%, he resist movement because it cause coughing, Physical therapy has been ordered 10/17/17: out of isolation, still on Vm 35%, once he is on nasal canula then d/c , follow up with HIV clinic on [place]. Re-order PT and20 10/18; now on nasal cannula off venti mask, wants to go home History Interval history: He denies fever, feels his strength is improving and coming back. Denies shortness of breath currently but has been requiring oxygen, was weaned from 6- 5 L Hospitalist Physical - Physical exam Narrative exam: General.: Appears well, moderate distress, appears ill HEENT: Moist mucous membranes, extraocular muscles intact, no lymphadenopathy Neck: supple Cardiac: S1-S2 heard Lungs: decreased air entry Abdomen: soft , nontender, nondistended, bowel sounds positive Extremities: no edema clubbing or cyanosis Skin: no rash or lesions Neurologic: no gross focal deficits Psych: appropriate behavior, appropriate mood, corporative, judgment intact - Constitutional Vitals: Temp Pulse Resp BP Pulse Ox 97.9 F 101 H 20 111/63 92 10/18/17 12:27 10/18/17 13:23 10/18/17 13:23 10/18/17 12:27 10/18/17 12:27 General appearance: Present: no acute distress, well-nourished Results - Labs CBC & Chem 7: 10/17/17 06:37 10/17/17 06:37 Labs: Laboratory Last Values WBC 11.9 K/mm3 (4.5-11.0) H 10/17/17 06:37 RBC 3.53 M/mm3 (3.65-5.03) L 10/17/17 06:37 Hgb 10.6 gm/dl (11.8-15.2) L 10/17/17 06:37 Hct 31.7 % (35.5-45.6) L 10/17/17 06:37 MCV 90 fl (84-94) 10/17/17 06:37 MCH 30 pg (28-32) 10/17/17 06:37 MCHC 33 % (32-34) 10/17/17 06:37 RDW 14.3 % (13.2-15.2) 10/17/17 06:37 Plt Count 603 K/mm3 (140-440) H 10/17/17 06:37 Lymph % (Auto) 24.0 % (13.4-35.0) 10/04/17 07:49 [place] % (Auto) Public Defender 10/09/17 08:26 Eos % (Auto) 0.8 % (0.0-4.3) 10/04/17 07:49 Baso % (Auto) 0.4 % (0.0-1.8) 10/04/17 07:49 Lymph # 1.4 K/mm3 (1.2-5.4) 10/04/17 07:49 [place] # 0.7 K/mm3 (0.0-0.8) 10/04/17 07:49 Eos # 0.0 K/mm3 (0.0-0.4) 10/04/17 07:49 Baso # 0.0 K/mm3 (0.0-0.1) 10/04/17 07:49 Add Manual Diff Complete 10/09/17 08:26 Total Counted 100 10/09/17 08:26 Seg Neutrophils % 63.6 % (40.0-70.0) 10/04/17 07:49 Seg Neuts % (Manual) 60.0 % (40.0-70.0) 10/09/17 08:26 Band Neutrophils % 4.0 % 10/09/17 08:26 Lymphocytes % (Manual) 8.0 % (13.4-35.0) L 10/09/17 08:26 Reactive Lymphs % (Man) 0 % 10/09/17 08:26 Monocytes % (Manual) 16.0 % (0.0-7.3) H 10/09/17 08:26 Eosinophils % (Manual) 12.0 % (0.0-4.3) H 10/09/17 08:26 Basophils % (Manual) 0 % (0.0-1.8) 10/09/17 08:26 Metamyelocytes % 0 % 10/09/17 08:26 Myelocytes % 0 % 10/09/17 08:26 Promyelocytes % 0 % 10/09/17 08:26 Blast Cells % 0 % 10/09/17 08:26 Nucleated RBC % Not Reportable 10/09/17 08:26 Seg Neutrophils # 3.8 K/mm3 (1.8-7.7) 10/04/17 07:49 Seg Neutrophils # Man 5.7 K/mm3 (1.8-7.7) 10/09/17 08:26 Band Neutrophils # 0.4 K/mm3 10/09/17 08:26 Abs Lymphs (Manual) 734 cells/uL (850-3900) L 10/05/17 05:57 Lymphocytes # (Manual) 0.8 K/mm3 (1.2-5.4) L 10/09/17 08:26 Abs React Lymphs (Man) 0.0 K/mm3 10/09/17 08:26 Monocytes # (Manual) 1.5 K/mm3 (0.0-0.8) H 10/09/17 08:26 Eosinophils # (Manual) 1.1 K/mm3 (0.0-0.4) H 10/09/17 08:26 Basophils # (Manual) 0.0 K/mm3 (0.0-0.1) 10/09/17 08:26 Metamyelocytes # 0.0 K/mm3 10/09/17 08:26 Myelocytes # 0.0 K/mm3 10/09/17 08:26 Promyelocytes # 0.0 K/mm3 10/09/17 08:26 Blast Cells # 0.0 K/mm3 10/09/17 08:26 WBC Morphology Not Reportable 10/09/17 08:26 Hypersegmented Neuts Not Reportable 10/09/17 08:26 Hyposegmented Neuts Not Reportable 10/09/17 08:26 Hypogranular Neuts Not Reportable 10/09/17 08:26 Smudge Cells Not Reportable 10/09/17 08:26 Toxic Granulation Not Reportable 10/09/17 08:26 Toxic Vacuolation Not Reportable 10/09/17 08:26 Dohle Bodies Not Reportable 10/09/17 08:26 Pelger-Huet Anomaly Not Reportable 10/09/17 08:26 Zora Rods Not Reportable 10/09/17 08:26 Platelet Estimate Consistent w auto 10/09/17 08:26 Clumped Platelets Not Reportable 10/09/17 08:26 Plt Clumps, EDTA Not Reportable 10/09/17 08:26 Large Platelets Not Reportable 10/09/17 08:26 Giant Platelets Not Reportable 10/09/17 08:26 Platelet Satelliting Not Reportable 10/09/17 08:26 Plt Morphology Comment Not Reportable 10/09/17 08:26 RBC Morphology Normal 10/09/17 08:26 Dimorphic RBCs Not Reportable 10/09/17 08:26 Polychromasia Not Reportable 10/09/17 08:26 Hypochromasia Not Reportable 10/09/17 08:26 Poikilocytosis Not Reportable 10/09/17 08:26 Anisocytosis Not Reportable 10/09/17 08:26 Microcytosis Not Reportable 10/09/17 08:26 Macrocytosis Not Reportable 10/09/17 08:26 Spherocytes Not Reportable 10/09/17 08:26 Pappenheimer Bodies Not Reportable 10/09/17 08:26 Sickle Cells Not Reportable 10/09/17 08:26 Target Cells Not Reportable 10/09/17 08:26 Tear Drop Cells Not Reportable 10/09/17 08:26 Ovalocytes Not Reportable 10/09/17 08:26 Helmet Cells Not Reportable 10/09/17 08:26 Estrada-[place] Bodies Not Reportable 10/09/17 08:26 Brant Rings Not Reportable 10/09/17 08:26 Nathaniel Cells Not Reportable 10/09/17 08:26 Bite Cells Not Reportable 10/09/17 08:26 Crenated Cell Not Reportable 10/09/17 08:26 Elliptocytes Not Reportable 10/09/17 08:26 Acanthocytes (Spur) Not Reportable 10/09/17 08:26 Rouleaux Not Reportable 10/09/17 08:26 Hemoglobin C Crystals Not Reportable 10/09/17 08:26 Schistocytes Not Reportable 10/09/17 08:26 Malaria parasites Not Reportable 10/09/17 08:26 [place] Bodies Not Reportable 10/09/17 08:26 Hem Pathologist Commnt No 10/09/17 08:26 PT 15.5 Sec. (12.2-14.9) H 10/10/17 09:44 INR 1.17 (0.87-1.13) H 10/10/17 09:44 D-Dimer 614.10 ng/mlDDU (0-234) H 10/03/17 06:08 ABG pH 7.416 pH Units (7.350-7.450) 10/08/17 23:05 ABG pCO2 31.6 mm Hg 10/08/17 23:05 ABG pO2 83.5 mm Hg (80.0-90.0) 10/08/17 23:05 ABG HCO3 19.8 mmol/L (20.0-26.0) L 10/08/17 23:05 ABG O2 Saturation 96.6 % (95.0-99.0) 10/08/17 23:05 ABG O2 Content 12.6 (0.0-44) 10/08/17 23:05 ABG Base Excess -4.0 mmol/L (-2.0-3.0) L 10/08/17 23:05 ABG Hemoglobin 9.4 gm/dl (14.0-18.0) L 10/08/17 23:05 ABG Carboxyhemoglobin 1.5 % (0.0-5.0) 10/08/17 23:05 ABG Methemoglobin 1.0 % (0.0-1.5) 10/08/17 23:05 Oxyhemoglobin 94.2 % (95.0-99.0) L 10/08/17 23:05 FiO2 35 % 10/08/17 23:05 Sodium 132 mmol/L (137-145) L 10/17/17 06:37 Potassium 4.4 mmol/L (3.6-5.0) 10/17/17 06:37 Chloride 95.3 mmol/L (98-107) L 10/17/17 06:37 Carbon Dioxide 25 mmol/L (22-30) 10/17/17 06:37 Anion Gap 16 mmol/L 10/17/17 06:37 BUN 8 mg/dL (9-20) L 10/17/17 06:37 Creatinine 0.4 mg/dL (0.8-1.5) L 10/17/17 06:37 Estimated GFR > 60 ml/min 10/17/17 06:37 BUN/Creatinine Ratio 20 % 10/17/17 06:37 Glucose 119 mg/dL (75-100) H 10/17/17 06:37 POC Glucose 122 (70-105) H 10/14/17 20:32 Calcium 8.6 mg/dL (8.4-10.2) 10/17/17 06:37 Total Bilirubin 0.50 mg/dL (0.1-1.2) 10/07/17 13:21 AST 31 units/L (5-40) 10/07/17 13:21 ALT 14 units/L (7-56) 10/07/17 13:21 Alkaline Phosphatase 36 units/L (35-129) 10/07/17 13:21 Lactate Dehydrogenase 464 units/L (91-180) H 10/05/17 13:59 Total Creatine Kinase 452 units/L (55-170) H 10/03/17 04:26 CK-MB (CK-2) < 1.0 ng/mL (0.0-4.0) 10/03/17 04:26 CK-MB (CK-2) Rel Index 0.2 (0-4) 10/03/17 04:26 Troponin T < 0.010 ng/mL (0.00-0.029) 10/03/17 07:42 Total Protein 6.5 g/dL (6.3-8.2) 10/07/17 13:21 Albumin 3.1 g/dL (3.9-5) L 10/07/17 13:21 Albumin/Globulin Ratio 0.9 % 10/07/17 13:21 Lipase 41 units/L (13-60) 10/03/17 01:14 Urine Color Yellow (Yellow) 10/03/17 Unknown Urine Turbidity Clear (Clear) 10/03/17 Unknown Urine pH 5.0 (5.0-7.0) 10/03/17 Unknown Ur Specific [place] 1.024 (1.003-1.030) 10/03/17 Unknown Urine Protein 30 mg/dl mg/dL (Negative) 10/03/17 Unknown Urine Glucose (UA) Neg mg/dL (Negative) 10/03/17 Unknown Urine Ketones 20 mg/dL (Negative) 10/03/17 Unknown Urine Blood Neg (Negative) 10/03/17 Unknown Urine Nitrite Neg (Negative) 10/03/17 Unknown Urine Bilirubin Neg (Negative) 10/03/17 Unknown Urine Urobilinogen 4.0 mg/dL (<2.0) 10/03/17 Unknown Ur Leukocyte Esterase Neg (Negative) 10/03/17 Unknown Urine WBC (Auto) 1.0 /HPF (0.0-6.0) 10/03/17 Unknown Urine RBC (Auto) 2.0 /HPF (0.0-6.0) 10/03/17 Unknown Urine Mucus Few /HPF 10/03/17 Unknown Vancomycin Trough 26.0 ug/mL (5.0-20.0) H 10/11/17 17:42 Lymph Enumerat CD4/CD8 0.07 (0.86-5.00) L 10/05/17 05:57 % CD3 Cells 56 % (57-85) L 10/05/17 05:57 Absolute CD3 Count 410 cells/uL (840-3060) L 10/05/17 05:57 % CD4 Cells 4 % (30-61) L 10/05/17 05:57 Absolute CD4 Count 31 cells/uL (490-1740) L 10/05/17 05:57 % CD8 Cells 54 % (12-42) H 10/05/17 05:57 Absolute CD8 Count 436 cells/uL (180-1170) 10/05/17 05:57 % CD19 Cells 30 % (6-29) H 10/05/17 05:57 Absolute CD19 Count 194 cells/uL (110-660) 10/05/17 05:57 C. difficile Toxin A&B Negative (Negative) 10/04/17 11:04 HIV-1 RNA PCR copies/ml 441 Copies/mL H 10/05/17 05:57 HIV-1 RNA (PCR) log 2.64 Log cps/mL H 10/05/17 05:57 Urine Legionella Ag Not detected (Not Detected) 10/08/17 01:10 TB (QFT) Gold In Tube Negative (Negative) 10/07/17 16:25 TB Test (QFT) Nil 0.05 IU/mL 10/07/17 16:25 TB Test Mitogen - Nil 0.72 IU/mL 10/07/17 16:25 TB Test Antigen - Nil 0.00 IU/mL 10/07/17 16:25 Miscellaneous Test Flexitest 1 10/10/17 07:50
--- NOTE | 2017-10-18 18:24 | Progress Note ---
Assessment and Plan Patient alert, awake.Says breathing better than before.Patient is on 6 litres O2.O2 saturation 98%.Recommend to Decrease O2 to 4 litres Patient undergone Bronchoscopy. BAL culture reported negative for Organisms. Sputum and broncial specimens reported AFB smear negative. . - Patient Problems (1) Chest pain Current Visit: Yes Status: Acute Plan to address problem: No complaint of chest pain today. (2) Cocaine use Current Visit: Yes Status: Acute Plan to address problem: Management as per primary care. (3) Pulmonary infiltrates Current Visit: Yes Status: Acute Plan to address problem: Patient is on zithromax and Bactrim. (4) HIV (human immunodeficiency virus infection) Current Visit: Yes Status: Acute Plan to address problem: Management as per infectious diseases. Subjective Date of service: 10/18/17 Principal diagnosis: Acute Hypoxemic Resp Failure; Bilateral Pneumonia; HIV +ve ; Chest pain Interval history: Patient alert, awake.Says breathing better than before.Patient is on 6 litres O2.O2 saturation 98%.Recommend to Decrease O2 to 4 litres Patient undergone Bronchoscopy. BAL culture reported negative for Organisms. Sputum and broncial specimens reported AFB smear negative. Objective Vital Signs - 12hr 10/18/17 10/18/17 10/18/17 08:47 08:53 09:03 Temperature 98.0 F Pulse Rate 92 H Pulse Rate [ 98 H 103 H Anterior Bilateral Throughout] Respiratory 14 Rate Respiratory 20 20 Rate [Anterior Bilateral Throughout] Blood Pressure 117/75 O2 Sat by Pulse 92 93 Oximetry 10/18/17 10/18/17 10/18/17 10:00 12:27 13:13 Temperature 97.9 F Pulse Rate 101 H 101 H Pulse Rate [ 95 H Anterior Bilateral Throughout] Respiratory 20 18 Rate Respiratory 20 Rate [Anterior Bilateral Throughout] Blood Pressure 111/63 O2 Sat by Pulse 92 Oximetry 10/18/17 13:23 Temperature Pulse Rate Pulse Rate [ 101 H Anterior Bilateral Throughout] Respiratory Rate Respiratory 20 Rate [Anterior Bilateral Throughout] Blood Pressure O2 Sat by Pulse Oximetry Constitutional: no acute distress, alert, other ( mild respiratory distress.) Eyes: non-icteric ENT: oropharynx moist Neck: supple, no JVD Effort: mildly labored Ascultation: Bilateral: diminished breath sounds, rales (bases) Percussion: Bilateral: not dull Cardiovascular: regular rate and rhythm, other (no rubs or murmurs) Gastrointestinal: normoactive bowel sounds, soft, non-tender, non-distended, other (No HSM) Integumentary: rash (? malar rash around face), other (poor skin turgor) Extremities: no cyanosis, no edema, pulses normal, no ischemia or petechiae Neurologic: normal mental status, non-focal exam, pupils equal and round, CN II- XII normal Psychiatric: mood appropriate, affect normal, anxious CBC and BMP: 10/17/17 06:37 10/17/17 06:37 ABG, PT/INR, D-dimer: ABG ABG pH 7.416 pH Units (7.350-7.450) 10/08/17 23:05 ABG pCO2 31.6 mm Hg 10/08/17 23:05 ABG pO2 83.5 mm Hg (80.0-90.0) 10/08/17 23:05 ABG O2 Saturation 96.6 % (95.0-99.0) 10/08/17 23:05 PT/INR, D-dimer PT 15.5 Sec. (12.2-14.9) H 10/10/17 09:44 INR 1.17 (0.87-1.13) H 10/10/17 09:44 D-Dimer 614.10 ng/mlDDU (0-234) H 10/03/17 06:08 Abnormal lab findings: Abnormal Labs 10/03/17 10/03/17 10/03/17 01:14 01:14 01:14 WBC RBC Hgb Hct Plt Count [place] % (Auto) 10.0 H Seg Neutrophils % 71.1 H Lymphocytes % (Manual) Monocytes % (Manual) Eosinophils % (Manual) Abs Lymphs (Manual) Lymphocytes # (Manual) Monocytes # (Manual) Eosinophils # (Manual) PT INR D-Dimer ABG HCO3 ABG Base Excess ABG Hemoglobin Oxyhemoglobin Sodium 129 L Potassium 3.5 L Chloride 94.4 L Carbon Dioxide 18 L BUN Creatinine Glucose POC Glucose Calcium 8.3 L Lactate Dehydrogenase Total Creatine Kinase 473 H Albumin Vancomycin Trough Lymph Enumerat CD4/CD8 % CD3 Cells Absolute CD3 Count % CD4 Cells Absolute CD4 Count % CD8 Cells % CD19 Cells HIV-1 RNA PCR copies/ml HIV-1 RNA (PCR) log 10/03/17 10/03/17 10/04/17 04:26 06:08 07:49 WBC RBC Hgb Hct Plt Count [place] % (Auto) 11.2 H Seg Neutrophils % Lymphocytes % (Manual) Monocytes % (Manual) Eosinophils % (Manual) Abs Lymphs (Manual) Lymphocytes # (Manual) Monocytes # (Manual) Eosinophils # (Manual) PT INR D-Dimer 614.10 H ABG HCO3 ABG Base Excess ABG Hemoglobin Oxyhemoglobin Sodium Potassium Chloride Carbon Dioxide BUN Creatinine Glucose POC Glucose Calcium Lactate Dehydrogenase Total Creatine Kinase 452 H Albumin Vancomycin Trough Lymph Enumerat CD4/CD8 % CD3 Cells Absolute CD3 Count % CD4 Cells Absolute CD4 Count % CD8 Cells % CD19 Cells HIV-1 RNA PCR copies/ml HIV-1 RNA (PCR) log 10/04/17 10/05/17 10/05/17 07:49 05:57 05:57 WBC RBC Hgb Hct Plt Count [place] % (Auto) Seg Neutrophils % Lymphocytes % (Manual) Monocytes % (Manual) Eosinophils % (Manual) Abs Lymphs (Manual) 734 L Lymphocytes # (Manual) Monocytes # (Manual) Eosinophils # (Manual) PT INR D-Dimer ABG HCO3 ABG Base Excess ABG Hemoglobin Oxyhemoglobin Sodium 128 L Potassium Chloride 95.9 L Carbon Dioxide 17 L BUN 8 L Creatinine Glucose POC Glucose Calcium 7.7 L Lactate Dehydrogenase Total Creatine Kinase Albumin Vancomycin Trough Lymph Enumerat CD4/CD8 0.07 L % CD3 Cells 56 L Absolute CD3 Count 410 L % CD4 Cells 4 L Absolute CD4 Count 31 L % CD8 Cells 54 H % CD19 Cells 30 H HIV-1 RNA PCR copies/ml 441 H HIV-1 RNA (PCR) log 2.64 H 10/05/17 10/05/17 10/05/17 13:59 13:59 13:59 WBC RBC Hgb Hct Plt Count [place] % (Auto) Seg Neutrophils % Lymphocytes % (Manual) Monocytes % (Manual) 11.0 H Eosinophils % (Manual) Abs Lymphs (Manual) Lymphocytes # (Manual) 0.7 L Monocytes # (Manual) Eosinophils # (Manual) PT INR D-Dimer ABG HCO3 ABG Base Excess ABG Hemoglobin Oxyhemoglobin Sodium 131 L Potassium Chloride 95.7 L Carbon Dioxide BUN 6 L Creatinine 0.7 L Glucose POC Glucose Calcium 8.1 L Lactate Dehydrogenase 464 H Total Creatine Kinase Albumin Vancomycin Trough Lymph Enumerat CD4/CD8 % CD3 Cells Absolute CD3 Count % CD4 Cells Absolute CD4 Count % CD8 Cells % CD19 Cells HIV-1 RNA PCR copies/ml HIV-1 RNA (PCR) log 10/07/17 10/07/17 10/08/17 13:21 13:21 23:05 WBC RBC Hgb Hct 34.7 L Plt Count [place] % (Auto) Seg Neutrophils % Lymphocytes % (Manual) Monocytes % (Manual) Eosinophils % (Manual) Abs Lymphs (Manual) Lymphocytes # (Manual) Monocytes # (Manual) Eosinophils # (Manual) PT INR D-Dimer ABG HCO3 19.8 L ABG Base Excess -4.0 L ABG Hemoglobin 9.4 L Oxyhemoglobin 94.2 L Sodium 127 L Potassium Chloride 93.4 L Carbon Dioxide 20 L BUN 4 L Creatinine 0.6 L Glucose POC Glucose Calcium 8.2 L Lactate Dehydrogenase Total Creatine Kinase Albumin 3.1 L Vancomycin Trough Lymph Enumerat CD4/CD8 % CD3 Cells Absolute CD3 Count % CD4 Cells Absolute CD4 Count % CD8 Cells % CD19 Cells HIV-1 RNA PCR copies/ml HIV-1 RNA (PCR) log 10/09/17 10/09/17 10/10/17 08:26 08:26 09:44 WBC RBC Hgb 11.3 L Hct 33.2 L Plt Count [place] % (Auto) Seg Neutrophils % Lymphocytes % (Manual) 8.0 L Monocytes % (Manual) 16.0 H Eosinophils % (Manual) 12.0 H Abs Lymphs (Manual) Lymphocytes # (Manual) 0.8 L Monocytes # (Manual) 1.5 H Eosinophils # (Manual) 1.1 H PT 15.5 H INR 1.17 H D-Dimer ABG HCO3 ABG Base Excess ABG Hemoglobin Oxyhemoglobin Sodium 132 L Potassium Chloride 97.2 L Carbon Dioxide 18 L BUN 7 L Creatinine 0.6 L Glucose POC Glucose Calcium Lactate Dehydrogenase Total Creatine Kinase Albumin Vancomycin Trough Lymph Enumerat CD4/CD8 % CD3 Cells Absolute CD3 Count % CD4 Cells Absolute CD4 Count % CD8 Cells % CD19 Cells HIV-1 RNA PCR copies/ml HIV-1 RNA (PCR) log 10/11/17 10/11/17 10/14/17 06:19 17:42 20:32 WBC RBC Hgb Hct Plt Count [place] % (Auto) Seg Neutrophils % Lymphocytes % (Manual) Monocytes % (Manual) Eosinophils % (Manual) Abs Lymphs (Manual) Lymphocytes # (Manual) Monocytes # (Manual) Eosinophils # (Manual) PT INR D-Dimer ABG HCO3 ABG Base Excess ABG Hemoglobin Oxyhemoglobin Sodium 129 L Potassium Chloride 94.6 L Carbon Dioxide 19 L BUN 8 L Creatinine 0.6 L Glucose POC Glucose 122 H Calcium Lactate Dehydrogenase Total Creatine Kinase Albumin Vancomycin Trough 26.0 H Lymph Enumerat CD4/CD8 % CD3 Cells Absolute CD3 Count % CD4 Cells Absolute CD4 Count % CD8 Cells % CD19 Cells HIV-1 RNA PCR copies/ml HIV-1 RNA (PCR) log 10/17/17 10/17/17 06:37 06:37 WBC 11.9 H RBC 3.53 L Hgb 10.6 L Hct 31.7 L Plt Count 603 H [place] % (Auto) Seg Neutrophils % Lymphocytes % (Manual) Monocytes % (Manual) Eosinophils % (Manual) Abs Lymphs (Manual) Lymphocytes # (Manual) Monocytes # (Manual) Eosinophils # (Manual) PT INR D-Dimer ABG HCO3 ABG Base Excess ABG Hemoglobin Oxyhemoglobin Sodium 132 L Potassium Chloride 95.3 L Carbon Dioxide BUN 8 L Creatinine 0.4 L Glucose 119 H POC Glucose Calcium Lactate Dehydrogenase Total Creatine Kinase Albumin Vancomycin Trough Lymph Enumerat CD4/CD8 % CD3 Cells Absolute CD3 Count % CD4 Cells Absolute CD4 Count % CD8 Cells % CD19 Cells HIV-1 RNA PCR copies/ml HIV-1 RNA (PCR) log Allied health notes reviewed: RT
[2017-10-19] MEDS: BACTRIM DS PO SCH ×3 (06:10→23:01)
[2017-10-19] MEDS: PROVENTIL IH SCH ×3 (08:18→19:59)
[2017-10-19] MEDS: NACL 0.9% 1000 ML 1,000 ML IV SCH (08:35)
--- NOTE | 2017-10-19 09:55 | Progress Note ---
Assessment and Plan Acute hypoxic respiraotry failure Multifocal pulmonary infiltrates- differentials include CAP, PJP, primary pulmonary lymphoma, fungal pneumonias, mycobacterial infections including TB and non-TB HIV-AIDS Fevers-resolved Substance abuse disorder -continue supplemental oxygen to keep O2 sats>90% - quantiferon negative - s/p bronchoscopy Samples negative for AFB and fungus on smears. - VTE prophylaxis - Antibiotics/anti-infective per ID service - Steroids -substance abuse counselling -Follow up with me in 3-4 weeks post discharge Subjective Date of service: 10/19/17 Principal diagnosis: Acute Hypoxemic Resp Failure; Bilateral Pneumonia; HIV +ve ; Chest pain Interval history: s/p bronchoscopy Seen and examined. Vitals, labs, medications, chart reviewed. No acute overnight events. Feels his breathing is improving Remains on 4L/min with O2 sats at 92% Objective Vital Signs - 12hr 10/18/17 10/18/17 10/19/17 22:00 23:19 03:59 Temperature 98.1 F 97.4 F L Pulse Rate 105 H 91 H Respiratory 22 16 16 Rate Blood Pressure 108/60 113/68 O2 Sat by Pulse 91 95 Oximetry Constitutional: no acute distress, alert, other ( mild respiratory distress.) Eyes: non-icteric ENT: oropharynx moist Neck: supple, no JVD Effort: mildly labored Ascultation: Bilateral: diminished breath sounds, rales (bases) Percussion: Bilateral: not dull Cardiovascular: regular rate and rhythm, other (no rubs or murmurs) Gastrointestinal: normoactive bowel sounds, soft, non-tender, non-distended, other (No HSM) Integumentary: rash (? malar rash around face), other (poor skin turgor) Extremities: no cyanosis, no edema, pulses normal, no ischemia or petechiae Neurologic: normal mental status, non-focal exam, pupils equal and round, CN II- XII normal Psychiatric: mood appropriate, affect normal, anxious CBC and BMP: 10/17/17 06:37 10/17/17 06:37 ABG, PT/INR, D-dimer: ABG ABG pH 7.416 pH Units (7.350-7.450) 10/08/17 23:05 ABG pCO2 31.6 mm Hg 10/08/17 23:05 ABG pO2 83.5 mm Hg (80.0-90.0) 10/08/17 23:05 ABG O2 Saturation 96.6 % (95.0-99.0) 10/08/17 23:05 PT/INR, D-dimer PT 15.5 Sec. (12.2-14.9) H 10/10/17 09:44 INR 1.17 (0.87-1.13) H 10/10/17 09:44 D-Dimer 614.10 ng/mlDDU (0-234) H 10/03/17 06:08 Abnormal lab findings: Abnormal Labs 10/03/17 10/03/17 10/03/17 01:14 01:14 01:14 WBC RBC Hgb Hct Plt Count [place] % (Auto) 10.0 H Seg Neutrophils % 71.1 H Lymphocytes % (Manual) Monocytes % (Manual) Eosinophils % (Manual) Abs Lymphs (Manual) Lymphocytes # (Manual) Monocytes # (Manual) Eosinophils # (Manual) PT INR D-Dimer ABG HCO3 ABG Base Excess ABG Hemoglobin Oxyhemoglobin Sodium 129 L Potassium 3.5 L Chloride 94.4 L Carbon Dioxide 18 L BUN Creatinine Glucose POC Glucose Calcium 8.3 L Lactate Dehydrogenase Total Creatine Kinase 473 H Albumin Vancomycin Trough Lymph Enumerat CD4/CD8 % CD3 Cells Absolute CD3 Count % CD4 Cells Absolute CD4 Count % CD8 Cells % CD19 Cells HIV-1 RNA PCR copies/ml HIV-1 RNA (PCR) log 10/03/17 10/03/17 10/04/17 04:26 06:08 07:49 WBC RBC Hgb Hct Plt Count [place] % (Auto) 11.2 H Seg Neutrophils % Lymphocytes % (Manual) Monocytes % (Manual) Eosinophils % (Manual) Abs Lymphs (Manual) Lymphocytes # (Manual) Monocytes # (Manual) Eosinophils # (Manual) PT INR D-Dimer 614.10 H ABG HCO3 ABG Base Excess ABG Hemoglobin Oxyhemoglobin Sodium Potassium Chloride Carbon Dioxide BUN Creatinine Glucose POC Glucose Calcium Lactate Dehydrogenase Total Creatine Kinase 452 H Albumin Vancomycin Trough Lymph Enumerat CD4/CD8 % CD3 Cells Absolute CD3 Count % CD4 Cells Absolute CD4 Count % CD8 Cells % CD19 Cells HIV-1 RNA PCR copies/ml HIV-1 RNA (PCR) log 10/04/17 10/05/17 10/05/17 07:49 05:57 05:57 WBC RBC Hgb Hct Plt Count [place] % (Auto) Seg Neutrophils % Lymphocytes % (Manual) Monocytes % (Manual) Eosinophils % (Manual) Abs Lymphs (Manual) 734 L Lymphocytes # (Manual) Monocytes # (Manual) Eosinophils # (Manual) PT INR D-Dimer ABG HCO3 ABG Base Excess ABG Hemoglobin Oxyhemoglobin Sodium 128 L Potassium Chloride 95.9 L Carbon Dioxide 17 L BUN 8 L Creatinine Glucose POC Glucose Calcium 7.7 L Lactate Dehydrogenase Total Creatine Kinase Albumin Vancomycin Trough Lymph Enumerat CD4/CD8 0.07 L % CD3 Cells 56 L Absolute CD3 Count 410 L % CD4 Cells 4 L Absolute CD4 Count 31 L % CD8 Cells 54 H % CD19 Cells 30 H HIV-1 RNA PCR copies/ml 441 H HIV-1 RNA (PCR) log 2.64 H 10/05/17 10/05/17 10/05/17 13:59 13:59 13:59 WBC RBC Hgb Hct Plt Count [place] % (Auto) Seg Neutrophils % Lymphocytes % (Manual) Monocytes % (Manual) 11.0 H Eosinophils % (Manual) Abs Lymphs (Manual) Lymphocytes # (Manual) 0.7 L Monocytes # (Manual) Eosinophils # (Manual) PT INR D-Dimer ABG HCO3 ABG Base Excess ABG Hemoglobin Oxyhemoglobin Sodium 131 L Potassium Chloride 95.7 L Carbon Dioxide BUN 6 L Creatinine 0.7 L Glucose POC Glucose Calcium 8.1 L Lactate Dehydrogenase 464 H Total Creatine Kinase Albumin Vancomycin Trough Lymph Enumerat CD4/CD8 % CD3 Cells Absolute CD3 Count % CD4 Cells Absolute CD4 Count % CD8 Cells % CD19 Cells HIV-1 RNA PCR copies/ml HIV-1 RNA (PCR) log 10/07/17 10/07/17 10/08/17 13:21 13:21 23:05 WBC RBC Hgb Hct 34.7 L Plt Count [place] % (Auto) Seg Neutrophils % Lymphocytes % (Manual) Monocytes % (Manual) Eosinophils % (Manual) Abs Lymphs (Manual) Lymphocytes # (Manual) Monocytes # (Manual) Eosinophils # (Manual) PT INR D-Dimer ABG HCO3 19.8 L ABG Base Excess -4.0 L ABG Hemoglobin 9.4 L Oxyhemoglobin 94.2 L Sodium 127 L Potassium Chloride 93.4 L Carbon Dioxide 20 L BUN 4 L Creatinine 0.6 L Glucose POC Glucose Calcium 8.2 L Lactate Dehydrogenase Total Creatine Kinase Albumin 3.1 L Vancomycin Trough Lymph Enumerat CD4/CD8 % CD3 Cells Absolute CD3 Count % CD4 Cells Absolute CD4 Count % CD8 Cells % CD19 Cells HIV-1 RNA PCR copies/ml HIV-1 RNA (PCR) log 10/09/17 10/09/17 10/10/17 08:26 08:26 09:44 WBC RBC Hgb 11.3 L Hct 33.2 L Plt Count [place] % (Auto) Seg Neutrophils % Lymphocytes % (Manual) 8.0 L Monocytes % (Manual) 16.0 H Eosinophils % (Manual) 12.0 H Abs Lymphs (Manual) Lymphocytes # (Manual) 0.8 L Monocytes # (Manual) 1.5 H Eosinophils # (Manual) 1.1 H PT 15.5 H INR 1.17 H D-Dimer ABG HCO3 ABG Base Excess ABG Hemoglobin Oxyhemoglobin Sodium 132 L Potassium Chloride 97.2 L Carbon Dioxide 18 L BUN 7 L Creatinine 0.6 L Glucose POC Glucose Calcium Lactate Dehydrogenase Total Creatine Kinase Albumin Vancomycin Trough Lymph Enumerat CD4/CD8 % CD3 Cells Absolute CD3 Count % CD4 Cells Absolute CD4 Count % CD8 Cells % CD19 Cells HIV-1 RNA PCR copies/ml HIV-1 RNA (PCR) log 10/11/17 10/11/17 10/14/17 06:19 17:42 20:32 WBC RBC Hgb Hct Plt Count [place] % (Auto) Seg Neutrophils % Lymphocytes % (Manual) Monocytes % (Manual) Eosinophils % (Manual) Abs Lymphs (Manual) Lymphocytes # (Manual) Monocytes # (Manual) Eosinophils # (Manual) PT INR D-Dimer ABG HCO3 ABG Base Excess ABG Hemoglobin Oxyhemoglobin Sodium 129 L Potassium Chloride 94.6 L Carbon Dioxide 19 L BUN 8 L Creatinine 0.6 L Glucose POC Glucose 122 H Calcium Lactate Dehydrogenase Total Creatine Kinase Albumin Vancomycin Trough 26.0 H Lymph Enumerat CD4/CD8 % CD3 Cells Absolute CD3 Count % CD4 Cells Absolute CD4 Count % CD8 Cells % CD19 Cells HIV-1 RNA PCR copies/ml HIV-1 RNA (PCR) log 10/17/17 10/17/17 06:37 06:37 WBC 11.9 H RBC 3.53 L Hgb 10.6 L Hct 31.7 L Plt Count 603 H [place] % (Auto) Seg Neutrophils % Lymphocytes % (Manual) Monocytes % (Manual) Eosinophils % (Manual) Abs Lymphs (Manual) Lymphocytes # (Manual) Monocytes # (Manual) Eosinophils # (Manual) PT INR D-Dimer ABG HCO3 ABG Base Excess ABG Hemoglobin Oxyhemoglobin Sodium 132 L Potassium Chloride 95.3 L Carbon Dioxide BUN 8 L Creatinine 0.4 L Glucose 119 H POC Glucose Calcium Lactate Dehydrogenase Total Creatine Kinase Albumin Vancomycin Trough Lymph Enumerat CD4/CD8 % CD3 Cells Absolute CD3 Count % CD4 Cells Absolute CD4 Count % CD8 Cells % CD19 Cells HIV-1 RNA PCR copies/ml HIV-1 RNA (PCR) log Allied health notes reviewed: RT
[2017-10-19] MEDS: NON-FORMULARY (Darunavir/Cobicistat [Prezcobix 800 Mg-150 Mg Tablet] 1 EACH) PO SCH (10:00)
[2017-10-19] MEDS: NON-FORMULARY (Emtricitabin/Tenofovir [Truvada 200-300 Mg] 1 TAB) PO SCH (10:00)
[2017-10-19] MEDS: LOVENOX SUB-Q SCH (11:51)
[2017-10-19] MEDS: SODIUM CHLORIDE FLUSH SYRINGE 10 ML IV SCH ×2 (11:54→23:02)
--- NOTE | 2017-10-19 12:49 | XRay Report ---
CHEST TWO VIEWS: 10/19/17 CLINICAL: Followup pneumonia COMPARISON: 10/14/17 FINDINGS: Interval improvement with decreased multilobar lung opacities. The greatest airspace disease is in the right lower lobe. The right costophrenic angle is blunted on both views. Normal heart and pulmonary vessels. No tubes or lines. IMPRESSION: Multilobar pneumonia with some improvement.
--- NOTE | 2017-10-19 12:59 | Discharge Summary ---
Providers - Providers Date of Admission: 10/03/17 04:16 Attending physician: HECTOR BUENO MD 10/04/17 11:04 Consult to Physician [CONS] Routine Comment: Consulting Provider: JC JASON Physician Instructions: Reason For Exam: sepsis, pna, diarrhea, hiv aids 10/07/17 12:38 Consult to Physician [CONS] Routine Comment: Consulting Provider: ABILIO GARCIA Physician Instructions: Reason For Exam: pna, respiratory failure 10/07/17 12:39 Consult to Physician [CONS] Routine Comment: Consulting Provider: YVONNE BUTTS Physician Instructions: Reason For Exam: diarrhea, HIV, opportunistic infection? 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 He arrived complaining of chest pain. He was found to have pneumonia , which is suspected to be pneumocystis pneumonia. Patient completed a course of antibiotics, to cover him for bacterial pneumonia. He was also treated with Bactrim for presumed pneumocystis pneumonia. He will finish out his course of oral Bactrim at home. He underwent a bronchoscopy, cultures were negative, bal was neg for malignancy, fungus and AFB, other tests which included cryptococcal pneumococcal and Legionella antigen were also neg. Bronchioloalveolar lavage was negative for AFB smear. He also suffered diarrhea, he received them. Flagyl. Stool studies were negative which included ova and parasites and C. difficile. The diarrhea resolved while he was in hospital. He was continued on his retrovirals well in hospital. He had hypoxic respiratory failure, for which he received oxygen supplements and steroids. Diagnosis Bacterial PNA PCP PNA IRIS Diarrhea Acute hypoxemic respiratory failure. On venti mask not better Acute atypical chest pain- due to PNA HIV/AIDS. On HAART. -HIV-VL 441 (10/05/17) -CD4 31/4%. (10/05/17) Facial eczema Disposition: [id number] HOME UNDER HOME [facility] Time spent for discharge: 33 minutes Core Measure Documentation - Palliative Care Palliative Care/ Comfort Measures: Not Applicable - Core Measures Any of the following diagnoses?: none Exam - Physical Exam Narrative exam: General.: Appears well, moderate distress, appears ill HEENT: Moist mucous membranes, extraocular muscles intact, no lymphadenopathy Neck: supple Cardiac: S1-S2 heard Lungs: decreased air entry Abdomen: soft , nontender, nondistended, bowel sounds positive Extremities: no edema clubbing or cyanosis Skin: no rash or lesions Neurologic: no gross focal deficits Psych: appropriate behavior, appropriate mood, corporative, judgment intact - Constitutional Vitals: Temp Pulse Resp BP Pulse Ox 97.4 F L 91 H 16 113/68 95 10/19/17 03:59 10/19/17 03:59 10/19/17 03:59 10/19/17 03:59 10/19/17 03:59 Plan Follow up with: FRED GUZMAN MD [Primary Care Provider] - 3-5 Days Prescriptions: Azithromycin [Zithromax TAB] 1,200 mg PO Melendrez@1000 #60 tablet Loperamide [Imodium] 2 mg PO Q2H PRN #30 capsule PRN Reason: Diarrhea predniSONE [Deltasone] 10 mg PO .TAPER #48 tab Sulfamethoxazole/Trimethoprim [Bactrim DS TAB] 2 each PO Q8HR #63 tablet Other Discharge Orders: Home Health Care (Amb) Location: None Selected
[2017-10-20] MEDS: NACL 0.9% 1000 ML 1,000 ML IV SCH ×2 (02:17→18:28)
[2017-10-20] MEDS: BACTRIM DS PO SCH ×3 (05:27→22:24)
--- NOTE | 2017-10-20 08:10 | Progress Note ---
Assessment and Plan Acute hypoxic respiraotry failure Multifocal pulmonary infiltrates- differentials include CAP, PJP, primary pulmonary lymphoma, fungal pneumonias, mycobacterial infections including TB and non-TB HIV-AIDS Fevers-resolved Substance abuse disorder -wean supplemental oxygen to keep O2 sats>90% - quantiferon negative - s/p bronchoscopy AFB smears and fungal smears are negative - Continue supplemental oxygen to keep O2 sats>90% - VTE prophylaxis - Antibiotics/anti-infective per ID service - Steroids weaning -substance abuse counselling -Needs follow up as outpatient from Pulmonary standpoint in 2-3 weeks post discharge Subjective Date of service: 10/20/17 Principal diagnosis: Acute Hypoxemic Resp Failure; Bilateral Pneumonia; HIV +ve ; Chest pain Interval history: s/p bronchoscopy Seen and examined. Vitals, labs, medications, chart reviewed. No acute overnight events. Feels his breathing is improving. Unable to be discharge..no funding for the home oxygen Objective - Exam Narrative Exam: General.: Appears well, moderate distress, appears ill HEENT: Moist mucous membranes, extraocular muscles intact, no lymphadenopathy Neck: supple Cardiac: RRR, S1-S2 heard, no murmurs Lungs: decreased air entry, CTA Abdomen: soft , non-tender, non-distended, bowel sounds positive Extremities: no edema clubbing or cyanosis Skin: no rash or lesions Neurologic: no gross focal deficits Psych: appropriate behavior, appropriate mood, corporative, judgment intact Vital Signs - 12hr 10/19/17 10/19/17 10/20/17 20:24 22:20 00:03 Temperature 98.1 F Pulse Rate 109 H 89 Pulse Rate [ 94 H Right Radial] Respiratory 22 18 Rate Blood Pressure 115/69 O2 Sat by Pulse 97 94 Oximetry 10/20/17 04:45 Temperature 98.1 F Pulse Rate 78 Pulse Rate [ Right Radial] Respiratory 18 Rate Blood Pressure 102/69 O2 Sat by Pulse 92 Oximetry Constitutional: no acute distress, alert, other ( mild respiratory distress.) Eyes: non-icteric ENT: oropharynx moist Neck: supple, no JVD Effort: mildly labored Ascultation: Bilateral: diminished breath sounds, rales (bases) Percussion: Bilateral: not dull Cardiovascular: regular rate and rhythm, other (no rubs or murmurs) Gastrointestinal: normoactive bowel sounds, soft, non-tender, non-distended, other (No HSM) Integumentary: rash (? malar rash around face), other (poor skin turgor) Extremities: no cyanosis, no edema, pulses normal, no ischemia or petechiae Neurologic: normal mental status, non-focal exam, pupils equal and round, CN II- XII normal Psychiatric: mood appropriate, affect normal, anxious CBC and BMP: 10/17/17 06:37 10/17/17 06:37 ABG, PT/INR, D-dimer: ABG POC ABG pH 7.469 (7.35-7.45) H 10/19/17 15:37 ABG pH 7.416 pH Units (7.350-7.450) 10/08/17 23:05 POC ABG pCO2 34.4 (35-45) L 10/19/17 15:37 ABG pCO2 31.6 mm Hg 10/08/17 23:05 POC ABG pO2 60 (80-105) L 10/19/17 15:37 ABG pO2 83.5 mm Hg (80.0-90.0) 10/08/17 23:05 POC ABG HCO3 25.0 10/19/17 15:37 POC ABG Total CO2 26 10/19/17 15:37 POC ABG O2 Sat 92 10/19/17 15:37 ABG O2 Saturation 96.6 % (95.0-99.0) 10/08/17 23:05 PT/INR, D-dimer PT 15.5 Sec. (12.2-14.9) H 10/10/17 09:44 INR 1.17 (0.87-1.13) H 10/10/17 09:44 D-Dimer 614.10 ng/mlDDU (0-234) H 10/03/17 06:08 Abnormal lab findings: Abnormal Labs 10/03/17 10/03/17 10/03/17 01:14 01:14 01:14 WBC RBC Hgb Hct Plt Count [place] % (Auto) 10.0 H Seg Neutrophils % 71.1 H Lymphocytes % (Manual) Monocytes % (Manual) Eosinophils % (Manual) Abs Lymphs (Manual) Lymphocytes # (Manual) Monocytes # (Manual) Eosinophils # (Manual) PT INR D-Dimer POC ABG pH POC ABG pCO2 POC ABG pO2 ABG HCO3 ABG Base Excess ABG Hemoglobin Oxyhemoglobin Sodium 129 L Potassium 3.5 L Chloride 94.4 L Carbon Dioxide 18 L BUN Creatinine Glucose POC Glucose Calcium 8.3 L Lactate Dehydrogenase Total Creatine Kinase 473 H Albumin Vancomycin Trough Lymph Enumerat CD4/CD8 % CD3 Cells Absolute CD3 Count % CD4 Cells Absolute CD4 Count % CD8 Cells % CD19 Cells HIV-1 RNA PCR copies/ml HIV-1 RNA (PCR) log 10/03/17 10/03/17 10/04/17 04:26 06:08 07:49 WBC RBC Hgb Hct Plt Count [place] % (Auto) 11.2 H Seg Neutrophils % Lymphocytes % (Manual) Monocytes % (Manual) Eosinophils % (Manual) Abs Lymphs (Manual) Lymphocytes # (Manual) Monocytes # (Manual) Eosinophils # (Manual) PT INR D-Dimer 614.10 H POC ABG pH POC ABG pCO2 POC ABG pO2 ABG HCO3 ABG Base Excess ABG Hemoglobin Oxyhemoglobin Sodium Potassium Chloride Carbon Dioxide BUN Creatinine Glucose POC Glucose Calcium Lactate Dehydrogenase Total Creatine Kinase 452 H Albumin Vancomycin Trough Lymph Enumerat CD4/CD8 % CD3 Cells Absolute CD3 Count % CD4 Cells Absolute CD4 Count % CD8 Cells % CD19 Cells HIV-1 RNA PCR copies/ml HIV-1 RNA (PCR) log 10/04/17 10/05/17 10/05/17 07:49 05:57 05:57 WBC RBC Hgb Hct Plt Count [place] % (Auto) Seg Neutrophils % Lymphocytes % (Manual) Monocytes % (Manual) Eosinophils % (Manual) Abs Lymphs (Manual) 734 L Lymphocytes # (Manual) Monocytes # (Manual) Eosinophils # (Manual) PT INR D-Dimer POC ABG pH POC ABG pCO2 POC ABG pO2 ABG HCO3 ABG Base Excess ABG Hemoglobin Oxyhemoglobin Sodium 128 L Potassium Chloride 95.9 L Carbon Dioxide 17 L BUN 8 L Creatinine Glucose POC Glucose Calcium 7.7 L Lactate Dehydrogenase Total Creatine Kinase Albumin Vancomycin Trough Lymph Enumerat CD4/CD8 0.07 L % CD3 Cells 56 L Absolute CD3 Count 410 L % CD4 Cells 4 L Absolute CD4 Count 31 L % CD8 Cells 54 H % CD19 Cells 30 H HIV-1 RNA PCR copies/ml 441 H HIV-1 RNA (PCR) log 2.64 H 10/05/17 10/05/17 10/05/17 13:59 13:59 13:59 WBC RBC Hgb Hct Plt Count [place] % (Auto) Seg Neutrophils % Lymphocytes % (Manual) Monocytes % (Manual) 11.0 H Eosinophils % (Manual) Abs Lymphs (Manual) Lymphocytes # (Manual) 0.7 L Monocytes # (Manual) Eosinophils # (Manual) PT INR D-Dimer POC ABG pH POC ABG pCO2 POC ABG pO2 ABG HCO3 ABG Base Excess ABG Hemoglobin Oxyhemoglobin Sodium 131 L Potassium Chloride 95.7 L Carbon Dioxide BUN 6 L Creatinine 0.7 L Glucose POC Glucose Calcium 8.1 L Lactate Dehydrogenase 464 H Total Creatine Kinase Albumin Vancomycin Trough Lymph Enumerat CD4/CD8 % CD3 Cells Absolute CD3 Count % CD4 Cells Absolute CD4 Count % CD8 Cells % CD19 Cells HIV-1 RNA PCR copies/ml HIV-1 RNA (PCR) log 10/07/17 10/07/17 10/08/17 13:21 13:21 23:05 WBC RBC Hgb Hct 34.7 L Plt Count [place] % (Auto) Seg Neutrophils % Lymphocytes % (Manual) Monocytes % (Manual) Eosinophils % (Manual) Abs Lymphs (Manual) Lymphocytes # (Manual) Monocytes # (Manual) Eosinophils # (Manual) PT INR D-Dimer POC ABG pH POC ABG pCO2 POC ABG pO2 ABG HCO3 19.8 L ABG Base Excess -4.0 L ABG Hemoglobin 9.4 L Oxyhemoglobin 94.2 L Sodium 127 L Potassium Chloride 93.4 L Carbon Dioxide 20 L BUN 4 L Creatinine 0.6 L Glucose POC Glucose Calcium 8.2 L Lactate Dehydrogenase Total Creatine Kinase Albumin 3.1 L Vancomycin Trough Lymph Enumerat CD4/CD8 % CD3 Cells Absolute CD3 Count % CD4 Cells Absolute CD4 Count % CD8 Cells % CD19 Cells HIV-1 RNA PCR copies/ml HIV-1 RNA (PCR) log 10/09/17 10/09/17 10/10/17 08:26 08:26 09:44 WBC RBC Hgb 11.3 L Hct 33.2 L Plt Count [place] % (Auto) Seg Neutrophils % Lymphocytes % (Manual) 8.0 L Monocytes % (Manual) 16.0 H Eosinophils % (Manual) 12.0 H Abs Lymphs (Manual) Lymphocytes # (Manual) 0.8 L Monocytes # (Manual) 1.5 H Eosinophils # (Manual) 1.1 H PT 15.5 H INR 1.17 H D-Dimer POC ABG pH POC ABG pCO2 POC ABG pO2 ABG HCO3 ABG Base Excess ABG Hemoglobin Oxyhemoglobin Sodium 132 L Potassium Chloride 97.2 L Carbon Dioxide 18 L BUN 7 L Creatinine 0.6 L Glucose POC Glucose Calcium Lactate Dehydrogenase Total Creatine Kinase Albumin Vancomycin Trough Lymph Enumerat CD4/CD8 % CD3 Cells Absolute CD3 Count % CD4 Cells Absolute CD4 Count % CD8 Cells % CD19 Cells HIV-1 RNA PCR copies/ml HIV-1 RNA (PCR) log 10/11/17 10/11/17 10/14/17 06:19 17:42 20:32 WBC RBC Hgb Hct Plt Count [place] % (Auto) Seg Neutrophils % Lymphocytes % (Manual) Monocytes % (Manual) Eosinophils % (Manual) Abs Lymphs (Manual) Lymphocytes # (Manual) Monocytes # (Manual) Eosinophils # (Manual) PT INR D-Dimer POC ABG pH POC ABG pCO2 POC ABG pO2 ABG HCO3 ABG Base Excess ABG Hemoglobin Oxyhemoglobin Sodium 129 L Potassium Chloride 94.6 L Carbon Dioxide 19 L BUN 8 L Creatinine 0.6 L Glucose POC Glucose 122 H Calcium Lactate Dehydrogenase Total Creatine Kinase Albumin Vancomycin Trough 26.0 H Lymph Enumerat CD4/CD8 % CD3 Cells Absolute CD3 Count % CD4 Cells Absolute CD4 Count % CD8 Cells % CD19 Cells HIV-1 RNA PCR copies/ml HIV-1 RNA (PCR) log 10/17/17 10/17/17 10/19/17 06:37 06:37 11:44 WBC 11.9 H RBC 3.53 L Hgb 10.6 L Hct 31.7 L Plt Count 603 H [place] % (Auto) Seg Neutrophils % Lymphocytes % (Manual) Monocytes % (Manual) Eosinophils % (Manual) Abs Lymphs (Manual) Lymphocytes # (Manual) Monocytes # (Manual) Eosinophils # (Manual) PT INR D-Dimer POC ABG pH 7.565 H POC ABG pCO2 23.6 L POC ABG pO2 ABG HCO3 ABG Base Excess ABG Hemoglobin Oxyhemoglobin Sodium 132 L Potassium Chloride 95.3 L Carbon Dioxide BUN 8 L Creatinine 0.4 L Glucose 119 H POC Glucose Calcium Lactate Dehydrogenase Total Creatine Kinase Albumin Vancomycin Trough Lymph Enumerat CD4/CD8 % CD3 Cells Absolute CD3 Count % CD4 Cells Absolute CD4 Count % CD8 Cells % CD19 Cells HIV-1 RNA PCR copies/ml HIV-1 RNA (PCR) log 10/19/17 15:37 WBC RBC Hgb Hct Plt Count [place] % (Auto) Seg Neutrophils % Lymphocytes % (Manual) Monocytes % (Manual) Eosinophils % (Manual) Abs Lymphs (Manual) Lymphocytes # (Manual) Monocytes # (Manual) Eosinophils # (Manual) PT INR D-Dimer POC ABG pH 7.469 H POC ABG pCO2 34.4 L POC ABG pO2 60 L ABG HCO3 ABG Base Excess ABG Hemoglobin Oxyhemoglobin Sodium Potassium Chloride Carbon Dioxide BUN Creatinine Glucose POC Glucose Calcium Lactate Dehydrogenase Total Creatine Kinase Albumin Vancomycin Trough Lymph Enumerat CD4/CD8 % CD3 Cells Absolute CD3 Count % CD4 Cells Absolute CD4 Count % CD8 Cells % CD19 Cells HIV-1 RNA PCR copies/ml HIV-1 RNA (PCR) log Allied health notes reviewed: RT
[2017-10-20] MEDS: SODIUM CHLORIDE FLUSH SYRINGE 10 ML IV SCH ×2 (09:23→22:24)
[2017-10-20] MEDS: LOVENOX SUB-Q SCH (09:23)
[2017-10-20] MEDS: NON-FORMULARY (Darunavir/Cobicistat [Prezcobix 800 Mg-150 Mg Tablet] 1 EACH) PO SCH (09:25)
[2017-10-20] MEDS: NON-FORMULARY (Emtricitabin/Tenofovir [Truvada 200-300 Mg] 1 TAB) PO SCH (09:25)
[2017-10-20] MEDS: PROVENTIL IH SCH ×2 (09:48→14:53)
[2017-10-20] MEDS ORDERED: ZITHROMAX PO SCH ×2 (10:00)
[2017-10-20] MEDS: AFRIN NS SCH ×2 (12:58→22:23)
--- NOTE | 2017-10-20 15:21 | Progress Note ---
Assessment and Plan Assessment: 1) Acute fever and Bilateral lung infiltrates in AIDS patient. DDx. CAP, PJP, atypical. -LDH high -Cryptococcal antigen negative. -Pneumococcal and Legionella ag negative -Quantiferon negative. -Unable to provide specimen for sputum culture -aspergillus ag negative -histoplasma negative -10/13 BAL neg for malignancy, AFB and fungal stains negative 2) Acute N/V/D. r/o C diff. Other opportunistic infections also on the differential: cryptosporidium, cyclospora, isospora, etc. Better - C diff negative. - Stool cx negative. - Cryptosporidium ag, Giardia ag negative - CT A/P possible gastroenteritis -Stools more formed. 3) Acute hypoxemic respiratory failure. On venti mask not better 4) Acute atypical chest pain. Negative stress test. 5) HIV/AIDS. On HAART. -HIV-VL 441 (10/05/17) -CD4 31/4%. (10/05/17) 6) Facial eczema Recommendations -taper down steroids -continue bactrim DS TID - D16 of 21 -continue azithromycin 1200 mg po qweek to prevent MAC -Continue prezcobix and truvada (pt taking his home mds) -monitor O2 requirements - taper down O2 -cancel HIV genotype Upon discharge will do bactrim DS 2 tab TID for 21 days until 10/25 and azithromycin 1200 mg po qweek to prevent MAC HIV clinic f/u with his regular provider Thanks Cherelle Smith MD Infectious Diseases Specialist [facility] M [phone] Subjective Date of service: 10/20/17 Principal diagnosis: Acute Hypoxemic Resp Failure; Bilateral Pneumonia; HIV +ve ; Chest pain Interval history: Feels better, now on NC O2 3L no fever. Microbiology Blood cultures 10/03/17 NGTD 10/06 Fungal pending 10/08 Neg Cryptococcal antigen neg Stool WBC negative Culture 10/04 negative. Giardia ag negative Cryptosporodium ag negative Sputum culture 10/05 rejected 10/09 rejected 10/13 BAL neg for malignancy, AFB and fungal stains negative Solumedrol IV 10/15 Antibiotics azithro prophylaxis Bactrim 10/04- HAART (prezcobix and truvada, taking home meds). Prior antibiotics Ceftriaxone 10/04-10/05 Flagyl 10/04-10/05 Levofloxacin 10/06- IV vancomycin 10/05- Cefepime 10/05- Azithromycin 10/04- Fluconazole 10/07- Objective - Exam Narrative Exam: General appearance: Pt is in NAD, A&Ox3, conversant. On venti mask. Eyes: anicteric sclerae, moist conjunctivae; PERRLA HENT: Atraumatic; oropharynx clear with moist mucous membranes and no mucosal ulcerations/no oral thrush; normal hard and soft palate. Normal external ears. Neck: Trachea midline; supple, no thyromegaly or lymphadenopathy Lungs: CTA galen CV: S1,S2. Abdomen: Soft, non-tender; no masses or hepatosplenomegaly Extremities: No peripheral edema or extremity lymphadenopathy Skin: scaly facial rash Psych: Appropriate affect, alert and oriented to person, place and time. Neuro: alert and oriented x 3. Moving all extremities Lines: No CVL / PICC - Constitutional Vitals: Vital Signs Temp Pulse Resp BP Pulse Ox 98.1 F 93 H 32 H 102/69 97 10/20/17 04:45 10/20/17 12:19 10/20/17 10:00 10/20/17 04:45 10/20/17 10:00 Temperature -Last 24 Hours Temperature 98.1 F Temperature 98.1 F Temperature 97.9 F - Labs CBC & Chem 7: 10/17/17 06:37 10/17/17 06:37 Labs: Abnormal lab results 10/19/17 10/19/17 Range/Units 11:44 15:37 POC ABG pH 7.565 H 7.469 H (7.35-7.45) POC ABG pCO2 23.6 L 34.4 L (35-45) POC ABG pO2 60 L (80-105)
--- NOTE | 2017-10-21 03:41 | Progress Note ---
Assessment and Plan Assessment and plan: 42-year-old male with a past medical history of HIV AIDS, who had started retroviral and prophylaxis medications 3 weeks prior to arriving in the hospital. He arrived complaining of chest pain. He was found to have pneumonia , which is suspected to be pneumocystis pneumonia. Patient completed a course of antibiotics, to cover him for bacterial pneumonia. He was also treated with Bactrim for presumed pneumocystis pneumonia. He will finish out his course of oral Bactrim at home. He underwent a bronchoscopy, cultures were negative, bal was neg for malignancy, fungus and AFB, other tests which included cryptococcal pneumococcal and Legionella antigen were also neg. Bronchioloalveolar lavage was negative for AFB smear. He also suffered diarrhea, he received them. Flagyl. Stool studies were negative which included ova and parasites and C. difficile. The diarrhea resolved while he was in hospital. He was continued on his retrovirals well in hospital. He had hypoxic respiratory failure, for which he received oxygen supplements and steroids. The patient was planned for dc but cannot afford home oxygen and has no insurance, so will continue to wean off oxygen, and will speak to Case management about finding a pay source; per ID will be treated with bactrim DS 2 tab TID for presumed pjp for 21 days until 10/25 (after which he should go to ppx dose Bactrim DS 1 tab BID) and azithromycin 1200 mg po qweek to prevent MAC Diagnosis Bacterial PNA PCP PNA IRIS Diarrhea Acute hypoxemic respiratory failure. Acute atypical chest pain- due to PNA HIV/AIDS. On HAART. -HIV-VL 441 (10/05/17) -CD4 31/4%. (10/05/17) Facial eczema History Interval history: He denies fever, feels his strength is improving and coming back. Denies shortness of breath currently but has been requiring oxygen, was weaned to 3L denies Fever admits to weakness, no palpitations, no seizures Hospitalist Physical - Physical exam Narrative exam: General.: Appears well, moderate distress, appears ill HEENT: Moist mucous membranes, extraocular muscles intact, no lymphadenopathy Neck: supple Cardiac: S1-S2 heard Lungs: decreased air entry Abdomen: soft , nontender, nondistended, bowel sounds positive Extremities: no edema clubbing or cyanosis Skin: no rash or lesions Neurologic: no gross focal deficits Psych: appropriate behavior, appropriate mood, corporative, judgment intact - Constitutional Vitals: Temp Pulse Resp BP Pulse Ox 98.2 F 85 18 111/72 92 10/20/17 23:58 10/20/17 23:58 10/20/17 23:58 10/20/17 23:58 10/20/17 23:58 General appearance: Present: no acute distress, well-nourished Results - Labs CBC & Chem 7: 10/17/17 06:37 10/17/17 06:37 Labs: Laboratory Last Values WBC 11.9 K/mm3 (4.5-11.0) H 10/17/17 06:37 RBC 3.53 M/mm3 (3.65-5.03) L 10/17/17 06:37 Hgb 10.6 gm/dl (11.8-15.2) L 10/17/17 06:37 Hct 31.7 % (35.5-45.6) L 10/17/17 06:37 MCV 90 fl (84-94) 10/17/17 06:37 MCH 30 pg (28-32) 10/17/17 06:37 MCHC 33 % (32-34) 10/17/17 06:37 RDW 14.3 % (13.2-15.2) 10/17/17 06:37 Plt Count 603 K/mm3 (140-440) H 10/17/17 06:37 Lymph % (Auto) 24.0 % (13.4-35.0) 10/04/17 07:49 [place] % (Auto) [place] 10/09/17 08:26 Eos % (Auto) 0.8 % (0.0-4.3) 10/04/17 07:49 Baso % (Auto) 0.4 % (0.0-1.8) 10/04/17 07:49 Lymph # 1.4 K/mm3 (1.2-5.4) 10/04/17 07:49 [place] # 0.7 K/mm3 (0.0-0.8) 10/04/17 07:49 Eos # 0.0 K/mm3 (0.0-0.4) 10/04/17 07:49 Baso # 0.0 K/mm3 (0.0-0.1) 10/04/17 07:49 Add Manual Diff Complete 10/09/17 08:26 Total Counted 100 10/09/17 08:26 Seg Neutrophils % 63.6 % (40.0-70.0) 10/04/17 07:49 Seg Neuts % (Manual) 60.0 % (40.0-70.0) 10/09/17 08:26 Band Neutrophils % 4.0 % 10/09/17 08:26 Lymphocytes % (Manual) 8.0 % (13.4-35.0) L 10/09/17 08:26 Reactive Lymphs % (Man) 0 % 10/09/17 08:26 Monocytes % (Manual) 16.0 % (0.0-7.3) H 10/09/17 08:26 Eosinophils % (Manual) 12.0 % (0.0-4.3) H 10/09/17 08:26 Basophils % (Manual) 0 % (0.0-1.8) 10/09/17 08:26 Metamyelocytes % 0 % 10/09/17 08:26 Myelocytes % 0 % 10/09/17 08:26 Promyelocytes % 0 % 10/09/17 08:26 Blast Cells % 0 % 10/09/17 08:26 Nucleated RBC % Not Reportable 10/09/17 08:26 Seg Neutrophils # 3.8 K/mm3 (1.8-7.7) 10/04/17 07:49 Seg Neutrophils # Man 5.7 K/mm3 (1.8-7.7) 10/09/17 08:26 Band Neutrophils # 0.4 K/mm3 10/09/17 08:26 Abs Lymphs (Manual) 734 cells/uL (850-3900) L 10/05/17 05:57 Lymphocytes # (Manual) 0.8 K/mm3 (1.2-5.4) L 10/09/17 08:26 Abs React Lymphs (Man) 0.0 K/mm3 10/09/17 08:26 Monocytes # (Manual) 1.5 K/mm3 (0.0-0.8) H 10/09/17 08:26 Eosinophils # (Manual) 1.1 K/mm3 (0.0-0.4) H 10/09/17 08:26 Basophils # (Manual) 0.0 K/mm3 (0.0-0.1) 10/09/17 08:26 Metamyelocytes # 0.0 K/mm3 10/09/17 08:26 Myelocytes # 0.0 K/mm3 10/09/17 08:26 Promyelocytes # 0.0 K/mm3 10/09/17 08:26 Blast Cells # 0.0 K/mm3 10/09/17 08:26 WBC Morphology Not Reportable 10/09/17 08:26 Hypersegmented Neuts Not Reportable 10/09/17 08:26 Hyposegmented Neuts Not Reportable 10/09/17 08:26 Hypogranular Neuts Not Reportable 10/09/17 08:26 Smudge Cells Not Reportable 10/09/17 08:26 Toxic Granulation Not Reportable 10/09/17 08:26 Toxic Vacuolation Not Reportable 10/09/17 08:26 Dohle Bodies Not Reportable 10/09/17 08:26 Pelger-Huet Anomaly Not Reportable 10/09/17 08:26 Zora Rods Not Reportable 10/09/17 08:26 Platelet Estimate Consistent w auto 10/09/17 08:26 Clumped Platelets Not Reportable 10/09/17 08:26 Plt Clumps, EDTA Not Reportable 10/09/17 08:26 Large Platelets Not Reportable 10/09/17 08:26 Giant Platelets Not Reportable 10/09/17 08:26 Platelet Satelliting Not Reportable 10/09/17 08:26 Plt Morphology Comment Not Reportable 10/09/17 08:26 RBC Morphology Normal 10/09/17 08:26 Dimorphic RBCs Not Reportable 10/09/17 08:26 Polychromasia Not Reportable 10/09/17 08:26 Hypochromasia Not Reportable 10/09/17 08:26 Poikilocytosis Not Reportable 10/09/17 08:26 Anisocytosis Not Reportable 10/09/17 08:26 Microcytosis Not Reportable 10/09/17 08:26 Macrocytosis Not Reportable 10/09/17 08:26 Spherocytes Not Reportable 10/09/17 08:26 Pappenheimer Bodies Not Reportable 10/09/17 08:26 Sickle Cells Not Reportable 10/09/17 08:26 Target Cells Not Reportable 10/09/17 08:26 Tear Drop Cells Not Reportable 10/09/17 08:26 Ovalocytes Not Reportable 10/09/17 08:26 Helmet Cells Not Reportable 10/09/17 08:26 Estrada-[place] Bodies Not Reportable 10/09/17 08:26 Volcano Rings Not Reportable 10/09/17 08:26 [place] Cells Not Reportable 10/09/17 08:26 Bite Cells Not Reportable 10/09/17 08:26 Crenated Cell Not Reportable 10/09/17 08:26 Elliptocytes Not Reportable 10/09/17 08:26 Acanthocytes (Spur) Not Reportable 10/09/17 08:26 Rouleaux Not Reportable 10/09/17 08:26 Hemoglobin C Crystals Not Reportable 10/09/17 08:26 Schistocytes Not Reportable 10/09/17 08:26 Malaria parasites Not Reportable 10/09/17 08:26 Glen Bodies Not Reportable 10/09/17 08:26 Hem Pathologist Commnt No 10/09/17 08:26 PT 15.5 Sec. (12.2-14.9) H 10/10/17 09:44 INR 1.17 (0.87-1.13) H 10/10/17 09:44 D-Dimer 614.10 ng/mlDDU (0-234) H 10/03/17 06:08 POC ABG pH 7.469 (7.35-7.45) H 10/19/17 15:37 ABG pH 7.416 pH Units (7.350-7.450) 10/08/17 23:05 POC ABG pCO2 34.4 (35-45) L 10/19/17 15:37 ABG pCO2 31.6 mm Hg 10/08/17 23:05 POC ABG pO2 60 (80-105) L 10/19/17 15:37 ABG pO2 83.5 mm Hg (80.0-90.0) 10/08/17 23:05 POC ABG HCO3 25.0 10/19/17 15:37 ABG HCO3 19.8 mmol/L (20.0-26.0) L 10/08/17 23:05 POC ABG Total CO2 26 10/19/17 15:37 POC ABG O2 Sat 92 10/19/17 15:37 ABG O2 Saturation 96.6 % (95.0-99.0) 10/08/17 23:05 ABG O2 Content 12.6 (0.0-44) 10/08/17 23:05 POC ABG Base Excess 1 10/19/17 15:37 ABG Base Excess -4.0 mmol/L (-2.0-3.0) L 10/08/17 23:05 ABG Hemoglobin 9.4 gm/dl (14.0-18.0) L 10/08/17 23:05 ABG Carboxyhemoglobin 1.5 % (0.0-5.0) 10/08/17 23:05 ABG Methemoglobin 1.0 % (0.0-1.5) 10/08/17 23:05 Oxyhemoglobin 94.2 % (95.0-99.0) L 10/08/17 23:05 FiO2 21 % 10/19/17 15:37 Sodium 132 mmol/L (137-145) L 10/17/17 06:37 Potassium 4.4 mmol/L (3.6-5.0) 10/17/17 06:37 Chloride 95.3 mmol/L (98-107) L 10/17/17 06:37 Carbon Dioxide 25 mmol/L (22-30) 10/17/17 06:37 Anion Gap 16 mmol/L 10/17/17 06:37 BUN 8 mg/dL (9-20) L 10/17/17 06:37 Creatinine 0.4 mg/dL (0.8-1.5) L 10/17/17 06:37 Estimated GFR > 60 ml/min 10/17/17 06:37 BUN/Creatinine Ratio 20 % 10/17/17 06:37 Glucose 119 mg/dL (75-100) H 10/17/17 06:37 POC Glucose 122 (70-105) H 10/14/17 20:32 Calcium 8.6 mg/dL (8.4-10.2) 10/17/17 06:37 Total Bilirubin 0.50 mg/dL (0.1-1.2) 10/07/17 13:21 AST 31 units/L (5-40) 10/07/17 13:21 ALT 14 units/L (7-56) 10/07/17 13:21 Alkaline Phosphatase 36 units/L (35-129) 10/07/17 13:21 Lactate Dehydrogenase 464 units/L (91-180) H 10/05/17 13:59 Total Creatine Kinase 452 units/L (55-170) H 10/03/17 04:26 CK-MB (CK-2) < 1.0 ng/mL (0.0-4.0) 10/03/17 04:26 CK-MB (CK-2) Rel Index 0.2 (0-4) 10/03/17 04:26 Troponin T < 0.010 ng/mL (0.00-0.029) 10/03/17 07:42 Total Protein 6.5 g/dL (6.3-8.2) 10/07/17 13:21 Albumin 3.1 g/dL (3.9-5) L 10/07/17 13:21 Albumin/Globulin Ratio 0.9 % 10/07/17 13:21 Lipase 41 units/L (13-60) 10/03/17 01:14 Urine Color Yellow (Yellow) 10/03/17 Unknown Urine Turbidity Clear (Clear) 10/03/17 Unknown Urine pH 5.0 (5.0-7.0) 10/03/17 Unknown Ur Specific [place] 1.024 (1.003-1.030) 10/03/17 Unknown Urine Protein 30 mg/dl mg/dL (Negative) 10/03/17 Unknown Urine Glucose (UA) Neg mg/dL (Negative) 10/03/17 Unknown Urine Ketones 20 mg/dL (Negative) 10/03/17 Unknown Urine Blood Neg (Negative) 10/03/17 Unknown Urine Nitrite Neg (Negative) 10/03/17 Unknown Urine Bilirubin Neg (Negative) 10/03/17 Unknown Urine Urobilinogen 4.0 mg/dL (<2.0) 10/03/17 Unknown Ur Leukocyte Esterase Neg (Negative) 10/03/17 Unknown Urine WBC (Auto) 1.0 /HPF (0.0-6.0) 10/03/17 Unknown Urine RBC (Auto) 2.0 /HPF (0.0-6.0) 10/03/17 Unknown Urine Mucus Few /HPF 10/03/17 Unknown Vancomycin Trough 26.0 ug/mL (5.0-20.0) H 10/11/17 17:42 Lymph Enumerat CD4/CD8 0.07 (0.86-5.00) L 10/05/17 05:57 % CD3 Cells 56 % (57-85) L 10/05/17 05:57 Absolute CD3 Count 410 cells/uL (840-3060) L 10/05/17 05:57 % CD4 Cells 4 % (30-61) L 10/05/17 05:57 Absolute CD4 Count 31 cells/uL (490-1740) L 10/05/17 05:57 % CD8 Cells 54 % (12-42) H 10/05/17 05:57 Absolute CD8 Count 436 cells/uL (180-1170) 10/05/17 05:57 % CD19 Cells 30 % (6-29) H 10/05/17 05:57 Absolute CD19 Count 194 cells/uL (110-660) 10/05/17 05:57 C. difficile Toxin A&B Negative (Negative) 10/04/17 11:04 HIV-1 RNA PCR copies/ml 441 Copies/mL H 10/05/17 05:57 HIV-1 RNA (PCR) log 2.64 Log cps/mL H 10/05/17 05:57 Urine Legionella Ag Not detected (Not Detected) 10/08/17 01:10 TB (QFT) Gold In Tube Negative (Negative) 10/07/17 16:25 TB Test (QFT) Nil 0.05 IU/mL 10/07/17 16:25 TB Test Mitogen - Nil 0.72 IU/mL 10/07/17 16:25 TB Test Antigen - Nil 0.00 IU/mL 10/07/17 16:25 Miscellaneous Test Flexitest 1 10/10/17 07:50
[2017-10-21] MEDS: BACTRIM DS PO SCH ×3 (05:38→22:38)
[2017-10-21] MEDS: NACL 0.9% 1000 ML 1,000 ML IV SCH ×2 (05:38→14:26)
[2017-10-21] MEDS: PROVENTIL IH SCH ×4 (09:08→19:46)
[2017-10-21] MEDS: SODIUM CHLORIDE FLUSH SYRINGE 10 ML IV SCH ×2 (09:49→22:40)
[2017-10-21] MEDS: NON-FORMULARY (Darunavir/Cobicistat [Prezcobix 800 Mg-150 Mg Tablet] 1 EACH) PO SCH (11:07)
[2017-10-21] MEDS: NON-FORMULARY (Emtricitabin/Tenofovir [Truvada 200-300 Mg] 1 TAB) PO SCH (11:07)
[2017-10-21] MEDS: AFRIN NS SCH (11:08)
[2017-10-21] MEDS: LOVENOX SUB-Q SCH (11:27)
--- NOTE | 2017-10-21 12:08 | Progress Note ---
Assessment and Plan Assessment: 1) Acute fever and Bilateral lung infiltrates in AIDS patient. DDx. CAP, PJP, atypical. -LDH high -Cryptococcal antigen negative. -Pneumococcal and Legionella ag negative -Quantiferon negative. -Unable to provide specimen for sputum culture -aspergillus ag negative -histoplasma negative -10/13 BAL neg for malignancy, AFB and fungal stains negative 2) Acute N/V/D. r/o C diff. Other opportunistic infections also on the differential: cryptosporidium, cyclospora, isospora, etc. Better - C diff negative. - Stool cx negative. - Cryptosporidium ag, Giardia ag negative - CT A/P possible gastroenteritis -Stools more formed. 3) Acute hypoxemic respiratory failure. On venti mask not better 4) Acute atypical chest pain. Negative stress test. 5) HIV/AIDS. On HAART. -HIV-VL 441 (10/05/17) -CD4 31/4%. (10/05/17) 6) Facial eczema Recommendations -taper down steroids -continue bactrim DS TID - D17 of 21 -continue azithromycin 1200 mg po qweek to prevent MAC -Continue prezcobix and truvada (pt taking his home mds) -monitor O2 requirements - taper down O2 -Upon discharge will do bactrim DS 2 tab TID for 21 days until 10/25 and azithromycin 1200 mg po qweek to prevent MAC -HIV clinic f/u with his regular provider Thanks Cherelle Smith MD Infectious Diseases Specialist [facility] M [phone] Subjective Date of service: 10/21/17 Principal diagnosis: Acute Hypoxemic Resp Failure; Bilateral Pneumonia; HIV +ve ; Chest pain Interval history: Feels better, still with mild SOB, on NC O2 2L no fever. Microbiology Blood cultures 10/03/17 neg 10/06 Fungal 10/08 Neg Cryptococcal antigen neg Stool WBC negative Culture 10/04 negative. Giardia ag negative Cryptosporodium ag negative Sputum culture 10/05 rejected 10/09 rejected 10/13 BAL neg for malignancy, AFB and fungal stains negative Solumedrol IV 10/15 Antibiotics azithro prophylaxis Bactrim 10/04- HAART (prezcobix and truvada, taking home meds). Prior antibiotics Ceftriaxone 10/04-10/05 Flagyl 10/04-10/05 Levofloxacin 10/06- IV vancomycin 10/05- Cefepime 10/05- Azithromycin 10/04- Fluconazole 10/07- Objective - Exam Narrative Exam: General appearance: still in mild resp distress on NC O 2 Eyes: anicteric sclerae, moist conjunctivae; PERRLA HENT: Atraumatic; oropharynx clear with moist mucous membranes and no mucosal ulcerations/no oral thrush; normal hard and soft palate. Normal external ears. Neck: Trachea midline; supple, no thyromegaly or lymphadenopathy Lungs: CTA galen CV: S1,S2. Abdomen: Soft, non-tender; no masses or hepatosplenomegaly Extremities: No peripheral edema or extremity lymphadenopathy Skin: scaly facial rash Psych: Appropriate affect, alert and oriented to person, place and time. Neuro: alert and oriented x 3. Moving all extremities Lines: No CVL / PICC - Constitutional Vitals: Vital Signs Temp Pulse Resp BP Pulse Ox 98.0 F 98 H 20 119/71 91 10/21/17 09:20 10/21/17 09:28 10/21/17 09:28 10/21/17 09:20 10/21/17 09:20 Temperature -Last 24 Hours Temperature 98.0 F Temperature 98.1 F Temperature 98.1 F Temperature 98.2 F Temperature 97.8 F Temperature 98.3 F - Labs CBC & Chem 7: 10/17/17 06:37 10/17/17 06:37
--- NOTE | 2017-10-21 14:44 | Progress Note ---
Assessment and Plan Assessment and Plan Assessment and plan: 42-year-old male with a past medical history of HIV AIDS, who had started retroviral and prophylaxis medications 3 weeks prior to arriving in the hospital. He arrived complaining of chest pain. He was found to have pneumonia , which is suspected to be pneumocystis pneumonia. Patient completed a course of antibiotics, to cover him for bacterial pneumonia. He was also treated with Bactrim for presumed pneumocystis pneumonia. He will finish out his course of oral Bactrim at home. He underwent a bronchoscopy, cultures were negative, bal was neg for malignancy, fungus and AFB, other tests which included cryptococcal pneumococcal and Legionella antigen were also neg. Bronchioloalveolar lavage was negative for AFB smear. He also suffered diarrhea, he received them. Flagyl. Stool studies were negative which included ova and parasites and C. difficile. The diarrhea resolved while he was in hospital. He was continued on his retrovirals well in hospital. He had hypoxic respiratory failure, for which he received oxygen supplements and steroids. The patient was planned for dc but cannot afford home oxygen and has no insurance, so will continue to wean off oxygen, and will speak to Case management about finding a pay source; per ID will be treated with bactrim DS 2 tab TID for presumed pjp for 21 days until 10/25 (after which he should go to ppx dose Bactrim DS 1 tab BID) and azithromycin 1200 mg po qweek to prevent MAC Assessment and Plan Assessment: 1) Acute fever and Bilateral lung infiltrates in AIDS patient. DDx. CAP, PJP, atypical. -LDH high -Cryptococcal antigen negative. -Pneumococcal and Legionella ag negative -Quantiferon negative. -Unable to provide specimen for sputum culture -aspergillus ag negative -histoplasma negative -10/13 BAL neg for malignancy, AFB and fungal stains negative 2) Acute N/V/D. r/o C diff. Other opportunistic infections also on the differential: cryptosporidium, cyclospora, isospora, etc. Better - C diff negative. - Stool cx negative. - Cryptosporidium ag, Giardia ag negative - CT A/P possible gastroenteritis -Stools more formed. 3) Acute hypoxemic respiratory failure. On venti mask not better 4) Acute atypical chest pain. Negative stress test. 5) HIV/AIDS. On HAART. -HIV-VL 441 (10/05/17) -CD4 31/4%. (10/05/17) 6) Facial eczema Subjective Date of service: 10/21/17 Principal diagnosis: Acute Hypoxemic Resp Failure; Bilateral Pneumonia; HIV +ve ; Chest pain Interval history: Same condition Objective - Constitutional Vitals: Vital Signs - 12hr 10/21/17 10/21/17 10/21/17 04:23 07:38 09:18 Temperature 98.1 F 98.1 F Pulse Rate 85 80 Pulse Rate [ 96 H Anterior Bilateral Throughout] Respiratory 18 14 Rate Respiratory 20 Rate [Anterior Bilateral Throughout] Blood Pressure 106/64 104/62 O2 Sat by Pulse 93 92 94 Oximetry 10/21/17 10/21/17 10/21/17 09:20 09:28 10:42 Temperature 98.0 F Pulse Rate 87 Pulse Rate [ 98 H Anterior Bilateral Throughout] Respiratory 28 H Rate Respiratory 20 Rate [Anterior Bilateral Throughout] Blood Pressure 119/71 171/89 O2 Sat by Pulse 91 Oximetry 10/21/17 10/21/17 10/21/17 13:25 13:35 14:32 Temperature 97.8 F Pulse Rate Pulse Rate [ 100 H 102 H Anterior Bilateral Throughout] Respiratory 18 Rate Respiratory 20 20 Rate [Anterior Bilateral Throughout] Blood Pressure 112/70 O2 Sat by Pulse Oximetry General appearance: Present: mild distress, well-nourished - EENT Eyes: PERRL, EOM intact ENT: hearing intact, clear oral mucosa Ears: bilateral: normal - Neck Neck: supple, normal ROM - Respiratory Respiratory effort: normal Respiratory: bilateral: CTA - Breasts Breasts: normal - Cardiovascular Rhythm: regular Heart Sounds: Present: S1 & S2. Absent: gallop, rub Extremities: pulses intact, No edema, normal color, Full ROM - Gastrointestinal General gastrointestinal: Present: soft, non-tender, non-distended, normal bowel sounds - Genitourinary Male genitourinary: normal - Integumentary Integumentary: clear, warm, dry - Musculoskeletal Musculoskeletal: 1, strength equal bilaterally - Neurologic Neurologic: moves all extremities - Psychiatric Psychiatric: memory intact, appropriate mood/affect, intact judgment & insight - Labs CBC & Chem 7: 10/17/17 06:37 10/17/17 06:37
--- NOTE | 2017-10-21 14:48 | Progress Note ---
Assessment and Plan Acute hypoxic respiraotry failure Multifocal pulmonary infiltrates- differentials include CAP, PJP, primary pulmonary lymphoma, fungal pneumonias, mycobacterial infections including TB and non-TB HIV-AIDS Fevers Substance abuse - quantiferon negative - bronchoscopy today - Continue supplemental oxygen to keep O2 sats>90% - VTE prophylaxis, hold once bronchoscopy is scheduled - Antibiotics/anti-infective per ID service - Steroids ....re-evaluate in am & prn ...25' Subjective Date of service: 10/21/17 Principal diagnosis: Acute Hypoxemic Resp Failure; Bilateral Pneumonia; HIV +ve ; Chest pain Interval history: Patient seen today for: Acute Hypoxemic Resp Failure; Bilateral Pneumonia; HIV + ve; Chest pain Seen and examined at bedside; 24-hour events reviewed; nursing and respiratory care staff consulted; no adverse overnight events reported to me; Objective Vital Signs - 12hr 10/21/17 10/21/17 10/21/17 04:23 07:38 09:18 Temperature 98.1 F 98.1 F Pulse Rate 85 80 Pulse Rate [ 96 H Anterior Bilateral Throughout] Respiratory 18 14 Rate Respiratory 20 Rate [Anterior Bilateral Throughout] Blood Pressure 106/64 104/62 O2 Sat by Pulse 93 92 94 Oximetry 10/21/17 10/21/17 10/21/17 09:20 09:28 10:42 Temperature 98.0 F Pulse Rate 87 Pulse Rate [ 98 H Anterior Bilateral Throughout] Respiratory 28 H Rate Respiratory 20 Rate [Anterior Bilateral Throughout] Blood Pressure 119/71 171/89 O2 Sat by Pulse 91 Oximetry 10/21/17 10/21/17 10/21/17 13:25 13:35 14:32 Temperature 97.8 F Pulse Rate Pulse Rate [ 100 H 102 H Anterior Bilateral Throughout] Respiratory 18 Rate Respiratory 20 20 Rate [Anterior Bilateral Throughout] Blood Pressure 112/70 O2 Sat by Pulse Oximetry Constitutional: no acute distress, alert, other ( mild respiratory distress.) Eyes: non-icteric ENT: oropharynx moist Neck: supple, no JVD Effort: mildly labored Ascultation: Bilateral: diminished breath sounds, rales (bases) Percussion: Bilateral: not dull Cardiovascular: regular rate and rhythm, other (no rubs or murmurs) Gastrointestinal: normoactive bowel sounds, soft, non-tender, non-distended, other (No HSM) Integumentary: rash (? malar rash around face), other (poor skin turgor) Extremities: no cyanosis, no edema, pulses normal, no ischemia or petechiae Neurologic: normal mental status, non-focal exam, pupils equal and round, CN II- XII normal Psychiatric: mood appropriate, affect normal, anxious CBC and BMP: 10/17/17 06:37 10/17/17 06:37 ABG, PT/INR, D-dimer: ABG POC ABG pH 7.469 (7.35-7.45) H 10/19/17 15:37 ABG pH 7.416 pH Units (7.350-7.450) 10/08/17 23:05 POC ABG pCO2 34.4 (35-45) L 10/19/17 15:37 ABG pCO2 31.6 mm Hg 10/08/17 23:05 POC ABG pO2 60 (80-105) L 10/19/17 15:37 ABG pO2 83.5 mm Hg (80.0-90.0) 10/08/17 23:05 POC ABG HCO3 25.0 10/19/17 15:37 POC ABG Total CO2 26 10/19/17 15:37 POC ABG O2 Sat 92 10/19/17 15:37 ABG O2 Saturation 96.6 % (95.0-99.0) 10/08/17 23:05 PT/INR, D-dimer PT 15.5 Sec. (12.2-14.9) H 10/10/17 09:44 INR 1.17 (0.87-1.13) H 10/10/17 09:44 D-Dimer 614.10 ng/mlDDU (0-234) H 10/03/17 06:08 Abnormal lab findings: Abnormal Labs 10/03/17 10/03/17 10/03/17 01:14 01:14 01:14 WBC RBC Hgb Hct Plt Count [place] % (Auto) 10.0 H Seg Neutrophils % 71.1 H Lymphocytes % (Manual) Monocytes % (Manual) Eosinophils % (Manual) Abs Lymphs (Manual) Lymphocytes # (Manual) Monocytes # (Manual) Eosinophils # (Manual) PT INR D-Dimer POC ABG pH POC ABG pCO2 POC ABG pO2 ABG HCO3 ABG Base Excess ABG Hemoglobin Oxyhemoglobin Sodium 129 L Potassium 3.5 L Chloride 94.4 L Carbon Dioxide 18 L BUN Creatinine Glucose POC Glucose Calcium 8.3 L Lactate Dehydrogenase Total Creatine Kinase 473 H Albumin Vancomycin Trough Lymph Enumerat CD4/CD8 % CD3 Cells Absolute CD3 Count % CD4 Cells Absolute CD4 Count % CD8 Cells % CD19 Cells HIV-1 RNA PCR copies/ml HIV-1 RNA (PCR) log 10/03/17 10/03/17 10/04/17 04:26 06:08 07:49 WBC RBC Hgb Hct Plt Count [place] % (Auto) 11.2 H Seg Neutrophils % Lymphocytes % (Manual) Monocytes % (Manual) Eosinophils % (Manual) Abs Lymphs (Manual) Lymphocytes # (Manual) Monocytes # (Manual) Eosinophils # (Manual) PT INR D-Dimer 614.10 H POC ABG pH POC ABG pCO2 POC ABG pO2 ABG HCO3 ABG Base Excess ABG Hemoglobin Oxyhemoglobin Sodium Potassium Chloride Carbon Dioxide BUN Creatinine Glucose POC Glucose Calcium Lactate Dehydrogenase Total Creatine Kinase 452 H Albumin Vancomycin Trough Lymph Enumerat CD4/CD8 % CD3 Cells Absolute CD3 Count % CD4 Cells Absolute CD4 Count % CD8 Cells % CD19 Cells HIV-1 RNA PCR copies/ml HIV-1 RNA (PCR) log 10/04/17 10/05/17 10/05/17 07:49 05:57 05:57 WBC RBC Hgb Hct Plt Count [place] % (Auto) Seg Neutrophils % Lymphocytes % (Manual) Monocytes % (Manual) Eosinophils % (Manual) Abs Lymphs (Manual) 734 L Lymphocytes # (Manual) Monocytes # (Manual) Eosinophils # (Manual) PT INR D-Dimer POC ABG pH POC ABG pCO2 POC ABG pO2 ABG HCO3 ABG Base Excess ABG Hemoglobin Oxyhemoglobin Sodium 128 L Potassium Chloride 95.9 L Carbon Dioxide 17 L BUN 8 L Creatinine Glucose POC Glucose Calcium 7.7 L Lactate Dehydrogenase Total Creatine Kinase Albumin Vancomycin Trough Lymph Enumerat CD4/CD8 0.07 L % CD3 Cells 56 L Absolute CD3 Count 410 L % CD4 Cells 4 L Absolute CD4 Count 31 L % CD8 Cells 54 H % CD19 Cells 30 H HIV-1 RNA PCR copies/ml 441 H HIV-1 RNA (PCR) log 2.64 H 10/05/17 10/05/17 10/05/17 13:59 13:59 13:59 WBC RBC Hgb Hct Plt Count [place] % (Auto) Seg Neutrophils % Lymphocytes % (Manual) Monocytes % (Manual) 11.0 H Eosinophils % (Manual) Abs Lymphs (Manual) Lymphocytes # (Manual) 0.7 L Monocytes # (Manual) Eosinophils # (Manual) PT INR D-Dimer POC ABG pH POC ABG pCO2 POC ABG pO2 ABG HCO3 ABG Base Excess ABG Hemoglobin Oxyhemoglobin Sodium 131 L Potassium Chloride 95.7 L Carbon Dioxide BUN 6 L Creatinine 0.7 L Glucose POC Glucose Calcium 8.1 L Lactate Dehydrogenase 464 H Total Creatine Kinase Albumin Vancomycin Trough Lymph Enumerat CD4/CD8 % CD3 Cells Absolute CD3 Count % CD4 Cells Absolute CD4 Count % CD8 Cells % CD19 Cells HIV-1 RNA PCR copies/ml HIV-1 RNA (PCR) log 10/07/17 10/07/17 10/08/17 13:21 13:21 23:05 WBC RBC Hgb Hct 34.7 L Plt Count [place] % (Auto) Seg Neutrophils % Lymphocytes % (Manual) Monocytes % (Manual) Eosinophils % (Manual) Abs Lymphs (Manual) Lymphocytes # (Manual) Monocytes # (Manual) Eosinophils # (Manual) PT INR D-Dimer POC ABG pH POC ABG pCO2 POC ABG pO2 ABG HCO3 19.8 L ABG Base Excess -4.0 L ABG Hemoglobin 9.4 L Oxyhemoglobin 94.2 L Sodium 127 L Potassium Chloride 93.4 L Carbon Dioxide 20 L BUN 4 L Creatinine 0.6 L Glucose POC Glucose Calcium 8.2 L Lactate Dehydrogenase Total Creatine Kinase Albumin 3.1 L Vancomycin Trough Lymph Enumerat CD4/CD8 % CD3 Cells Absolute CD3 Count % CD4 Cells Absolute CD4 Count % CD8 Cells % CD19 Cells HIV-1 RNA PCR copies/ml HIV-1 RNA (PCR) log 10/09/17 10/09/17 10/10/17 08:26 08:26 09:44 WBC RBC Hgb 11.3 L Hct 33.2 L Plt Count [place] % (Auto) Seg Neutrophils % Lymphocytes % (Manual) 8.0 L Monocytes % (Manual) 16.0 H Eosinophils % (Manual) 12.0 H Abs Lymphs (Manual) Lymphocytes # (Manual) 0.8 L Monocytes # (Manual) 1.5 H Eosinophils # (Manual) 1.1 H PT 15.5 H INR 1.17 H D-Dimer POC ABG pH POC ABG pCO2 POC ABG pO2 ABG HCO3 ABG Base Excess ABG Hemoglobin Oxyhemoglobin Sodium 132 L Potassium Chloride 97.2 L Carbon Dioxide 18 L BUN 7 L Creatinine 0.6 L Glucose POC Glucose Calcium Lactate Dehydrogenase Total Creatine Kinase Albumin Vancomycin Trough Lymph Enumerat CD4/CD8 % CD3 Cells Absolute CD3 Count % CD4 Cells Absolute CD4 Count % CD8 Cells % CD19 Cells HIV-1 RNA PCR copies/ml HIV-1 RNA (PCR) log 10/11/17 10/11/17 10/14/17 06:19 17:42 20:32 WBC RBC Hgb Hct Plt Count [place] % (Auto) Seg Neutrophils % Lymphocytes % (Manual) Monocytes % (Manual) Eosinophils % (Manual) Abs Lymphs (Manual) Lymphocytes # (Manual) Monocytes # (Manual) Eosinophils # (Manual) PT INR D-Dimer POC ABG pH POC ABG pCO2 POC ABG pO2 ABG HCO3 ABG Base Excess ABG Hemoglobin Oxyhemoglobin Sodium 129 L Potassium Chloride 94.6 L Carbon Dioxide 19 L BUN 8 L Creatinine 0.6 L Glucose POC Glucose 122 H Calcium Lactate Dehydrogenase Total Creatine Kinase Albumin Vancomycin Trough 26.0 H Lymph Enumerat CD4/CD8 % CD3 Cells Absolute CD3 Count % CD4 Cells Absolute CD4 Count % CD8 Cells % CD19 Cells HIV-1 RNA PCR copies/ml HIV-1 RNA (PCR) log 10/17/17 10/17/17 10/19/17 06:37 06:37 15:37 WBC 11.9 H RBC 3.53 L Hgb 10.6 L Hct 31.7 L Plt Count 603 H [place] % (Auto) Seg Neutrophils % Lymphocytes % (Manual) Monocytes % (Manual) Eosinophils % (Manual) Abs Lymphs (Manual) Lymphocytes # (Manual) Monocytes # (Manual) Eosinophils # (Manual) PT INR D-Dimer POC ABG pH 7.469 H POC ABG pCO2 34.4 L POC ABG pO2 60 L ABG HCO3 ABG Base Excess ABG Hemoglobin Oxyhemoglobin Sodium 132 L Potassium Chloride 95.3 L Carbon Dioxide BUN 8 L Creatinine 0.4 L Glucose 119 H POC Glucose Calcium Lactate Dehydrogenase Total Creatine Kinase Albumin Vancomycin Trough Lymph Enumerat CD4/CD8 % CD3 Cells Absolute CD3 Count % CD4 Cells Absolute CD4 Count % CD8 Cells % CD19 Cells HIV-1 RNA PCR copies/ml HIV-1 RNA (PCR) log Allied health notes reviewed: RT
[2017-10-22] MEDS: AFRIN NS SCH ×3 (00:30→23:27)
[2017-10-22] MEDS: BACTRIM DS PO SCH ×2 (06:16→21:41)
[2017-10-22] MEDS: PROVENTIL IH SCH ×3 (07:41→20:02)
[2017-10-22] MEDS: NON-FORMULARY (Darunavir/Cobicistat [Prezcobix 800 Mg-150 Mg Tablet] 1 EACH) PO SCH (09:45)
[2017-10-22] MEDS: NON-FORMULARY (Emtricitabin/Tenofovir [Truvada 200-300 Mg] 1 TAB) PO SCH (09:45)
[2017-10-22] MEDS: LOVENOX SUB-Q SCH (09:45)
[2017-10-22] MEDS: NACL 0.9% 1000 ML 1,000 ML IV SCH ×2 (10:41→20:35)
--- NOTE | 2017-10-22 14:34 | Progress Note ---
Assessment and Plan Assessment and Plan Assessment and plan: 42-year-old male with a past medical history of HIV AIDS, who had started retroviral and prophylaxis medications 3 weeks prior to arriving in the hospital. He arrived complaining of chest pain. He was found to have pneumonia , which is suspected to be pneumocystis pneumonia. Patient completed a course of antibiotics, to cover him for bacterial pneumonia. He was also treated with Bactrim for presumed pneumocystis pneumonia. He will finish out his course of oral Bactrim at home. He underwent a bronchoscopy, cultures were negative, bal was neg for malignancy, fungus and AFB, other tests which included cryptococcal pneumococcal and Legionella antigen were also neg. Bronchioloalveolar lavage was negative for AFB smear. He also suffered diarrhea, he received them. Flagyl. Stool studies were negative which included ova and parasites and C. difficile. The diarrhea resolved while he was in hospital. He was continued on his retrovirals well in hospital. He had hypoxic respiratory failure, for which he received oxygen supplements and steroids. The patient was planned for dc but cannot afford home oxygen and has no insurance, so will continue to wean off oxygen, and will speak to Case management about finding a pay source; per ID will be treated with bactrim DS 2 tab TID for presumed pjp for 21 days until 10/25 (after which he should go to ppx dose Bactrim DS 1 tab BID) and azithromycin 1200 mg po qweek to prevent MAC Assessment and Plan Assessment: 1) Acute fever and Bilateral lung infiltrates in AIDS patient. DDx. CAP, PJP, atypical. -LDH high -Cryptococcal antigen negative. -Pneumococcal and Legionella ag negative -Quantiferon negative. -Unable to provide specimen for sputum culture -aspergillus ag negative -histoplasma negative -10/13 BAL neg for malignancy, AFB and fungal stains negative 2) Acute N/V/D. r/o C diff. Other opportunistic infections also on the differential: cryptosporidium, cyclospora, isospora, etc. Better - C diff negative. - Stool cx negative. - Cryptosporidium ag, Giardia ag negative - CT A/P possible gastroenteritis -Stools more formed. 3) Acute hypoxemic respiratory failure. On venti mask not better 4) Acute atypical chest pain. Negative stress test. 5) HIV/AIDS. On HAART. -HIV-VL 441 (10/05/17) -CD4 31/4%. (10/05/17) 6) Facial eczema Subjective Date of service: 10/22/17 Principal diagnosis: Acute Hypoxemic Resp Failure; Bilateral Pneumonia; HIV +ve ; Chest pain Interval history: Same condition Objective - Constitutional Vitals: Vital Signs - 12hr 10/22/17 10/22/17 10/22/17 04:05 07:51 07:52 Temperature Pulse Rate 80 Pulse Rate [ 81 Anterior Bilateral Throughout] Pulse Rate [ 87 Throughout] Respiratory 20 Rate Respiratory 16 Rate [Anterior Bilateral Throughout] Respiratory 18 Rate [ Throughout] Blood Pressure 113/71 O2 Sat by Pulse 95 96 Oximetry 10/22/17 10/22/17 10/22/17 08:00 08:12 13:17 Temperature 98.4 F Pulse Rate 99 H Pulse Rate [ 96 H Anterior Bilateral Throughout] Pulse Rate [ 90 Throughout] Respiratory 18 20 Rate Respiratory 18 Rate [Anterior Bilateral Throughout] Respiratory 20 Rate [ Throughout] Blood Pressure 135/73 O2 Sat by Pulse 90 Oximetry General appearance: Present: mild distress, well-nourished - EENT Eyes: PERRL, EOM intact ENT: hearing intact, clear oral mucosa Ears: bilateral: normal - Neck Neck: supple, normal ROM - Respiratory Respiratory effort: normal Respiratory: bilateral: CTA - Breasts Breasts: normal - Cardiovascular Rhythm: regular Heart Sounds: Present: S1 & S2. Absent: gallop, rub Extremities: pulses intact, No edema, normal color, Full ROM - Gastrointestinal General gastrointestinal: Present: soft, non-tender, non-distended, normal bowel sounds - Genitourinary Male genitourinary: normal - Integumentary Integumentary: clear, warm, dry - Musculoskeletal Musculoskeletal: 1, strength equal bilaterally - Neurologic Neurologic: moves all extremities - Psychiatric Psychiatric: memory intact, appropriate mood/affect, intact judgment & insight - Labs CBC & Chem 7: 10/17/17 06:37 10/17/17 06:37
--- NOTE | 2017-10-22 15:26 | Progress Note ---
Assessment and Plan Assessment: 1) Acute fever and Bilateral lung infiltrates in AIDS patient. DDx. CAP, PJP, atypical. -LDH high -Cryptococcal antigen negative. -Pneumococcal and Legionella ag negative -Quantiferon negative. -Unable to provide specimen for sputum culture -aspergillus ag negative -histoplasma negative -10/13 BAL neg for malignancy, AFB and fungal stains negative 2) Acute N/V/D. r/o C diff. Other opportunistic infections also on the differential: cryptosporidium, cyclospora, isospora, etc. Better - C diff negative. - Stool cx negative. - Cryptosporidium ag, Giardia ag negative - CT A/P possible gastroenteritis -Stools more formed. 3) Acute hypoxemic respiratory failure. On venti mask not better 4) Acute atypical chest pain. Negative stress test. 5) HIV/AIDS. On HAART. -HIV-VL 441 (10/05/17) -CD4 31/4%. (10/05/17) 6) Facial eczema Recommendations -taper down steroids -continue bactrim DS TID - D18 of 21 -continue azithromycin 1200 mg po qweek to prevent MAC -Continue prezcobix and truvada (pt taking his home mds) -monitor O2 requirements - taper down O2 -Upon discharge will do bactrim DS 2 tab TID for 21 days until 10/25 and azithromycin 1200 mg po qweek to prevent MAC -HIV clinic f/u with his regular provider Thanks Cherelle Smith MD Infectious Diseases Specialist [facility] M [phone] Subjective Date of service: 10/22/17 Principal diagnosis: Acute Hypoxemic Resp Failure; Bilateral Pneumonia; HIV +ve ; Chest pain Interval history: Feels better, still with mild SOB, on NC O2 2L no fever. Microbiology Blood cultures 10/03/17 neg 10/06 Fungal 10/08 Neg Cryptococcal antigen neg Stool WBC negative Culture 10/04 negative. Giardia ag negative Cryptosporodium ag negative Sputum culture 10/05 rejected 10/09 rejected 10/13 BAL neg for malignancy, AFB and fungal stains negative Solumedrol IV 10/15 Antibiotics azithro prophylaxis Bactrim 10/04- HAART (prezcobix and truvada, taking home meds). Prior antibiotics Ceftriaxone 10/04-10/05 Flagyl 10/04-10/05 Levofloxacin 10/06- IV vancomycin 10/05- Cefepime 10/05- Azithromycin 10/04- Fluconazole 10/07- Objective - Exam Narrative Exam: General appearance: still in mild resp distress on NC O 2 Eyes: anicteric sclerae, moist conjunctivae; PERRLA HENT: Atraumatic; oropharynx clear with moist mucous membranes and no mucosal ulcerations/no oral thrush; normal hard and soft palate. Normal external ears. Neck: Trachea midline; supple, no thyromegaly or lymphadenopathy Lungs: bibasilar crackles CV: S1,S2. Abdomen: Soft, non-tender; no masses or hepatosplenomegaly Extremities: No peripheral edema or extremity lymphadenopathy Skin: scaly facial rash Psych: Appropriate affect, alert and oriented to person, place and time. Neuro: alert and oriented x 3. Moving all extremities Lines: No CVL / PICC - Constitutional Vitals: Vital Signs Temp Pulse Resp BP Pulse Ox 98.4 F 96 H 18 135/73 90 10/22/17 08:12 10/22/17 13:17 10/22/17 13:17 10/22/17 08:12 10/22/17 08:12 Temperature -Last 24 Hours Temperature 98.4 F Temperature 98.6 F - Labs CBC & Chem 7: 10/17/17 06:37 10/17/17 06:37
--- NOTE | 2017-10-22 19:16 | Progress Note ---
Assessment and Plan Acute hypoxic respiraotry failure Multifocal pulmonary infiltrates- differentials include CAP, PJP, primary pulmonary lymphoma, fungal pneumonias, mycobacterial infections including TB and non-TB HIV-AIDS Fevers-resolved Substance abuse disorder -wean supplemental oxygen to keep O2 sats>90% - VTE prophylaxis - Antibiotics/anti-infective per ID service - Steroids -substance abuse counselling -Needs follow up as outpatient from Pulmonary standpoint in 2-3 weeks post discharge Subjective Date of service: 10/22/17 Principal diagnosis: Acute Hypoxemic Resp Failure; Bilateral Pneumonia; HIV +ve ; Chest pain Interval history: Seen and examined. Vitals, labs, medications, chart reviewed. No acute overnight events. Feels his breathing is improving, O2 sats about 90% off supplemental oxygen Objective - Exam Narrative Exam: General appearance: still in mild resp distress on NC O 2 Eyes: anicteric sclerae, moist conjunctivae; PERRLA HENT: Atraumatic; oropharynx clear with moist mucous membranes and no mucosal ulcerations/no oral thrush; normal hard and soft palate. Normal external ears. Neck: Trachea midline; supple, no thyromegaly or lymphadenopathy Lungs: bibasilar crackles CV: S1,S2. Abdomen: Soft, non-tender; no masses or hepatosplenomegaly Extremities: No peripheral edema or extremity lymphadenopathy Skin: scaly facial rash Psych: Appropriate affect, alert and oriented to person, place and time. Neuro: alert and oriented x 3. Moving all extremities Lines: No CVL / PICC Vital Signs - 12hr 10/22/17 10/22/17 10/22/17 07:51 07:52 08:00 Temperature Pulse Rate Pulse Rate [ 81 Anterior Bilateral Throughout] Pulse Rate [ 87 Throughout] Respiratory 18 Rate Respiratory 16 Rate [Anterior Bilateral Throughout] Respiratory 18 Rate [ Throughout] Blood Pressure O2 Sat by Pulse 96 Oximetry 10/22/17 10/22/17 10/22/17 08:12 10:00 13:11 Temperature 98.4 F 97.4 F L Pulse Rate 99 H 91 H 94 H Pulse Rate [ Anterior Bilateral Throughout] Pulse Rate [ Throughout] Respiratory 20 20 Rate Respiratory Rate [Anterior Bilateral Throughout] Respiratory Rate [ Throughout] Blood Pressure 135/73 118/77 O2 Sat by Pulse 90 92 Oximetry 10/22/17 10/22/17 10/22/17 13:17 16:19 17:17 Temperature 98.5 F Pulse Rate 99 H 96 H Pulse Rate [ 96 H Anterior Bilateral Throughout] Pulse Rate [ 90 Throughout] Respiratory 22 18 Rate Respiratory 18 Rate [Anterior Bilateral Throughout] Respiratory 20 Rate [ Throughout] Blood Pressure 129/81 124/78 O2 Sat by Pulse 90 94 Oximetry Constitutional: no acute distress, alert, other ( mild respiratory distress.) Eyes: non-icteric ENT: oropharynx moist Neck: supple, no JVD Effort: mildly labored Ascultation: Bilateral: diminished breath sounds, rales (bases) Percussion: Bilateral: not dull Cardiovascular: regular rate and rhythm, other (no rubs or murmurs) Gastrointestinal: normoactive bowel sounds, soft, non-tender, non-distended, other (No HSM) Integumentary: rash (? malar rash around face), other (poor skin turgor) Extremities: no cyanosis, no edema, pulses normal, no ischemia or petechiae Neurologic: normal mental status, non-focal exam, pupils equal and round, CN II- XII normal Psychiatric: mood appropriate, affect normal, anxious CBC and BMP: 10/17/17 06:37 10/17/17 06:37 ABG, PT/INR, D-dimer: ABG POC ABG pH 7.469 (7.35-7.45) H 10/19/17 15:37 ABG pH 7.416 pH Units (7.350-7.450) 10/08/17 23:05 POC ABG pCO2 34.4 (35-45) L 10/19/17 15:37 ABG pCO2 31.6 mm Hg 10/08/17 23:05 POC ABG pO2 60 (80-105) L 10/19/17 15:37 ABG pO2 83.5 mm Hg (80.0-90.0) 10/08/17 23:05 POC ABG HCO3 25.0 10/19/17 15:37 POC ABG Total CO2 26 10/19/17 15:37 POC ABG O2 Sat 92 10/19/17 15:37 ABG O2 Saturation 96.6 % (95.0-99.0) 10/08/17 23:05 PT/INR, D-dimer PT 15.5 Sec. (12.2-14.9) H 10/10/17 09:44 INR 1.17 (0.87-1.13) H 10/10/17 09:44 D-Dimer 614.10 ng/mlDDU (0-234) H 10/03/17 06:08 Abnormal lab findings: Abnormal Labs 10/03/17 10/03/17 10/03/17 01:14 01:14 01:14 WBC RBC Hgb Hct Plt Count [place] % (Auto) 10.0 H Seg Neutrophils % 71.1 H Lymphocytes % (Manual) Monocytes % (Manual) Eosinophils % (Manual) Abs Lymphs (Manual) Lymphocytes # (Manual) Monocytes # (Manual) Eosinophils # (Manual) PT INR D-Dimer POC ABG pH POC ABG pCO2 POC ABG pO2 ABG HCO3 ABG Base Excess ABG Hemoglobin Oxyhemoglobin Sodium 129 L Potassium 3.5 L Chloride 94.4 L Carbon Dioxide 18 L BUN Creatinine Glucose POC Glucose Calcium 8.3 L Lactate Dehydrogenase Total Creatine Kinase 473 H Albumin Vancomycin Trough Lymph Enumerat CD4/CD8 % CD3 Cells Absolute CD3 Count % CD4 Cells Absolute CD4 Count % CD8 Cells % CD19 Cells HIV-1 RNA PCR copies/ml HIV-1 RNA (PCR) log 10/03/17 10/03/17 10/04/17 04:26 06:08 07:49 WBC RBC Hgb Hct Plt Count [place] % (Auto) 11.2 H Seg Neutrophils % Lymphocytes % (Manual) Monocytes % (Manual) Eosinophils % (Manual) Abs Lymphs (Manual) Lymphocytes # (Manual) Monocytes # (Manual) Eosinophils # (Manual) PT INR D-Dimer 614.10 H POC ABG pH POC ABG pCO2 POC ABG pO2 ABG HCO3 ABG Base Excess ABG Hemoglobin Oxyhemoglobin Sodium Potassium Chloride Carbon Dioxide BUN Creatinine Glucose POC Glucose Calcium Lactate Dehydrogenase Total Creatine Kinase 452 H Albumin Vancomycin Trough Lymph Enumerat CD4/CD8 % CD3 Cells Absolute CD3 Count % CD4 Cells Absolute CD4 Count % CD8 Cells % CD19 Cells HIV-1 RNA PCR copies/ml HIV-1 RNA (PCR) log 10/04/17 10/05/17 10/05/17 07:49 05:57 05:57 WBC RBC Hgb Hct Plt Count [place] % (Auto) Seg Neutrophils % Lymphocytes % (Manual) Monocytes % (Manual) Eosinophils % (Manual) Abs Lymphs (Manual) 734 L Lymphocytes # (Manual) Monocytes # (Manual) Eosinophils # (Manual) PT INR D-Dimer POC ABG pH POC ABG pCO2 POC ABG pO2 ABG HCO3 ABG Base Excess ABG Hemoglobin Oxyhemoglobin Sodium 128 L Potassium Chloride 95.9 L Carbon Dioxide 17 L BUN 8 L Creatinine Glucose POC Glucose Calcium 7.7 L Lactate Dehydrogenase Total Creatine Kinase Albumin Vancomycin Trough Lymph Enumerat CD4/CD8 0.07 L % CD3 Cells 56 L Absolute CD3 Count 410 L % CD4 Cells 4 L Absolute CD4 Count 31 L % CD8 Cells 54 H % CD19 Cells 30 H HIV-1 RNA PCR copies/ml 441 H HIV-1 RNA (PCR) log 2.64 H 10/05/17 10/05/17 10/05/17 13:59 13:59 13:59 WBC RBC Hgb Hct Plt Count [place] % (Auto) Seg Neutrophils % Lymphocytes % (Manual) Monocytes % (Manual) 11.0 H Eosinophils % (Manual) Abs Lymphs (Manual) Lymphocytes # (Manual) 0.7 L Monocytes # (Manual) Eosinophils # (Manual) PT INR D-Dimer POC ABG pH POC ABG pCO2 POC ABG pO2 ABG HCO3 ABG Base Excess ABG Hemoglobin Oxyhemoglobin Sodium 131 L Potassium Chloride 95.7 L Carbon Dioxide BUN 6 L Creatinine 0.7 L Glucose POC Glucose Calcium 8.1 L Lactate Dehydrogenase 464 H Total Creatine Kinase Albumin Vancomycin Trough Lymph Enumerat CD4/CD8 % CD3 Cells Absolute CD3 Count % CD4 Cells Absolute CD4 Count % CD8 Cells % CD19 Cells HIV-1 RNA PCR copies/ml HIV-1 RNA (PCR) log 10/07/17 10/07/17 10/08/17 13:21 13:21 23:05 WBC RBC Hgb Hct 34.7 L Plt Count [place] % (Auto) Seg Neutrophils % Lymphocytes % (Manual) Monocytes % (Manual) Eosinophils % (Manual) Abs Lymphs (Manual) Lymphocytes # (Manual) Monocytes # (Manual) Eosinophils # (Manual) PT INR D-Dimer POC ABG pH POC ABG pCO2 POC ABG pO2 ABG HCO3 19.8 L ABG Base Excess -4.0 L ABG Hemoglobin 9.4 L Oxyhemoglobin 94.2 L Sodium 127 L Potassium Chloride 93.4 L Carbon Dioxide 20 L BUN 4 L Creatinine 0.6 L Glucose POC Glucose Calcium 8.2 L Lactate Dehydrogenase Total Creatine Kinase Albumin 3.1 L Vancomycin Trough Lymph Enumerat CD4/CD8 % CD3 Cells Absolute CD3 Count % CD4 Cells Absolute CD4 Count % CD8 Cells % CD19 Cells HIV-1 RNA PCR copies/ml HIV-1 RNA (PCR) log 10/09/17 10/09/17 10/10/17 08:26 08:26 09:44 WBC RBC Hgb 11.3 L Hct 33.2 L Plt Count [place] % (Auto) Seg Neutrophils % Lymphocytes % (Manual) 8.0 L Monocytes % (Manual) 16.0 H Eosinophils % (Manual) 12.0 H Abs Lymphs (Manual) Lymphocytes # (Manual) 0.8 L Monocytes # (Manual) 1.5 H Eosinophils # (Manual) 1.1 H PT 15.5 H INR 1.17 H D-Dimer POC ABG pH POC ABG pCO2 POC ABG pO2 ABG HCO3 ABG Base Excess ABG Hemoglobin Oxyhemoglobin Sodium 132 L Potassium Chloride 97.2 L Carbon Dioxide 18 L BUN 7 L Creatinine 0.6 L Glucose POC Glucose Calcium Lactate Dehydrogenase Total Creatine Kinase Albumin Vancomycin Trough Lymph Enumerat CD4/CD8 % CD3 Cells Absolute CD3 Count % CD4 Cells Absolute CD4 Count % CD8 Cells % CD19 Cells HIV-1 RNA PCR copies/ml HIV-1 RNA (PCR) log 10/11/17 10/11/17 10/14/17 06:19 17:42 20:32 WBC RBC Hgb Hct Plt Count [place] % (Auto) Seg Neutrophils % Lymphocytes % (Manual) Monocytes % (Manual) Eosinophils % (Manual) Abs Lymphs (Manual) Lymphocytes # (Manual) Monocytes # (Manual) Eosinophils # (Manual) PT INR D-Dimer POC ABG pH POC ABG pCO2 POC ABG pO2 ABG HCO3 ABG Base Excess ABG Hemoglobin Oxyhemoglobin Sodium 129 L Potassium Chloride 94.6 L Carbon Dioxide 19 L BUN 8 L Creatinine 0.6 L Glucose POC Glucose 122 H Calcium Lactate Dehydrogenase Total Creatine Kinase Albumin Vancomycin Trough 26.0 H Lymph Enumerat CD4/CD8 % CD3 Cells Absolute CD3 Count % CD4 Cells Absolute CD4 Count % CD8 Cells % CD19 Cells HIV-1 RNA PCR copies/ml HIV-1 RNA (PCR) log 10/17/17 10/17/17 10/19/17 06:37 06:37 15:37 WBC 11.9 H RBC 3.53 L Hgb 10.6 L Hct 31.7 L Plt Count 603 H [place] % (Auto) Seg Neutrophils % Lymphocytes % (Manual) Monocytes % (Manual) Eosinophils % (Manual) Abs Lymphs (Manual) Lymphocytes # (Manual) Monocytes # (Manual) Eosinophils # (Manual) PT INR D-Dimer POC ABG pH 7.469 H POC ABG pCO2 34.4 L POC ABG pO2 60 L ABG HCO3 ABG Base Excess ABG Hemoglobin Oxyhemoglobin Sodium 132 L Potassium Chloride 95.3 L Carbon Dioxide BUN 8 L Creatinine 0.4 L Glucose 119 H POC Glucose Calcium Lactate Dehydrogenase Total Creatine Kinase Albumin Vancomycin Trough Lymph Enumerat CD4/CD8 % CD3 Cells Absolute CD3 Count % CD4 Cells Absolute CD4 Count % CD8 Cells % CD19 Cells HIV-1 RNA PCR copies/ml HIV-1 RNA (PCR) log Allied health notes reviewed: RT
[2017-10-22] MEDS: SODIUM CHLORIDE FLUSH SYRINGE 10 ML IV SCH (21:42)
[2017-10-23] MEDS: NACL 0.9% 1000 ML 1,000 ML IV SCH ×2 (05:40→15:54)
[2017-10-23] MEDS: BACTRIM DS PO SCH ×4 (05:42→21:46)
[2017-10-23] MEDS: NON-FORMULARY (Emtricitabin/Tenofovir [Truvada 200-300 Mg] 1 TAB) PO SCH (10:12)
[2017-10-23] MEDS: NON-FORMULARY (Darunavir/Cobicistat [Prezcobix 800 Mg-150 Mg Tablet] 1 EACH) PO SCH (10:13)
[2017-10-23] MEDS: SODIUM CHLORIDE FLUSH SYRINGE 10 ML IV SCH ×2 (10:14→21:53)
[2017-10-23] MEDS: LOVENOX SUB-Q SCH (10:15)
[2017-10-23] MEDS: AFRIN NS SCH ×2 (10:16→21:51)
[2017-10-23] MEDS: PROVENTIL IH SCH ×3 (11:18→20:23)
--- NOTE | 2017-10-23 12:38 | Progress Note ---
Assessment and Plan Assessment and plan: --Bilateral pneumonia; in the setting of HIV AIDS Possible PJP/community-acquired pneumonia Patient had extensive workup by ID Status post bronchoscopy; BAL negative for malignancy, AFB, fungal stains Continue current management --Acute hypoxemic respiratory failure; requiring high flow oxygen Continue oxygen and titrate O2 sats to more than 90% Evaluation for home oxygen, patient has no resources, refused to pay out of pocket Case management following --Atypical chest pain; status post negative stress test --h/o HIV AIDS; continue antiretrovirals, ID following --DVT prophylaxis with Lovenox --DC planning. Case management, home oxygen set up Plan of care discussed with the patient and his nurse History Interval history: Patient seen and examined medical records reviewed Feels slightly better still complains of shortness of breath Oxygen dependent, evaluating for home oxygen, patient has no resources Refuses to pay Vital signs reviewed Hospitalist Physical - Constitutional Vitals: Temp Pulse Resp BP Pulse Ox 98.1 F 93 H 18 120/70 96 10/23/17 11:30 10/23/17 11:36 10/23/17 11:36 10/23/17 11:30 10/23/17 11:40 General appearance: Present: no acute distress, well-nourished - EENT Eyes: Present: PERRL, EOM intact - Neck Neck: Present: supple, normal ROM - Respiratory Respiratory effort: normal Respiratory: bilateral: diminished, negative: rales, rhonchi, wheezing - Cardiovascular Rhythm: regular Heart Sounds: Present: S1 & S2 - Extremities Extremities: no ischemia, No edema Extremity abnormal: edema Peripheral Pulses: within normal limits - Abdominal General gastrointestinal: soft, non-tender, non-distended, normal bowel sounds - Integumentary Integumentary: Present: clear, warm - Psychiatric Psychiatric: appropriate mood/affect, cooperative - Neurologic Neurologic: CNII-XII intact, moves all extremities Results - Labs CBC & Chem 7: 10/17/17 06:37 10/17/17 06:37 Labs: Laboratory Last Values WBC 11.9 K/mm3 (4.5-11.0) H 10/17/17 06:37 RBC 3.53 M/mm3 (3.65-5.03) L 10/17/17 06:37 Hgb 10.6 gm/dl (11.8-15.2) L 10/17/17 06:37 Hct 31.7 % (35.5-45.6) L 10/17/17 06:37 MCV 90 fl (84-94) 10/17/17 06:37 MCH 30 pg (28-32) 10/17/17 06:37 MCHC 33 % (32-34) 10/17/17 06:37 RDW 14.3 % (13.2-15.2) 10/17/17 06:37 Plt Count 603 K/mm3 (140-440) H 10/17/17 06:37 Lymph % (Auto) 24.0 % (13.4-35.0) 10/04/17 07:49 [place] % (Auto) [employer]er [employer] Contacts 10/09/17 08:26 Eos % (Auto) 0.8 % (0.0-4.3) 10/04/17 07:49 Baso % (Auto) 0.4 % (0.0-1.8) 10/04/17 07:49 Lymph # 1.4 K/mm3 (1.2-5.4) 10/04/17 07:49 [place] # 0.7 K/mm3 (0.0-0.8) 10/04/17 07:49 Eos # 0.0 K/mm3 (0.0-0.4) 10/04/17 07:49 Baso # 0.0 K/mm3 (0.0-0.1) 10/04/17 07:49 Add Manual Diff Complete 10/09/17 08:26 Total Counted 100 10/09/17 08:26 Seg Neutrophils % 63.6 % (40.0-70.0) 10/04/17 07:49 Seg Neuts % (Manual) 60.0 % (40.0-70.0) 10/09/17 08:26 Band Neutrophils % 4.0 % 10/09/17 08:26 Lymphocytes % (Manual) 8.0 % (13.4-35.0) L 10/09/17 08:26 Reactive Lymphs % (Man) 0 % 10/09/17 08:26 Monocytes % (Manual) 16.0 % (0.0-7.3) H 10/09/17 08:26 Eosinophils % (Manual) 12.0 % (0.0-4.3) H 10/09/17 08:26 Basophils % (Manual) 0 % (0.0-1.8) 10/09/17 08:26 Metamyelocytes % 0 % 10/09/17 08:26 Myelocytes % 0 % 10/09/17 08:26 Promyelocytes % 0 % 10/09/17 08:26 Blast Cells % 0 % 10/09/17 08:26 Nucleated RBC % Not Reportable 10/09/17 08:26 Seg Neutrophils # 3.8 K/mm3 (1.8-7.7) 10/04/17 07:49 Seg Neutrophils # Man 5.7 K/mm3 (1.8-7.7) 10/09/17 08:26 Band Neutrophils # 0.4 K/mm3 10/09/17 08:26 Abs Lymphs (Manual) 734 cells/uL (850-3900) L 10/05/17 05:57 Lymphocytes # (Manual) 0.8 K/mm3 (1.2-5.4) L 10/09/17 08:26 Abs React Lymphs (Man) 0.0 K/mm3 10/09/17 08:26 Monocytes # (Manual) 1.5 K/mm3 (0.0-0.8) H 10/09/17 08:26 Eosinophils # (Manual) 1.1 K/mm3 (0.0-0.4) H 10/09/17 08:26 Basophils # (Manual) 0.0 K/mm3 (0.0-0.1) 10/09/17 08:26 Metamyelocytes # 0.0 K/mm3 10/09/17 08:26 Myelocytes # 0.0 K/mm3 10/09/17 08:26 Promyelocytes # 0.0 K/mm3 10/09/17 08:26 Blast Cells # 0.0 K/mm3 10/09/17 08:26 WBC Morphology Not Reportable 10/09/17 08:26 Hypersegmented Neuts Not Reportable 10/09/17 08:26 Hyposegmented Neuts Not Reportable 10/09/17 08:26 Hypogranular Neuts Not Reportable 10/09/17 08:26 Smudge Cells Not Reportable 10/09/17 08:26 Toxic Granulation Not Reportable 10/09/17 08:26 Toxic Vacuolation Not Reportable 10/09/17 08:26 Dohle Bodies Not Reportable 10/09/17 08:26 Pelger-Huet Anomaly Not Reportable 10/09/17 08:26 Zora Rods Not Reportable 10/09/17 08:26 Platelet Estimate Consistent w auto 10/09/17 08:26 Clumped Platelets Not Reportable 10/09/17 08:26 Plt Clumps, EDTA Not Reportable 10/09/17 08:26 Large Platelets Not Reportable 10/09/17 08:26 Giant Platelets Not Reportable 10/09/17 08:26 Platelet Satelliting Not Reportable 10/09/17 08:26 Plt Morphology Comment Not Reportable 10/09/17 08:26 RBC Morphology Normal 10/09/17 08:26 Dimorphic RBCs Not Reportable 10/09/17 08:26 Polychromasia Not Reportable 10/09/17 08:26 Hypochromasia Not Reportable 10/09/17 08:26 Poikilocytosis Not Reportable 10/09/17 08:26 Anisocytosis Not Reportable 10/09/17 08:26 Microcytosis Not Reportable 10/09/17 08:26 Macrocytosis Not Reportable 10/09/17 08:26 Spherocytes Not Reportable 10/09/17 08:26 Pappenheimer Bodies Not Reportable 10/09/17 08:26 Sickle Cells Not Reportable 10/09/17 08:26 Target Cells Not Reportable 10/09/17 08:26 Tear Drop Cells Not Reportable 10/09/17 08:26 Ovalocytes Not Reportable 10/09/17 08:26 Helmet Cells Not Reportable 10/09/17 08:26 Estr[place] Bodies Not Reportable 10/09/17 08:26 Rosalie Rings Not Reportable 10/09/17 08:26 Nathaniel Cells Not Reportable 10/09/17 08:26 Bite Cells Not Reportable 10/09/17 08:26 Crenated Cell Not Reportable 10/09/17 08:26 Elliptocytes Not Reportable 10/09/17 08:26 Acanthocytes (Spur) Not Reportable 10/09/17 08:26 Rouleaux Not Reportable 10/09/17 08:26 Hemoglobin C Crystals Not Reportable 10/09/17 08:26 Schistocytes Not Reportable 10/09/17 08:26 Malaria parasites Not Reportable 10/09/17 08:26 Glen Bodies Not Reportable 10/09/17 08:26 Hem Pathologist Commnt No 10/09/17 08:26 PT 15.5 Sec. (12.2-14.9) H 10/10/17 09:44 INR 1.17 (0.87-1.13) H 10/10/17 09:44 D-Dimer 614.10 ng/mlDDU (0-234) H 10/03/17 06:08 POC ABG pH 7.469 (7.35-7.45) H 10/19/17 15:37 ABG pH 7.416 pH Units (7.350-7.450) 10/08/17 23:05 POC ABG pCO2 34.4 (35-45) L 10/19/17 15:37 ABG pCO2 31.6 mm Hg 10/08/17 23:05 POC ABG pO2 60 (80-105) L 10/19/17 15:37 ABG pO2 83.5 mm Hg (80.0-90.0) 10/08/17 23:05 POC ABG HCO3 25.0 10/19/17 15:37 ABG HCO3 19.8 mmol/L (20.0-26.0) L 10/08/17 23:05 POC ABG Total CO2 26 10/19/17 15:37 POC ABG O2 Sat 92 10/19/17 15:37 ABG O2 Saturation 96.6 % (95.0-99.0) 10/08/17 23:05 ABG O2 Content 12.6 (0.0-44) 10/08/17 23:05 POC ABG Base Excess 1 10/19/17 15:37 ABG Base Excess -4.0 mmol/L (-2.0-3.0) L 10/08/17 23:05 ABG Hemoglobin 9.4 gm/dl (14.0-18.0) L 10/08/17 23:05 ABG Carboxyhemoglobin 1.5 % (0.0-5.0) 10/08/17 23:05 ABG Methemoglobin 1.0 % (0.0-1.5) 10/08/17 23:05 Oxyhemoglobin 94.2 % (95.0-99.0) L 10/08/17 23:05 FiO2 21 % 10/19/17 15:37 Sodium 132 mmol/L (137-145) L 10/17/17 06:37 Potassium 4.4 mmol/L (3.6-5.0) 10/17/17 06:37 Chloride 95.3 mmol/L (98-107) L 10/17/17 06:37 Carbon Dioxide 25 mmol/L (22-30) 10/17/17 06:37 Anion Gap 16 mmol/L 10/17/17 06:37 BUN 8 mg/dL (9-20) L 10/17/17 06:37 Creatinine 0.4 mg/dL (0.8-1.5) L 10/17/17 06:37 Estimated GFR > 60 ml/min 10/17/17 06:37 BUN/Creatinine Ratio 20 % 10/17/17 06:37 Glucose 119 mg/dL (75-100) H 10/17/17 06:37 POC Glucose 122 (70-105) H 10/14/17 20:32 Calcium 8.6 mg/dL (8.4-10.2) 10/17/17 06:37 Total Bilirubin 0.50 mg/dL (0.1-1.2) 10/07/17 13:21 AST 31 units/L (5-40) 10/07/17 13:21 ALT 14 units/L (7-56) 10/07/17 13:21 Alkaline Phosphatase 36 units/L (35-129) 10/07/17 13:21 Lactate Dehydrogenase 464 units/L (91-180) H 10/05/17 13:59 Total Creatine Kinase 452 units/L (55-170) H 10/03/17 04:26 CK-MB (CK-2) < 1.0 ng/mL (0.0-4.0) 10/03/17 04:26 CK-MB (CK-2) Rel Index 0.2 (0-4) 10/03/17 04:26 Troponin T < 0.010 ng/mL (0.00-0.029) 10/03/17 07:42 Total Protein 6.5 g/dL (6.3-8.2) 10/07/17 13:21 Albumin 3.1 g/dL (3.9-5) L 10/07/17 13:21 Albumin/Globulin Ratio 0.9 % 10/07/17 13:21 Lipase 41 units/L (13-60) 10/03/17 01:14 Urine Color Yellow (Yellow) 10/03/17 Unknown Urine Turbidity Clear (Clear) 10/03/17 Unknown Urine pH 5.0 (5.0-7.0) 10/03/17 Unknown Ur Specific [place] 1.024 (1.003-1.030) 10/03/17 Unknown Urine Protein 30 mg/dl mg/dL (Negative) 10/03/17 Unknown Urine Glucose (UA) Neg mg/dL (Negative) 10/03/17 Unknown Urine Ketones 20 mg/dL (Negative) 10/03/17 Unknown Urine Blood Neg (Negative) 10/03/17 Unknown Urine Nitrite Neg (Negative) 10/03/17 Unknown Urine Bilirubin Neg (Negative) 10/03/17 Unknown Urine Urobilinogen 4.0 mg/dL (<2.0) 10/03/17 Unknown Ur Leukocyte Esterase Neg (Negative) 10/03/17 Unknown Urine WBC (Auto) 1.0 /HPF (0.0-6.0) 10/03/17 Unknown Urine RBC (Auto) 2.0 /HPF (0.0-6.0) 10/03/17 Unknown Urine Mucus Few /HPF 10/03/17 Unknown Vancomycin Trough 26.0 ug/mL (5.0-20.0) H 10/11/17 17:42 Lymph Enumerat CD4/CD8 0.07 (0.86-5.00) L 10/05/17 05:57 % CD3 Cells 56 % (57-85) L 10/05/17 05:57 Absolute CD3 Count 410 cells/uL (840-3060) L 10/05/17 05:57 % CD4 Cells 4 % (30-61) L 10/05/17 05:57 Absolute CD4 Count 31 cells/uL (490-1740) L 10/05/17 05:57 % CD8 Cells 54 % (12-42) H 10/05/17 05:57 Absolute CD8 Count 436 cells/uL (180-1170) 10/05/17 05:57 % CD19 Cells 30 % (6-29) H 10/05/17 05:57 Absolute CD19 Count 194 cells/uL (110-660) 10/05/17 05:57 C. difficile Toxin A&B Negative (Negative) 10/04/17 11:04 HIV-1 RNA PCR copies/ml 441 Copies/mL H 10/05/17 05:57 HIV-1 RNA (PCR) log 2.64 Log cps/mL H 10/05/17 05:57 Urine Legionella Ag Not detected (Not Detected) 10/08/17 01:10 TB (QFT) Gold In Tube Negative (Negative) 10/07/17 16:25 TB Test (QFT) Nil 0.05 IU/mL 10/07/17 16:25 TB Test Mitogen - Nil 0.72 IU/mL 10/07/17 16:25 TB Test Antigen - Nil 0.00 IU/mL 10/07/17 16:25 Miscellaneous Test Flexitest 1 10/10/17 07:50
--- NOTE | 2017-10-23 12:42 | Progress Note ---
Subjective Principal diagnosis: Acute Hypoxemic Resp Failure; Bilateral Pneumonia; HIV +ve ; Chest pain Objective Vital Signs - 12hr 10/23/17 10/23/17 10/23/17 04:48 07:21 11:17 Temperature 98.0 F 98.7 F Pulse Rate 86 81 Pulse Rate [ 93 H Throughout] Respiratory 32 H 24 Rate Respiratory 18 Rate [ Throughout] Blood Pressure 117/74 113/73 O2 Sat by Pulse 96 89 Oximetry 10/23/17 10/23/17 10/23/17 11:30 11:36 11:40 Temperature 98.1 F Pulse Rate 105 H Pulse Rate [ 93 H Throughout] Respiratory 24 Rate Respiratory 18 Rate [ Throughout] Blood Pressure 120/70 O2 Sat by Pulse 90 96 Oximetry Constitutional: no acute distress, alert, other ( mild respiratory distress.) Eyes: non-icteric ENT: oropharynx moist Neck: supple, no JVD Effort: mildly labored Ascultation: Bilateral: diminished breath sounds, rales (bases) Percussion: Bilateral: not dull Cardiovascular: regular rate and rhythm, other (no rubs or murmurs) Gastrointestinal: normoactive bowel sounds, soft, non-tender, non-distended, other (No HSM) Integumentary: rash (? malar rash around face), other (poor skin turgor) Extremities: no cyanosis, no edema, pulses normal, no ischemia or petechiae Neurologic: normal mental status, non-focal exam, pupils equal and round, CN II- XII normal Psychiatric: mood appropriate, affect normal, anxious CBC and BMP: 10/17/17 06:37 10/17/17 06:37 ABG, PT/INR, D-dimer: ABG POC ABG pH 7.469 (7.35-7.45) H 10/19/17 15:37 ABG pH 7.416 pH Units (7.350-7.450) 10/08/17 23:05 POC ABG pCO2 34.4 (35-45) L 10/19/17 15:37 ABG pCO2 31.6 mm Hg 10/08/17 23:05 POC ABG pO2 60 (80-105) L 10/19/17 15:37 ABG pO2 83.5 mm Hg (80.0-90.0) 10/08/17 23:05 POC ABG HCO3 25.0 10/19/17 15:37 POC ABG Total CO2 26 10/19/17 15:37 POC ABG O2 Sat 92 10/19/17 15:37 ABG O2 Saturation 96.6 % (95.0-99.0) 10/08/17 23:05 PT/INR, D-dimer PT 15.5 Sec. (12.2-14.9) H 10/10/17 09:44 INR 1.17 (0.87-1.13) H 10/10/17 09:44 D-Dimer 614.10 ng/mlDDU (0-234) H 10/03/17 06:08 Abnormal lab findings: Abnormal Labs 10/03/17 10/03/17 10/03/17 01:14 01:14 01:14 WBC RBC Hgb Hct Plt Count Mc[place] % (Auto) 10.0 H Seg Neutrophils % 71.1 H Lymphocytes % (Manual) Monocytes % (Manual) Eosinophils % (Manual) Abs Lymphs (Manual) Lymphocytes # (Manual) Monocytes # (Manual) Eosinophils # (Manual) PT INR D-Dimer POC ABG pH POC ABG pCO2 POC ABG pO2 ABG HCO3 ABG Base Excess ABG Hemoglobin Oxyhemoglobin Sodium 129 L Potassium 3.5 L Chloride 94.4 L Carbon Dioxide 18 L BUN Creatinine Glucose POC Glucose Calcium 8.3 L Lactate Dehydrogenase Total Creatine Kinase 473 H Albumin Vancomycin Trough Lymph Enumerat CD4/CD8 % CD3 Cells Absolute CD3 Count % CD4 Cells Absolute CD4 Count % CD8 Cells % CD19 Cells HIV-1 RNA PCR copies/ml HIV-1 RNA (PCR) log 10/03/17 10/03/17 10/04/17 04:26 06:08 07:49 WBC RBC Hgb Hct Plt Count [place] % (Auto) 11.2 H Seg Neutrophils % Lymphocytes % (Manual) Monocytes % (Manual) Eosinophils % (Manual) Abs Lymphs (Manual) Lymphocytes # (Manual) Monocytes # (Manual) Eosinophils # (Manual) PT INR D-Dimer 614.10 H POC ABG pH POC ABG pCO2 POC ABG pO2 ABG HCO3 ABG Base Excess ABG Hemoglobin Oxyhemoglobin Sodium Potassium Chloride Carbon Dioxide BUN Creatinine Glucose POC Glucose Calcium Lactate Dehydrogenase Total Creatine Kinase 452 H Albumin Vancomycin Trough Lymph Enumerat CD4/CD8 % CD3 Cells Absolute CD3 Count % CD4 Cells Absolute CD4 Count % CD8 Cells % CD19 Cells HIV-1 RNA PCR copies/ml HIV-1 RNA (PCR) log 10/04/17 10/05/17 10/05/17 07:49 05:57 05:57 WBC RBC Hgb Hct Plt Count [place] % (Auto) Seg Neutrophils % Lymphocytes % (Manual) Monocytes % (Manual) Eosinophils % (Manual) Abs Lymphs (Manual) 734 L Lymphocytes # (Manual) Monocytes # (Manual) Eosinophils # (Manual) PT INR D-Dimer POC ABG pH POC ABG pCO2 POC ABG pO2 ABG HCO3 ABG Base Excess ABG Hemoglobin Oxyhemoglobin Sodium 128 L Potassium Chloride 95.9 L Carbon Dioxide 17 L BUN 8 L Creatinine Glucose POC Glucose Calcium 7.7 L Lactate Dehydrogenase Total Creatine Kinase Albumin Vancomycin Trough Lymph Enumerat CD4/CD8 0.07 L % CD3 Cells 56 L Absolute CD3 Count 410 L % CD4 Cells 4 L Absolute CD4 Count 31 L % CD8 Cells 54 H % CD19 Cells 30 H HIV-1 RNA PCR copies/ml 441 H HIV-1 RNA (PCR) log 2.64 H 10/05/17 10/05/17 10/05/17 13:59 13:59 13:59 WBC RBC Hgb Hct Plt Count [place] % (Auto) Seg Neutrophils % Lymphocytes % (Manual) Monocytes % (Manual) 11.0 H Eosinophils % (Manual) Abs Lymphs (Manual) Lymphocytes # (Manual) 0.7 L Monocytes # (Manual) Eosinophils # (Manual) PT INR D-Dimer POC ABG pH POC ABG pCO2 POC ABG pO2 ABG HCO3 ABG Base Excess ABG Hemoglobin Oxyhemoglobin Sodium 131 L Potassium Chloride 95.7 L Carbon Dioxide BUN 6 L Creatinine 0.7 L Glucose POC Glucose Calcium 8.1 L Lactate Dehydrogenase 464 H Total Creatine Kinase Albumin Vancomycin Trough Lymph Enumerat CD4/CD8 % CD3 Cells Absolute CD3 Count % CD4 Cells Absolute CD4 Count % CD8 Cells % CD19 Cells HIV-1 RNA PCR copies/ml HIV-1 RNA (PCR) log 10/07/17 10/07/17 10/08/17 13:21 13:21 23:05 WBC RBC Hgb Hct 34.7 L Plt Count [place] % (Auto) Seg Neutrophils % Lymphocytes % (Manual) Monocytes % (Manual) Eosinophils % (Manual) Abs Lymphs (Manual) Lymphocytes # (Manual) Monocytes # (Manual) Eosinophils # (Manual) PT INR D-Dimer POC ABG pH POC ABG pCO2 POC ABG pO2 ABG HCO3 19.8 L ABG Base Excess -4.0 L ABG Hemoglobin 9.4 L Oxyhemoglobin 94.2 L Sodium 127 L Potassium Chloride 93.4 L Carbon Dioxide 20 L BUN 4 L Creatinine 0.6 L Glucose POC Glucose Calcium 8.2 L Lactate Dehydrogenase Total Creatine Kinase Albumin 3.1 L Vancomycin Trough Lymph Enumerat CD4/CD8 % CD3 Cells Absolute CD3 Count % CD4 Cells Absolute CD4 Count % CD8 Cells % CD19 Cells HIV-1 RNA PCR copies/ml HIV-1 RNA (PCR) log 10/09/17 10/09/17 10/10/17 08:26 08:26 09:44 WBC RBC Hgb 11.3 L Hct 33.2 L Plt Count [place] % (Auto) Seg Neutrophils % Lymphocytes % (Manual) 8.0 L Monocytes % (Manual) 16.0 H Eosinophils % (Manual) 12.0 H Abs Lymphs (Manual) Lymphocytes # (Manual) 0.8 L Monocytes # (Manual) 1.5 H Eosinophils # (Manual) 1.1 H PT 15.5 H INR 1.17 H D-Dimer POC ABG pH POC ABG pCO2 POC ABG pO2 ABG HCO3 ABG Base Excess ABG Hemoglobin Oxyhemoglobin Sodium 132 L Potassium Chloride 97.2 L Carbon Dioxide 18 L BUN 7 L Creatinine 0.6 L Glucose POC Glucose Calcium Lactate Dehydrogenase Total Creatine Kinase Albumin Vancomycin Trough Lymph Enumerat CD4/CD8 % CD3 Cells Absolute CD3 Count % CD4 Cells Absolute CD4 Count % CD8 Cells % CD19 Cells HIV-1 RNA PCR copies/ml HIV-1 RNA (PCR) log 10/11/17 10/11/17 10/14/17 06:19 17:42 20:32 WBC RBC Hgb Hct Plt Count [place] % (Auto) Seg Neutrophils % Lymphocytes % (Manual) Monocytes % (Manual) Eosinophils % (Manual) Abs Lymphs (Manual) Lymphocytes # (Manual) Monocytes # (Manual) Eosinophils # (Manual) PT INR D-Dimer POC ABG pH POC ABG pCO2 POC ABG pO2 ABG HCO3 ABG Base Excess ABG Hemoglobin Oxyhemoglobin Sodium 129 L Potassium Chloride 94.6 L Carbon Dioxide 19 L BUN 8 L Creatinine 0.6 L Glucose POC Glucose 122 H Calcium Lactate Dehydrogenase Total Creatine Kinase Albumin Vancomycin Trough 26.0 H Lymph Enumerat CD4/CD8 % CD3 Cells Absolute CD3 Count % CD4 Cells Absolute CD4 Count % CD8 Cells % CD19 Cells HIV-1 RNA PCR copies/ml HIV-1 RNA (PCR) log 10/17/17 10/17/17 10/19/17 06:37 06:37 15:37 WBC 11.9 H RBC 3.53 L Hgb 10.6 L Hct 31.7 L Plt Count 603 H [place] % (Auto) Seg Neutrophils % Lymphocytes % (Manual) Monocytes % (Manual) Eosinophils % (Manual) Abs Lymphs (Manual) Lymphocytes # (Manual) Monocytes # (Manual) Eosinophils # (Manual) PT INR D-Dimer POC ABG pH 7.469 H POC ABG pCO2 34.4 L POC ABG pO2 60 L ABG HCO3 ABG Base Excess ABG Hemoglobin Oxyhemoglobin Sodium 132 L Potassium Chloride 95.3 L Carbon Dioxide BUN 8 L Creatinine 0.4 L Glucose 119 H POC Glucose Calcium Lactate Dehydrogenase Total Creatine Kinase Albumin Vancomycin Trough Lymph Enumerat CD4/CD8 % CD3 Cells Absolute CD3 Count % CD4 Cells Absolute CD4 Count % CD8 Cells % CD19 Cells HIV-1 RNA PCR copies/ml HIV-1 RNA (PCR) log Allied health notes reviewed: RT
--- NOTE | 2017-10-23 13:00 | Progress Note ---
Assessment and Plan Assessment: 1) Acute fever and Bilateral lung infiltrates in AIDS patient. DDx. CAP, PJP, atypical. -LDH high -Cryptococcal antigen negative. -Pneumococcal and Legionella ag negative -Quantiferon negative. -Unable to provide specimen for sputum culture -aspergillus ag negative -histoplasma negative -10/13 BAL neg for malignancy, AFB and fungal stains negative 2) Acute N/V/D. r/o C diff. Other opportunistic infections also on the differential: cryptosporidium, cyclospora, isospora, etc. Better - C diff negative. - Stool cx negative. - Cryptosporidium ag, Giardia ag negative - CT A/P possible gastroenteritis -Stools more formed. 3) Acute hypoxemic respiratory failure. On higher NC 6L 4) Acute atypical chest pain. Negative stress test. 5) HIV/AIDS. On HAART. -HIV-VL 441 (10/05/17) -CD4 31/4%. (10/05/17) 6) Facial eczema Recommendations -agree with TTE and r/o pulmonary edema - discussed with Dr Rodriguez -taper down steroids -continue bactrim DS TID - D19 -continue azithromycin 1200 mg po qweek to prevent MAC -Continue prezcobix and truvada (pt taking his home mds) -monitor O2 requirements - taper down O2 -Upon discharge will do bactrim DS 2 tab TID for 21 days until 10/25 and azithromycin 1200 mg po qweek to prevent MAC -HIV clinic f/u with his regular provider Thanks Cherelle Smith MD Infectious Diseases Specialist [facility] ([facility]) M [phone] Subjective Date of service: 10/23/17 Principal diagnosis: Acute Hypoxemic Resp Failure; Bilateral Pneumonia; HIV +ve ; Chest pain Interval history: Still with SOB mainly upon activity, did not tolerate PT, O2 had to be increased to 6L, no fever. Microbiology Blood cultures 10/03/17 neg 10/06 Fungal 10/08 Neg Cryptococcal antigen neg Stool WBC negative Culture 10/04 negative. Giardia ag negative Cryptosporodium ag negative Sputum culture 10/05 rejected 10/09 rejected 10/13 BAL neg for malignancy, AFB and fungal stains negative Solumedrol IV 10/15 Antibiotics azithro prophylaxis Bactrim 10/04- HAART (prezcobix and truvada, taking home meds). Prior antibiotics Ceftriaxone 10/04-10/05 Flagyl 10/04-10/05 Levofloxacin 10/06- IV vancomycin 10/05- Cefepime 10/05- Azithromycin 10/04- Fluconazole 10/07- Objective - Exam Narrative Exam: General appearance: still in mild resp distress on NC O 2 Eyes: anicteric sclerae, moist conjunctivae; PERRLA HENT: Atraumatic; oropharynx clear with moist mucous membranes and no mucosal ulcerations/no oral thrush; normal hard and soft palate. Normal external ears. Neck: Trachea midline; supple, no thyromegaly or lymphadenopathy Lungs: bibasilar crackles CV: S1,S2. Abdomen: Soft, non-tender; no masses or hepatosplenomegaly Extremities: No peripheral edema or extremity lymphadenopathy Skin: scaly facial rash Psych: Appropriate affect, alert and oriented to person, place and time. Neuro: alert and oriented x 3. Moving all extremities Lines: No CVL / PICC - Constitutional Vitals: Vital Signs Temp Pulse Resp BP Pulse Ox 98.1 F 93 H 18 120/70 96 10/23/17 11:30 10/23/17 11:36 10/23/17 11:36 10/23/17 11:30 10/23/17 11:40 Temperature -Last 24 Hours Temperature 98.1 F Temperature 98.7 F Temperature 98.0 F Temperature 98.9 F Temperature 97.7 F Temperature 98.5 F Temperature 97.4 F - Labs CBC & Chem 7: 10/17/17 06:37 10/17/17 06:37
--- NOTE | 2017-10-23 16:01 | XRay Report ---
FINAL REPORT EXAM: XR CHEST 1V AP HISTORY: pneumonia vs pulmonary edema TECHNIQUE: Portable upright frontal chest x-ray was performed Comparison: 10/03/2017, CTA chest 10/04/2017 FINDINGS: Heart size is upper limits normal. Chest x-ray from 10/03/2017 was essentially clear with minimal patchy left basal infiltrate. On 10/04/2017 there has been interval development of bilateral peripheral infiltrates. On chest x-ray today, there is worsening of the bilateral infiltrates. There is mild fluid in the minor fissure on the right. The infiltrates do not have a perihilar predominance. IMPRESSION: Slight worsening of the bilateral infiltrates which are worse at the bases, right greater than left. Findings remain indeterminate for infectious infiltrates versus congestive heart failure. Given the patient's young age and the distribution, would favor infectious infiltrates. A lateral view may be helpful to assess for small pleural effusions. There is mild fluid in the right minor fissure.
[2017-10-24] MEDS: NACL 0.9% 1000 ML 1,000 ML IV SCH ×3 (02:06→22:19)
[2017-10-24] MEDS: BACTRIM DS PO SCH ×3 (06:32→22:18)
[2017-10-24] MEDS: PROVENTIL IH SCH ×3 (07:58→20:11)
[2017-10-24] MEDS: SODIUM CHLORIDE FLUSH SYRINGE 10 ML IV SCH ×2 (10:06→22:18)
[2017-10-24] MEDS: NON-FORMULARY (Emtricitabin/Tenofovir [Truvada 200-300 Mg] 1 TAB) PO SCH (10:07)
[2017-10-24] MEDS: NON-FORMULARY (Darunavir/Cobicistat [Prezcobix 800 Mg-150 Mg Tablet] 1 EACH) PO SCH (10:08)
[2017-10-24] MEDS: AFRIN NS SCH ×2 (10:09→22:21)
[2017-10-24] MEDS: LOVENOX SUB-Q SCH (10:10)
--- NOTE | 2017-10-24 10:20 | Progress Note ---
Assessment and Plan Assessment and plan: --Acute hypoxemic respiratory failure; requiring high flow oxygen titrated to 3 L O2 , titrate to more than 90% Evaluation for home oxygen, patient has no resources, patient refused to pay out of pocket Case management following, recommend hospice --Bilateral pneumonia; in the setting of HIV AIDS Possible PJP/community-acquired pneumonia Patient had extensive workup by ID Status post bronchoscopy; BAL negative for malignancy, AFB, fungal stains Continue current antibiotics and supportive care --Atypical chest pain; status post negative stress test --h/o HIV AIDS; continue antiretrovirals, ID following --DVT prophylaxis with Lovenox --DC planning. Case management, home oxygen set up Plan of care discussed with the patient, his nurse and case management History Interval history: Patient seen and examined this morning medical records reviewed Patient feels slightly better, awaiting home oxygen. Requiring 3 L of nasal cannula oxygen Severely hypxic on room air No new complaints Vital signs reviewed Hospitalist Physical - Constitutional Vitals: Temp Pulse Resp BP Pulse Ox 98.8 F 102 H 16 121/70 95 10/24/17 07:20 10/24/17 07:49 10/24/17 07:49 10/24/17 07:20 10/24/17 07:50 General appearance: Present: no acute distress, well-nourished - EENT Eyes: Present: PERRL, EOM intact - Neck Neck: Present: supple, normal ROM - Respiratory Respiratory effort: normal Respiratory: bilateral: diminished, rhonchi, negative: rales, wheezing - Cardiovascular Rhythm: regular Heart Sounds: Present: S1 & S2 - Extremities Extremities: no ischemia, No edema - Abdominal General gastrointestinal: soft, non-tender, non-distended, normal bowel sounds - Integumentary Integumentary: Present: clear, warm - Psychiatric Psychiatric: appropriate mood/affect, cooperative - Neurologic Neurologic: CNII-XII intact, moves all extremities Results - Labs CBC & Chem 7: 10/17/17 06:37 10/17/17 06:37 Labs: Laboratory Last Values WBC 11.9 K/mm3 (4.5-11.0) H 10/17/17 06:37 RBC 3.53 M/mm3 (3.65-5.03) L 10/17/17 06:37 Hgb 10.6 gm/dl (11.8-15.2) L 10/17/17 06:37 Hct 31.7 % (35.5-45.6) L 10/17/17 06:37 MCV 90 fl (84-94) 10/17/17 06:37 MCH 30 pg (28-32) 10/17/17 06:37 MCHC 33 % (32-34) 10/17/17 06:37 RDW 14.3 % (13.2-15.2) 10/17/17 06:37 Plt Count 603 K/mm3 (140-440) H 10/17/17 06:37 Lymph % (Auto) 24.0 % (13.4-35.0) 10/04/17 07:49 [place] % (Auto) [employer] 10/09/17 08:26 Eos % (Auto) 0.8 % (0.0-4.3) 10/04/17 07:49 Baso % (Auto) 0.4 % (0.0-1.8) 10/04/17 07:49 Lymph # 1.4 K/mm3 (1.2-5.4) 10/04/17 07:49 [place] # 0.7 K/mm3 (0.0-0.8) 10/04/17 07:49 Eos # 0.0 K/mm3 (0.0-0.4) 10/04/17 07:49 Baso # 0.0 K/mm3 (0.0-0.1) 10/04/17 07:49 Add Manual Diff Complete 10/09/17 08:26 Total Counted 100 10/09/17 08:26 Seg Neutrophils % 63.6 % (40.0-70.0) 10/04/17 07:49 Seg Neuts % (Manual) 60.0 % (40.0-70.0) 10/09/17 08:26 Band Neutrophils % 4.0 % 10/09/17 08:26 Lymphocytes % (Manual) 8.0 % (13.4-35.0) L 10/09/17 08:26 Reactive Lymphs % (Man) 0 % 10/09/17 08:26 Monocytes % (Manual) 16.0 % (0.0-7.3) H 10/09/17 08:26 Eosinophils % (Manual) 12.0 % (0.0-4.3) H 10/09/17 08:26 Basophils % (Manual) 0 % (0.0-1.8) 10/09/17 08:26 Metamyelocytes % 0 % 10/09/17 08:26 Myelocytes % 0 % 10/09/17 08:26 Promyelocytes % 0 % 10/09/17 08:26 Blast Cells % 0 % 10/09/17 08:26 Nucleated RBC % Not Reportable 10/09/17 08:26 Seg Neutrophils # 3.8 K/mm3 (1.8-7.7) 10/04/17 07:49 Seg Neutrophils # Man 5.7 K/mm3 (1.8-7.7) 10/09/17 08:26 Band Neutrophils # 0.4 K/mm3 10/09/17 08:26 Abs Lymphs (Manual) 734 cells/uL (850-3900) L 10/05/17 05:57 Lymphocytes # (Manual) 0.8 K/mm3 (1.2-5.4) L 10/09/17 08:26 Abs React Lymphs (Man) 0.0 K/mm3 10/09/17 08:26 Monocytes # (Manual) 1.5 K/mm3 (0.0-0.8) H 10/09/17 08:26 Eosinophils # (Manual) 1.1 K/mm3 (0.0-0.4) H 10/09/17 08:26 Basophils # (Manual) 0.0 K/mm3 (0.0-0.1) 10/09/17 08:26 Metamyelocytes # 0.0 K/mm3 10/09/17 08:26 Myelocytes # 0.0 K/mm3 10/09/17 08:26 Promyelocytes # 0.0 K/mm3 10/09/17 08:26 Blast Cells # 0.0 K/mm3 10/09/17 08:26 WBC Morphology Not Reportable 10/09/17 08:26 Hypersegmented Neuts Not Reportable 10/09/17 08:26 Hyposegmented Neuts Not Reportable 10/09/17 08:26 Hypogranular Neuts Not Reportable 10/09/17 08:26 Smudge Cells Not Reportable 10/09/17 08:26 Toxic Granulation Not Reportable 10/09/17 08:26 Toxic Vacuolation Not Reportable 10/09/17 08:26 Dohle Bodies Not Reportable 10/09/17 08:26 Pelger-Huet Anomaly Not Reportable 10/09/17 08:26 Zora Rods Not Reportable 10/09/17 08:26 Platelet Estimate Consistent w auto 10/09/17 08:26 Clumped Platelets Not Reportable 10/09/17 08:26 Plt Clumps, EDTA Not Reportable 10/09/17 08:26 Large Platelets Not Reportable 10/09/17 08:26 Giant Platelets Not Reportable 10/09/17 08:26 Platelet Satelliting Not Reportable 10/09/17 08:26 Plt Morphology Comment Not Reportable 10/09/17 08:26 RBC Morphology Normal 10/09/17 08:26 Dimorphic RBCs Not Reportable 10/09/17 08:26 Polychromasia Not Reportable 10/09/17 08:26 Hypochromasia Not Reportable 10/09/17 08:26 Poikilocytosis Not Reportable 10/09/17 08:26 Anisocytosis Not Reportable 10/09/17 08:26 Microcytosis Not Reportable 10/09/17 08:26 Macrocytosis Not Reportable 10/09/17 08:26 Spherocytes Not Reportable 10/09/17 08:26 Pappenheimer Bodies Not Reportable 10/09/17 08:26 Sickle Cells Not Reportable 10/09/17 08:26 Target Cells Not Reportable 10/09/17 08:26 Tear Drop Cells Not Reportable 10/09/17 08:26 Ovalocytes Not Reportable 10/09/17 08:26 Helmet Cells Not Reportable 10/09/17 08:26 [place]str[place] Bodies Not Reportable 10/09/17 08:26 [place] Rings Not Reportable 10/09/17 08:26 Nathaniel Cells Not Reportable 10/09/17 08:26 Bite Cells Not Reportable 10/09/17 08:26 Crenated Cell Not Reportable 10/09/17 08:26 Elliptocytes Not Reportable 10/09/17 08:26 Acanthocytes (Spur) Not Reportable 10/09/17 08:26 Rouleaux Not Reportable 10/09/17 08:26 Hemoglobin C Crystals Not Reportable 10/09/17 08:26 Schistocytes Not Reportable 10/09/17 08:26 Malaria parasites Not Reportable 10/09/17 08:26 Glen Bodies Not Reportable 10/09/17 08:26 Hem Pathologist Commnt No 10/09/17 08:26 PT 15.5 Sec. (12.2-14.9) H 10/10/17 09:44 INR 1.17 (0.87-1.13) H 10/10/17 09:44 D-Dimer 614.10 ng/mlDDU (0-234) H 10/03/17 06:08 POC ABG pH 7.469 (7.35-7.45) H 10/19/17 15:37 ABG pH 7.416 pH Units (7.350-7.450) 10/08/17 23:05 POC ABG pCO2 34.4 (35-45) L 10/19/17 15:37 ABG pCO2 31.6 mm Hg 10/08/17 23:05 POC ABG pO2 60 (80-105) L 10/19/17 15:37 ABG pO2 83.5 mm Hg (80.0-90.0) 10/08/17 23:05 POC ABG HCO3 25.0 10/19/17 15:37 ABG HCO3 19.8 mmol/L (20.0-26.0) L 10/08/17 23:05 POC ABG Total CO2 26 10/19/17 15:37 POC ABG O2 Sat 92 10/19/17 15:37 ABG O2 Saturation 96.6 % (95.0-99.0) 10/08/17 23:05 ABG O2 Content 12.6 (0.0-44) 10/08/17 23:05 POC ABG Base Excess 1 10/19/17 15:37 ABG Base Excess -4.0 mmol/L (-2.0-3.0) L 10/08/17 23:05 ABG Hemoglobin 9.4 gm/dl (14.0-18.0) L 10/08/17 23:05 ABG Carboxyhemoglobin 1.5 % (0.0-5.0) 10/08/17 23:05 ABG Methemoglobin 1.0 % (0.0-1.5) 10/08/17 23:05 Oxyhemoglobin 94.2 % (95.0-99.0) L 10/08/17 23:05 FiO2 21 % 10/19/17 15:37 Sodium 132 mmol/L (137-145) L 10/17/17 06:37 Potassium 4.4 mmol/L (3.6-5.0) 10/17/17 06:37 Chloride 95.3 mmol/L (98-107) L 10/17/17 06:37 Carbon Dioxide 25 mmol/L (22-30) 10/17/17 06:37 Anion Gap 16 mmol/L 10/17/17 06:37 BUN 8 mg/dL (9-20) L 10/17/17 06:37 Creatinine 0.4 mg/dL (0.8-1.5) L 10/17/17 06:37 Estimated GFR > 60 ml/min 10/17/17 06:37 BUN/Creatinine Ratio 20 % 10/17/17 06:37 Glucose 119 mg/dL (75-100) H 10/17/17 06:37 POC Glucose 122 (70-105) H 10/14/17 20:32 Calcium 8.6 mg/dL (8.4-10.2) 10/17/17 06:37 Total Bilirubin 0.50 mg/dL (0.1-1.2) 10/07/17 13:21 AST 31 units/L (5-40) 10/07/17 13:21 ALT 14 units/L (7-56) 10/07/17 13:21 Alkaline Phosphatase 36 units/L (35-129) 10/07/17 13:21 Lactate Dehydrogenase 464 units/L (91-180) H 10/05/17 13:59 Total Creatine Kinase 452 units/L (55-170) H 10/03/17 04:26 CK-MB (CK-2) < 1.0 ng/mL (0.0-4.0) 10/03/17 04:26 CK-MB (CK-2) Rel Index 0.2 (0-4) 10/03/17 04:26 Troponin T < 0.010 ng/mL (0.00-0.029) 10/03/17 07:42 NT-Pro-B Natriuret Pep 67.94 pg/mL (0-450) 10/23/17 15:22 Total Protein 6.5 g/dL (6.3-8.2) 10/07/17 13:21 Albumin 3.1 g/dL (3.9-5) L 10/07/17 13:21 Albumin/Globulin Ratio 0.9 % 10/07/17 13:21 Lipase 41 units/L (13-60) 10/03/17 01:14 Urine Color Yellow (Yellow) 10/03/17 Unknown Urine Turbidity Clear (Clear) 10/03/17 Unknown Urine pH 5.0 (5.0-7.0) 10/03/17 Unknown Ur Specific [place] 1.024 (1.003-1.030) 10/03/17 Unknown Urine Protein 30 mg/dl mg/dL (Negative) 10/03/17 Unknown Urine Glucose (UA) Neg mg/dL (Negative) 10/03/17 Unknown Urine Ketones 20 mg/dL (Negative) 10/03/17 Unknown Urine Blood Neg (Negative) 10/03/17 Unknown Urine Nitrite Neg (Negative) 10/03/17 Unknown Urine Bilirubin Neg (Negative) 10/03/17 Unknown Urine Urobilinogen 4.0 mg/dL (<2.0) 10/03/17 Unknown Ur Leukocyte Esterase Neg (Negative) 10/03/17 Unknown Urine WBC (Auto) 1.0 /HPF (0.0-6.0) 10/03/17 Unknown Urine RBC (Auto) 2.0 /HPF (0.0-6.0) 10/03/17 Unknown Urine Mucus Few /HPF 10/03/17 Unknown Vancomycin Trough 26.0 ug/mL (5.0-20.0) H 10/11/17 17:42 Lymph Enumerat CD4/CD8 0.07 (0.86-5.00) L 10/05/17 05:57 % CD3 Cells 56 % (57-85) L 10/05/17 05:57 Absolute CD3 Count 410 cells/uL (840-3060) L 10/05/17 05:57 % CD4 Cells 4 % (30-61) L 10/05/17 05:57 Absolute CD4 Count 31 cells/uL (490-1740) L 10/05/17 05:57 % CD8 Cells 54 % (12-42) H 10/05/17 05:57 Absolute CD8 Count 436 cells/uL (180-1170) 10/05/17 05:57 % CD19 Cells 30 % (6-29) H 10/05/17 05:57 Absolute CD19 Count 194 cells/uL (110-660) 10/05/17 05:57 C. difficile Toxin A&B Negative (Negative) 10/04/17 11:04 HIV-1 RNA PCR copies/ml 441 Copies/mL H 10/05/17 05:57 HIV-1 RNA (PCR) log 2.64 Log cps/mL H 10/05/17 05:57 Urine Legionella Ag Not detected (Not Detected) 10/08/17 01:10 TB (QFT) Gold In Tube Negative (Negative) 10/07/17 16:25 TB Test (QFT) Nil 0.05 IU/mL 10/07/17 16:25 TB Test Mitogen - Nil 0.72 IU/mL 10/07/17 16:25 TB Test Antigen - Nil 0.00 IU/mL 10/07/17 16:25 Miscellaneous Test Flexitest 1 10/10/17 07:50
--- NOTE | 2017-10-24 19:33 | Progress Note ---
Assessment and Plan Patient alert, awake.Still complaining some shortness of breath..Patient is on 4.5 litres O2.O2 saturation 93%. Patient undergone Bronchoscopy. BAL culture reported negative for Organisms. Sputum and bronchial specimens reported AFB smear negative. . - Patient Problems (1) Chest pain Current Visit: Yes Status: Acute Plan to address problem: No complaint of chest pain today. (2) Cocaine use Current Visit: Yes Status: Acute Plan to address problem: Management as per primary care. (3) Pulmonary infiltrates Current Visit: Yes Status: Acute Plan to address problem: Patient is on zithromax and Bactrim. (4) HIV (human immunodeficiency virus infection) Current Visit: Yes Status: Acute Plan to address problem: Management as per infectious diseases. Subjective Date of service: 10/24/17 Principal diagnosis: Acute Hypoxemic Resp Failure; Bilateral Pneumonia; HIV +ve ; Chest pain Interval history: Patient alert, awake.Still complaining some shortness of breath..Patient is on 4.5 litres O2.O2 saturation 93%. Patient undergone Bronchoscopy. BAL culture reported negative for Organisms. Sputum and bronchial specimens reported AFB smear negative. Objective Vital Signs - 12hr 10/24/17 10/24/17 10/24/17 07:42 07:49 07:50 Temperature Pulse Rate Pulse Rate [ 100 H 102 H Anterior Bilateral] Pulse Rate [ Throughout] Respiratory Rate Respiratory 18 16 Rate [Anterior Bilateral] Respiratory Rate [ Throughout] Blood Pressure O2 Sat by Pulse 95 Oximetry 10/24/17 10/24/17 10/24/17 11:16 14:50 15:10 Temperature 98.8 F Pulse Rate 102 H Pulse Rate [ 96 H Anterior Bilateral] Pulse Rate [ 98 H Throughout] Respiratory 32 H Rate Respiratory 24 Rate [Anterior Bilateral] Respiratory 22 Rate [ Throughout] Blood Pressure 125/71 O2 Sat by Pulse 93 Oximetry 10/24/17 10/24/17 15:15 15:23 Temperature 98.8 F Pulse Rate 102 H Pulse Rate [ Anterior Bilateral] Pulse Rate [ Throughout] Respiratory 32 H Rate Respiratory Rate [Anterior Bilateral] Respiratory Rate [ Throughout] Blood Pressure 125/70 O2 Sat by Pulse 93 94 Oximetry Constitutional: no acute distress, alert Eyes: non-icteric ENT: oropharynx moist Neck: supple, no JVD Effort: mildly labored Ascultation: Bilateral: diminished breath sounds, rales (bases) Percussion: Bilateral: not dull Cardiovascular: regular rate and rhythm, other (no rubs or murmurs) Gastrointestinal: normoactive bowel sounds, soft, non-tender, non-distended, other (No HSM) Integumentary: rash (? malar rash around face), other (poor skin turgor) Extremities: no cyanosis, no edema, pulses normal, no ischemia or petechiae Neurologic: normal mental status, non-focal exam, pupils equal and round, CN II- XII normal Psychiatric: mood appropriate, affect normal, anxious CBC and BMP: 10/17/17 06:37 10/17/17 06:37 ABG, PT/INR, D-dimer: ABG POC ABG pH 7.469 (7.35-7.45) H 10/19/17 15:37 ABG pH 7.416 pH Units (7.350-7.450) 10/08/17 23:05 POC ABG pCO2 34.4 (35-45) L 10/19/17 15:37 ABG pCO2 31.6 mm Hg 10/08/17 23:05 POC ABG pO2 60 (80-105) L 10/19/17 15:37 ABG pO2 83.5 mm Hg (80.0-90.0) 10/08/17 23:05 POC ABG HCO3 25.0 10/19/17 15:37 POC ABG Total CO2 26 10/19/17 15:37 POC ABG O2 Sat 92 10/19/17 15:37 ABG O2 Saturation 96.6 % (95.0-99.0) 10/08/17 23:05 PT/INR, D-dimer PT 15.5 Sec. (12.2-14.9) H 10/10/17 09:44 INR 1.17 (0.87-1.13) H 10/10/17 09:44 D-Dimer 614.10 ng/mlDDU (0-234) H 10/03/17 06:08 Abnormal lab findings: Abnormal Labs 10/03/17 10/03/17 10/03/17 01:14 01:14 01:14 WBC RBC Hgb Hct Plt Count [place] % (Auto) 10.0 H Seg Neutrophils % 71.1 H Lymphocytes % (Manual) Monocytes % (Manual) Eosinophils % (Manual) Abs Lymphs (Manual) Lymphocytes # (Manual) Monocytes # (Manual) Eosinophils # (Manual) PT INR D-Dimer POC ABG pH POC ABG pCO2 POC ABG pO2 ABG HCO3 ABG Base Excess ABG Hemoglobin Oxyhemoglobin Sodium 129 L Potassium 3.5 L Chloride 94.4 L Carbon Dioxide 18 L BUN Creatinine Glucose POC Glucose Calcium 8.3 L Lactate Dehydrogenase Total Creatine Kinase 473 H Albumin Vancomycin Trough Lymph Enumerat CD4/CD8 % CD3 Cells Absolute CD3 Count % CD4 Cells Absolute CD4 Count % CD8 Cells % CD19 Cells HIV-1 RNA PCR copies/ml HIV-1 RNA (PCR) log 10/03/17 10/03/17 10/04/17 04:26 06:08 07:49 WBC RBC Hgb Hct Plt Count [place] % (Auto) 11.2 H Seg Neutrophils % Lymphocytes % (Manual) Monocytes % (Manual) Eosinophils % (Manual) Abs Lymphs (Manual) Lymphocytes # (Manual) Monocytes # (Manual) Eosinophils # (Manual) PT INR D-Dimer 614.10 H POC ABG pH POC ABG pCO2 POC ABG pO2 ABG HCO3 ABG Base Excess ABG Hemoglobin Oxyhemoglobin Sodium Potassium Chloride Carbon Dioxide BUN Creatinine Glucose POC Glucose Calcium Lactate Dehydrogenase Total Creatine Kinase 452 H Albumin Vancomycin Trough Lymph Enumerat CD4/CD8 % CD3 Cells Absolute CD3 Count % CD4 Cells Absolute CD4 Count % CD8 Cells % CD19 Cells HIV-1 RNA PCR copies/ml HIV-1 RNA (PCR) log 10/04/17 10/05/17 10/05/17 07:49 05:57 05:57 WBC RBC Hgb Hct Plt Count [place] % (Auto) Seg Neutrophils % Lymphocytes % (Manual) Monocytes % (Manual) Eosinophils % (Manual) Abs Lymphs (Manual) 734 L Lymphocytes # (Manual) Monocytes # (Manual) Eosinophils # (Manual) PT INR D-Dimer POC ABG pH POC ABG pCO2 POC ABG pO2 ABG HCO3 ABG Base Excess ABG Hemoglobin Oxyhemoglobin Sodium 128 L Potassium Chloride 95.9 L Carbon Dioxide 17 L BUN 8 L Creatinine Glucose POC Glucose Calcium 7.7 L Lactate Dehydrogenase Total Creatine Kinase Albumin Vancomycin Trough Lymph Enumerat CD4/CD8 0.07 L % CD3 Cells 56 L Absolute CD3 Count 410 L % CD4 Cells 4 L Absolute CD4 Count 31 L % CD8 Cells 54 H % CD19 Cells 30 H HIV-1 RNA PCR copies/ml 441 H HIV-1 RNA (PCR) log 2.64 H 10/05/17 10/05/17 10/05/17 13:59 13:59 13:59 WBC RBC Hgb Hct Plt Count [place] % (Auto) Seg Neutrophils % Lymphocytes % (Manual) Monocytes % (Manual) 11.0 H Eosinophils % (Manual) Abs Lymphs (Manual) Lymphocytes # (Manual) 0.7 L Monocytes # (Manual) Eosinophils # (Manual) PT INR D-Dimer POC ABG pH POC ABG pCO2 POC ABG pO2 ABG HCO3 ABG Base Excess ABG Hemoglobin Oxyhemoglobin Sodium 131 L Potassium Chloride 95.7 L Carbon Dioxide BUN 6 L Creatinine 0.7 L Glucose POC Glucose Calcium 8.1 L Lactate Dehydrogenase 464 H Total Creatine Kinase Albumin Vancomycin Trough Lymph Enumerat CD4/CD8 % CD3 Cells Absolute CD3 Count % CD4 Cells Absolute CD4 Count % CD8 Cells % CD19 Cells HIV-1 RNA PCR copies/ml HIV-1 RNA (PCR) log 10/07/17 10/07/17 10/08/17 13:21 13:21 23:05 WBC RBC Hgb Hct 34.7 L Plt Count [place] % (Auto) Seg Neutrophils % Lymphocytes % (Manual) Monocytes % (Manual) Eosinophils % (Manual) Abs Lymphs (Manual) Lymphocytes # (Manual) Monocytes # (Manual) Eosinophils # (Manual) PT INR D-Dimer POC ABG pH POC ABG pCO2 POC ABG pO2 ABG HCO3 19.8 L ABG Base Excess -4.0 L ABG Hemoglobin 9.4 L Oxyhemoglobin 94.2 L Sodium 127 L Potassium Chloride 93.4 L Carbon Dioxide 20 L BUN 4 L Creatinine 0.6 L Glucose POC Glucose Calcium 8.2 L Lactate Dehydrogenase Total Creatine Kinase Albumin 3.1 L Vancomycin Trough Lymph Enumerat CD4/CD8 % CD3 Cells Absolute CD3 Count % CD4 Cells Absolute CD4 Count % CD8 Cells % CD19 Cells HIV-1 RNA PCR copies/ml HIV-1 RNA (PCR) log 10/09/17 10/09/17 10/10/17 08:26 08:26 09:44 WBC RBC Hgb 11.3 L Hct 33.2 L Plt Count [place] % (Auto) Seg Neutrophils % Lymphocytes % (Manual) 8.0 L Monocytes % (Manual) 16.0 H Eosinophils % (Manual) 12.0 H Abs Lymphs (Manual) Lymphocytes # (Manual) 0.8 L Monocytes # (Manual) 1.5 H Eosinophils # (Manual) 1.1 H PT 15.5 H INR 1.17 H D-Dimer POC ABG pH POC ABG pCO2 POC ABG pO2 ABG HCO3 ABG Base Excess ABG Hemoglobin Oxyhemoglobin Sodium 132 L Potassium Chloride 97.2 L Carbon Dioxide 18 L BUN 7 L Creatinine 0.6 L Glucose POC Glucose Calcium Lactate Dehydrogenase Total Creatine Kinase Albumin Vancomycin Trough Lymph Enumerat CD4/CD8 % CD3 Cells Absolute CD3 Count % CD4 Cells Absolute CD4 Count % CD8 Cells % CD19 Cells HIV-1 RNA PCR copies/ml HIV-1 RNA (PCR) log 10/11/17 10/11/17 10/14/17 06:19 17:42 20:32 WBC RBC Hgb Hct Plt Count [place] % (Auto) Seg Neutrophils % Lymphocytes % (Manual) Monocytes % (Manual) Eosinophils % (Manual) Abs Lymphs (Manual) Lymphocytes # (Manual) Monocytes # (Manual) Eosinophils # (Manual) PT INR D-Dimer POC ABG pH POC ABG pCO2 POC ABG pO2 ABG HCO3 ABG Base Excess ABG Hemoglobin Oxyhemoglobin Sodium 129 L Potassium Chloride 94.6 L Carbon Dioxide 19 L BUN 8 L Creatinine 0.6 L Glucose POC Glucose 122 H Calcium Lactate Dehydrogenase Total Creatine Kinase Albumin Vancomycin Trough 26.0 H Lymph Enumerat CD4/CD8 % CD3 Cells Absolute CD3 Count % CD4 Cells Absolute CD4 Count % CD8 Cells % CD19 Cells HIV-1 RNA PCR copies/ml HIV-1 RNA (PCR) log 10/17/17 10/17/17 10/19/17 06:37 06:37 15:37 WBC 11.9 H RBC 3.53 L Hgb 10.6 L Hct 31.7 L Plt Count 603 H [place] % (Auto) Seg Neutrophils % Lymphocytes % (Manual) Monocytes % (Manual) Eosinophils % (Manual) Abs Lymphs (Manual) Lymphocytes # (Manual) Monocytes # (Manual) Eosinophils # (Manual) PT INR D-Dimer POC ABG pH 7.469 H POC ABG pCO2 34.4 L POC ABG pO2 60 L ABG HCO3 ABG Base Excess ABG Hemoglobin Oxyhemoglobin Sodium 132 L Potassium Chloride 95.3 L Carbon Dioxide BUN 8 L Creatinine 0.4 L Glucose 119 H POC Glucose Calcium Lactate Dehydrogenase Total Creatine Kinase Albumin Vancomycin Trough Lymph Enumerat CD4/CD8 % CD3 Cells Absolute CD3 Count % CD4 Cells Absolute CD4 Count % CD8 Cells % CD19 Cells HIV-1 RNA PCR copies/ml HIV-1 RNA (PCR) log Chest x-ray: report reviewed (Reported slight worsening of pulmonary infiltrates.), image reviewed Allied health notes reviewed: RT
[2017-10-25] MEDS: BACTRIM DS PO SCH ×2 (05:52→13:27)
[2017-10-25 06:01] LABS: Hematocrit 32.2 % (35.5-45.6); Hemoglobin 10.6 gm/dl (11.8-15.2); Mean Corpuscular HGB Conc 33 % (32-34); Mean Corpuscular Hemoglobin 31 pg (28-32); Mean Corpuscular Volume 94 fl (84-94); Platelet Count 349 K/mm3 (140-440); Red Blood Count 3.43 M/mm3 (3.65-5.03); Red Cell Distribution Width 15.8 % (13.2-15.2)
[2017-10-25 06:39] LABS: BUN/Creatinine Ratio 24; Blood Urea Nitrogen 12 mg/dL (9-20); Calcium 8.4 mg/dL (8.4-10.2); Hemolysis Index 8
[2017-10-25 07:47] LABS: Anisocytosis 1+; Band Neutrophils # (Manual) 0.4 K/mm3; Basophils % (Manual) 0 % (0.0-1.8); Eosinophils % (Manual) 0 % (0.0-4.3); Myelocytes # (Manual) 0.2 K/mm3; Ovalocytes Few; Stomatocytes Few; Target Cells Few; Total Cells Counted 100
[2017-10-25 07:48] LABS: Acanthocytes Few
[2017-10-25 07:51] VITALS: BP 115/72
[2017-10-25] MEDS: SODIUM CHLORIDE FLUSH SYRINGE 10 ML IV SCH ×2 (08:11→10:46)
[2017-10-25] MEDS: PROVENTIL IH SCH (09:23)
[2017-10-25] MEDS: NON-FORMULARY (Emtricitabin/Tenofovir [Truvada 200-300 Mg] 1 TAB) PO SCH (10:19)
[2017-10-25] MEDS: LOVENOX SUB-Q SCH (10:19)
[2017-10-25] MEDS: AFRIN NS SCH (10:20)
[2017-10-25] MEDS: NON-FORMULARY (Darunavir/Cobicistat [Prezcobix 800 Mg-150 Mg Tablet] 1 EACH) PO SCH (10:20)
--- NOTE | 2017-10-25 12:30 | Discharge Summary ---
Providers - Providers Date of Admission: 10/03/17 04:16 Date of discharge: 10/25/17 Attending physician: ROBERT GREWAL 10/04/17 11:04 Consult to Physician [CONS] Routine Comment: Consulting Provider: JC JASON Physician Instructions: Reason For Exam: sepsis, pna, diarrhea, hiv aids 10/07/17 12:38 Consult to Physician [CONS] Routine Comment: Consulting Provider: ABILIO GARCIA Physician Instructions: Reason For Exam: pna, respiratory failure 10/07/17 12:39 Consult to Physician [CONS] Routine Comment: Consulting Provider: YVONNE BUTTS Physician Instructions: Reason For Exam: diarrhea, HIV, opportunistic infection? 10/10/17 16:05 Physical Therapy Evaluation and Treat [CONS] Routine Comment: Reason For Exam: generalized weakness 10/17/17 12:46 Consult to Case Management [CONS] Routine Services Needed at Discharge: Home O2 Notified:: case management coordinatorcorporate services manager Therapy Evaluation and Treat [CONS] Routine Comment: Reason For Exam: ADLs evaluation Primary care physician: FRED GUZMAN Hospitalization Condition: Fair Disposition: DC/[place]-06 HOME UNDER HOME [facility] Core Measure Documentation - Palliative Care Palliative Care/ Comfort Measures: Hospice Care - Core Measures Any of the following diagnoses?: none Exam - Constitutional Vitals: Temp Pulse Resp BP Pulse Ox 98.4 F 100 H 22 115/72 99 10/25/17 07:45 10/25/17 09:25 10/25/17 09:25 10/25/17 07:45 10/25/17 07:45 General appearance: Present: no acute distress, well-nourished - EENT Eyes: Present: PERRL ENT: hearing intact, clear oral mucosa - Neck Neck: Present: supple, normal ROM - Respiratory Respiratory effort: normal Respiratory: bilateral: diminished, rhonchi - Cardiovascular Heart Sounds: Present: S1 & S2. Absent: rub, click - Extremities Extremities: pulses symmetrical, No edema Peripheral Pulses: within normal limits - Abdominal General gastrointestinal: Present: soft, non-tender, non-distended, normal bowel sounds - Integumentary Integumentary: Present: clear, warm, dry - Musculoskeletal Musculoskeletal: gait normal, strength equal bilaterally - Psychiatric Psychiatric: appropriate mood/affect, intact judgment & insight - Neurologic Neurologic: CNII-XII intact, moves all extremities Plan Special Instructions: home oxygen via Follow up with: FRED GUZMAN MD [Primary Care Provider] - 3-5 Days Prescriptions: Azithromycin [Zithromax TAB] 1,200 mg PO Melendrez@1000 #10 tablet predniSONE [Deltasone] 10 mg PO .TAPER #48 tab Sulfamethoxazole/Trimethoprim [Bactrim DS TAB] 2 each PO Q8HR #4 tablet Other Discharge Orders: Home Health Care (Amb) Location: None Selected
--- NOTE | 2017-10-25 21:15 | Discharge Summary ---
Providers - Providers Date of Admission: 10/03/17 04:16 Date of discharge: 10/25/17 Attending physician: ROBERT GREWAL 10/04/17 11:04 Consult to Physician [CONS] Routine Comment: Consulting Provider: JC JASON Physician Instructions: Reason For Exam: sepsis, pna, diarrhea, hiv aids 10/07/17 12:38 Consult to Physician [CONS] Routine Comment: Consulting Provider: ABILIO GARCIA Physician Instructions: Reason For Exam: pna, respiratory failure 10/07/17 12:39 Consult to Physician [CONS] Routine Comment: Consulting Provider: YVONNE BUTTS Physician Instructions: Reason For Exam: diarrhea, HIV, opportunistic infection? 10/10/17 16:05 Physical Therapy Evaluation and Treat [CONS] Routine Comment: Reason For Exam: generalized weakness 10/17/17 12:46 Consult to Case Management [CONS] Routine Services Needed at Discharge: Home O2 Notified:: spring encaserchannel account manager Therapy Evaluation and Treat [CONS] Routine Comment: Reason For Exam: ADLs evaluation Primary care physician: FRED GUZMAN Hospitalization Condition: Fair Disposition: DC-50 TO HOSPICE (HOME) Core Measure Documentation - Palliative Care Palliative Care/ Comfort Measures: Hospice Care Exam - Constitutional Vitals: Temp Pulse Resp BP Pulse Ox 98.4 F 100 H 22 115/72 99 10/25/17 07:45 10/25/17 09:25 10/25/17 09:25 10/25/17 07:45 10/25/17 07:45 Plan Follow up with: FRED GUZMAN MD [Primary Care Provider] - 3-5 Days Prescriptions: Azithromycin [Zithromax TAB] 1,200 mg PO Melendrez@1000 #10 tablet predniSONE [Deltasone] 10 mg PO .TAPER #48 tab Sulfamethoxazole/Trimethoprim [Bactrim DS TAB] 2 each PO Q8HR #4 tablet Other Discharge Orders: Home Health Care (Amb) Location: None Selected
== END 2017-10-25 14:16 | disposition hospice, home (50) | DRG 974 ==
LOC: ED 00:30 → 4A 04:16 → 3A 10-21 09:19
PROVIDERS: ADMIT Internal Medicine; ATTEND Internal Medicine
PROC: 4A033R1 Measurement of Arterial Saturation, Peripheral, Percutaneous Approach (ICD-10-PCS; principal; 2017-10-08)
PROC: 0B9F8ZX Drainage of Right Lower Lung Lobe, Via Natural or Artificial Opening Endoscopic, Diagnostic (ICD-10-PCS; 2017-10-14)
PROC: 0BBF8ZX Excision of Right Lower Lung Lobe, Via Natural or Artificial Opening Endoscopic, Diagnostic (ICD-10-PCS; 2017-10-14)
DX: A41.9 Sepsis, unspecified organism (principal); B20 Human immunodeficiency virus [HIV] disease; J96.01 Acute respiratory failure with hypoxia; J15.9 Unspecified bacterial pneumonia; E87.1 Hypo-osmolality and hyponatremia; F17.200 Nicotine dependence, unspecified, uncomplicated; F14.90 Cocaine use, unspecified, uncomplicated; Z82.49 Family history of ischemic heart disease and other diseases of the circulatory system
CPT/HCPCS: 36415; 36600; 71045; 71046; 71275; 74177; 78452; 80048; 80053; 80202; 81001; 82024; 82164; 82270; 82550; 82553; 82803; 82962; 83615; 83690; 83880; 84484; 85007; 85025; 85027; 85379; 85610; 86403; 87040; 87045; 87102; 87103; 87116; 87177; 87205; 87220; 87324; 87449; 87536; 88112; 88305; 88312; 93005; 93010; 93017; 93970; 94640; 94644; 94760; A9502; J0171; J0456; J0692; J0696; J1650; J1956; J2270; J2405; J2704; J2785; J2920; J3010; J3370; J7030; J7040; J7050; Q9967